=== PATIENT | male | born 1960 | race Caucasian/White ===

== ENCOUNTER → 2017-10-29 10:21 | Outpatient (CLI) | payer OTHER, SELFPAY ==
--- NOTE | 2017-10-29 10:24 | STE_ITS ---
Reason For Study: SOB Stress Results Protocol: Db Protocol Maximum Predicted HR: 166 bpm Target HR: 141 bpm% Max imum Predicted HR: 91 % DurationHeart Rate Stage (mm:ss) (bpm) BP BASELINE 85 122/78 STAGE 1 3:00 11 4 152/88 STAGE 2 3:00 12 6 178/86 STAGE 3 3:00 13 7 188/88 STAGE 4 1:00 15 1 / RECOVERY 108 142/8 0 Stress Duration: 10:00 mm:ss Maximum Stress HR: 151 bpm Baseline Echocardiogram Findings The estimated ejection fraction is 65 %. Stress Echo Wall motion Data Resting WMIntermediate WMStress WM Resting Wall Motion Wall Motion Stress No regional wall motion No regional wall motion abnormalities noted. abnormalities noted. EKG Data Normal intervals are noted. The patient exercised according to the regular Db protocol for a total duration of 10:00. The maximum heart rate attained was 150 beats per minute. This was 90% of maximum predicted heart rate. The patient exercised into stage 4 of the Db protocol. During stress, there were no ST or T wave changes noted to suggest ischemia. Interpretation Summary The study was technically difficult. Contrast injection was performed. The estimated ejection fraction is 65 %. Normal adequate dobutamine treadmill echocardiogram. Negative for ischemia by EKG and echocardiographic anterior. No anginal symptoms noted. No arrhythmias noted. Appropriate blood pressure response to exercise. Average exercise capacity for age. Test terminated due to the attainment of target heart rate. Final LVEF is 75%. Decreased sensitivity due to poor echo windows requiring Definity agent. Patient tolerated procedure well. Ordering Physician: Harpreet Lee Referring Physician: Harpreet Lee Performed By: Katlyn Waterman, RDCS, RVT
== END ==
PROVIDERS: Family Provider Family Medicine; PCP Family Medicine; Visit Provider Family Medicine
DX: R06.02 Shortness of breath (principal)
CPT/HCPCS: 93017; 93350; Q9957; A4216; C8928

== ENCOUNTER → 2017-11-14 08:31 | Outpatient (CLI) | payer OTHER, SELFPAY ==
--- NOTE | 2017-11-14 08:37 | CT_ITS ---
STUDY: CT ABDOMEN AND PELVIS WITHOUT CONTRAST REASON FOR EXAM: Male, 56 years old. Flank pain. Patient has had previous lithotripsy. The RADIATION DOSAGE (If Supplied By Facility): CTDIvol = ( 16.8 ) mGy, DLP = ( 873.22 ) mGycm TECHNIQUE: Transaxial images were obtained from the dome of the diaphragm to the symphysis pubis without oral contrast, and without intravenous contrast. Sagittal and coronal images were reconstructed. Individualized dose optimization techniques were used for this CT. COMPARISON: CT of the abdomen and pelvis dated April 20, 2016. FINDINGS: The visualized lung bases are unremarkable. The visualized portions of the heart are within normal limits. Normal liver. The gallbladder is very distended measuring approximately 14 cm in greatest dimension. There appear to be multiple calcified gallstones in the gallbladder neck. There are multiple benign calcified granulomata of the spleen. Normal pancreas. Normal bilateral adrenal glands. Normal right kidney. There are multiple left-sided renal cysts, similar to previous CTA. The largest cyst measures approximately 6.3 cm in greatest dimension. This is attenuation of approximately 0 Hounsfield units suggesting a simple cyst. There is a small nonobstructing calculus in the right renal collecting system measuring about 3 mm. There is a nonobstructing calculus in the left renal collecting system measuring about 3 mm. Normal visualized stomach. There is no evidence for dilated bowel, ascites or pneumoperitoneum. The small bowel has a grossly normal appearance. Stool is visible throughout the colon with scattered diverticula. The appendix is visualized and appears normal. There is variant anatomy in the region of the celiac axis and superior mesenteric artery. Normal inferior vena cava. Normal retroperitoneum. Normal urinary bladder. Normal visualized prostate gland. There is a small umbilical hernia containing fat. There are degenerative changes of both hips. There are subarticular erosions within the acetabulum and right femoral head. CT/Abdomen/Pelvis without Cont IMPRESSION: 1. Very distended gallbladder suggesting possible gallbladder hydrops. 2. Cholelithiasis. 3. Multiple left-sided renal cysts. 4. Bilateral nonobstructing renal calculi. Electronically Signed: Amrita Fletcher MD at 9:12 EDT , Service support ,
== END ==
PROVIDERS: Family Provider Family Medicine; PCP Family Medicine; Visit Provider Family Medicine
DX: R10.32 Left lower quadrant pain (principal)
CPT/HCPCS: 74176

== ENCOUNTER 2017-11-20 12:07 | Day surgery (SDC) | payer OTHER, SELFPAY ==
[2017-11-20] VITALS (8 sets, daily range): BP systolic 114–136; BP diastolic 73–91; PULSE 67–80; RESP 15–20; TEMP 36.1–36.8; O2SAT 91–98; BMI 33.2
--- NOTE | 2017-11-20 12:18 | EKG12_ITS ---
Test Reason : PRE-OP Blood Pressure : / mmHG Vent. Rate : 082 BPM Atrial Rate : 082 BPM P-R Int : 140 ms QRS Dur : 080 ms QT Int : 380 ms P-R-T Axes : 036 026 047 degrees QTc Int : 443 ms Normal sinus rhythm Normal ECG When compared with ECG of 16-APR-2014 05:39, No significant change was found Confirmed by MG CHANDLER, ANGELIQUE ([id number]), editor dictionary RUTH SALAS ([id number]) on 11/26/2017 9:43:46 AM Referred By: Jamie Simon Confirmed By:ANGELIQUE HOLLIDAY MD
[2017-11-20 12:37] LABS: Hematocrit 42.9 % (40-54); Hemoglobin 14.8 g/dl (13.0-16.5); Mean Corp Hgb Conc 34.5 g/gl (32-36); Mean Corpuscular Hgb 30.3 pg (27.0-32.0); Mean Corpuscular Volume 87.9 fL (80-94); Mean Platelet Vol. 10.7 fl (6.2-12.0); Platelet Count 186 K/mm3 (150-450); RBC Distribution Width CV 12.3 % (11.6-14.6); RBC Distribution Width SD 39.4 fl (35.1-43.9); Red Blood Count 4.88 M/mm3 (4.6-6.2); Scan Indicated on CBC? Y/N NO; White Blood Count 6.8 K/mm3 (4.4-11.0)
[2017-11-20 12:48] LABS: Anion Gap 7 (5-15); BUN 25 mg/dL (7-18); BUN/Creat Ratio 20.5 RATIO (10-20); Calcium,Total 8.9 mg/dL (8.5-10.1); Chloride 109 mmol/L (98-107); Creatinine, Serum 1.22 mg/dL (0.70-1.30); EST Glomerular Filtration Rate 66 mL/min (>60); Est Glom Filt Rate - Afr Amer 79 mL/min (>60); Estimated Creatinine Clearance 66.97 ml/min; Glucose 87 mg/dL (74-106); Sodium Level 141 mmol/L (136-145)
--- NOTE | 2017-11-20 14:00 | GALL_PTH ---
PATIENT: GENET COSTA [place] [facility] [id number] AGE/SX: 56/M ROOM: RE11/20/[address]: Dr. Jamie Simon MD : 1960 BED: DIS: 11/20/2017 SPEC #: [id number] RECD: 11/21/17 09:11 STATUS: SWETHA YVONNE #: [id number] AMY: 11/20/17 14:[address]: Jamie Simon DEPT: SURGICAL PATHOLOGY RECD BY: Ricky Guillermo ENTERED: 11/21/17 09:11 SP TYPE: SALAZAR SMALLWOOD DR: Dr. Harpreet Lee MD Tissues: Gallbladder, NOS Procedures: Surgery Specimen Level III HEADER OPERATION: Laparoscopic cholecystectomy PRE-OP DIAGNOSIS: Cholelithiasis TISSUE SUBMITTED: Gallbladder and contents MICROSCOPIC DIAGNOSIS Gallbladder and contents: Chronic cholecystitis and cholelithiasis. See comment. A small benign pericystic lymph node with reactive changes. SJ:lexii 11/22/17 COMMENT The epithelium is completely denuded. Gallbladder wall shows extensive fibrosis. MICROSCOPIC DESCRIPTION Slides are reviewed. GROSS DESCRIPTION Received is one container labeled with the patient's name and designated gallbladder. The specimen consists of a gallbladder measuring 10.5 x 5 x 2.5 cm. The external surface is smooth and glistening. Focally, it is granular, hemorrhagic and contains cautery artifact. The lumen of the gallbladder contains an ovoid yellow decker calculus measuring 3.5 cm in greatest dimension. The mucosa is bile-stained and without any mass lesions. The gallbladder wall averages 0.1 cm in thickness and is free of mass lesions. Hl7 Developer sections of the gallbladder and the cystic duct are submitted in one cassette. / AM:lexii 11/21/17 TC:5 CPT: 11145
--- NOTE | 2017-11-20 15:26 | RAD_ITS ---
CLINICAL HISTORY: Male, 56 years old. Gallstone. PROCEDURE: CHOLANGIOGRAM - intraoperative FLUOROSCOPY TIME (if supplied): (0:44) minutes/seconds TECHNIQUE: Single intraoperative view. FINDINGS: There is surgical instrumentation. Contrast is seen within the cystic duct. Contrast in nondilated intra and extra hepatic bile bile ducts. Contrast enters into the duodenum. RAD/Cholangiogram/ O R,Initial IMPRESSION: Intraoperative fluoroscopy. Electronically Signed: Edmundo Infante MD at 20:48 EDT , Service support ,
[2017-11-20] MEDS: Bupiv/Epi 0.5% Mpf 30 ML Vial (16:16)
--- NOTE | 2017-11-20 16:21 | PCM.DC.GB ---
Discharge Diet: Light diet - advance as tolerated Discharge Activity: Return to Normal Activity, May Not Drive - for 2-3 days or while taking narcotic pain medicataions., - - Do not drive, work heavy equipment or sign legal documents for 24 hours. May shower in (days): 1 - with the bandage in place. Lifting Restrictions: 20 lbs for 2 weeks Additional Activity Instructions:: Pain medication may cause nausea. You should typically eat light foods as you take your pain medications. Pain medication may also cause constipation. If this is a problem for you, please discuss with your doctor. Call your doctor if your incision/area has: Continuous Slow Oozing, Sudden Increased Bleeding, Increased Pain/ Swelling, Increased Redness, Foul Smelling Discharge, Fever of 101 or Higher Call your doctor if you observe: Fever of 101 or Higher Suture Line Care: Avoid Pulling/Pushing, Avoid Pinching/Bending Additional Dressing/Incision Instructions:: Leave operative bandaids on for 2 days. When you remove dressing, leave Steri-Strips on until your follow-up appointment, or until the Steri-Strips fall off on their own. Allergies/Adverse Reactions: Allergies azithromycin [From Zithromax Z-Jerzy] Adverse Reaction (Verified 11/19/17 14:27) d/t hx of a-fib Medications to take at Discharge Aspirin [Aspirin, Baby] 81 mg PO DAILY@0800 05/09/16 Esomeprazole Magnesium [Nexium 24Hr] 20 mg PO DAILY 05/09/16 Sildenafil Citrate [Viagra] 1 tab PO PRN PRN 05/09/16 lisinopril 10 mg tablet 10 mg PO QDAY 11/18/17 Diclofenac Sodium 75 mg PO DAILY 11/20/17 Oxycodone HCl/Acetaminophen [Percocet 5/325] 1 - 2 tablet PO Q4H PRN PRN 7 Days #30 tablet 11/20/17 The following prescriptions were given: Oxycodone HCl/Acetaminophen [Percocet 5/325] 1 - 2 tablet PO Q4H PRN PRN 7 Days #30 tablet PRN Reason: Pain Primary Care Physician: Harpreet Lee MD [Primary Care Provider] - Please Follow Up With: Jamie Simon MD When: call tomorrow to make 2 week appt [phone]
--- NOTE | 2017-11-20 16:28 | OP.PCM_ITS ---
Problem List (1) Cholelithiases Status: Acute Qualifiers: Cholelithiasis location: gallbladder Cholecystitis presence: without cholecystitis Biliary obstruction: without biliary obstruction Qualified Code(s): K80.20 - Calculus of gallbladder without cholecystitis without obstruction Report of Operation Date of Procedure: 11/20/17 Pre-Operative Diagnosis: Cholelithiasis and biliary colic Post-Operative Diagnosis: Same Surgery/Procedure Performed:: Laparoscopic cholecystectomy with cholangiogram Specimen's removed: Gallbladder and contents Description of Procedure: After obtaining informed consent patient was brought back to the operating room. General anesthesia was induced. The abdomen was prepped and draped in usual sterile fashion. A small midline incision was made superior to the umbilicus and deepened to the level of fascia. The fascia was elevated and incised. Next the peritoneum was elevated and incised in the same fashion. Finger sweep was performed and the Beckwith trocar was placed into the abdomen. The balloon was inflated. The abdomen was inflated to 15 mmHg. Next a camera was introduced into the abdomen and the abdomen was inspected. Next under direct visualization three 5-mm ports were placed one subxiphoid and 2 subcostal. The gallbladder was aspirated. The patient did have hydrops of the gallbladder. Next the gallbladder was elevated and retracted toward the right shoulder. The peritoneum was stripped from the gallbladder. The infundibulum was located and retracted laterally. Next the triangle of Calot was dissected and the cystic duct and cystic artery were identified. Cholangiograms were performed. The Riojas catheter was used to clamp across the infundibulum and the needle was inserted into the gallbladder. Under fluoroscopy contrast was instilled into the gallbladder and the common duct, cystic duct as well as proximal hepatic ducts were identified. There was good filling of the duodenum. There were no filling defects noted in the common bile duct. The clamp was removed as well as the needle and the infundibulum was grasped once more. Three hemolock clips were placed across the cystic duct. The cystic duct was then divided leaving 2 clips on the stump. The cystic artery was clipped and divided in the same fashion. The hook cautery was then used to take the gallbladder off of the gallbladder bed. Hemostasis was obtained. Gallbladder fossa was irrigated and no active bleeding or bile leakage was noted. Next the camera switched to a 5 mm camera and introduced in the subxiphoid port. An Endopouch bag was placed through the umbilical port and the gallbladder was placed into it. The gallbladder was then removed through the umbilical incision. The camera was then reinserted through the umbilical port. The gallbladder fossa was inspected once more and noted to be hemostatic with no leaking bile. The abdomen was suctioned dry the 5 mm ports were removed under direct visualization. The umbilical port was then removed and the air was removed from the abdomen. Next using an 0 Vicryl suture the umbilical fascia was closed in a [id number] fashion. The umbilical port site was irrigated local anesthetic was administered to all the incisions. All the incisions were closed subcuticular 4-0 Monocryl sutures followed by Steri- Strips and dressings. The patient was awoken and taken to PACU in stable condition. - Admit VTE Documentation VTE Mechan Device Prophylaxis: SCD's
[2017-11-20] MEDS: oxyCODONE 5 MG Tablet PO (18:17)
== END 2017-11-20 19:30 | disposition home or self-care (01) ==
LOC: SDC 12:07 → AC 12:09
PROVIDERS: Anesthesiology; Family Provider Family Medicine; PCP Family Medicine; Visit Provider Surgery
PROC: (CPT 47610; principal; 2017-11-20 13:40)
DX: K80.10 Calculus of gallbladder with chronic cholecystitis without obstruction (principal); K82.1 Hydrops of gallbladder; I48.91 Unspecified atrial fibrillation; I10 Essential (primary) hypertension; K21.9 Gastro-esophageal reflux disease without esophagitis; G47.30 Sleep apnea, unspecified; N28.1 Cyst of kidney, acquired; Z87.442 Personal history of urinary calculi; Z87.891 Personal history of nicotine dependence; Z79.82 Long term (current) use of aspirin; Z79.899 Other long term (current) drug therapy
CPT/HCPCS: 47563; 74300; 76000; 80048; 85027; 88304; 93005; J7120; J2405

== ENCOUNTER → 2018-03-10 09:06 | Outpatient (CLI) | payer OTHER, SELFPAY | PROVIDERS: Family Provider Family Medicine; PCP Family Medicine; Visit Provider Physician Assistant Medical | DX: I48.91 Unspecified atrial fibrillation (principal) | CPT/HCPCS: 93225; 93226 ==

== ENCOUNTER → 2018-05-31 14:53 | Outpatient (CLI) | payer OTHER, SELFPAY | PROVIDERS: Family Provider Family Medicine; PCP Family Medicine; Visit Provider Physician Assistant Medical | DX: J02.9 Acute pharyngitis, unspecified (principal) | CPT/HCPCS: 87081 ==

== ENCOUNTER → 2018-05-31 14:55 | Outpatient (CLI) | payer OTHER, SELFPAY | PROVIDERS: Family Provider Family Medicine; PCP Family Medicine; Referring Provider Physician Assistant Medical; Visit Provider Physician Assistant Medical | DX: J02.9 Acute pharyngitis, unspecified (principal) ==

== ENCOUNTER → 2018-07-23 11:55 | Outpatient (CLI) | payer OTHER, SELFPAY ==
[2018-07-17 11:35] VITALS: BMI 33.2
--- NOTE | 2018-07-23 11:58 | RAD_ITS ---
STUDY: X-RAY CHEST REASON FOR EXAM: Male, 57 years old. Preop for heart catheter TECHNIQUE: PA and lateral views of the chest. COMPARISON: 08/15/2017 FINDINGS: The lungs are clear and expanded. There is no demonstrated pleural abnormality. Normal size heart. Normal mediastinum and rubia. Normal visualized pulmonary arteries. Normal visualized aortic arch and descending thoracic aorta. Normal visualized thoracic spine. Normal visualized ribs, clavicles, and shoulders. There is no demonstrated abnormality of the visualized soft tissue structures of the upper abdomen. RAD/Chest PA and Lateral IMPRESSION: Normal x-ray examination of the chest. Electronically Signed: Jose Antonio MD at 15:23 EST , Service support ,
== END ==
PROVIDERS: Family Provider Family Medicine; PCP Family Medicine; Referring Provider Internal Medicine Cardiovascular Disease; Visit Provider Internal Medicine Cardiovascular Disease
DX: R07.9 Chest pain, unspecified (principal)
CPT/HCPCS: 71046

== ENCOUNTER 2018-07-28 09:00 | Day surgery (SDC) | payer OTHER, SELFPAY ==
[2018-07-17 11:35] VITALS: BMI 33.2
[2018-07-23 16:48] LABS: Absolute Lymphocyte Count 1.52 X10^3/ul (0.83-4.51); Absolute Neutrophil Count 4.9 X10^3/uL (2.0-7.7); Basophil# 0.06 X10^3/uL; Basophil% 0.8 % (0-1); Eosinophil# 0.25 X10^3/uL; Eosinophils% 3.4 % (0-5); Hematocrit 40.1 % (40-54); Hemoglobin 13.5 g/dl (13.0-16.5); Lymphocyte # 1.52 X10^3/ul (4.0); Lymphocyte % 20.6 % (19-41); Mean Corp Hgb Conc 33.7 g/gl (32-36); Mean Corpuscular Hgb 29.9 pg (27.0-32.0); Mean Corpuscular Volume 88.9 fL (80-94); Mean Platelet Vol. 11.2 fl (6.2-12.0); Monocyte# 0.66 X10^3/uL; Monocyte% 8.9 % (0-10); Neutrophil # 4.88 X10^3/uL (2.7-7.7); Neutrophil % 66.2 % (47-70); Platelet Count 196 K/mm3 (150-450); RBC Distribution Width CV 12.3 % (11.6-14.6); RBC Distribution Width SD 39.2 fl (35.1-43.9); Red Blood Count 4.51 M/mm3 (4.6-6.2); White Blood Count 7.4 K/mm3 (4.4-11.0)
[2018-07-23 17:00] LABS: POSITIVE COUNT NO; POSITIVE DIFFERENTIAL NO; POSITIVE MORPHOLOGY NO
[2018-07-23 17:16] LABS: Anion Gap 7 (5-15); BUN 17 mg/dL (7-18); BUN/Creat Ratio 15.9 RATIO (10-20); Calcium,Total 8.5 mg/dL (8.5-10.1); Chloride 110 mmol/L (98-107); Creatinine, Serum 1.07 mg/dL (0.70-1.30); EST Glomerular Filtration Rate 76 mL/min (>60); Est Glom Filt Rate - Afr Amer 92 mL/min (>60); Glucose 99 mg/dL (74-106); Sodium Level 143 mmol/L (136-145)
[2018-07-25 08:36] VITALS: BMI 33.2
--- NOTE | 2018-07-28 10:59 | CL.D_ITS ---
Patient Name: GENET COSTA Study Date: 07/28/2018 Performing: Ricki Smith MD Ht: 68.89 inches 175 cm : 1960 Wt: 224.87 lbs 102 kg Age: 57 Gender: male BSA: 2.17 PROCEDURE(S) PERFORMED GB02-WXS/COR/LV CLINICAL PROFILE AND INDICATIONS Indications: Cardiac Arrythmia Heart Failure: None Stress/Imaging Stress/Image Study Performed: No CAD Presentations: No Sxs, no angina. CONCLUSIONS Normal coronary arteries Normal LV size, wall motion,and systolic function RECOMMENDATIONS Medical therapy DESCRIPTION OF PROCEDURE The patient arrived to the procedure lab. The risks and benefits of the procedure as well as a full d escription of our services here and current unavailability of surgical backup were fully explained to the patient and/or their significant other prior to the catheterization. The Timeout was completed, verifying the correct patient and procedure. The patient's procedural site was prepped and draped in the usual fashion. Local anesthetic was given subcutaneously to right radial region with Lidocaine 2% . Using a modified Seldinger technique, Left Coronary Artery selective angiography was performed in multiple views using a 5 Fr. 4.0 [place] catheter. Right Coronary Artery selective angiography was the n performed in multiple views using a 5 Fr. 4.0 [place] catheter. Left Ventriculography was performed i n DE LEON projection using a 5 Fr. Pigtail catheter. LV to AO pullback pressures were then recorded.The a rterial sheath was pulled and a TR Band was applied for hemostasis CORONARY ANGIOGRAPHY DOMINANCE: Right Dominant LEFT HEART ASSESSMENT Left Ventricular Ejection Fraction: by LV Gram 60 % Normal LV wall motion Normal Left Ventricular systolic function LEFT MAIN: Angiographically normal LEFT ANTERIOR DECENDING ARTERY: Angiographically normal CIRCUMFLEX ARTERY: Angiographically normal RIGHT CORONARY ARTERY: Angiographically normal COMPLICATIONS PROCEDURE MEDICATIONS Fentanyl 50 mcg IV Versed 1 mg IV Oxygen: 2 L/min via nasal cannula Heparin diluted in 23cc Heparinized saline. Patient given 10cc IA of this solution. 07/28/2018 10:43 :44 Verapamil 2.5mg, Ntg 100mcgs, 2000 units of Heparin diluted in 23cc Heparinized saline. Patient give n 10cc IA of this solution. 07/28/2018 10:43:44 SUMMARY OF HEMODYNAMIC DATA Time AIR REST ECG 09:27:41 AO 97/71 (86) SA 10:45:39 LV 105/1, 6 10:51:32 LV 109/2, 7 10:51:39 LV 0/6, 0 10:52:43 LV 110/2, 9 10:52:49 LVp 102/0, 7 10:52:53 AOp 98/63 (81) 10:52:58 Signed By Ricki Smith MD On 07/28/2018 10:59:02 AM Ricki Smith MD
== END 2018-07-28 13:35 | disposition home or self-care (01) ==
PROVIDERS: Family Provider Family Medicine; PCP Family Medicine; Referring Provider Internal Medicine Cardiovascular Disease; Visit Provider Internal Medicine Cardiovascular Disease
DX: R07.89 Other chest pain (principal); I48.91 Unspecified atrial fibrillation; I10 Essential (primary) hypertension; K21.9 Gastro-esophageal reflux disease without esophagitis; G47.30 Sleep apnea, unspecified; Z87.442 Personal history of urinary calculi; Z90.49 Acquired absence of other specified parts of digestive tract; Z79.82 Long term (current) use of aspirin; Z79.899 Other long term (current) drug therapy; Z87.891 Personal history of nicotine dependence
CPT/HCPCS: 36415; 80048; 85025; 93458; 99152; 99153; J7040; Q9967; C1769; C1894

== ENCOUNTER → 2019-03-05 | Outpatient (CLI) | payer OTHER, SELFPAY ==
[2019-02-26 13:27] VITALS: BMI 33.2
--- NOTE | 2019-03-05 14:39 | CT_ITS ---
STUDY: CT ABDOMEN AND PELVIS WITHOUT CONTRAST REASON FOR EXAM: Male, 58 years old. Abdomen pain RADIATION DOSAGE (If Supplied By Facility): CTDIvol = ( 13.74 ) mGy, DLP = ( 708.25 ) mGycm TECHNIQUE: Transaxial images were obtained from the dome of the diaphragm to the symphysis pubis without oral contrast, and without intravenous contrast. Sagittal and coronal images were reconstructed. Individualized dose optimization techniques were used for this CT. COMPARISON: None. FINDINGS: The visualized lung bases are unremarkable. The visualized portions of the heart are within normal limits. Normal liver. There are surgical clips in the gallbladder fossa consistent with a prior cholecystectomy. Normal spleen. Normal pancreas. Normal bilateral adrenal glands. Multiple bilateral kidney stones are noted the largest measures 3 mm. There is no hydronephrosis. There are 2 cysts in the left kidney measuring respectively 7 and 4.6 cm. Normal visualized stomach. Normal small intestine. There are multiple colonic diverticula consistent with diverticulosis. The appendix is visualized and appears normal. Normal abdominal aorta. Normal inferior vena cava. Normal retroperitoneum. Normal urinary bladder. Normal abdominal wall. Normal osseous structures. CT/Abdomen/Pelvis without Cont IMPRESSION: Multiple bilateral kidney stones are noted the largest measures 3 mm. There is no hydronephrosis. Electronically Signed: Tang Pinedo, at 7:31 EDT Tel , Service support ,
== END | disposition home or self-care (01) ==
LOC: CT 14:38
PROVIDERS: Family Provider Family Medicine; PCP Family Medicine; Referring Provider Surgery; Visit Provider Surgery
DX: R10.9 Unspecified abdominal pain (principal)
CPT/HCPCS: 74176

== ENCOUNTER → 2019-06-22 14:33 | Outpatient (CLI) | payer OTHER, SELFPAY ==
[2019-04-07 09:23] VITALS: BMI 31.9
--- NOTE | 2019-06-22 14:34 | CT_ITS ---
STUDY: CTA CHEST REASON FOR EXAM: Male, 58 years old. Shortness of breath and chest pain following a long drive. RADIATION DOSAGE (If Supplied By Facility): CTDIvol = ( 18.53 ) mGy, DLP = ( 696.00 ) mGycm TECHNIQUE: The examination was performed with the intravenous administration of IV 100ML ISOVUE 370 100. Post-processing of the angiographic images was performed, with multiplanar reformation and 3D reconstruction. Individualized dose optimization techniques were used for this CT. COMPARISON: None. FINDINGS: Normal enhancement of the main pulmonary artery and right and left pulmonary arteries. Normal enhancement of the bilateral peripheral pulmonary arteries. There is no demonstrated pulmonary embolism. Normal thoracic aorta and visualized great vessels. There is no demonstrated aortic dissection. Normal heart and pericardium. Normal mediastinum. There are calcified right hilar lymph nodes. Normal visualized trachea and bronchi. The lungs are well expanded. Normal pulmonary parenchyma. Normal pleura. Normal chest wall structures. There are mild degenerative changes of thoracic spine. Stable 2 dominant cysts in the left kidney. Stable nonobstructive right intrarenal calculus. Small hiatal hernia. CT/CTA Chest W/WO Contrast IMPRESSION: No evidence of pulmonary embolism. Electronically Signed: Felipe Patel, at 15:35 EST , Service support ,
== END ==
PROVIDERS: Family Provider Family Medicine; PCP Family Medicine; Referring Provider Internal Medicine Cardiovascular Disease; Visit Provider Internal Medicine Cardiovascular Disease
DX: R06.02 Shortness of breath (principal); R07.9 Chest pain, unspecified
CPT/HCPCS: 71275; Q9967

== ENCOUNTER → 2019-09-14 15:45 | Outpatient (CLI) | payer OTHER, SELFPAY ==
[2019-04-07 09:23] VITALS: BMI 31.9
--- NOTE | 2019-09-14 15:50 | RAD_ITS ---
STUDY: X-RAY CHEST REASON FOR EXAM: Male, 58 years old. COUGH x4 WEEKS, CHEST DISCOMFORT, DYSPNEA TECHNIQUE: PA and lateral views of the chest. COMPARISON: 07/23/2018. FINDINGS: The lungs are clear and expanded. There is no demonstrated pleural abnormality. Normal size heart. Normal mediastinum and rubia. Normal visualized pulmonary arteries. Normal visualized aortic arch and descending thoracic aorta. There are diffuse degenerative changes of the visualized thoracic spine. There is degenerative osteoarthritis of the bilateral shoulders. There is no demonstrated abnormality of the visualized soft tissue structures of the upper abdomen. RAD/Chest PA and Lateral IMPRESSION: Normal x-ray examination of the chest for age. Electronically Signed: Laurie Matthews MD at 4:21 EST , Service support ,
[2019-09-14 17:38] LABS: Absolute Lymphocyte Count 1.64 X10^3/uL (0.83-4.51); Absolute Neutrophil Count 6.6 X10^3/uL (2.0-7.7); Eosinophil# 0.27 X10^3/uL; Eosinophils% 2.8 % (0-5); Hematocrit 45.6 % (40-54); Hemoglobin 15.2 g/dL (13.0-16.5); Lymphocyte # 1.64 X10^3/ul (4.0); Lymphocyte % 17.2 % (19-41); Mean Corp Hgb Conc 33.3 g/dL (32-36); Mean Corpuscular Hgb 30.1 pg (27.0-32.0); Mean Corpuscular Volume 90.3 fL (80-94); Mean Platelet Vol. 10.9 fl (6.2-12.0); Monocyte# 0.85 X10^3/uL; Monocyte% 8.9 % (0-10); NRBC Flagged by Analyzer 0 % (0-5); Neutrophil # 6.64 X10^3/uL (2.7-7.7); Neutrophil % 69.7 % (47-70); Platelet Count 222 K/mm3 (150-450); RBC Distribution Width SD 39.6 fl (35.1-43.9); Red Blood Count 5.05 M/mm3 (4.6-6.2); White Blood Count 9.5 K/mm3 (4.4-11.0)
[2019-09-14 17:46] LABS: Anion Gap 3 (5-15); BUN 19 mg/dL (7-18); BUN/Creat Ratio 15.8 RATIO (10-20); Calcium,Total 8.9 mg/dL (8.5-10.1); Chloride 111 mmol/L (98-107); EST Glomerular Filtration Rate 66 mL/min (>60); Est Glom Filt Rate - Afr Amer 80 mL/min (>60); Glucose 92 mg/dL (74-106); Potassium 3.9 mmol/L (3.5-5.1); Sodium Level 142 mmol/L (136-145)
== END ==
PROVIDERS: PCP Family Medicine; Referring Provider Family Medicine; Visit Provider Family Medicine
DX: R07.89 Other chest pain (principal)
CPT/HCPCS: 36415; 71046; 80048; 85025

== ENCOUNTER → 2019-10-16 14:40 | Outpatient (CLI) | payer OTHER, SELFPAY ==
[2019-04-07 09:23] VITALS: BMI 31.9
--- NOTE | 2019-10-16 14:46 | RAD_ITS ---
STUDY: X-RAY CHEST REASON FOR EXAM: Male, 58 years old. pneumonia TECHNIQUE: PA and lateral views of the chest. COMPARISON: 09/14/2019. FINDINGS: The lungs are clear and expanded. There is no demonstrated pleural abnormality. Normal size heart. Normal mediastinum and rubia. Normal visualized pulmonary arteries. Normal visualized aortic arch and descending thoracic aorta. Normal visualized thoracic spine. Normal visualized ribs, clavicles, and shoulders. There is no demonstrated abnormality of the visualized soft tissue structures of the upper abdomen. RAD/Chest PA and Lateral IMPRESSION: Normal x-ray examination of the chest. Electronically Signed: Laurie Matthews MD at 1:12 EST , Service support ,
== END ==
PROVIDERS: PCP Family Medicine; Referring Provider Registered Nurse; Visit Provider Registered Nurse
DX: J18.9 Pneumonia, unspecified organism (principal)
CPT/HCPCS: 71046

== ENCOUNTER → 2020-03-14 07:04 | Outpatient (CLI) | payer OTHER, SELFPAY ==
[2019-04-07 09:23] VITALS: BMI 31.9
[2020-03-14 10:06] LABS: Anion Gap 6 (5-15); BUN 26 mg/dL (7-18); BUN/Creat Ratio 22.6 RATIO (10-20); Calcium,Total 8.7 mg/dL (8.5-10.1); Chloride 105 mmol/L (98-107); Cholesterol 221 mg/dL (200); Creatinine, Serum 1.15 mg/dL (0.70-1.30); EST Glomerular Filtration Rate 70 mL/min (>60); Est Glom Filt Rate - Afr Amer 84 mL/min (>60); Glucose 83 mg/dL (74-106); High Density Lipoprotein 42 mg/dL; PSA,Total - Annual Screen 0.42 ng/mL (0.00-4.00); Potassium 3.7 mmol/L (3.5-5.1); Sodium Level 139 mmol/L (136-145); Triglycerides 100 mg/dL; Very Low Density Lipoprotein 20 mg/dL (5-40)
[2020-03-14 10:15] LABS: Vitamin D,25 Hydroxy 32.1 ng/mL
== END ==
PROVIDERS: PCP Family Medicine; Referring Provider Family Medicine; Visit Provider Family Medicine
DX: Z00.00 Encounter for general adult medical examination without abnormal findings (principal)
CPT/HCPCS: 36415; 80048; 80061; 82306; 84153; G0103

== ENCOUNTER 2020-03-22 01:44 | Emergency (ER) | payer OTHER, SELFPAY ==
[2019-04-07 09:23] VITALS: BMI 31.9
[2020-03-22 01:45] VITALS: BP 146/97; PULSE 80; RESP 18; TEMP 36.4; O2SAT 98; BMI 32.5
--- NOTE | 2020-03-22 01:50 | ED.VIS.GEN ---
History of Present Illness Chief Complaint: Flank Pain Informant: Patient Narrative: 59-year-old male presenting with right flank pain. He states that it is in the lower right flank and radiates around to the groin. He states he has a history of kidney stones and this feels similar. He states he tried taking a muscle relaxer at 8:00 but that did not help. At 9 PM he took an Ambien and he still could not sleep. Dates that he has not been vomiting this time but he has severe pain. No jazmín hematuria is noted. Fever or chills. Past Medical History - Allergies and Home Meds Allergies/Adverse Reactions: Allergies azithromycin [From Zithromax Z-Jerzy] Adverse Reaction (Verified 03/22/20 01:50) d/t hx of a-fib Primary Care Physician: Harpreet Lee MD [Primary Care Provider] - Prior records reviewed: Yes Surgical History: - - ablation Lives: With Family Smoking Status: Former smoker Review of Systems General: Denies: Chills, Fever Eyes: Denies: Visual changes - bilaterally, Diplopia ENT: Denies: Rhinorrhea, Sore throat Cardiovascular: Denies: Chest pain, Palpitations Respiratory: Denies: Dyspnea, Cough, Dyspnea on exertion Gastrointestinal: Reports: Abdominal pain - Flank pain and right lower abdominal pain. Denies: Nausea, Vomiting Musculoskeletal: Reports: Back pain - Right flank pain. Denies: Myalgias, Arthralgias Skin: Denies: Rash Neurological: Denies: Headache Physical Exam Vital Signs/Narrative: Vital Signs Temp Pulse Resp BP Pulse Ox 03/22/20 01:45 97.6 F L 80 18 146/97 H 98 Inital Vital Signs reviewed: Yes General: Well nourished, No Acute Distress Head: Normocephalic Eyes: Perrl ENT: Moist mucous membranes Cardiovascular: Regular rate, Regular rhythm Respiratory: No distress Abdomen: Soft, Nondistended, - - Right-sided abdominal pain Back: CVA tenderness - Right Extremities: Negative for: Nontender Skin: Normal color Neurological: Alert, Oriented x3 Psychological: Normal affect Diagnostic/Tx/Re-eval Clinical Impression(s) from Imaging Studies Abdomen/Pelvis CT 03/22/20 01:51 IMPRESSION: 1. 3 mm proximal to mid right ureteral calculus resulting in mild proximal right-sided hydroureter nephrosis. 2. Additional nonobstructing right renal calculi measuring up to 4 mm. 3. Simple appearing left renal cysts. 4. Mild sigmoid colonic diverticulosis with no evidence of acute diverticulitis. 5. Small fat-containing umbilical hernia without bowel involvement. Electronically Signed: Ricky Ferrari MD at 2:50 EDT Tel , Service support , Laboratory Data 03/22/20 03/22/20 03/22/20 01:50 01:50 03:00 WBC 6.9 RBC 4.57 L Hgb 13.7 Hct 40.9 MCV 89.5 MCH 30.0 MCHC 33.5 RDW Std Deviation 39.7 RDW Coeff of Gene 12.1 Plt Count 187 MPV 11.0 Immature Gran % (Auto) 0.300 Neut % (Auto) 65.5 Lymph % (Auto) 21.0 [place] % (Auto) 8.1 Eos % (Auto) 3.8 Baso % (Auto) 1.3 H Absolute Neuts (auto) 4.5 Absolute Lymphs (auto) 1.45 Nucleated RBC % 0 Sodium 143 Potassium 3.8 Chloride 112 H Carbon Dioxide 25.0 Anion Gap 6 BUN 20 H Creatinine 1.40 H Estim Creat Clear Calc 56.32 Est GFR (MDRD) Af Amer 67 Est GFR (MDRD) Non-Af 56 L BUN/Creatinine Ratio 14.3 Glucose 118 H Calcium 8.6 Urine Color Yellow Urine Clarity Clear Urine pH 6.0 Ur Specific [place] 1.020 Urine Protein Negative Urine Glucose (UA) Normal Urine Ketones Negative Urine Occult Blood 250 H Urine Nitrite Negative Urine Bilirubin Negative Urine Urobilinogen Normal Ur Leukocyte Esterase Negative - Medical Decision Making Patient presents with flank pain consistent with previous kidney stones. He does have CVA tenderness on the right as well as a benign abdomen. Urinalysis shows blood without infection. CBC is unremarkable. BMP shows that the patient is slightly dehydrated. He was given a liter of IV fluids. He is given morphine and Toradol for pain. States he has a history of passing stones spontaneously as well as needing procedures so I did obtain a CT abdomen pelvis without contrast. This shows a 3 mm right ureteral stone. I believe this is likely going to pass given its size. Patient will be given Percocet and Zofran for home. He is counseled if he has worsening symptoms or intractable pain he should return to the ED for repeat evaluation. Patient amenable to discharge plan. He was given follow-up with urology. Impression: #1 Right ureteral stone 3 mm #2 Right flank pain #3 Hematuria ED Disposition - Plan for ED Patient: Disposition: Home or Assisted Living Instructions: ED Renal Stone w Colic Prescriptions: Ondansetron [Ondansetron Odt] 4 mg PO Q8H PRN PRN #14 tab.rapdis PRN Reason: Nausea/Vomiting Prescription Printed Oxycodone HCl/Acetaminophen [Percocet 5/325] 1 tab PO Q6H PRN PRN 3 Days #12 tab PRN Reason: Pain Prescription Printed Referrals: Harpreet Lee MD [Primary Care Provider] - Solitario Solano MD [STAFF PHYSICIAN] - As soon as possible
--- NOTE | 2020-03-22 01:51 | CT_ITS ---
STUDY: CT ABDOMEN AND PELVIS WITHOUT CONTRAST REASON FOR EXAM: Male, 59 years old. Bilateral flank pain RADIATION DOSAGE (If Supplied By Facility): CTDIvol = ( 14.33 ) mGy, DLP = ( 834.20 ) mGycm TECHNIQUE: Transaxial images were obtained from the dome of the diaphragm to the symphysis pubis without oral contrast, and without intravenous contrast. Sagittal and coronal images were reconstructed. Individualized dose optimization techniques were used for this CT. COMPARISON: None. FINDINGS: The visualized lung bases are unremarkable. The visualized portions of the heart are within normal limits. Normal liver. Gallbladder is surgically absent. No biliary duct dilatation. Normal spleen. Normal pancreas. Normal bilateral adrenal glands. Hypoattenuated lesions within the left kidney measuring near water density. Calcifications within the right renal pelvis measuring up to 4 mm. Mild right-sided hydronephrosis and proximal hydroureter 3 mm calculus within the proximal to mid right ureter. Normal left ureter. Normal visualized stomach. Normal small intestine. Mild diverticular disease of the sigmoid colon without localized inflammation. The appendix is visualized and appears normal. Normal abdominal aorta. Normal inferior vena cava. Normal retroperitoneum. Normal urinary bladder. Small fat-containing umbilical hernia with no bowel involvement. Mild multilevel degenerative change of the spine. CT/Abdomen/Pelvis without Cont IMPRESSION: 1. 3 mm proximal to mid right ureteral calculus resulting in mild proximal right-sided hydroureter nephrosis. 2. Additional nonobstructing right renal calculi measuring up to 4 mm. 3. Simple appearing left renal cysts. 4. Mild sigmoid colonic diverticulosis with no evidence of acute diverticulitis. 5. Small fat-containing umbilical hernia without bowel involvement. Electronically Signed: Ricky Ferrari MD at 2:50 EDT Tel , Service support ,
[2020-03-22] MEDS: Ondansetron 4 MG/2 ML Vial IV (01:55)
[2020-03-22] MEDS: Morphine 4 MG/ML Syringe IV ×2 (01:56→03:20)
[2020-03-22 01:58] LABS: Absolute Lymphocyte Count 1.45 X10^3/uL (0.83-4.51); Absolute Neutrophil Count 4.5 X10^3/uL (2.0-7.7); Basophil# 0.09 X10^3/uL; Basophil% 1.3 % (0-1); Eosinophil# 0.26 X10^3/uL; Eosinophils% 3.8 % (0-5); Hematocrit 40.9 % (40-54); Hemoglobin 13.7 g/dL (13.0-16.5); Lymphocyte # 1.45 X10^3/ul (4.0); Mean Corp Hgb Conc 33.5 g/dL (32-36); Mean Corpuscular Volume 89.5 fL (80-94); Monocyte# 0.56 X10^3/uL; Monocyte% 8.1 % (0-10); NRBC Flagged by Analyzer 0 % (0-5); Neutrophil # 4.53 X10^3/uL (2.7-7.7); Neutrophil % 65.5 % (47-70); Platelet Count 187 K/mm3 (150-450); RBC Distribution Width CV 12.1 % (11.6-14.6); RBC Distribution Width SD 39.7 fl (35.1-43.9); Red Blood Count 4.57 M/mm3 (4.6-6.2); White Blood Count 6.9 K/mm3 (4.4-11.0)
[2020-03-22] MEDS: Ketorolac 30 MG/ML Syringe IV (01:58)
[2020-03-22 02:10] LABS: Anion Gap 6 (5-15); BUN 20 mg/dL (7-18); BUN/Creat Ratio 14.3 RATIO (10-20); Calcium,Total 8.6 mg/dL (8.5-10.1); Chloride 112 mmol/L (98-107); EST Glomerular Filtration Rate 56 mL/min (>60); Est Glom Filt Rate - Afr Amer 67 mL/min (>60); Estimated Creatinine Clearance 56.32 ml/min; Glucose 118 mg/dL (74-106); Potassium 3.8 mmol/L (3.5-5.1); Sodium Level 143 mmol/L (136-145)
[2020-03-22] MEDS: 0.9% Normal Saline 1,000 ML 999 ML IV (02:27)
[2020-03-22 03:08] LABS: Bacteria 0 SEEN /hpf (None Seen); Mucous, Urine 0 SEEN /hpf (<or=2+); Squamous Epithelial Cells - UA 0 SEEN /hpf (0-5); White Blood Cells 0 SEEN /hpf (0-5)
[2020-03-22 03:16] LABS: Color, Urine Yellow (Yellow); Glucose, Dipstick Normal (Normal); Ketone-Dipstick Negative (Negative); Leukocyte Esterase-Dipstick Negative /ul (Negative); Nitrite-Dipstick Negative (Negative); Occult Blood-Urine 250 /ul (Negative); Protein-Dipstick Negative (Negative); Urine Bilirubin Dipstick Negative (Negative); Urine Clarity Clear (Clear); Urine Urobilinogen Normal (Normal)
[2020-03-22 03:37] LABS: Red Blood Cells-Urine 10-25 SEEN /hpf (0-5)
[2020-03-22] MEDS: oxyCODONE 5 MG Tablet PO (03:46)
[2020-03-22 03:50] VITALS: PULSE 82; RESP 16; O2SAT 98
== END 2020-03-22 03:51 | disposition home or self-care (01) ==
PROVIDERS: Emergency Provider Student in an Organized Health Care Education/Training Program; PCP Family Medicine
DX: N20.2 Calculus of kidney with calculus of ureter (principal); Z87.442 Personal history of urinary calculi; Z87.891 Personal history of nicotine dependence
CPT/HCPCS: 74176; 80048; 81001; 85025; 96361; 96374; 96375; 96376; 99283; J7030; A4216; J2405

== ENCOUNTER → 2020-04-08 09:23 | Outpatient (CLI) | payer OTHER, SELFPAY ==
[2020-04-07 08:51] VITALS: BMI 32.1
--- NOTE | 2020-04-08 09:25 | RAD_ITS ---
STUDY: X-RAY CHEST REASON FOR EXAM: Male, 59 years old. SOB, DIFFICULTY BREATHING TECHNIQUE: Frontal and lateral views COMPARISON: 10/16/2019 FINDINGS: The lungs are expanded. Stable right upper lobe granuloma. Normal size heart. Normal mediastinum. Right hilar calcifications.. Normal visualized pulmonary arteries. Normal visualized aortic arch and descending thoracic aorta. Mild degenerative changes of the thoracic spine. Normal visualized ribs, clavicles, and shoulders. There is no demonstrated abnormality of the visualized soft tissue structures of the upper abdomen. RAD/Chest PA and Lateral IMPRESSION: No acute pulmonary pathology of the chest. Electronically Signed: Jeison Platt DO at 18:05 EDT Tel [phone], Service support ,
== END ==
PROVIDERS: Visit Provider Internal Medicine Pulmonary Disease
DX: R05 Cough (principal)
CPT/HCPCS: 71046

== ENCOUNTER 2020-10-24 16:12 | Emergency (ER) | payer OTHER, SELFPAY ==
[2020-04-16 13:18] VITALS: BMI 32.1
[2020-10-24 16:14] VITALS: BP 142/103; PULSE 89; RESP 17; TEMP 36.3; O2SAT 96; BMI 33.5
--- NOTE | 2020-10-24 16:37 | ED.VIS.GEN ---
History of Present Illness Chief Complaint: Abd Pain Narrative: 59-year-old male presenting with left upper abdominal pain. He states it started a couple of days ago and has been intermittent. Patient describes it as sharp. Today he was having associated nausea with it. He is currently pain-free and nausea free. Patient has history of kidney stones however he states that usually has pain in the back. He denies hematuria or dysuria. Patient denies constipation or diarrhea. - Past Medical History (1) Asthma Status: Chronic (2) Paroxysmal atrial fibrillation Status: Chronic Comment: RFA 2012 (3) Essential (primary) hypertension Status: Chronic Past Medical History - Allergies and Home Meds Allergies/Adverse Reactions: Allergies azithromycin [From Zithromax Z-Jerzy] Adverse Reaction (Verified 04/16/20 13:12) d/t hx of a-fib Primary Care Physician: Harpreet Lee MD [Primary Care Provider] - Prior records reviewed: Yes Past Medical History: - - Reviewed in problem list Surgical History: - - ablation, cholecystectomy Lives: Spouse/ Significant Other Smoking Status: Former smoker Alcohol: Occasional Drugs: None Review of Systems General: Denies: Chills, Fever, Sweats Eyes: Denies: Visual changes - bilaterally, Diplopia ENT: Denies: Rhinorrhea, Sore throat Cardiovascular: Denies: Chest pain, Palpitations Respiratory: Denies: Dyspnea, Cough, Dyspnea on exertion Gastrointestinal: Reports: Abdominal pain, Nausea. Denies: Diarrhea, Constipation Genitourinary: Denies: Dysuria, Hematuria Musculoskeletal: Denies: Myalgias, Arthralgias Skin: Denies: Rash, Abscess Neurological: Denies: Headache, Weakness, Parasthesia Psych: Denies: Depression, Anxiety Physical Exam Vital Signs/Narrative: Vital Signs Temp Pulse Resp BP Pulse Ox 10/24/20 16:14 97.4 F L 89 17 142/103 H 96 Inital Vital Signs reviewed: Yes General: Obese, No Acute Distress Head: Normocephalic, Atraumatic Eyes: Perrl, EOMI ENT: Moist mucous membranes, Sinus tenderness Cardiovascular: Regular rate, Regular rhythm Respiratory: No distress, CTA bilaterally Abdomen: Soft, Nondistended, Tender - To palpation left upper quadrant., Hypoactive bowel sounds Back: Nontender. Negative for: CVA tenderness Extremities: Nontender, No edema Skin: Normal color, No rash. Negative for: Cyanosis, Diaphoresis, Jaundice Neurological: Alert, Oriented x3, Cranial nerves II-XII grossly intact Psychological: Normal affect Diagnostic/Tx/Re-eval Clinical Impression(s) from Imaging Studies Abdomen/Pelvis CT 10/24/20 18:01 IMPRESSION: No suspicious solid organ abnormality, stable simple left renal cysts, and nonobstructing right nephrolithiasis. No specific follow-up needed No CT evidence of an acute inflammatory process, normal appendix visualized No free intraperitoneal fluid, air, or suspicious adenopathy Electronically Signed: Jose Antonio MD at 18:39 EST , Service support , Laboratory Data 10/24/20 10/24/20 10/24/20 16:45 16:45 16:56 WBC 6.4 RBC 4.45 L Hgb 13.6 Hct 40.4 MCV 90.8 MCH 30.6 MCHC 33.7 RDW Std Deviation 40.3 RDW Coeff of Gene 12.1 Plt Count 175 MPV 10.7 Immature Gran % (Auto) 0.300 Neut % (Auto) 72.4 H Lymph % (Auto) 17.2 L [place] % (Auto) 7.2 Eos % (Auto) 2.0 Baso % (Auto) 0.9 Absolute Neuts (auto) 4.6 Absolute Lymphs (auto) 1.10 Nucleated RBC % 0 Sodium 140 Potassium 3.7 Chloride 107 Carbon Dioxide 27.0 Anion Gap 6 BUN 25 H Creatinine 1.23 Estim Creat Clear Calc 64.11 Est GFR (MDRD) Af Amer 78 Est GFR (MDRD) Non-Af 64 BUN/Creatinine Ratio 20.3 H Glucose 103 Calcium 8.9 Total Bilirubin 0.30 AST 29 ALT 74 H Alkaline Phosphatase 84 Total Protein 6.7 Albumin 3.8 Globulin 2.9 Albumin/Globulin Ratio 1.3 Lipase 152 Urine Color Yellow Urine Clarity Clear Urine pH 6.0 Ur Specific [place] 1.015 Urine Protein Negative Urine Glucose (UA) Normal Urine Ketones Negative Urine Occult Blood Negative Urine Nitrite Negative Urine Bilirubin Negative Urine Urobilinogen Normal Ur Leukocyte Esterase Negative Urine RBC 0 SEEN Urine WBC 0 SEEN Ur Squamous Epith Cells 0 SEEN Urine Bacteria 0 SEEN Urine Mucus 0 SEEN - Medical Decision Making 59-year-old male presenting with left upper quadrant pain. States he had some mild nausea earlier but that is gone now. He is now pain-free. He denies constipation or diarrhea. Lab work was unremarkable. Urinalysis was negative. Patient had CT of the abdomen pelvis with IV contrast which identified no acute intra-abdominal pathology. Patient counseled on findings. He is given return precautions. Stable for discharge home at this time. Impression: 1. Abdominal pain ED Disposition - Plan for ED Patient: Disposition: Home or Assisted Living Instructions: ED Unknown Causes of Abdominal ... Referrals: Harpreet Lee MD [Primary Care Provider] -
[2020-10-24 17:01] LABS: Bacteria 0 SEEN /hpf (None Seen); Mucous, Urine 0 SEEN /hpf (<or=2+); Red Blood Cells-Urine 0 SEEN /hpf (0-5); Squamous Epithelial Cells - UA 0 SEEN /hpf (0-5); White Blood Cells 0 SEEN /hpf (0-5)
[2020-10-24 17:02] LABS: Absolute Neutrophil Count 4.6 X10^3/uL (2.0-7.7); Basophil# 0.06 X10^3/uL; Basophil% 0.9 % (0-1); Eosinophil# 0.13 X10^3/uL; Hematocrit 40.4 % (40-54); Hemoglobin 13.6 g/dL (13.0-16.5); Lymphocyte % 17.2 % (19-41); Mean Corp Hgb Conc 33.7 g/dL (32-36); Mean Corpuscular Hgb 30.6 pg (27.0-32.0); Mean Corpuscular Volume 90.8 fL (80-94); Mean Platelet Vol. 10.7 fl (6.2-12.0); Monocyte# 0.46 X10^3/uL; Monocyte% 7.2 % (0-10); NRBC Flagged by Analyzer 0 % (0-5); Neutrophil # 4.63 X10^3/uL (2.7-7.7); Neutrophil % 72.4 % (47-70); Platelet Count 175 K/mm3 (150-450); RBC Distribution Width CV 12.1 % (11.6-14.6); RBC Distribution Width SD 40.3 fl (35.1-43.9); Red Blood Count 4.45 M/mm3 (4.6-6.2); White Blood Count 6.4 K/mm3 (4.4-11.0)
[2020-10-24 17:06] LABS: Color, Urine Yellow (Yellow); Glucose, Dipstick Normal (Normal); Ketone-Dipstick Negative (Negative); Leukocyte Esterase-Dipstick Negative /ul (Negative); Nitrite-Dipstick Negative (Negative); Occult Blood-Urine Negative /ul (Negative); Protein-Dipstick Negative (Negative); Specific Gravity, Urine 1.015 (1.002-1.030); Urine Bilirubin Dipstick Negative (Negative); Urine Clarity Clear (Clear); Urine Urobilinogen Normal (Normal)
[2020-10-24 17:25] LABS: ALB/GLOB Ratio 1.3 RATIO (0.9-2.4); AST(SGOT) 29 U/L (15-37); Alanine Aminotransfer ALT/SGPT 74 U/L (16-61); Albumin, Serum 3.8 g/dL (3.2-5.0); Alkaline Phosphatase 84 U/L (45-117); Anion Gap 6 (5-15); BUN 25 mg/dL (7-18); BUN/Creat Ratio 20.3 RATIO (10-20); Calcium,Total 8.9 mg/dL (8.5-10.1); Chloride 107 mmol/L (98-107); Creatinine, Serum 1.23 mg/dL (0.70-1.30); EST Glomerular Filtration Rate 64 mL/min (>60); Est Glom Filt Rate - Afr Amer 78 mL/min (>60); Estimated Creatinine Clearance 64.11 ml/min; Globulin 2.9 g/dL (2.2-4.2); Glucose 103 mg/dL (74-106); Lipase 152 U/L (73-393); Potassium 3.7 mmol/L (3.5-5.1); Protein, Total 6.7 g/dL (6.4-8.2); Sodium Level 140 mmol/L (136-145)
--- NOTE | 2020-10-24 18:01 | CT_ITS ---
STUDY: CT ABDOMEN AND PELVIS WITH CONTRAST REASON FOR EXAM: Male, 59 years old. LUQ pain RADIATION DOSAGE (If Supplied By Facility): CTDIvol = ( 15.70 ) mGy, DLP = ( 1150.53 ) mGycm TECHNIQUE: Transaxial images were obtained from the dome of the diaphragm to the symphysis pubis without oral contrast. IV 100mL Isovue-370 was administered. Sagittal and coronal images were reconstructed. Individualized dose optimization techniques were used for this CT. COMPARISON: 03/22/2020 FINDINGS: The visualized lung bases are unremarkable. The visualized portions of the heart are within normal limits. Normal liver. There is non-visualization of the gallbladder, which may be secondary to either contraction or a prior cholecystectomy. Normal spleen. Normal pancreas. Normal bilateral adrenal glands. No obstructive uropathy, stable left renal cysts. Stable nonobstructing right nephrolithiasis Normal visualized stomach. Normal small intestine. There are multiple colonic diverticula consistent with diverticulosis. The appendix is visualized and appears normal. Appendix best seen on coronal recon image 73 Normal abdominal aorta. Normal inferior vena cava. Normal retroperitoneum. Normal urinary bladder. Normal abdominal wall. Normal osseous structures. CT/Abdomen/Pelvis W IV Cont ONLY IMPRESSION: No suspicious solid organ abnormality, stable simple left renal cysts, and nonobstructing right nephrolithiasis. No specific follow-up needed No CT evidence of an acute inflammatory process, normal appendix visualized No free intraperitoneal fluid, air, or suspicious adenopathy Electronically Signed: Jose Antonio MD at 18:39 EST , Service support ,
[2020-10-24 19:15] VITALS: BP 142/96; PULSE 83; RESP 16; O2SAT 97
== END 2020-10-24 19:16 | disposition home or self-care (01) ==
PROVIDERS: Emergency Provider Student in an Organized Health Care Education/Training Program; PCP Family Medicine
DX: R10.12 Left upper quadrant pain (principal); R11.0 Nausea; I10 Essential (primary) hypertension; I48.0 Paroxysmal atrial fibrillation; J45.909 Unspecified asthma, uncomplicated; Z87.442 Personal history of urinary calculi; Z90.49 Acquired absence of other specified parts of digestive tract; Z79.82 Long term (current) use of aspirin; Z87.891 Personal history of nicotine dependence
CPT/HCPCS: 74177; 80053; 81001; 83690; 85025; 99283; Q9967; A4216

== ENCOUNTER → 2021-02-24 10:32 | Outpatient (CLI) | payer OTHER, SELFPAY ==
--- NOTE | 2021-02-24 10:41 | EKG12_ITS ---
Test Reason : PREOP Blood Pressure : / mmHG Vent. Rate : 087 BPM Atrial Rate : 087 BPM P-R Int : 148 ms QRS Dur : 082 ms QT Int : 360 ms P-R-T Axes : 075 043 055 degrees QTc Int : 433 ms Poor data quality, interpretation may be adversely affected Normal sinus rhythm Normal ECG Confirmed by MG CHANDLER, ANGELIQUE ([id number]), acquisition editor ABIGAIL COULTER ([id number]) on 02/27/2021 12:44:53 PM Referred By: Ru Andres Confirmed By:ANGELIQUE HOLLIDAY MD
--- NOTE | 2021-02-24 10:47 | RAD_ITS ---
STUDY: X-RAY CHEST REASON FOR EXAM: Male, 60 years old. PRE OP TECHNIQUE: PA and lateral views of the chest. COMPARISON: Comparison is made with prior examination dated 04/08/2020. FINDINGS: The lungs are clear and expanded. Scattered calcified granulomas. There is no demonstrated pleural abnormality. Normal size heart. Calcified right hilar lymph nodes. Normal visualized pulmonary arteries. Normal visualized aortic arch and descending thoracic aorta. There are diffuse degenerative changes of the visualized thoracic spine. Normal visualized ribs, clavicles, and shoulders. There is no demonstrated abnormality of the visualized soft tissue structures of the upper abdomen. RAD/Chest PA and Lateral IMPRESSION: Scattered calcified granulomas. No acute abnormality is seen. Electronically Signed: Felipe Patel MD at 14:58 EDT , Service support ,
[2021-02-24 11:27] LABS: Hematocrit 44.1 % (40-54); Hemoglobin 14.9 g/dL (13.0-16.5); Mean Corp Hgb Conc 33.8 g/dL (32-36); Mean Corpuscular Volume 88.7 fL (80-94); Mean Platelet Vol. 10.8 fl (6.2-12.0); Platelet Count 196 K/mm3 (150-450); RBC Distribution Width CV 12.2 % (11.6-14.6); RBC Distribution Width SD 39.8 fl (35.1-43.9); Red Blood Count 4.97 M/mm3 (4.6-6.2); White Blood Count 6.5 K/mm3 (4.4-11.0)
[2021-02-24 11:33] LABS: Partial Thromboplast Time 30.1 Seconds (24.1-36.2); Prothrombin Time (Protime)PT. 12.8 SECONDS (11.7-14.9)
[2021-02-24 11:45] LABS: Hemoglobin A1c 5.5 % (3.8-5.6)
[2021-02-24 12:07] LABS: Anion Gap 6 (5-15); BUN 19 mg/dL (7-18); Chloride 109 mmol/L (98-107); Creatinine, Serum 1.19 mg/dL (0.70-1.30); EST Glomerular Filtration Rate 67 mL/min (>60); Est Glom Filt Rate - Afr Amer 81 mL/min (>60); Glucose 97 mg/dL (74-106); Sodium Level 139 mmol/L (136-145)
== END ==
PROVIDERS: PCP Family Medicine; Referring Provider Orthopaedic Surgery; Visit Provider Orthopaedic Surgery
DX: Z01.810 Encounter for preprocedural cardiovascular examination (principal); Z01.818 Encounter for other preprocedural examination; Z01.811 Encounter for preprocedural respiratory examination
CPT/HCPCS: 36415; 71046; 80048; 83036; 85027; 85610; 85730; 93005

== ENCOUNTER → 2021-05-29 | Outpatient (CLI) | payer OTHER, SELFPAY | END | disposition home or self-care (01) | PROVIDERS: PCP Family Medicine; Visit Provider Physician Assistant | DX: Z11.52 Encounter for screening for COVID-19 (principal) | CPT/HCPCS: 87635; U0005; U0003 ==

== ENCOUNTER → 2021-05-31 | Outpatient (CLI) | payer OTHER, SELFPAY | END | disposition home or self-care (01) | LOC: LABSPEC 13:09 | PROVIDERS: PCP Family Medicine; Referring Provider Physician Assistant; Visit Provider Physician Assistant | DX: U07.1 COVID-19 (principal); R05.9 Cough, unspecified; R68.83 Chills (without fever) | CPT/HCPCS: 87635; U0005; U0003 ==

== ENCOUNTER 2021-06-09 11:23 | Emergency (ER) | payer OTHER, SELFPAY ==
[2021-06-09 11:24] VITALS: BP 143/91; PULSE 106; RESP 24; TEMP 36.3; O2SAT 94; BMI 33.1
--- NOTE | 2021-06-09 11:35 | CT_ITS ---
STUDY: CTA CHEST REASON FOR EXAM: Male, 60 years old. Sob RADIATION DOSAGE (If Supplied By Facility): CTDIvol = ( 13.77 ) mGy, DLP = ( 562.46 ) mGycm TECHNIQUE: The examination was performed with the intravenous administration of IV 100mL Isovue-370. Post-processing of the angiographic images was performed, with multiplanar reformation and 3D reconstruction. Individualized dose optimization techniques were used for this CT. COMPARISON: Comparison is made with prior study dated 06/22/2019. FINDINGS: Small benign-appearing bilateral axillary lymph nodes. Nonocclusive intraluminal filling defects are seen in branches of the upper lobe pulmonary arteries. Nonocclusive intraluminal filling defects are also seen in branches of the lower pulmonary arteries. Normal thoracic aorta and visualized great vessels. There is no demonstrated aortic dissection. Normal heart and pericardium. There are visualized mediastinal lymph nodes, which are within normal size limits, and with normal morphology. Normal hilar regions. Normal visualized trachea and bronchi. The lungs are well expanded. There is evidence of bilateral pulmonary infiltrates in the preferential peripheral distribution involving both lungs worse in the right hemithorax. This is suggestive of a pneumonitis associated with Covi Normal pleura. Normal chest wall structures. There are degenerative changes of thoracic spine. There is a 4.5 cm x 3.6 m cyst in the upper pole of the left kidney. The patient is status post cholecystectomy. CT/CTA Chest W/WO Contrast IMPRESSION: Nonocclusive pulmonary arterial defects with pulmonary emboli. Bilateral pulmonary infiltrates in the preferential peripheral distribution suggestive of Covid pneumonitis. Electronically Signed: Felpie Patel MD at 13:10 EDT , Service support ,
--- NOTE | 2021-06-09 11:35 | EKG12_ITS ---
Test Reason : SOB Blood Pressure : / mmHG Vent. Rate : 104 BPM Atrial Rate : 104 BPM P-R Int : 156 ms QRS Dur : 086 ms QT Int : 348 ms P-R-T Axes : 047 018 066 degrees QTc Int : 457 ms Sinus tachycardia Otherwise normal ECG Confirmed by MG CHANDLER, ANGELIQUE ([id number]), magazine editor ABIGAIL COULTER ([id number]) on 06/13/2021 10:36:35 AM Referred By: BECKA Confirmed By:ANGELIQUE HOLLIDAY MD
[2021-06-09 11:37] VITALS: O2SAT 95
--- NOTE | 2021-06-09 11:40 | EX.ED.DYSGE1 ---
HPI History of Present Illness Chief Complaint: Shortness of Breath Informant: patient Onset/Context/Timing Onset: Days Context: Gradual Onset Current Severity: Moderate Maximum Severity: Severe Narrative Narrative: Patient presents secondary to increased shortness of breath. Patient had a positive Covid test on May 31. He had some mild sinus congestion and had a known exposure to Covid at that time. A day or 2 later he started developing significant symptoms including cough and shortness of breath. He describes a burning sensation across his chest. He has had chills. Patient states the last 2 nights he had difficulty sleeping secondary to increased shortness of breath. [facility] Medical History (Updated 06/09/21 @ 15:[address] Nidia Smith MD) Asthma Essential (primary) hypertension Fatigue GERD (gastroesophageal reflux disease) Obesity (BMI 30.0-34.9) Obstructive sleep apnea Paroxysmal atrial fibrillation Renal calculi SOB (shortness of breath) Home Medications aspirin 81 mg PO DAILY@0800 05/09/16 [History Last Taken 07/28/18] flecainide 100 mg tablet 100 mg PO Q12H #60 tab 08/17/20 [Rx Last Taken Unknown] albuterol sulfate 90 mcg/actuation aerosol inhaler 2 puff INHALATION Q6H PRN #8.5 g 05/31/21 [Rx Last Taken Unknown] amoxicillin-pot clavulanate 1 tab PO BID 06/09/21 [History Last Taken Unknown] apixaban [Eliquis] 5 mg PO BID #74 tab 06/09/21 [Rx Last Taken Unknown] cyclobenzaprine 10 mg PO PRN PRN 06/09/21 [History Last Taken Unknown] esomeprazole magnesium [Nexium] 40 mg PO DAILY 06/09/21 [History Last Taken Unknown] gabapentin 100 mg PO TID 06/09/21 [History Last Taken Unknown] hydrocodone-homatropine [Hycodan] 5 ml PO Q6H PRN 5 Days #100 ml 06/09/21 [Rx Last Taken Unknown] lisinopril 10 mg PO DAILY 06/09/21 [History Last Taken Unknown] Allergy/AdvReac Type Severity Reaction Status Date / Time azithromycin AdvReac d/t hx of Verified 06/09/21 11:26 [From Zithromax Z-Jerzy] a-fib Family History Mother Diabetes Hypertension High cholesterol Father Hypertension Other Heart disease Surgical History History of cholecystectomy History of colonoscopy History of esophagogastroduodenoscopy (EGD) History of left heart catheterization (07/28/18) History of radiofrequency ablation procedure for cardiac arrhythmia (12/29/12) Social History Smoking Status: Former smoker alcohol intake: current alcohol intake frequency: a few times a week Alcohol type: hard liquor substance use type: does not use caffeine: Yes (very little) what type of physical activity do you participate in: weight training frequency: 3-4 times per week ROS ROS ED Constitutional Constitutional ED: Reports chills; Denies fever(s) Eyes Eyes: Denies change in vision ENT ENT ED: Reports other Details: Sinus pressure ; Denies sore throat Cardiovascular Cardiovascular: Reports chest pain Respiratory/Chest Respiratory/Chest: Reports cough, dyspnea and other Details: Cough initially productive of brown sputum, now nonproductive. Gastrointestinal Gastrointestinal: Denies abdominal pain, diarrhea, nausea or vomiting Genitourinary Genitourinary ED: Denies dysuria Musculoskeletal Musculoskeletal: Reports myalgias; Denies back pain Integumentary Denies rash Neurologic Neurologic: Reports headache(s); Denies weakness Allergic/Immunologic Allergic/Immunologic ED: Denies urticaria EXAM Physical Exam Const Vital Signs: 06/09/21 11:24 06/09/21 11:37 06/09/21 12:00 Temperature 97.4 F L Temperature Source Temporal Pulse Rate 106 H 107 H Respiratory Rate 24 H 26 H Respiratory Effort Short of Breath Short of Breath Respiratory Depth Normal Respiratory Pattern Tachypnea Blood Pressure 143/91 H Blood Pressure Mean 108 Pulse Ox 94 92 Oxygen Delivery Method Room Air Room Air Room Air 06/09/21 13:30 Temperature Temperature Source Pulse Rate 105 H Respiratory Rate 20 H Respiratory Effort Respiratory Depth Respiratory Pattern Blood Pressure 141/87 H Blood Pressure Mean 105 Pulse Ox 94 Oxygen Delivery Method Room Air Positive well nourished and well developed General Appearance ED: well developed HEENT Reports normocephalic and head/scalp atraumatic Eyes PERRL and EOMs intact bilaterally Neck supple Chest Wall inspection of chest normal and palpation of chest normal Resp Auscultation: diminished lung sounds Cardio regular rate and regular rhythm GI normal to inspection, nondistended, normoactive bowel sounds and non-tender Palpation: soft Extremity normal to inspection Neuro oriented x3 and no sensory deficits noted Sensorium / Orientation: alert Motor Exam: strength 5/5 throughout Psych mental status grossly normal Skin no rashes or lesions noted MDM MDM MDM Narrative Medical decision making narrative: 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 Ambulatory pulse ox in walking to the room remained at 93%. Patient was given DuoNeb treatment. Lab work, EKG, CTA chest obtained. Lab Data Attestation: I reviewed the patient's lab results. Labs: Laboratory Results - last 24 hr 06/09/21 06/09/21 06/09/21 11:55 11:55 11:55 WBC 7.4 RBC 4.73 Hgb 14.0 Hct 41.3 MCV 87.3 MCH 29.6 MCHC 33.9 RDW Std Deviation 38.0 RDW Coeff of Gene 11.8 Plt Count 185 MPV 10.1 Immature Gran % (Auto) 0.700 Neut % (Auto) 86.2 H Lymph % (Auto) 8.5 L [place] % (Auto) 4.1 Eos % (Auto) 0.1 Baso % (Auto) 0.4 Absolute Neuts (auto) 6.4 Absolute Lymphs (auto) 0.63 L Nucleated RBC % 0 Sodium 138 Potassium 3.2 L Chloride 106 Carbon Dioxide 25.0 Anion Gap 7 BUN 17 Creatinine 1.04 Estim Creat Clear Calc 74.90 Est GFR (MDRD) Af Amer 94 Est GFR (MDRD) Non-Af 78 BUN/Creatinine Ratio 16.3 Glucose 119 H Lactic Acid 1.3 Calcium 8.6 Total Bilirubin 0.60 AST 37 ALT 57 Alkaline Phosphatase 78 Troponin I High Sens Total Protein 6.9 Albumin 3.0 L Globulin 3.9 Albumin/Globulin Ratio 0.8 L 06/09/21 14:30 WBC RBC Hgb Hct MCV MCH MCHC RDW Std Deviation RDW Coeff of Gene Plt Count MPV Immature Gran % (Auto) Neut % (Auto) Lymph % (Auto) [place] % (Auto) Eos % (Auto) Baso % (Auto) Absolute Neuts (auto) Absolute Lymphs (auto) Nucleated RBC % Sodium Potassium Chloride Carbon Dioxide Anion Gap BUN Creatinine Estim Creat Clear Calc Est GFR (MDRD) Af Amer Est GFR (MDRD) Non-Af BUN/Creatinine Ratio Glucose Lactic Acid Calcium Total Bilirubin AST ALT Alkaline Phosphatase Troponin I High Sens 6 Total Protein Albumin Globulin Albumin/Globulin Ratio Radiography Diagnostic Testing: Clinical Impression(s) from Imaging Studies Chest CTA 06/09/21 11:35 IMPRESSION: Nonocclusive pulmonary arterial defects with pulmonary emboli. Bilateral pulmonary infiltrates in the preferential peripheral distribution suggestive of Covid pneumonitis. Electronically Signed: Felipe Patel MD at 13:10 EDT , Service support , EKG Initial EKG: Attestation: I personally reviewed and interpreted this EKG as follows: Interpretation: Sinus Tachycardia (Sinus tach at 104. No acute ST change.) Treatment and Re-Evaluation Comments:: On repeat evaluation patient resting comfortably. O2 sats remained greater than 90%. Test results discussed with him including EKG that is unremarkable. Blood work is normal and CTA reveals nonocclusive pulmonary emboli. Patient is given a dose of Eliquis. Troponin is added to ensure no sign of cardiac strain. This is normal. Patient will be discharged with prescription for Eliquis. We will give him a pulse ox meter to monitor his oxygen levels at home. I will speak with PCP to ensure close follow-up. Discharge Plan Triage Chief Complaint: Shortness of Breath ED Provider: Nidia Smith Dx/Rx/DC Orders Clinical Impression: COVID-19, Pulmonary emboli Instructions: Pulmonary Embolism, Coronavirus Disease 2019 (COVID-19): Overview, Coronavirus Disease 2019 (COVID-19): Caring for Yourself or Others Prescriptions: New hydrocodone-homatropine [Hycodan] 5-1.5 mg/5 mL (5 mL) syrup 5 ml PO Q6H PRN (Reason: cough) 5 Days Qty: 100 RF: 0 Eliquis 5 mg tablet 5 mg PO BID Qty: 74 RF: 0 No Action albuterol sulfate 90 mcg/actuation HFA aerosol inhaler 2 puff inhalation Q6H PRN (Reason: shortness of breath or wheezing) Qty: 8.5 RF: 0 aspirin 81 MG tablet,chewable 81 mg PO DAILY@0800 RF: 0 cyclobenzaprine 10 mg tablet 10 mg PO PRN PRN (Reason: Back Pain) RF: 0 esomeprazole magnesium [Nexium] 40 mg Capsule,Delayed Release(Dr/Ec) 40 mg PO DAILY RF: 0 lisinopril 10 mg tablet 10 mg PO DAILY RF: 0 gabapentin 100 mg capsule 100 mg PO TID RF: 0 amoxicillin-pot clavulanate 875-125 mg tablet 1 tab PO BID RF: 0 flecainide 100 mg tablet 100 mg PO Q12H Qty: 60 RF: 11 Primary Care Provider: Harpreet Lee Referrals: Harpreet Lee MD [Primary Care Provider] - 1-2 Weeks Disposition Disposition: Home, Self Care
[2021-06-09 12:00] VITALS: PULSE 107; RESP 26; O2SAT 92; O2SAT 95
[2021-06-09] MEDS: Ipratropium/Albuterol Sulfate 3 ML AMPUL.NEB INHALATION (12:00)
[2021-06-09 12:17] LABS: Absolute Lymphocyte Count 0.63 X10^3/uL (0.83-4.51); Absolute Neutrophil Count 6.4 X10^3/uL (2.0-7.7); Basophil# 0.03 X10^3/uL; Basophil% 0.4 % (0-1); Eosinophil# 0.01 X10^3/uL; Eosinophils% 0.1 % (0-5); Hematocrit 41.3 % (40-54); Lymphocyte # 0.63 X10^3/ul (0.83-4.51); Lymphocyte % 8.5 % (19-41); Mean Corp Hgb Conc 33.9 g/dL (32-36); Mean Corpuscular Hgb 29.6 pg (27.0-32.0); Mean Corpuscular Volume 87.3 fL (80-94); Mean Platelet Vol. 10.1 fl (6.2-12.0); Monocyte% 4.1 % (0-10); NRBC Flagged by Analyzer 0 % (0-5); Neutrophil # 6.36 X10^3/uL (2.7-7.7); Neutrophil % 86.2 % (47-70); Platelet Count 185 K/mm3 (150-450); RBC Distribution Width CV 11.8 % (11.6-14.6); Red Blood Count 4.73 M/mm3 (4.6-6.2); White Blood Count 7.4 K/mm3 (4.4-11.0)
[2021-06-09 12:29] LABS: ALB/GLOB Ratio 0.8 RATIO (0.9-2.4); AST(SGOT) 37 U/L (15-37); Alanine Aminotransfer ALT/SGPT 57 U/L (16-61); Alkaline Phosphatase 78 U/L (45-117); Anion Gap 7 (5-15); BUN 17 mg/dL (7-18); BUN/Creat Ratio 16.3 RATIO (10-20); Calcium,Total 8.6 mg/dL (8.5-10.1); Chloride 106 mmol/L (98-107); Creatinine, Serum 1.04 mg/dL (0.70-1.30); EST Glomerular Filtration Rate 78 mL/min (>60); Est Glom Filt Rate - Afr Amer 94 mL/min (>60); Globulin 3.9 g/dL (2.2-4.2); Glucose 119 mg/dL (74-106); Potassium 3.2 mmol/L (3.5-5.1); Protein, Total 6.9 g/dL (6.4-8.2); Sodium Level 138 mmol/L (136-145)
[2021-06-09 12:41] LABS: Lactic Acid 1.3 mmol/L (0.4-1.9)
--- NOTE | 2021-06-09 13:09 | ED.RN ---
pt reports feels like his lungs are more opened up after breathing tx
[2021-06-09 13:30] VITALS: BP 141/87; PULSE 105; RESP 20; O2SAT 94
[2021-06-09] MEDS: APIXABAN 5 MG TABLET 10 MG PO (14:27)
[2021-06-09] MEDS: Acetaminophen 500 MG Tablet 1000 MG PO (14:47)
[2021-06-09 14:52] LABS: Troponin-I HS 6 pg/mL (3.0-78.0)
[2021-06-09 15:23] VITALS: BP 130/78; PULSE 94; RESP 16; O2SAT 95
== END 2021-06-09 15:45 | disposition home or self-care (01) ==
PROVIDERS: Emergency Provider Emergency Medicine; PCP Family Medicine
DX: U07.1 COVID-19 (principal); I26.99 Other pulmonary embolism without acute cor pulmonale; E66.9 Obesity, unspecified; Z68.30 Body mass index [BMI] 30.0-30.9, adult; I10 Essential (primary) hypertension; I48.0 Paroxysmal atrial fibrillation; K21.9 Gastro-esophageal reflux disease without esophagitis; G47.33 Obstructive sleep apnea (adult) (pediatric); J45.909 Unspecified asthma, uncomplicated; Z87.442 Personal history of urinary calculi; Z79.01 Long term (current) use of anticoagulants; Z79.82 Long term (current) use of aspirin; Z79.899 Other long term (current) drug therapy; Z87.891 Personal history of nicotine dependence
CPT/HCPCS: 71275; 80053; 83605; 84484; 85025; 87040; 93005; 94640; 99251; 99284; Q9967; A4216; G0463

== ENCOUNTER 2021-06-10 07:33 | Emergency (ER) | payer OTHER, SELFPAY ==
[2021-06-10] VITALS (7 sets, daily range): BP systolic 116–131; BP diastolic 82–93; PULSE 85–93; RESP 18–24; TEMP 36.6–36.8; O2SAT 87–98; BMI 33.7
--- NOTE | 2021-06-10 07:53 | EDS_ITS ---
HPI History of Present Illness Chief Complaint: Shortness of Breath Informant: patient Associated Symptoms cough Chest Pain: Positive for None Narrative Narrative: Patient on approximately day #12 of Covid, was having some chest pain and increased dyspnea was seen here yesterday, CT angiography showed nonocclusive pulmonary emboli, he was borderline hypoxic but during his ED stay remained above 90% and was doing well off of oxygen so was discharged on Eliquis. He has been watching his pulse oximetry at home, and has been feeling a little more short of breath, the chest tightness is persistent, and he was at 83% this morning. He watched it and remained around that level for around 45 minutes to 1 hour, so presents back to the emergency department because of this. Otherwise he basically feels the same. His main symptom is fatigue. [facility] Medical History Asthma Essential (primary) hypertension Fatigue GERD (gastroesophageal reflux disease) Obesity (BMI 30.0-34.9) Obstructive sleep apnea Paroxysmal atrial fibrillation Renal calculi SOB (shortness of breath) Home Medications aspirin 81 mg PO DAILY@0800 05/09/16 [History Last Taken 07/28/18] flecainide 100 mg tablet 100 mg PO Q12H #60 tab 08/17/20 [Rx Last Taken Unknown] albuterol sulfate 90 mcg/actuation aerosol inhaler 2 puff INHALATION Q6H PRN #8.5 g 05/31/21 [Rx Last Taken Unknown] amoxicillin-pot clavulanate 1 tab PO BID 06/09/21 [History Last Taken Unknown] apixaban [Eliquis] 5 mg PO BID #74 tab 06/09/21 [Rx Last Taken Unknown] cyclobenzaprine 10 mg PO PRN PRN 06/09/21 [History Last Taken Unknown] esomeprazole magnesium [Nexium] 40 mg PO DAILY 06/09/21 [History Last Taken Unknown] gabapentin 100 mg PO TID 06/09/21 [History Last Taken Unknown] hydrocodone-homatropine [Hycodan] 5 ml PO Q6H PRN 5 Days #100 ml 06/09/21 [Rx Last Taken Unknown] lisinopril 10 mg PO DAILY 06/09/21 [History Last Taken Unknown] dexamethasone 6 mg PO DAILY #6 tab 06/10/21 [Rx Last Taken Unknown] oxygen #1 ea 06/10/21 [Rx Last Taken Unknown] Allergy/AdvReac Type Severity Reaction Status Date / Time azithromycin AdvReac d/t hx of Verified 06/10/21 07:34 [From Zithromax Z-Jerzy] a-fib Family History Mother Diabetes Hypertension High cholesterol Father Hypertension Other Heart disease Surgical History History of cholecystectomy History of colonoscopy History of esophagogastroduodenoscopy (EGD) History of left heart catheterization (07/28/18) History of radiofrequency ablation procedure for cardiac arrhythmia (12/29/12) Social History Smoking Status: Former smoker alcohol intake: current alcohol intake frequency: a few times a week Alcohol type: hard liquor substance use type: does not use caffeine: Yes (very little) what type of physical activity do you participate in: weight training frequency: 3-4 times per week ROS ROS ED Constitutional Constitutional ED: Reports body ache(s), chills, fatigue, fever(s), headache(s) and malaise Eyes Eyes: Denies change in vision or diplopia ENT ENT ED: Denies rhinorrhea or sore throat Cardiovascular Cardiovascular: Reports as per HPI and chest pain; Denies palpitations Respiratory/Chest Respiratory/Chest: Reports cough, dyspnea and dyspnea on exertion Gastrointestinal Gastrointestinal: Denies abdominal pain, diarrhea, nausea or vomiting Genitourinary Genitourinary ED: Denies dysuria or hematuria Musculoskeletal Musculoskeletal: Denies back pain or neck pain Integumentary Denies abscess or rash Neurologic Neurologic: Reports headache(s); Denies paresthesias or weakness Psychiatric Psychiatric: Denies anxiety or suicidal thoughts EXAM Physical Exam Const Vital Signs: 06/10/21 07:35 06/10/21 07:38 06/10/21 08:09 Temperature 98.3 F 97.9 F Temperature Source Oral Temporal Pulse Rate 93 90 Respiratory Rate 24 H 22 H Respiratory Effort Normal Respiratory Depth Normal Respiratory Pattern Normal Blood Pressure 129/91 H 130/88 H Blood Pressure Mean 103 102 Pulse Ox 87 93 94 Oxygen Delivery Method Room Air Nasal Cannula Room Air Oxygen Flow Rate (L/min) 2 06/10/21 09:51 Temperature Temperature Source Pulse Rate 90 Respiratory Rate 19 H Respiratory Effort Respiratory Depth Respiratory Pattern Blood Pressure 129/93 H Blood Pressure Mean 105 Pulse Ox 96 Oxygen Delivery Method Nasal Cannula Oxygen Flow Rate (L/min) 2 Positive well nourished and well developed Constitutional Narrative: Malaised-appearing, no distress General Appearance ED: well developed and NAD HEENT Reports moist mucous membranes normocephalic and atraumatic Eyes PERRL and EOMs intact bilaterally Neck full ROM and supple Resp normal respiratory effort and clear to auscultation bilaterally Cardio regular rate, regular rhythm and no murmurs Rate: Negative for tachycardic GI non-tender and non-distended Auscultation: normoactive bowel sounds Palpation: soft Back/Spine no CVA tenderness General Back: other FROM Extremity normal to inspection and no calf tenderness General Extremety ED: Negative for edema, pulses abnormal or tenderness General Extremity: Negative for edema or pulses abnormal Neuro oriented x3, CN's II-XII intact bilaterally and no sensory deficits noted Sensorium / Orientation: awake and alert Motor Exam: strength 5/5 throughout Skin no rashes or lesions noted and no wounds MDM MDM MDM Narrative Medical decision making narrative: Patient is satting well into the 90s on 2 L. We will start this patient on Decadron. My suspicion is that his hypoxemia is due to his Covid pneumonitis worsening rather than his pulmonary emboli which are mostly nonocclusive. His labs look okay except for his potassium which is a little low, I gave him a dose. He is breathing well and not tachypneic or in respiratory distress, talking on his cell phone with family. I discussed with h ospitalist, they state given that he is 12 days out he does not meet criteria for any other of the current Covid pharmacologic treatments, and he does not need advanced levels of breathing support or oxygen, so he would be a good candidate for getting home oxygen which we are able to get him here. I can send him home on Decadron. I discussed all this with the patient he is amenable to that plan, we discussed reasons to return. Lab Data Attestation: I reviewed the patient's lab results. Labs: Laboratory Results - last 24 hr 06/10/21 06/10/21 07:55 07:55 WBC 6.0 RBC 4.60 Hgb 13.6 Hct 40.3 MCV 87.6 MCH 29.6 MCHC 33.7 RDW Std Deviation 37.9 RDW Coeff of Gene 11.8 Plt Count 193 MPV 9.9 Immature Gran % (Auto) 1.000 H Neut % (Auto) 69.7 Lymph % (Auto) 17.7 L [place] % (Auto) 10.3 H Eos % (Auto) 0.8 Baso % (Auto) 0.5 Absolute Neuts (auto) 4.2 Absolute Lymphs (auto) 1.06 Nucleated RBC % 0 Sodium 139 Potassium 3.2 L Chloride 105 Carbon Dioxide 27.0 Anion Gap 7 BUN 18 Creatinine 1.08 Estim Creat Clear Calc 72.13 Est GFR (MDRD) Af Amer 90 Est GFR (MDRD) Non-Af 75 BUN/Creatinine Ratio 16.7 Glucose 105 Calcium 8.4 L Troponin I High Sens 7 Discharge Plan Triage Chief Complaint: Shortness of Breath ED Provider: Edmundo Carlson Dx/Rx/DC Orders Clinical Impression: Pneumonia due to COVID-19 virus, Pulmonary emboli, Hypoxemia Instructions: Coronavirus Disease 2019 (COVID-19): Caring for Yourself or Others Prescriptions: New (DME) oxygen See Rx Instructions .ROUTE .MEDSUPPLY Qty: 1 RF: 0 dexamethasone 6 mg tablet 6 mg PO DAILY Qty: 6 RF: 0 No Action albuterol sulfate 90 mcg/actuation HFA aerosol inhaler 2 puff inhalation Q6H PRN (Reason: shortness of breath or wheezing) Qty: 8.5 RF: 0 aspirin 81 MG tablet,chewable 81 mg PO DAILY@0800 RF: 0 cyclobenzaprine 10 mg tablet 10 mg PO PRN PRN (Reason: Back Pain) RF: 0 esomeprazole magnesium [Nexium] 40 mg Capsule,Delayed Release(Dr/Ec) 40 mg PO DAILY RF: 0 lisinopril 10 mg tablet 10 mg PO DAILY RF: 0 gabapentin 100 mg capsule 100 mg PO TID RF: 0 amoxicillin-pot clavulanate 875-125 mg tablet 1 tab PO BID RF: 0 hydrocodone-homatropine [Hycodan] 5-1.5 mg/5 mL (5 mL) syrup 5 ml PO Q6H PRN (Reason: cough) 5 Days Qty: 100 RF: 0 Eliquis 5 mg tablet 5 mg PO BID Qty: 74 RF: 0 flecainide 100 mg tablet 100 mg PO Q12H Qty: 60 RF: 11 Primary Care Provider: Harpreet Lee Referrals: Harpreet Lee MD [Primary Care Provider] - 1 Week Disposition Disposition: Home, Self Care
[2021-06-10 08:14] LABS: Absolute Lymphocyte Count 1.06 X10^3/uL (0.83-4.51); Absolute Neutrophil Count 4.2 X10^3/uL (2.0-7.7); Basophil# 0.03 X10^3/uL; Basophil% 0.5 % (0-1); Eosinophil# 0.05 X10^3/uL; Eosinophils% 0.8 % (0-5); Hematocrit 40.3 % (40-54); Hemoglobin 13.6 g/dL (13.0-16.5); Lymphocyte # 1.06 X10^3/ul (0.83-4.51); Lymphocyte % 17.7 % (19-41); Mean Corp Hgb Conc 33.7 g/dL (32-36); Mean Corpuscular Hgb 29.6 pg (27.0-32.0); Mean Corpuscular Volume 87.6 fL (80-94); Mean Platelet Vol. 9.9 fl (6.2-12.0); Monocyte# 0.62 X10^3/uL; Monocyte% 10.3 % (0-10); NRBC Flagged by Analyzer 0 % (0-5); Neutrophil # 4.18 X10^3/uL (2.7-7.7); Neutrophil % 69.7 % (47-70); Platelet Count 193 K/mm3 (150-450); RBC Distribution Width CV 11.8 % (11.6-14.6); RBC Distribution Width SD 37.9 fl (35.1-43.9)
[2021-06-10 08:33] LABS: Anion Gap 7 (5-15); BUN 18 mg/dL (7-18); BUN/Creat Ratio 16.7 RATIO (10-20); Calcium,Total 8.4 mg/dL (8.5-10.1); Chloride 105 mmol/L (98-107); Creatinine, Serum 1.08 mg/dL (0.70-1.30); EST Glomerular Filtration Rate 75 mL/min (>60); Est Glom Filt Rate - Afr Amer 90 mL/min (>60); Estimated Creatinine Clearance 72.13 ml/min; Glucose 105 mg/dL (74-106); Potassium 3.2 mmol/L (3.5-5.1); Sodium Level 139 mmol/L (136-145); Troponin-I HS 7 pg/mL (3.0-78.0)
[2021-06-10] MEDS: Potassium Chloride Oral Tablet 20 MEQ 40 MEQ PO (08:56)
[2021-06-10] MEDS: dexAMETHasone 10 MG/ML Vial 6 MG IV (08:57)
--- NOTE | 2021-06-10 11:20 | CM.ED ---
Addendum entered by Genoveva Rivera 06/10/21 19:48: GILBERTO received confirmation that fax went through [facility] Addendum entered by Genoveva Rivera 06/10/21 19:46: GILBERTO faxed referral to [employer]. GILBERTO sent email to [email or web address] list at [facility] advising of home oxygen from ED. Original prescription given to [place] to be added to chart. [facility] Original Note: GILBERTO Note GILBERTO called medical numerical control operator for [employer] and made a referral for home oxygen. Plan: Home with Home oxygen [facility]
--- NOTE | 2021-06-12 15:19 | CASEMGMT ---
Addendum entered by Jojo South 06/13/21 15:10: BETHANY QUEVEDO called patient again today and states he is doing well with his oxygen levels 92% with oxygen on. Patient states he is tired. Patient has appt with PCP on Saturday. Patient states that he is doing well and preferred not to be called again. BETAHNY QUEVEDO advised patient that should he have concerns or questions to call PCP. Patient voiced understanding. Original Note: ED follow-up phone call: Patient states he is doing well. Wearing oxygen and SPO2@ 90-91%. Patient states he was able to fill prescriptions with out any issues. Patient has follow-up appt with PCP on Saturday. Patient had no further questions or concerns at this time.
== END 2021-06-10 13:15 | disposition home or self-care (01) ==
PROVIDERS: Emergency Provider Emergency Medicine; PCP Family Medicine
DX: U07.1 COVID-19 (principal); J12.82 Pneumonia due to coronavirus disease 2019; R09.02 Hypoxemia; I26.99 Other pulmonary embolism without acute cor pulmonale; E66.9 Obesity, unspecified; Z68.33 Body mass index [BMI] 33.0-33.9, adult; I10 Essential (primary) hypertension; I48.0 Paroxysmal atrial fibrillation; K21.9 Gastro-esophageal reflux disease without esophagitis; G47.33 Obstructive sleep apnea (adult) (pediatric); J45.909 Unspecified asthma, uncomplicated; Z87.442 Personal history of urinary calculi; Z79.82 Long term (current) use of aspirin; Z79.01 Long term (current) use of anticoagulants; Z79.899 Other long term (current) drug therapy; Z87.891 Personal history of nicotine dependence
CPT/HCPCS: 80048; 84484; 85025; 96374; 99285; A4216

== ENCOUNTER 2021-07-11 17:16 | Emergency (ER) | payer OTHER, SELFPAY ==
[2021-07-11 17:17] VITALS: BP 143/102; PULSE 78; RESP 18; TEMP 36.5; O2SAT 96; BMI 33.4
--- NOTE | 2021-07-11 17:59 | CT_ITS ---
STUDY: CTA CHEST REASON FOR EXAM: Male, 60 years old. Chest pain shortness of breath and recent PE RADIATION DOSAGE (If Supplied By Facility): CTDIvol = ( 10.60 ) mGy, DLP = ( 1072.01 ) mGycm TECHNIQUE: The examination was performed with the intravenous administration of IV 100mL Isovue-370. Post-processing of the angiographic images was performed, with multiplanar reformation and 3D reconstruction. Individualized dose optimization techniques were used for this CT. COMPARISON: 09 June 2021 FINDINGS: There is no acute or chronic pulmonary embolism. Aorta is of normal caliber. Infectious opacities documented on prior CT upper progressing to early fibrotic stage. There is no pneumothorax, pulmonary edema or pleural effusions. Mediastinal contents are normal. Coronary arteries are at least mildly diseased. Osseous structures are intact. There are incompletely evaluated left renal lesions, refer to abdominal CT report. CT/CTA Chest W/WO Contrast IMPRESSION: 1. No pulmonary embolism 2. Evolving Covid related lung disease, subacute stage, early fibrosis. Pulmonary referral advised. 3. Early coronary artery disease. Electronically Signed: Isha Rodriguez MD at 19:51 EST Tel , Service support ,
--- NOTE | 2021-07-11 18:00 | EKG12_ITS ---
Test Reason : CP Blood Pressure : / mmHG Vent. Rate : 101 BPM Atrial Rate : 101 BPM P-R Int : 144 ms QRS Dur : 080 ms QT Int : 348 ms P-R-T Axes : 054 023 046 degrees QTc Int : 451 ms Sinus tachycardia with Premature atrial complexes Otherwise normal ECG Confirmed by MG CHANDLER, ANGELIQUE ([id number]), advertising editor ABIGAIL COULTER ([id number]) on 07/14/2021 7:03:51 AM Referred By: ALEJANDRA Confirmed By:ANGELIQUE HOLLIDAY MD
--- NOTE | 2021-07-11 18:01 | ED.VIS.CHEST ---
HPI History of Present Illness Chief Complaint: Chest Pain Informant: patient Onset/Context/Timing Onset: Today Activity at onset: gradual Quality: Positive for Pressure and Tightness Location: Left Parasternal Current Severity: Gone Maximum Severity: Moderate Narrative Narrative: Patient presents with a 25-minute episode of chest pressure. He states it was a squeezing pressure of the left side of his chest. He did not feel short of breath. After he got in the car to come to the hospital symptoms seem to rick. Patient did have Covid pneumonia 1 month ago with bilateral PEs. He is still on Eliquis at this time. [facility] Medical History Asthma Essential (primary) hypertension Fatigue GERD (gastroesophageal reflux disease) Obesity (BMI 30.0-34.9) Obstructive sleep apnea Paroxysmal atrial fibrillation Renal calculi SOB (shortness of breath) Home Medications aspirin 81 mg PO DAILY@0800 05/09/16 [History Last Taken 07/28/18] flecainide 100 mg tablet 100 mg PO Q12H #60 tab 08/17/20 [Rx Last Taken Unknown] albuterol sulfate 90 mcg/actuation aerosol inhaler 2 puff INHALATION Q6H PRN #8.5 g 05/31/21 [Rx Last Taken Unknown] apixaban [Eliquis] 5 mg PO BID #74 tab 06/09/21 [Rx Last Taken Unknown] esomeprazole magnesium [Nexium] 40 mg PO DAILY 06/09/21 [History Last Taken Unknown] gabapentin 100 mg PO TID 06/09/21 [History Last Taken Unknown] lisinopril 10 mg PO DAILY 06/09/21 [History Last Taken Unknown] oxygen #1 ea 06/10/21 [Rx Last Taken Unknown] prednisone See Taper PO DAILY #63 tab 07/11/21 [Rx Last Taken Unknown] Allergy/AdvReac Type Severity Reaction Status Date / Time azithromycin AdvReac d/t hx of Verified 07/11/21 17:19 [From Zithromax Z-Jerzy] a-fib Family History Mother Diabetes Hypertension High cholesterol Father Hypertension Other Heart disease Surgical History History of cholecystectomy History of colonoscopy History of esophagogastroduodenoscopy (EGD) History of left heart catheterization (07/28/18) History of radiofrequency ablation procedure for cardiac arrhythmia (12/29/12) Social History Smoking Status: Former smoker alcohol intake: current alcohol intake frequency: a few times a week Alcohol type: hard liquor substance use type: does not use caffeine: Yes (very little) what type of physical activity do you participate in: weight training frequency: 3-4 times per week ROS ROS ED Constitutional Constitutional ED: Denies chills or fever(s) Eyes Eyes: Denies change in vision ENT ENT ED: Denies sore throat Cardiovascular Cardiovascular: Reports chest pain Respiratory/Chest Respiratory/Chest: Denies cough or dyspnea Gastrointestinal Gastrointestinal: Denies abdominal pain, diarrhea, nausea or vomiting Genitourinary Genitourinary ED: Denies dysuria Musculoskeletal Musculoskeletal: Denies back pain Integumentary Denies rash Neurologic Neurologic: Denies headache(s) or weakness Allergic/Immunologic Allergic/Immunologic ED: Denies urticaria EXAM Physical Exam Const Vital Signs: 07/11/21 17:17 07/11/21 17:59 07/11/21 18:29 Temperature 97.7 F L Temperature Source Temporal Pulse Rate 78 92 Respiratory Rate 18 14 Respiratory Effort Normal Non-Labored Respiratory Pattern Normal Blood Pressure 143/102 H 140/90 H Blood Pressure Mean 115 106 Pulse Ox 96 98 Oxygen Delivery Method Room Air Room Air 07/11/21 19:27 07/11/21 20:00 07/11/21 21:09 Temperature Temperature Source Pulse Rate 92 86 82 Respiratory Rate 16 16 16 Respiratory Effort Respiratory Pattern Blood Pressure 116/92 H 125/83 H Blood Pressure Mean 100 Pulse Ox 97 96 99 Oxygen Delivery Method Room Air Room Air Positive well nourished and well developed General Appearance ED: well developed HEENT Reports normocephalic and head/scalp atraumatic Eyes PERRL and EOMs intact bilaterally Neck supple Chest Wall inspection of chest normal and palpation of chest normal Resp normal respiratory effort and clear to auscultation bilaterally Cardio regular rate and regular rhythm GI normal to inspection, nondistended, normoactive bowel sounds Palpation: soft Back/Spine no CVA tenderness Extremity normal to inspection Neuro oriented x3 and no sensory deficits noted Sensorium / Orientation: alert Motor Exam: strength 5/5 throughout Psych mental status grossly normal Skin no rashes or lesions noted MDM MDM MDM Narrative Medical decision making narrative: EKG, lab work, CTA chest obtained. Patient was given aspirin on arrival. Lab Data Attestation: I reviewed the patient's lab results. Labs: Laboratory Results - last 24 hr 07/11/21 07/11/21 07/11/21 17:55 17:55 17:55 WBC 8.3 RBC 4.69 Hgb 14.0 Hct 41.1 MCV 87.6 MCH 29.9 MCHC 34.1 RDW Std Deviation 40.2 RDW Coeff of Gene 12.6 Plt Count 236 MPV 10.0 Immature Gran % (Auto) 0.400 Neut % (Auto) 70.1 H Lymph % (Auto) 16.1 L [place] % (Auto) 9.0 Eos % (Auto) 2.9 Baso % (Auto) 1.5 H Absolute Neuts (auto) 5.8 Absolute Lymphs (auto) 1.33 Nucleated RBC % 0 PT 13.7 INR 1.1 APTT 33.5 Sodium 138 Potassium 3.8 Chloride 107 Carbon Dioxide 25.0 Anion Gap 6 BUN 19 H Creatinine 1.14 Estim Creat Clear Calc 68.33 Est GFR (MDRD) Af Amer 85 Est GFR (MDRD) Non-Af 70 BUN/Creatinine Ratio 16.7 Glucose 112 H Calcium 8.9 Troponin I High Sens 4 07/11/21 19:55 WBC RBC Hgb Hct MCV MCH MCHC RDW Std Deviation RDW Coeff of Gene Plt Count MPV Immature Gran % (Auto) Neut % (Auto) Lymph % (Auto) [place] % (Auto) Eos % (Auto) Baso % (Auto) Absolute Neuts (auto) Absolute Lymphs (auto) Nucleated RBC % PT INR APTT Sodium Potassium Chloride Carbon Dioxide Anion Gap BUN Creatinine Estim Creat Clear Calc Est GFR (MDRD) Af Amer Est GFR (MDRD) Non-Af BUN/Creatinine Ratio Glucose Calcium Troponin I High Sens 5 Radiography Diagnostic Testing: Clinical Impression(s) from Imaging Studies Chest CTA 07/11/21 17:59 IMPRESSION: 1. No pulmonary embolism 2. Evolving Covid related lung disease, subacute stage, early fibrosis. Pulmonary referral advised. 3. Early coronary artery disease. Electronically Signed: Isha Rodriguez MD at 19:51 EST Tel , Service support , EKG Initial EKG: Attestation: I personally reviewed and interpreted this EKG as follows: Interpretation: Sinus Tachycardia (Sinus tach at 101 with PACs. No acute ischemia.) Treatment and Re-Evaluation Comments:: Patient's initial blood work unremarkable with normal troponin. CT reveals no evidence of PE at this time. 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 Repeat 2-hour troponin is obtained and remains normal. Test results discussed with the patient. We will treat him with a prednisone taper for chest wall pain. He is on Nexium and will be sure to continue this while on steroids. Patient has been seen by Dr. Porter in the past and I did recommend follow-up with him given his chronic lung changes after Covid. Discharge Plan Triage Chief Complaint: Chest Pain ED Provider: Nidia Smith Dx/Rx/DC Orders Clinical Impression: Chest pain Instructions: ED Chest Pain, Uncertain Cause Prescriptions: New prednisone 10 mg tablet See Taper mg PO DAILY Qty: 63 RF: 0 No Action albuterol sulfate 90 mcg/actuation HFA aerosol inhaler 2 puff inhalation Q6H PRN (Reason: shortness of breath or wheezing) Qty: 8.5 RF: 0 aspirin 81 MG tablet,chewable 81 mg PO DAILY@0800 RF: 0 esomeprazole magnesium [Nexium] 40 mg Capsule,Delayed Release(Dr/Ec) 40 mg PO DAILY RF: 0 lisinopril 10 mg tablet 10 mg PO DAILY RF: 0 gabapentin 100 mg capsule 100 mg PO TID RF: 0 Eliquis 5 mg tablet 5 mg PO BID Qty: 74 RF: 0 (DME) oxygen See Rx Instructions .ROUTE .MEDSUPPLY Qty: 1 RF: 0 flecainide 100 mg tablet 100 mg PO Q12H Qty: 60 RF: 11 Primary Care Provider: Harpreet Lee Referrals: Harpreet Lee MD [Primary Care Provider] - 1-2 Weeks Robbi Porter MD [STAFF PHYSICIAN] - 1-2 Weeks Disposition Disposition: Home, Self Care Discharge Date/Time: 07/11/21 21:10
[2021-07-11 18:09] LABS: Absolute Lymphocyte Count 1.33 X10^3/uL (0.83-4.51); Absolute Neutrophil Count 5.8 X10^3/uL (2.0-7.7); Basophil# 0.12 X10^3/uL; Basophil% 1.5 % (0-1); Eosinophil# 0.24 X10^3/uL; Eosinophils% 2.9 % (0-5); Hematocrit 41.1 % (40-54); Lymphocyte # 1.33 X10^3/ul (0.83-4.51); Lymphocyte % 16.1 % (19-41); Mean Corp Hgb Conc 34.1 g/dL (32-36); Mean Corpuscular Hgb 29.9 pg (27.0-32.0); Mean Corpuscular Volume 87.6 fL (80-94); Monocyte# 0.74 X10^3/uL; NRBC Flagged by Analyzer 0 % (0-5); Neutrophil % 70.1 % (47-70); Platelet Count 236 K/mm3 (150-450); RBC Distribution Width CV 12.6 % (11.6-14.6); RBC Distribution Width SD 40.2 fl (35.1-43.9); Red Blood Count 4.69 M/mm3 (4.6-6.2); White Blood Count 8.3 K/mm3 (4.4-11.0)
[2021-07-11 18:17] LABS: International Normalized Ratio 1.1; Prothrombin Time (Protime)PT. 13.7 SECONDS (11.7-14.9)
[2021-07-11 18:18] LABS: Partial Thromboplast Time 33.5 Seconds (24.1-36.2)
[2021-07-11] MEDS: Aspirin 81 MG TAB.CHEW 324 MG PO (18:27)
[2021-07-11 18:29] VITALS: BP 140/90; PULSE 92; RESP 14; O2SAT 98
[2021-07-11 18:34] LABS: Anion Gap 6 (5-15); BUN 19 mg/dL (7-18); BUN/Creat Ratio 16.7 RATIO (10-20); Calcium,Total 8.9 mg/dL (8.5-10.1); Chloride 107 mmol/L (98-107); Creatinine, Serum 1.14 mg/dL (0.70-1.30); EST Glomerular Filtration Rate 70 mL/min (>60); Est Glom Filt Rate - Afr Amer 85 mL/min (>60); Estimated Creatinine Clearance 68.33 ml/min; Glucose 112 mg/dL (74-106); Potassium 3.8 mmol/L (3.5-5.1); Sodium Level 138 mmol/L (136-145); Troponin-I HS 4 pg/mL (3.0-78.0)
[2021-07-11 19:27] VITALS: PULSE 92; RESP 16; O2SAT 97
[2021-07-11 20:00] VITALS: BP 116/92; PULSE 86; RESP 16; O2SAT 96
[2021-07-11 20:27] LABS: Troponin-I HS 5 pg/mL (3.0-78.0)
[2021-07-11 21:09] VITALS: BP 125/83; PULSE 82; RESP 16; O2SAT 99
== END 2021-07-11 21:10 | disposition home or self-care (01) ==
PROVIDERS: Emergency Provider Emergency Medicine; PCP Family Medicine
DX: R07.89 Other chest pain (principal); I49.1 Atrial premature depolarization; E66.9 Obesity, unspecified; Z68.33 Body mass index [BMI] 33.0-33.9, adult; I10 Essential (primary) hypertension; I25.10 Atherosclerotic heart disease of native coronary artery without angina pectoris; I48.0 Paroxysmal atrial fibrillation; G47.33 Obstructive sleep apnea (adult) (pediatric); K21.9 Gastro-esophageal reflux disease without esophagitis; J45.909 Unspecified asthma, uncomplicated; Z87.01 Personal history of pneumonia (recurrent); Z86.16 Personal history of COVID-19; Z86.711 Personal history of pulmonary embolism; Z87.442 Personal history of urinary calculi; Z79.01 Long term (current) use of anticoagulants; Z79.82 Long term (current) use of aspirin; Z79.899 Other long term (current) drug therapy; Z87.891 Personal history of nicotine dependence
CPT/HCPCS: 71275; 80048; 84484; 85025; 85610; 85730; 93005; 99284; Q9967; A4216

== ENCOUNTER 2021-07-13 18:01 | Emergency (ER) | payer OTHER, SELFPAY ==
[2021-07-13 18:01] VITALS: BP 142/82; PULSE 121; RESP 18; TEMP 36.6; O2SAT 96; BMI 33.4
--- NOTE | 2021-07-13 18:50 | EX.ED.UPPERE ---
HPI History of Present Illness Chief Complaint: Upper Extremity Injury Narrative Narrative: Patient states a few hours prior to arrival he was out in his garage when a can fell and he went to try and grab it quickly. He states when he did this he felt a pop in his right shoulder/arm region and has had severe pain since that time. He states he is injured his bicep tendon on the left in the past and this feels similar nature and with this concern presents for evaluation [facility] Medical History Asthma Essential (primary) hypertension Fatigue GERD (gastroesophageal reflux disease) Obesity (BMI 30.0-34.9) Obstructive sleep apnea Paroxysmal atrial fibrillation Renal calculi SOB (shortness of breath) Home Medications aspirin 81 mg PO DAILY@0800 05/09/16 [History Last Taken 07/28/18] flecainide 100 mg tablet 100 mg PO Q12H #60 tab 08/17/20 [Rx Last Taken Unknown] albuterol sulfate 90 mcg/actuation aerosol inhaler 2 puff INHALATION Q6H PRN #8.5 g 05/31/21 [Rx Last Taken Unknown] apixaban [Eliquis] 5 mg PO BID #74 tab 06/09/21 [Rx Last Taken Unknown] esomeprazole magnesium [Nexium] 40 mg PO DAILY 06/09/21 [History Last Taken Unknown] gabapentin 100 mg PO TID 06/09/21 [History Last Taken Unknown] lisinopril 10 mg PO DAILY 06/09/21 [History Last Taken Unknown] oxygen #1 ea 06/10/21 [Rx Last Taken Unknown] prednisone See Taper PO DAILY #63 tab 07/11/21 [Rx Last Taken Unknown] oxycodone-acetaminophen [Percocet] 1 tab PO Q6H PRN 3 Days #12 tab 07/13/21 [Rx Last Taken Unknown] oxycodone-acetaminophen [Percocet] 1 tab PO Q6H PRN 3 Days #12 tab 07/13/21 [Rx Last Taken Unknown] Allergy/AdvReac Type Severity Reaction Status Date / Time azithromycin AdvReac d/t hx of Verified 07/13/21 18:02 [From Zithromax Z-Jerzy] a-fib Family History Mother Diabetes Hypertension High cholesterol Father Hypertension Other Heart disease Surgical History History of cholecystectomy History of colonoscopy History of esophagogastroduodenoscopy (EGD) History of left heart catheterization (07/28/18) History of radiofrequency ablation procedure for cardiac arrhythmia (12/29/12) Social History Smoking Status: Former smoker alcohol intake: current alcohol intake frequency: a few times a week Alcohol type: hard liquor substance use type: does not use caffeine: Yes (very little) what type of physical activity do you participate in: weight training frequency: 3-4 times per week ROS ROS ED Constitutional Constitutional ED: Denies chills or fever(s) ENT ENT ED: Denies sore throat Cardiovascular Cardiovascular: Denies chest pain Respiratory/Chest Respiratory/Chest: Denies cough or dyspnea Gastrointestinal Gastrointestinal: Denies abdominal pain, diarrhea, nausea or vomiting Genitourinary Genitourinary ED: Denies dysuria Musculoskeletal Musculoskeletal: Reports other Details: Past right shoulder/arm pain ; Denies myalgias Integumentary Denies Abrasions or rash Neurologic Neurologic: Denies headache(s) or paresthesias EXAM Physical Exam Const Vital Signs: 07/13/21 18:01 Temperature 98 F Temperature Source Temporal Pulse Rate 121 H Respiratory Rate 18 Blood Pressure 142/82 H Blood Pressure Mean 102 Pulse Ox 96 Oxygen Delivery Method Room Air Positive well nourished and well developed General Appearance ED: well developed Eyes PERRL and EOMs intact bilaterally Neck full ROM and supple Resp normal respiratory effort and clear to auscultation bilaterally Cardio regular rate and regular rhythm Extremity Extremity Narrative: Right upper extremity is neurovascularly intact; AIN/PIN are intact and normal. Patient has a mild defect along the proximal third of the right humerus consistent with a partial biceps tendon tear. There is pain with palpation at the site. There is no obvious bony deformity or joint effusion. Active range of motion is decreased secondary to pain. Remainder of the exam is normal Neuro oriented x3 and CN's II-XII intact bilaterally Sensorium / Orientation: alert Psych mental status grossly normal Skin no rashes or lesions noted Lesions: no lesions Rashes: no rashes MDM MDM MDM Narrative Medical decision making narrative: Patient presented to the ER with nontraumatic pain to his right proximal arm. Therefore I felt there is no need for an x-ray. His exam shows a mild defect to the proximal third of the right bicep consistent with a partial biceps tendon tear which also fits the pop that the patient felt. At this time he does not need emergent orthopedic consultation as he is neurovascularly intact. He will be placed in a sling for comfort and given pain medication and can follow-up with orthopedics on an outpatient basis. Discharge Plan Triage Chief Complaint: Upper Extremity Injury ED Provider: Akhil Winchester Dx/Rx/DC Orders Clinical Impression: Traumatic partial tear of right biceps tendon Instructions: Biceps Tendonitis Proximal Prescriptions: New oxycodone-acetaminophen [Percocet] 5-325 mg tablet 1 tab PO Q6H PRN (Reason: pain) 3 Days Qty: 12 RF: 0 oxycodone-acetaminophen [Percocet] 5-325 mg tablet 1 tab PO Q6H PRN (Reason: pain) 3 Days Qty: 12 RF: 0 No Action albuterol sulfate 90 mcg/actuation HFA aerosol inhaler 2 puff inhalation Q6H PRN (Reason: shortness of breath or wheezing) Qty: 8.5 RF: 0 aspirin 81 MG tablet,chewable 81 mg PO DAILY@0800 RF: 0 esomeprazole magnesium [Nexium] 40 mg Capsule,Delayed Release(Dr/Ec) 40 mg PO DAILY RF: 0 lisinopril 10 mg tablet 10 mg PO DAILY RF: 0 gabapentin 100 mg capsule 100 mg PO TID RF: 0 Eliquis 5 mg tablet 5 mg PO BID Qty: 74 RF: 0 (DME) oxygen See Rx Instructions .ROUTE .MEDSUPPLY Qty: 1 RF: 0 prednisone 10 mg tablet See Taper mg PO DAILY Qty: 63 RF: 0 flecainide 100 mg tablet 100 mg PO Q12H Qty: 60 RF: 11 Primary Care Provider: Harpreet Lee Referrals: Zain Callejas DO [STAFF PHYSICIAN] - 3-5 Days (Partial biceps tendon tear) Harpreet Lee MD [Primary Care Provider] - Disposition Disposition: Home, Self Care
[2021-07-13] MEDS: morphine 10 MG/ML Syringe 8 MG IM (18:52)
[2021-07-13] MEDS: Ondansetron ODT 4 MG Tablet PO (18:52)
== END 2021-07-13 20:05 | disposition home or self-care (01) ==
PROVIDERS: Emergency Provider Emergency Medicine; PCP Family Medicine
DX: S46.211A Strain of muscle, fascia and tendon of other parts of biceps, right arm, initial encounter (principal); X50.9XXA Other and unspecified overexertion or strenuous movements or postures, initial encounter; Y93.9 Activity, unspecified; Y92.015 Private garage of single-family (private) house as the place of occurrence of the external cause; E66.9 Obesity, unspecified; Z68.33 Body mass index [BMI] 33.0-33.9, adult; I10 Essential (primary) hypertension; I48.0 Paroxysmal atrial fibrillation; K21.9 Gastro-esophageal reflux disease without esophagitis; J45.909 Unspecified asthma, uncomplicated; G47.33 Obstructive sleep apnea (adult) (pediatric); Z87.442 Personal history of urinary calculi; Z79.01 Long term (current) use of anticoagulants; Z79.82 Long term (current) use of aspirin; Z79.899 Other long term (current) drug therapy; Z87.891 Personal history of nicotine dependence
CPT/HCPCS: 96372; 99284

== ENCOUNTER → 2021-08-14 16:59 | Outpatient (CLI) | payer OTHER, SELFPAY ==
[2021-08-14 18:00] LABS: Hematocrit 43.8 % (40-54); Hemoglobin 14.8 g/dL (13.0-16.5); Mean Corp Hgb Conc 33.8 g/dL (32-36); Mean Corpuscular Hgb 29.8 pg (27.0-32.0); Mean Corpuscular Volume 88.3 fL (80-94); Mean Platelet Vol. 10.4 fl (6.2-12.0); Platelet Count 220 K/mm3 (150-450); RBC Distribution Width CV 12.4 % (11.6-14.6); Red Blood Count 4.96 M/mm3 (4.6-6.2); White Blood Count 7.5 K/mm3 (4.4-11.0)
[2021-08-14 18:33] LABS: Anion Gap 5 (5-15); BUN 22 mg/dL (7-18); BUN/Creat Ratio 19.3 RATIO (10-20); Calcium,Total 9.3 mg/dL (8.5-10.1); Chloride 108 mmol/L (98-107); Creatinine, Serum 1.14 mg/dL (0.70-1.30); EST Glomerular Filtration Rate 70 mL/min (>60); Est Glom Filt Rate - Afr Amer 85 mL/min (>60); Glucose 89 mg/dL (74-106); Potassium 3.8 mmol/L (3.5-5.1); Sodium Level 140 mmol/L (136-145); Thyroid Stim Hormone (TSH) 1.86 uIU/mL (0.358-3.74)
== END ==
PROVIDERS: PCP Family Medicine; Referring Provider Family Medicine; Visit Provider Family Medicine
DX: R55 Syncope and collapse (principal)
CPT/HCPCS: 36415; 80048; 84443; 85027

== ENCOUNTER 2021-09-05 13:32 | Outpatient (CLI) | payer OTHER, SELFPAY ==
[2021-09-05 13:30] VITALS: PULSE 103; PULSE 106; PULSE 109; PULSE 114; PULSE 116; PULSE 117; O2SAT 96; O2SAT 97; O2SAT 98
--- NOTE | 2021-09-05 15:14 | PCM.PSN.6M ---
PSN 6 Minute Walk Test 6 Minute Walk Test 6 Minute Walk Test: 6 Minute Walk Test PSN:6-Minute Walk Test Start: 09/05/21 14:39 Freq: Status: Active Protocol: [id number].6MINW Document 09/05/21 13:30 JLA (Rec: 09/05/21 14:44 JLA [id number]) 6 Minute Walk Test Date Performed 09/05/21 Time Performed 13:30 Height 5 ft 8 in Weight: 101.605 kg Weight in Pounds 224.[address]: Db Kaur Assistive device used: None Pre-test Oxygen Delivery Method Room Air Pulse Ox (%) 98 Pulse Rate (60-100 beats/min) 109 H Dyspnea Bhavana Scale (0-10) 2 Exertion Bhavana Scale (6-20) 6 1st minute Oxygen Delivery Method Room Air Pulse Ox (%) 96 Pulse Rate (60-100 beats/min) 114 H 2nd minute Oxygen Delivery Method Room Air Pulse Ox (%) 96 Pulse Rate (60-100 beats/min) 117 H 3rd minute Oxygen Delivery Method Room Air Pulse Ox (%) 96 Pulse Rate (60-100 beats/min) 117 H 4th minute Oxygen Delivery Method Room Air Pulse Ox (%) 97 Pulse Rate (60-100 beats/min) 103 H 5th minute Oxygen Delivery Method Room Air Pulse Ox (%) 96 Pulse Rate (60-100 beats/min) 116 H 6th minute Oxygen Delivery Method Room Air Pulse Ox (%) 96 Pulse Rate (60-100 beats/min) 106 H Dyspnea Bhavana Scale (0-10) 3 Exertion Bhavana Scale (6-20) 11 Post-test Oxygen Delivery Method Room Air Pulse Ox (%) 98 Pulse Rate (60-100 beats/min) 114 H Full Laps Walked 23 Partial Lap, Number of Tiles Walked 0 Total Distance Walked (ft) 1357 Interpretation Interpretation: Patient was able to ambulate 1357 feet over the course of 6 minutes on room air with no assist devices or breaks. The patient experienced no significant desaturation, but did have persistent tachycardia throughout testing with a peak heart rate of 117 bpm. These findings are consistent with a cardiovascular limitation exercise tolerance. Recommendations Recommendations: No supplemental oxygen is indicated at this time.
== END 2021-09-05 23:59 | disposition short-term general hospital (02) ==
PROVIDERS: PCP Family Medicine; Referring Provider Internal Medicine Critical Care Medicine; Visit Provider Internal Medicine Critical Care Medicine
DX: U07.1 COVID-19 (principal)
CPT/HCPCS: 94618

== ENCOUNTER 2021-09-08 07:59 | Outpatient (CLI) | payer OTHER, SELFPAY ==
--- NOTE | 2021-09-08 13:51 | PFTCOMP ---
COMPLETE PULMONARY FUNCTION TEST INTERPRETATION Brief HPI: Patient is a 60 year old male, currently under the care of myself, who presents to [facility] for complete pulmonary function tests secondary to diagnosis of dyspnea. Respiratory therapist reports good effort and reproducible results. Interpretation: Forced expiration spirometry shows no large airways obstructive ventilatory defect with an FEV1 of 104% predicted. There is no significant bronchodilator response by strict ATS criteria. Spirograms are of good quality and plateau normally. The respiratory flow volume loop shows a normal pattern. Lung volumes by body plethysmography show a normal total lung capacity at 6.28 L, 101% predicted. All other lung volumes are within normal limits. Diffusion capacity by carbon monoxide is normal at 95% predicted. The airway resistance is normal. No previous pulmonary function tests were available for review. Impression: These pulmonary function tests are within normal limits.
== END 2021-09-08 23:59 | disposition short-term general hospital (02) ==
LOC: PSN 08:00
PROVIDERS: PCP Family Medicine; Referring Provider Internal Medicine Critical Care Medicine; Visit Provider Internal Medicine Critical Care Medicine
DX: U07.1 COVID-19 (principal)
CPT/HCPCS: 94060; 94726; 94729

== ENCOUNTER 2021-09-11 14:29 | Outpatient (CLI) | payer OTHER, SELFPAY ==
--- NOTE | 2021-09-11 14:30 | CT_ITS ---
STUDY: CT Chest W/O Contrast Injection 09/11/2021 3:22 PM REASON FOR EXAM: Male, 60 years old. 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 TECHNIQUE: Transaxial imaging was performed withoutIV contrast material. COMPARISON: 07/11/2021 FINDINGS: There are degenerative changes of the shoulders. There is no pneumothorax. There is no demonstrated pleural abnormality. Minimal peripheral groundglass infiltrates in the right lower lobe right middle lobe and the upper lobes. There are calcifications of the coronary arteries. Calcified lymph nodes of the right hilum and mediastinum. Normal pulmonary arteries. There is atherosclerotic calcification of the aortic arch with tortuosity and elongation of the aortic arch and descending thoracic aorta. There are multi-level degenerative changes of the thoracic spine. Splenic granulomas. CT/Chest without Contrast IMPRESSION: There is overall improvement in the previous pneumonia. However, there is a persistent very mild residual pneumonia. Electronically Signed: Kemar Saab MD at 19:54 EST , Service support ,
== END 2021-09-11 23:59 | disposition short-term general hospital (02) ==
LOC: CT 14:29
PROVIDERS: PCP Family Medicine; Referring Provider Internal Medicine Critical Care Medicine; Visit Provider Internal Medicine Critical Care Medicine
DX: U07.1 COVID-19 (principal)
CPT/HCPCS: 71250

== ENCOUNTER 2021-11-22 12:15 | Outpatient (CLI) | payer OTHER, SELFPAY ==
[2021-11-22 15:53] LABS: PSA,Total - Annual Screen 0.38 ng/mL (0.00-4.00)
== END 2021-11-22 23:59 | disposition home or self-care (01) ==
LOC: MFPLAB 12:18
PROVIDERS: PCP Family Medicine; Referring Provider Family Medicine; Visit Provider Family Medicine
DX: Z12.5 Encounter for screening for malignant neoplasm of prostate (principal)
CPT/HCPCS: 36415; 84153; G0103

== ENCOUNTER → 2022-01-09 | Outpatient (CLI) | payer OTHER, SELFPAY ==
[2022-01-09 10:50] LABS: Anion Gap 9 (5-15); BUN 22 mg/dL (7-18); BUN/Creat Ratio 19.8 RATIO (10-20); Calcium,Total 8.6 mg/dL (8.5-10.1); Chloride 106 mmol/L (98-107); Cholesterol 204 mg/dL (200); Creatinine, Serum 1.11 mg/dL (0.70-1.30); EST Glomerular Filtration Rate 72 mL/min (>60); Est Glom Filt Rate - Afr Amer 87 mL/min (>60); Glucose 103 mg/dL (74-106); High Density Lipoprotein 41 mg/dL; Potassium 3.8 mmol/L (3.5-5.1); Sodium Level 138 mmol/L (136-145); Triglycerides 144 mg/dL; Very Low Density Lipoprotein 29 mg/dL (5-40)
== END | disposition home or self-care (01) ==
LOC: MTLAB 08:02
PROVIDERS: PCP Family Medicine; Referring Provider Family Medicine; Visit Provider Family Medicine
DX: Z00.00 Encounter for general adult medical examination without abnormal findings (principal)
CPT/HCPCS: 36415; 80048; 80061

== ENCOUNTER → 2022-08-29 | Outpatient (CLI) | payer BC, SELFPAY ==
[2022-08-29 12:24] LABS: Absolute Lymphocyte Count 1.21 X10^3/uL (0.83-4.51); Absolute Neutrophil Count 5.3 X10^3/uL (2.0-7.7); Basophil# 0.07 X10^3/uL; Basophil% 0.9 % (0-1); Eosinophil# 0.16 X10^3/uL; Eosinophils% 2.1 % (0-5); Hematocrit 43.9 % (40-54); Hemoglobin 14.4 g/dL (13.0-16.5); Lymphocyte # 1.21 X10^3/ul (0.83-4.51); Lymphocyte % 16.2 % (19-41); Mean Corp Hgb Conc 32.8 g/dL (32-36); Mean Corpuscular Hgb 30.3 pg (27.0-32.0); Mean Corpuscular Volume 92.4 fL (80-94); Mean Platelet Vol. 10.6 fl (6.2-12.0); Monocyte# 0.67 X10^3/uL; NRBC Flagged by Analyzer 0 % (0-5); Neutrophil # 5.33 X10^3/uL (2.7-7.7); Neutrophil % 71.4 % (47-70); Platelet Count 197 K/mm3 (150-450); RBC Distribution Width CV 12.4 % (11.6-14.6); RBC Distribution Width SD 42.6 fl (35.1-43.9); Red Blood Count 4.75 M/mm3 (4.6-6.2); White Blood Count 7.5 K/mm3 (4.4-11.0)
[2022-08-29 13:20] LABS: Anion Gap 8 (5-15); BUN 28 mg/dL (7-18); BUN/Creat Ratio 24.3 RATIO (10-20); Calcium,Total 8.7 mg/dL (8.5-10.1); Chloride 106 mmol/L (98-107); Creatinine, Serum 1.15 mg/dL (0.70-1.30); EST Glomerular Filtration Rate 69 mL/min (>60); Est Glom Filt Rate - Afr Amer 84 mL/min (>60); Glucose 95 mg/dL (74-106); Potassium 4.2 mmol/L (3.5-5.1); Sodium Level 142 mmol/L (136-145)
== END | disposition home or self-care (01) ==
LOC: MFPLAB 11:21
PROVIDERS: PCP Family Medicine; Visit Provider Family Medicine
DX: Z01.818 Encounter for other preprocedural examination (principal)
CPT/HCPCS: 36415; 80048; 85025

== ENCOUNTER 2022-11-29 07:17 | Observation (INO) | payer BC, SELFPAY ==
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
--- NOTE | 2022-10-15 12:05 | RAD_ITS ---
INDICATION: PRE-OP EXAMINATION/TECHNIQUE: X-RAY - XR Chest 2 Views COMPARISON: None. FINDINGS: LINES/DEVICES: None. LUNGS: No consolidation, edema or effusion. No pneumothorax. MEDIASTINUM AND CARDIOVASCULAR STRUCTURES: Cardiac silhouette not enlarged. Central airways and mediastinal contour are unremarkable. RAD/Chest PA and Lateral IMPRESSION: No radiographic evidence of acute cardiopulmonary disease. Electronically Signed: Harpreet Read MD at 21:37 EST ,
[2022-10-15 12:33] LABS: Partial Thromboplast Time 27.2 Seconds (24.1-36.2); Prothrombin Time (Protime)PT. 13.3 SECONDS (11.7-14.9)
[2022-10-15 12:49] LABS: Magnesium 2.1 mg/dL (1.6-2.6)
[2022-11-21 11:32] LABS: International Normalized Ratio 1.1; Prothrombin Time (Protime)PT. 13.5 SECONDS (11.7-14.9)
[2022-11-21 11:33] LABS: Partial Thromboplast Time 27.4 Seconds (24.1-36.2)
[2022-11-29] VITALS (16 sets, daily range): BP systolic 90–126; BP diastolic 54–82; PULSE 77–94; RESP 14–16; TEMP 36.1–37.6; O2SAT 94–100; BMI 30.9
[2022-11-29] MEDS: Lactated Ringers 1,000 ML 15 ML IV (06:41)
--- NOTE | 2022-11-29 07:14 | PN.ORTHO_ITS ---
Subjective Subjective The patient was seen and examined postoperatively in the PACU. He is resting comfortably. His pain is controlled. He denies any complaints including numbness tingling or weakness Objective Data Objective Data Vital Signs: Vital Signs Temp Pulse Resp BP Pulse Ox O2 Del Method 99.6 F H 84 16 126/82 H 96 Room Air 11/29/22 06:34 11/29/22 06:34 11/29/22 06:34 11/29/22 06:34 11/29/22 06:34 11/29/22 06:34 Oxygen Delivery Method Room Air Weight: 203 lb 7.787 oz Body Mass Index (BMI) 30.9 Physical Exam Const alert, oriented x3 and no apparent distress General Appearance: cooperative, comfortable and well kempt HEENT normocephalic and head/scalp atraumatic Head and Scalp: normal to inspection Eyes EOMs intact bilaterally and conjunctivae normal Neck full ROM General: normal visual inspection Chest inspection of chest normal and palpation of chest normal Resp normal respiratory effort and normal air movement Cardio regular rate, regular rhythm and peripheral pulses 2+ throughout GI soft to palpation, non-tender and non-distended Back/Spine Back/Spine Narrative: Dressing clean dry and intact. Drain in place and functioning Cervical Spine: cervical ROM normal Thoracic Spine / Upper Back: normal to inspection Lumbar Spine / Lower Back: normal to inspection Extremity normal to inspection, full ROM, normal capillary refill, no clubbing, cyanosis or edema and no calf tenderness Skin no rashes or lesions noted General Skin Exam: no breakdown Neuro oriented x3, CN's II-XII intact bilaterally, moves all extremities, no focal motor deficits, no sensory deficits noted and deep tendon reflexes 2+ bilaterall y Motor Exam: muscle tone normal throughout Assessment & Plan Assessment/Plan (1) Lumbar stenosis: PLAN: Okay to admit to floor See orders Discharge planning, likely home tomorrow
--- NOTE | 2022-11-29 07:14 | DS.PCM_ITS ---
Providers Date of Admission: 11/29/22 Primary Care Physician: Dr. Harpreet Lee MD Reason For Visit: LUMBAR 5 SACRAL 1 POSTERIOR LUMBER INTERBODY.... Diagnosis Discharge Diagnosis (1) Lumbar stenosis: Status: Acute Code(s): M48.061 - Spinal stenosis, lumbar region without neurogenic claudication Medications at Discharge Home Medications albuterol sulfate 90 mcg/actuation aerosol inhaler 2 puff inhalation Q6H PRN shortness of breath or wheezing #8.5 grams 05/31/21 esomeprazole magnesium 40 mg capsule,delayed release (Nexium) 40 mg PO DAILY GERD 06/09/21 gabapentin 100 mg capsule 100 mg PO TID PAIN 06/09/21 lisinopril 10 mg tablet 10 mg PO DAILY SUPPLEMENT 06/09/21 zolpidem 10 mg tablet 10 mg PO QHS PRN Sleep 09/01/21 cyanocobalamin (vitamin B-12) 1,000 mcg tablet,extended release (Vitamin B-12 ER) 1,000 mcg PO DAILY SUPPLEMENT 10/15/22 flecainide 100 mg tablet 100 mg PO Q12H HEART 10/15/22 magnesium 200 mg tablet 400 mg PO DAILY SUPPLEMENT 10/15/22 omega-3 fatty acids 1,000 mg PO DAILY SUPPLEMENT 10/15/22 sildenafil 100 mg tablet 100 mg PO PRN PRN Erectile Dysfunction 10/15/22 hydrocodone-acetaminophen 5-325mg 5mg-325mg 1 tab PO Q6H 7 days #28 tabs 11/29/22 Hospital Course Operations - (L5-S1 posterior lumbar interbody fusion, decompression, posterior spinal fusion with instrumentation, use of allograft) Summary of Care Provided Minutes Spent on Discharge: 15 Hospital Course: The patient is a 61-year-old male who underwent L5-S1 fusion on 11/29/2022. He was subsequently admitted. The hospitalist was consulted for medical management. He progressed well. His pain was controlled and he was mobilizing well. His drain was pulled on postoperative day 1. No significant medical issues were reported. He was subsequently discharged home on 12/02/22 to follow- up with Dr. Andres in 3 weeks Physical Exam Const alert, oriented x3 and no apparent distress General Appearance: cooperative, comfortable and well kempt HEENT normocephalic and head/scalp atraumatic Head and Scalp: normal to inspection Eyes EOMs intact bilaterally and conjunctivae normal Neck full ROM General: normal visual inspection Chest inspection of chest normal and palpation of chest normal Resp normal respiratory effort and normal air movement Effort and Inspection: able to speak in complete sentences Cardio regular rate and peripheral pulses 2+ throughout GI soft to palpation, non-tender and non-distended Back/Spine Back/Spine Narrative: Dressing clean dry and intact. Incision well approximated with interrupted sutures in place. No tenderness erythema drainage or fluctuance Cervical Spine: cervical ROM normal Thoracic Spine / Upper Back: normal to inspection Lumbar Spine / Lower Back: normal to inspection Extremity normal to inspection, full ROM, normal capillary refill, no clubbing, cyanosis or edema and no calf tenderness Skin no rashes or lesions noted General Skin Exam: no breakdown Neuro oriented x3, CN's II-XII intact bilaterally, moves all extremities, no focal motor deficits, no sensory deficits noted and deep tendon reflexes 2+ bilaterally Motor Exam: strength 5/5 throughout and muscle tone normal throughout Weight / BMI Weight Weight: 203 lb 7.787 oz Body Mass Index (BMI) 30.9 D/C Instructions Discharge Diet: No restrictions Lifting Restrictions: No repetitive bending twisting or lifting greater than 5 pounds Additional Activity Instructions: Wear back brace at all times. Okay to remove brace to sleep Call your doctor if your incision/area has: Continuous Slow Oozing, Sudden Increased Bleeding, Increased Pain/ Swelling, Increased Redness, Foul Smelling Discharge and Swelling at the incision site Call your doctor if you observe: Fever of 101 or Higher, Coldness, Increased Pain, Numbness or Tingling, Change in Color, Inability to urinate, Inability to have a bowel movement, Using more than 1 pad per hour, Shortness of breath, Dizziness, Fainting spells, Swelling in the ankles, Chest pain, Prolonged hiccupping, Increased palpitations (irregular heartbeat), Calf discomfort and Uncontrolled pain Cleanse incision/area with: Do not get Incision Wet and Keep Dressing Clean & Dry Additional Dressing/Incision Instructions: Change dressing daily with iodine gauze and tape. Use waterproof dressing to shower Please Follow Up With: Ru Andres DO When: 3 weeks Meaningful Use Info Meaningful Use Diagnoses (Choose all that apply): None applicable Discharge Plan Admission Admit Date/Time: 11/29/22 07:17 Attending Provider: Ru Andres Primary Care Provider: Harpreet Lee Consulting Providers: Laura Mast ; Laura Silva ; Geraldine Pak ; Lesley Paris ; Priyank Knowles ; Chris Bridges ; Boni Mccain ; Magdalena Garcia ; Ab Arrington ; Juan Pablo Romeo ; Maxi Jonas ; Griselda Jack ; Endy Barton ; Margarita Celis ; Zain Calderon ; Helio Peters ; Harpreet Lee ; Whitley Washington ; Malcolm Burkett ; Kellie Garcia NP ; Barry Troncoso Instructions Additional Instructions / Restrictions: 1. During your procedure, you received sedation through your IV. Please follow these instructions for the next 24 hours: Do not drive a motor vehicle, do not drink any alcoholic beverages, and do not sign any legal documents or make personal or business decisions. A responsible adult should stay with you at least 6 hours after the procedure. 2. Keep your surgical site/incision clean and the dressing dry and intact. Use waterproof dressing to shower. You may use an ice pack at the surgical site to reduce any swelling or discomfort. 3. Monitor the incision site for any signs or symptoms of infection. Watch for redness, excessive swelling or drainage, or continued pain at the incision site after 3 days. Contact your physician immediately for a fever, chills or a temperature of 101.5? F or greater. 4. Take your medication exactly as prescribed by your physician. Do not attempt to wean yourself off any of your medications even though your pain is improving. This process needs to be carefully monitored by your doctor. Take any antibiotics prescribed exactly as directed and until they are gone. 5. Avoid stretching, bending, pulling, twisting or any sudden movements. Do not bend or twist at the waist. Wear back brace at all times. Okay to remove brace to sleep 6. No lifting greater than 5 pounds. 7. Do not operate a motor vehicle, equipment or a power tool while taking pain medication 8. Do not have any manipulation done by a chiropractor or any other physician without first consulting with the surgeon 9. Please contact our office if you are even scheduled for a CT scan or an MRI. 10. Please call us if you have any questions, problems or concerns. Discharge Orders/Prescriptions Prescriptions: New hydrocodone-acetaminophen 5-325 mg tablet 1 tab PO Q6H 7 Days Qty: 28 0RF Continued albuterol sulfate 90 mcg/actuation HFA aerosol inhaler 2 puff inhalation Q6H PRN (Reason: shortness of breath or wheezing) Qty: 8.5 0RF zolpidem 10 mg tablet 10 mg PO QHS PRN (Reason: Sleep) Label Comments: TAKE 1 TABLET BY MOUTH AT BEDTIME FOR 30 DAYS esomeprazole magnesium [Nexium] 40 mg Capsule,Delayed Release(Dr/Ec) 40 mg PO DAILY lisinopril 10 mg tablet 10 mg PO DAILY Label Comments: TAKE 1 TABLET BY MOUTH DAILY gabapentin 100 mg capsule 100 mg PO TID cyanocobalamin (vitamin B-12) [Vitamin B-12] 1,000 mcg Tablet Extended Release 1,000 mcg PO DAILY sildenafil 100 mg tablet 100 mg PO PRN PRN (Reason: Erectile Dysfunction) Label Comments: TAKE 1 TABLET BY MOUTH ONCE DAILY NEEDED magnesium 200 mg Tablet 400 mg PO DAILY omega-3 fatty acids Capsule 1,000 mg PO DAILY flecainide 100 mg tablet 100 mg PO Q12H Discontinued diclofenac sodium 75 mg tablet,delayed release (DR/EC) 75 mg PO BID Label Comments: TAKE 1 TABLET BY MOUTH TWICE DAILY, LAST DOSE 7 DAYS PRIOR TO OR aspirin 81 MG tablet,chewable 81 mg PO DAILY@0800 Label Comments: STOP 5 DAYS PRIOR clonazepam 0.5 mg tablet 0.5 mg PO BID Referrals / Follow Up: Ru Andres DO [Med Staff - Active Staff] - Harpreet Lee MD [Primary Care Provider] - Disposition Disposition (needs filled in before D/C Order can be placed): Home, Self Care
--- NOTE | 2022-11-29 07:14 | PCM.OPRPT ---
Problems Associated Problem List Diagnoses (1) Lumbar stenosis: Report of Operation Date of Procedure: 11/29/22 Pre-Operative Diagnosis: 1. Lumbar stenosis L5-S1 with spondylosis 2. Lumbar degenerative disc disease L5-S1 Post-Operative Diagnosis: 1. Lumbar stenosis L5-S1 with spondylosis 2. Lumbar degenerative disc disease L5-S1 Surgery/Procedure Performed:: 1. L5-S1 posterior lumbar interbody fusion 2. Insertion of intervertebral biomechanical device 3. Structural allograft for spinal fusion 4. L5 bilateral laminectomies, foraminotomies, facetectomies, decompression of nerve roots 5. S1 bilateral laminectomies, foraminotomies, facetectomies, decompression of bilateral nerve roots 6. L5-S1 posterolateral fusion 7. Pedicle screw fixation 8. Local autograft for spinal fusion 9. Neuro monitoring bilateral upper and bilateral lower extremities Description of Surgical Findings:: The patient is a 61-year-old male with intractable back and leg pain. Image studies confirm the above diagnosis. The patient is opted for operative intervention understanding the risks to include but not limited to infection, bleeding, damage to nerves arteries and veins, possibility of spinal fluid leak, nonunion, hardware failure, continued pain, need for further surgery, deep vein thrombosis, pulmonary embolism, heart attack, risk of stroke or The patient was identified in the preoperative holding area. There he received preoperative IV antibiotics Ancef and was then transferred to the operative suite. Once in the operative suite after general endotracheal anesthesia was established the patient was transferred prone to the [place] operating table. All bony prominences were padded. The lumbar spine was prepped and draped in a standard surgical fashion. Bear hugger's were not turned on until the drapes were placed and sealed with Ioban. A midline incision was made and taken down to the lumbodorsal fascia. The fascia was divided and subperiosteal dissection was taken down to the level of the transverse processes and sacral ala of L5 and S1 bilaterally. A bone scalpel was used to make cuts in the lamina of L5 and then a series of rongeurs and Kerrisons was used removing the spinous process and lamina at L5. Then facetectomies of greater than 50% were performed as well as foraminotomies decompressing the bilateral nerve roots. Given the severity of the stenosis I needed to perform wide bilateral laminectomies and near complete facetectomies in order to decompress the neural elements thus creating instability and necessitating the fusion. The nerve roots and dura were identified and retracted medially. A knife was utilized to perform an annulotomy at the L5-S1 level. Endplate elevators, curettes and pituitaries were used to remove disc material. The endplates were prepared with a rasp. An appropriate sized intervertebral Peek cage device measuring 11 mm was packed with morselized cancellous allograft and impacted into position completing the posterior lumbar interbody fusion at the L5-S1 level. I then proceeded with pedicle screw fixation. Starting points were found at the junction of the superior articular process and transverse process and sacral ala. A power bur was used for the starting points. Pedicle probes were placed bilaterally and then 6.5 x 55 mm screws were placed bilaterally at L5 and 6.5 x 45 mm screws were placed bilaterally at S1. Screws were tested with intraoperative neurophysiologic monitoring and tested within normal limits. Connecting rods were then applied and secured with set screws. I then proceeded with the posterior lateral fusion. This was accomplished by decorticating the transverse processes and sacral ala bilaterally at L5 and S1. This decorticated bone was then bridged with local autograft from the decompression as well as morselized cancellous allograft thus completing the posterolateral fusion at L5-S1. The incision was thoroughly irrigated. Tisseel was placed over the dura as a hemostatic agent. A deep drain was placed. The fascia was closed with #1 Vicryl, subcutaneous with 2-0 Vicryl and skin with 2-0 nylon. A sterile dressing was applied with 4 x 4's ABD and tape. Sponge instrument and needle counts were correct at the end of the case. Neurophysiologic monitoring was maintained at baseline throughout the duration of the case. The patient was extubated and taken to the PACU without incident Yenifer Lucas PA-C was present during the entire duration of the case and necessary for critical parts of the case including retraction and closure Surgeon: Ru Andres dye colorist dyer: Yenifer Lucas Type of Anesthesia: General Drains: Hemovac Estimated Blood Loss (mL): 400 cc Fluids Replaced: 1500 cc Grafts/Implants Used: Unified spine, [place] Complications None Admit VTE Documentation VTE Present on Admission: No
[2022-11-29] MEDS: Cefazolin 2 GM in 0.9% Normal Saline 100 ML IV (07:37)
--- NOTE | 2022-11-29 08:06 | RAD_ITS ---
EXAM: Intraoperative views of lumbar spine HISTORY: L5-S1 POSTERIOR FUSION COMPARISON: None TECHNIQUE: 4 limited intraoperative C-arm films of the lumbar spine performed during surgery. 105.95 consult fluoroscopy, radiation dose of 38.9 mGy FINDINGS: 4 limited intraoperative views of the lumbar spine were performed during pedicle screw fusion surgery at L5/S1. No intraoperative complications RAD/Spine 1 View Any Level IMPRESSION: No intraoperative convocations noted during L5/S1 pedicle screw fusion surgery Electronically Signed: Jose Antonio MD at 8:26 EDT ,
[2022-11-29] MEDS: Bupivacaine 0.25% 30 ML Vial (08:30)
[2022-11-29] MEDS: THROMBIN (RECOMBINANT) 20,000 UNIT VIAL 20000 UNIT TOPICAL (09:29)
[2022-11-29] MEDS: Lactated Ringers 1,000 ML 100 ML IV (12:51)
[2022-11-29] MEDS: Gabapentin 100 MG Capsule PO ×2 (16:48→21:22)
[2022-11-29] MEDS: Acetaminophen 500 MG Tablet 1000 MG PO ×2 (16:48→21:22)
[2022-11-29] MEDS: Cefazolin 1 GM/50 ML BAG IV ×2 (16:48→23:06)
[2022-11-29] MEDS: Ensure Surgery 237 ML LIQUID PO (16:59)
--- NOTE | 2022-11-29 20:35 | PCM.PN.HOSP ---
Reason for Visit Reason for Visit: Postoperative medical management Subjective Subjective 89-year-old male he underwent L5/S1 fusion for lumbar stenosis. Hospital medicine consulted for postoperative medical management. Patient seen and examined. Pain is fairly well controlled. Denies any chest pain or shortness of breath. Objective Data Objective Data Vital Signs: Vital Signs Temp Pulse Resp BP Pulse Ox O2 Del Method O2 Flow Rate 37.3 C 94 16 117/73 98 Room Air 2 11/29/22 17:51 11/29/22 17:51 11/29/22 17:51 11/29/22 17:51 11/29/22 17:51 11/29/22 17:51 11/29/22 16:30 Oxygen Flow Rate (L/min) 2 Oxygen Delivery Method Room Air Weight: 92.3 kg Body Mass Index (BMI) 30.9 Intake & Output: Intake and Output for Last 24 Hours 11/27/22 11/28/22 11/29/22 23:59 23:59 23:59 Intake Total 2160 / 2160 Output Total 1400 / 1400 Balance 760 / 760 Lab / Micro Data Attestation: I reviewed the patient's lab results. ABG Data Attestation: I personally reviewed and interpreted this ABG as follows: Physical Exam Narrative General exam. Middle-aged man, obese, not in any overt distress appears quite comfortable HEENT. Oral mucosa moist no pallor jaundice Neck. Neck is supple Heart. First second heart sounds heard no murmurs Lungs. Clear to auscultation Abdomen. Obese. Moves with respiration Back. Drain noted. Still bloody. 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 Conscious alert oriented x3. Assessment & Plan Assessment/Plan (1) Paroxysmal atrial fibrillation: (2) Essential (primary) hypertension: PLAN: Plan Assessment and plan 1. Paroxysmal atrial fibrillation. On antiarrhythmic therapy with flecainide and in sinus rhythm. Not on anticoagulation at this time. 2. Hypertension. Well-controlled. Continue current antihypertensives. 3. Obesity. Lifestyle modifications as able. Charges/Coding Visit Charges Inpatient E&M: 27332 Subs Hosp L2
[2022-11-29] MEDS: Flecainide 100 MG Tablet PO (21:22)
--- NOTE | 2022-11-29 21:45 | NURSING ---
this nurse and FINE WIRE DRAWER attempted to get patient out of bed with no success. Pt was a heavy 2 assist to turn in bed and sit on side of bed. Pt stated his right leg felt kind of numb and like it was burning so he didnt feel as if he could stand up.
[2022-11-29] MEDS: oxyCODONE 5 MG Tablet PO (23:06)
[2022-11-29] MEDS: Lactated Ringers 1,000 ML 150 ML IV (23:09)
[2022-11-30 00:21] VITALS: BP 120/70; PULSE 70; RESP 16; TEMP 36.6; O2SAT 98
[2022-11-30 04:36] VITALS: BP 102/68; PULSE 77; RESP 16; TEMP 25; O2SAT 100
[2022-11-30] MEDS: oxyCODONE 5 MG Tablet PO ×3 (04:38→19:53)
[2022-11-30] MEDS: Gabapentin 100 MG Capsule PO ×3 (05:01→22:46)
[2022-11-30] MEDS: Acetaminophen 500 MG Tablet 1000 MG PO ×3 (05:01→22:46)
--- NOTE | 2022-11-30 07:24 | PCM.PN.ORT ---
Subjective Subjective The patient was seen and examined postoperative day 1. He is lying in bed resting comfortably. His pain is controlled. He still complains of some soreness in the lower back at the surgery site as well as some burning in the right lower extremity distal to the knee. He denies any other acute numbness tingling weakness or changes in bowel or bladder function. He has been slow to mobilize secondary to pain and has not ambulated yet since surgery. His drain was pulled without complication this morning Objective Data Objective Data Vital Signs: Vital Signs Temp Pulse Resp BP Pulse Ox O2 Del Method O2 Flow Rate 77 F L 77 16 102/68 100 Nasal Cannula 2 11/30/22 04:36 11/30/22 04:36 11/30/22 04:36 11/30/22 04:36 11/30/22 04:36 11/30/22 04:36 11/30/22 04:36 Oxygen Flow Rate (L/min) 2 Oxygen Delivery Method Nasal Cannula Weight: 203 lb 7.787 oz Body Mass Index (BMI) 30.9 Intake & Output: Intake and Output for Last 24 Hours 11/28/22 11/29/22 11/30/22 23:59 23:59 23:59 Intake Total 3210 / 3210 410 / 410 Output Total 1550 / 3100 2250 / 2250 Balance 1660 / 110 -1840 / -1840 Physical Exam Const alert, oriented x3 and no apparent distress General Appearance: cooperative, comfortable and well kempt HEENT normocephalic and head/scalp atraumatic Head and Scalp: normal to inspection Eyes EOMs intact bilaterally and conjunctivae normal Neck full ROM General: normal visual inspection Chest inspection of chest normal and palpation of chest normal Resp normal respiratory effort and normal air movement Effort and Inspection: able to speak in complete sentences Cardio regular rate and peripheral pulses 2+ throughout GI soft to palpation, non-tender and non-distended Back/Spine Back/Spine Narrative: Dressing clean dry and intact. Drain in place and functioning with small amount of serosanguineous fluid present. Drain pulled this morning without complication Cervical Spine: cervical ROM normal Thoracic Spine / Upper Back: normal to inspection Lumbar Spine / Lower Back: normal to inspection Extremity normal to inspection, full ROM, normal capillary refill, no clubbing, cyanosis or edema and no calf tenderness Skin no rashes or lesions noted General Skin Exam: no breakdown Neuro oriented x3, CN's II-XII intact bilaterally, moves all extremities, no focal motor deficits, no sensory deficits noted and deep tendon reflexes 2+ bilaterally Motor Exam: strength 5/5 throughout and muscle tone normal throughout Assessment & Plan Assessment/Plan (1) Lumbar stenosis: PLAN: Continue pain control and activity as tolerated Up with physical therapy today. Back brace on at all times when out of bed We will call in a prescription for a walker to assist in ambulation Discharge planning. If the patient is mobilizing better today and wants to go home that is fine otherwise plan for discharge tomorrow
--- NOTE | 2022-11-30 07:25 | RAD_ITS ---
STUDY: X-RAY - LUMBAR SPINE REASON FOR EXAM: Male, 61 years old. Postop from back surgery TECHNIQUE: 2 view(s) of the lumbar spine were obtained. COMPARISON: None FINDINGS: Patient is status post pedicle screw fusion surgery at L5 and S1 to stabilize a bilateral pars defect. Synthetic disc has been placed at L5/S1. No hardware complications or failure noted. Normal lumbar lordosis. There is no substantial scoliosis. There is a normal alignment of the vertebrae. There is multilevel endplate spondylosis of the lumbar vertebrae. Normal disc space heights. There is no demonstrated fracture. The soft tissue structures are unremarkable. RAD/Lumbar Spine 2 or 3 Views IMPRESSION: Postsurgical changes at L5/S1, no hardware complication failure or acute abnormality noted Remainder of the lumbar spine is normal for age Electronically Signed: Jose Antonio MD at 8:07 EDT ,
[2022-11-30] MEDS: Ensure Surgery 237 ML LIQUID PO ×3 (07:32→17:40)
[2022-11-30 07:47] VITALS: O2SAT 95
[2022-11-30 08:10] VITALS: BP 115/65; PULSE 83; RESP 16; TEMP 36.6; O2SAT 95
--- NOTE | 2022-11-30 09:29 | PCM.PN.HOSP ---
Reason for Visit Reason for Visit: Diagnoses Essential (primary) hypertension (11/29/22) Paroxysmal atrial fibrillation (11/29/22) Spinal stenosis, lumbar region without neurogenic claudication (11/29/22) Encounter for preprocedural cardiovascular examination (11/29/22) Encounter for other preprocedural examination (11/29/22) Subjective Subjective Reports some difficulty with standing due to pain with some relief with pain medications. Fairly comfortable while just laying in bed Objective Data Objective Data Vital Signs: Vital Signs Temp Pulse Resp BP Pulse Ox O2 Del Method O2 Flow Rate 97.8 F 83 16 115/65 95 Room Air 2 11/30/22 08:10 11/30/22 08:10 11/30/22 08:10 11/30/22 08:10 11/30/22 08:10 11/30/22 08:10 11/30/22 04:36 Oxygen Flow Rate (L/min) 2 Oxygen Delivery Method Room Air Weight: 92.3 kg Body Mass Index (BMI) 30.9 Intake & Output: Intake and Output for Last 24 Hours 11/28/22 11/29/22 11/30/22 23:59 23:59 23:59 Intake Total 3210 / 3210 410 / 410 Output Total 1550 / 3100 2250 / 2250 Balance 1660 / 110 -1840 / -1840 Radiography Diagnostic Testing: Radiology Impression Spine X-Ray 11/29/22 08:06 IMPRESSION: No intraoperative convocations noted during L5/S1 pedicle screw fusion surgery Electronically Signed: Jose Antonio MD at 8:26 EDT , Lumbar Spine X-Ray 11/30/22 07:25 IMPRESSION: Postsurgical changes at L5/S1, no hardware complication failure or acute abnormality noted Remainder of the lumbar spine is normal for age Electronically Signed: Jose Antonio MD at 8:07 EDT , Physical Exam Narrative General: Alert, oriented, no apparent distress HEENT: Atraumatic, normocephalic Eyes: Anicteric, normal conjunctiva, extraocular movements grossly intact Neck: Supple Respiratory: Clear to auscultation bilaterally, normal respiratory effort Cardiovascular: Regular rate and rhythm GI: Soft, nontender, nondistended Extremities: No edema Musculoskeletal: Resting comfortably in bed Neuro: No overt focal neurological deficits Skin: No rashes appreciated Psych: Cooperative Assessment & Plan Assessment/Plan (1) Paroxysmal atrial fibrillation: (2) Essential (primary) hypertension: PLAN: Plan Assessment and plan # Paroxysmal atrial fibrillation -On antiarrhythmic therapy with flecainide and in sinus rhythm. Not on anticoagulation at this time. #[id number]-[id number]. Continue current antihypertensives. #Lumbar stenosis status post L5-S1 posterior lumbar interbody fusion -Management per Ortho #Obesity. Lifestyle modifications as able. Charges/Coding Visit Charges Inpatient E&M: 20696 Subs Hosp L1
--- NOTE | 2022-11-30 10:03 | CASEMGMT ---
SW spoke with patient regarding advance directives. Pt decided to complete Advance Directives in [place] since he is moving there as soon as he is recovered. Jodi Hunter [employer], NAT INSTRUCTOR
[2022-11-30] MEDS: Pantoprazole Sodium 40 MG Tablet PO (10:13)
[2022-11-30] MEDS: Lisinopril 10 MG Tablet PO (10:13)
[2022-11-30] MEDS: Flecainide 100 MG Tablet PO ×2 (10:13→22:46)
--- NOTE | 2022-11-30 10:50 | CASEMGMT ---
Addendum entered by Jocelyn Padilla 11/30/22 14:10: Provided pt with FWW and consignment form completed. Addendum entered by Jocelyn Padilla 11/30/22 11:16: Referral sent to [employer] for FWW via careport at this time. Original Note: BETHANY QUEVEDO Assessment: Face to Face with pt for initial transition planning/care coordination assessment. BETHANY QUEVEDO introduced self and role at [facility], pt voices understanding and consents to assessment. Pt is A/O x4 and answers all questions appropriately at this time. Pt sitting up in chair in no distress. Care providers, pharmacy, and demographics verified/updated. Admitting Dx: lumbar 5 sacral 1 posterior lumbar interbody fusion PCP:Rosa Specialists:katie Andres; Luis cardio Preferred Pharmacy: [facility] Retail Insurance: [place] Prescription Benefit: yes LNOK: Joi Mercado, Living Arrangements: Pt recently moved from his home. He plans to stay at the [facility] for one day post dc and then go to his father's home in [place] until he eventually moves to [place]. Pt will be with his father and sister in the home and his dtr will be staying there with him to assist as well. Pt reports prior to OR he was I in ADL's. Pt denies concerns in the home. Transportation: Pt drives self and denies concerns with transportation. Pt dtr will transport him post surgery until he can drive again. DME/HHC/SNF: Pt father recently had hip surgery, he has access to a cane, shower chair, high rise toilet and sock aid. Pt does not have a FWW. Provided pt with a local verbal in network list of DME companies for walker, pt chose [employer]. Pt denies hx of HHC or SNF stays. Pt states no concerns with going home at time of dc. Pt states no further concerns/needs. CM to follow. Advised pt to ask CM if any further question/concerns/needs arise, voices understanding. Pt Goal: Father's home Plan: Father's home
[2022-11-30] MEDS: Bisacodyl 5 MG Tablet PO ×2 (12:55→22:46)
[2022-11-30 13:52] VITALS: BP 120/67; PULSE 84; RESP 16; TEMP 36.7; O2SAT 95
[2022-11-30] MEDS: Psyllium 1 PACKET PO (17:51)
[2022-11-30 20:35] VITALS: BP 122/71; PULSE 83; RESP 18; TEMP 37.1; O2SAT 97
[2022-12-01] MEDS: oxyCODONE 5 MG Tablet PO ×3 (02:43→21:32)
[2022-12-01 03:05] VITALS: BP 116/75; PULSE 83; RESP 16; TEMP 36.8; O2SAT 97
[2022-12-01] MEDS: Gabapentin 100 MG Capsule PO ×3 (05:28→21:30)
[2022-12-01] MEDS: Acetaminophen 500 MG Tablet 1000 MG PO ×3 (05:28→21:32)
[2022-12-01 09:03] VITALS: BP 115/74; PULSE 76; RESP 19; TEMP 36.9; O2SAT 96
[2022-12-01] MEDS: Lisinopril 10 MG Tablet PO (09:08)
[2022-12-01] MEDS: Pantoprazole Sodium 40 MG Tablet PO (09:08)
[2022-12-01] MEDS: Bisacodyl 5 MG Tablet PO (09:08)
[2022-12-01] MEDS: Flecainide 100 MG Tablet PO ×2 (09:09→21:32)
[2022-12-01] MEDS: Lactulose 20 GM/30 ML UDC PO (13:19)
[2022-12-01 13:25] VITALS: O2SAT 96
[2022-12-01] MEDS: Psyllium 1 PACKET PO ×2 (13:26→21:30)
[2022-12-01 15:00] VITALS: BP 105/69; PULSE 75; RESP 19; TEMP 36.8; O2SAT 95
--- NOTE | 2022-12-01 16:18 | PCM.PN.HOSP ---
Reason for Visit Reason for Visit: Diagnoses Essential (primary) hypertension (11/29/22) Paroxysmal atrial fibrillation (11/29/22) Spinal stenosis, lumbar region without neurogenic claudication (11/29/22) Encounter for preprocedural cardiovascular examination (11/29/22) Encounter for other preprocedural examination (11/29/22) Subjective Subjective Has some abdominal fullness, fixated on having a bowel movement Objective Data Objective Data Vital Signs: Vital Signs Temp Pulse Resp BP Pulse Ox O2 Del Method O2 Flow Rate 98.2 F 75 19 H 105/69 95 Room Air 2 12/01/22 15:00 12/01/22 15:00 12/01/22 15:00 12/01/22 15:00 12/01/22 15:00 12/01/22 15:00 11/30/22 04:36 Oxygen Flow Rate (L/min) 2 Oxygen Delivery Method Room Air Weight: 92.3 kg Body Mass Index (BMI) 30.9 Intake & Output: Intake and Output for Last 24 Hours 11/29/22 11/30/22 12/01/22 23:59 23:59 23:59 Intake Total 3210 / 3210 410 / 410 835 / 835 Output Total 1550 / 3100 2250 / 2250 Balance 1660 / 110 -1840 / -1840 835 / 835 Physical Exam Narrative General: Alert, oriented, no apparent distress HEENT: Atraumatic, normocephalic Eyes: extraocular movements grossly intact Neck: Supple Respiratory: normal respiratory effort Cardiovascular: no edema appreciated GI: Slightly firm, no significant tenderness, no rebound, no guarding, no rigidity Extremities: Moving all extremities Neuro: No overt focal neurological deficits Psych: Cooperative Assessment & Plan Assessment/Plan (1) Paroxysmal atrial fibrillation: (2) Essential (primary) hypertension: PLAN: Plan Assessment and plan #Constipation -Suspect postop and opioid mediated -Scheduled Metamucil, senna docusate -Given lactulose without significant improvement -Enema added # Paroxysmal atrial fibrillation -On antiarrhythmic therapy with flecainide and in sinus rhythm. Not on anticoagulation at this time. #Brktcoaegatx-[id number]. Continue current antihypertensives. #Lumbar stenosis status post L5-S1 posterior lumbar interbody fusion -Management per Ortho #Obesity. Lifestyle modifications as able. Charges/Coding Visit Charges Inpatient E&M: 47597 Subs Hosp L2
[2022-12-01 20:59] VITALS: BP 120/73; PULSE 81; RESP 15; TEMP 37.2; O2SAT 98
[2022-12-01] MEDS: Senna/Docusate Sodium 1 Tablet 2 TABLET PO (21:30)
[2022-12-01] MEDS: Zolpidem Tartrate 5 MG Tablet PO (23:06)
[2022-12-02 04:00] VITALS: BP 120/78; PULSE 75; RESP 16; TEMP 37.2; O2SAT 97
[2022-12-02] MEDS: Acetaminophen 500 MG Tablet 1000 MG PO (04:12)
[2022-12-02] MEDS: oxyCODONE 5 MG Tablet PO ×2 (04:12→10:08)
[2022-12-02] MEDS: Gabapentin 100 MG Capsule PO (06:02)
[2022-12-02] MEDS: Psyllium 1 PACKET PO (06:02)
--- NOTE | 2022-12-02 07:46 | PCM.PN.HOSP ---
Reason for Visit Reason for Visit: Diagnoses Essential (primary) hypertension (11/29/22) Paroxysmal atrial fibrillation (11/29/22) Spinal stenosis, lumbar region without neurogenic claudication (11/29/22) Encounter for preprocedural cardiovascular examination (11/29/22) Encounter for other preprocedural examination (11/29/22) Subjective Subjective Feeling better today, had bowel movement, slept well last night Objective Data Objective Data Vital Signs: Vital Signs Temp Pulse Resp BP Pulse Ox O2 Del Method O2 Flow Rate 98.9 F 75 16 120/78 97 Room Air 2 12/02/22 04:00 12/02/22 04:00 12/02/22 04:00 12/02/22 04:00 12/02/22 04:00 12/02/22 04:00 11/30/22 04:36 Oxygen Flow Rate (L/min) 2 Oxygen Delivery Method Room Air Weight: 92.3 kg Body Mass Index (BMI) 30.9 Intake & Output: Intake and Output for Last 24 Hours 11/30/22 12/01/22 12/02/22 23:59 23:59 23:59 Intake Total 410 / 410 1075 / 1325 450 / 450 Output Total 2250 / 2250 Balance -1840 / -1840 1075 / 1325 450 / 450 Physical Exam Narrative General: Alert, oriented, no apparent distress HEENT: Atraumatic, normocephalic Eyes: extraocular movements grossly intact Neck: Supple Respiratory: normal respiratory effort Cardiovascular: no edema appreciated GI: Soft, nontender, nondistended, no rebound, guarding, rigidity Extremities: Moving all extremities Neuro: No overt focal neurological deficits Psych: Cooperative Assessment & Plan Assessment/Plan (1) Paroxysmal atrial fibrillation: (2) Essential (primary) hypertension: PLAN: Plan Assessment and plan #Constipation -Suspect postop and opioid mediated -Scheduled Metamucil, senna docusate -Given lactulose without significant improvement -Enema added -12/01: Resolved, patient reports he already has bowel regimen for home. Okay to DC from medicine perspective # Paroxysmal atrial fibrillation -On antiarrhythmic therapy with flecainide and in sinus rhythm. Not on anticoagulation at this time. #Mzreshqqhwzf-Evop-glivprrnnu. Continue current antihypertensives. #Lumbar stenosis status post L5-S1 posterior lumbar interbody fusion -Management per Ortho #Obesity. Lifestyle modifications as able. Charges/Coding Visit Charges Inpatient E&M: 45019 Subs Hosp L1
[2022-12-02 08:31] VITALS: BP 122/82; PULSE 72; RESP 18; TEMP 37.1; O2SAT 98
[2022-12-02] MEDS: Pantoprazole Sodium 40 MG Tablet PO (08:35)
[2022-12-02] MEDS: Flecainide 100 MG Tablet PO (08:35)
[2022-12-02] MEDS: Senna/Docusate Sodium 1 Tablet 2 TABLET PO (08:35)
[2022-12-02] MEDS: Lisinopril 10 MG Tablet PO (08:36)
== END 2022-12-02 11:40 | disposition home or self-care (01) ==
LOC: MS3 14:51
PROVIDERS: Anesthesiology; Admitting Provider Orthopaedic Surgery; PCP Family Medicine; Referring Provider Orthopaedic Surgery; Visit Provider Orthopaedic Surgery
PROC: 0SG00AJ Fusion of Lumbar Vertebral Joint with Interbody Fusion Device, Posterior Approach, Anterior Column, Open Approach (ICD-10-PCS; CPT 22630; principal; 2022-11-29 07:00)
DX: M48.061 Spinal stenosis, lumbar region without neurogenic claudication (principal); I48.0 Paroxysmal atrial fibrillation; E66.9 Obesity, unspecified; Z87.891 Personal history of nicotine dependence; M48.07 Spinal stenosis, lumbosacral region; G47.33 Obstructive sleep apnea (adult) (pediatric); Z68.31 Body mass index [BMI] 31.0-31.9, adult; M54.16 Radiculopathy, lumbar region; M51.27 Other intervertebral disc displacement, lumbosacral region; M51.37 Other intervertebral disc degeneration, lumbosacral region; K59.00 Constipation, unspecified; M47.27 Other spondylosis with radiculopathy, lumbosacral region; K21.9 Gastro-esophageal reflux disease without esophagitis; I10 Essential (primary) hypertension; Z79.899 Other long term (current) drug therapy
CPT/HCPCS: 22633; 20930; 22853; 00630; 22842; 20936; 36415; 71046; 72020; 72100; 76000; 83735; 85610; 85730; 94668; 96361; 96365; 96366; 97116; 97162; 97530; 99221; C1713; J7120; G0378; J2405; J3475

== ENCOUNTER → 2023-07-25 | Outpatient (CLI) | payer BC, SELFPAY ==
--- NOTE | 2023-07-25 09:54 | CDU_ITS ---
Reason For Study: Recent TIA Rt. Velocities/BP Lt. Velocities/BP Prox CCA 113.3/39.7 cm/sec. Prox CCA 127.1/41.3 cm/sec. Mid CCA 83.9/24.9 cm/sec. Mid CCA 107.0/43.1 cm/sec. Dist CCA 81.4/29.8 cm/sec. Dist CCA 66.7/26.1 cm/sec. Prox ICA 63.9/23.2 cm/sec. Prox ICA 77.6/27.0 cm/sec. Mid ICA 65.6/31.0 cm/sec. Mid ICA 101.8/43.5 cm/sec. Dist ICA 73.3/28.9 cm/sec. Dist ICA 73.2/33.1 cm/sec. Rt. ICA/CCA = 0.9. Lt. ICA/CCA = 1.0. Prox ECA 109.7/27.4 cm/sec. Prox ECA 101.6/28.5 cm/sec. Rt. Vert. 42.1/14.7 cm/sec. Lt. Vert. 41.7/11.8 cm/sec. Right Extracranial There is intimal thickening but no significant atherosclerotic plaque noted in the right common carotid artery. There is intimal thickening but no significant atherosclerotic plaque noted in the right internal carotid artery. There is intimal thickening but no significant atherosclerotic plaque noted in the right external carotid artery. Antegrade flow is noted in the right vertebral artery. Left Extracranial There is intimal thickening but no significant atherosclerotic plaque noted in the left common carotid artery. There is homogeneous, smooth atherosclerotic plaque noted in the left internal carotid artery. There is intimal thickening but no significant atherosclerotic plaque noted in the left external carotid artery. Antegrade flow is noted in the left vertebral artery. Procedure Carotid Duplex 49324. This is a Carotid Duplex examination using B-mode, color flow and specral Doppler. The exam was diagnostic. Exam performed in department. VL/Carotid Duplex Ultrasound Interpretation Summary Normal right extracranial internal carotid. Mild (<50%) stenosis left extracranial internal carotid. Patent and antegrade vertebrals bilaterally. Ordering Physician: Barry Flannery Referring Physician: Harpreet Lee Performed By: Bradford Gibbons RVT
== END | disposition home or self-care (01) ==
PROVIDERS: PCP Family Medicine; Referring Provider Nurse Practitioner Family; Visit Provider Nurse Practitioner Family
DX: I65.22 Occlusion and stenosis of left carotid artery (principal); I48.0 Paroxysmal atrial fibrillation; I10 Essential (primary) hypertension
CPT/HCPCS: 93880

== ENCOUNTER → 2023-08-08 | Outpatient (CLI) | payer BC, SELFPAY ==
--- NOTE | 2023-08-08 09:30 | RAD_ITS ---
STUDY: X-RAY - PELVIS REASON FOR EXAM: Male, 62 years old. Pain. TECHNIQUE: One view of the pelvis was obtained. COMPARISON: None. FINDINGS: There is a non-specific bowel gas pattern. Normal visualized soft tissue structures. Normal bilateral iliac wings, sacroiliac joints and visualized sacrum. Normal visualized bilateral superior and inferior pubic rami. Normal pubic symphysis. Normal ischial tuberosities. Posterior fusion at L5-S1. Mild arthrosis of both hips. RAD/Pelvis 1 or 2 Views IMPRESSION: Mild arthrosis of both hips. No other abnormality. Electronically Signed: Adarsh Nugent MD at 9:37 EST ,
[2023-08-08 10:37] LABS: Erythrocyte Sedimentation Rate 8 mm/hr (0-20)
[2023-08-08 10:44] LABS: Absolute Lymphocyte Count 1.16 X10^3/uL (0.83-4.51); Basophil% 1.4 % (0-1); Eosinophil# 0.33 X10^3/uL; Eosinophils% 4.5 % (0-5); Hematocrit 44.8 % (40-54); Hemoglobin 14.9 g/dL (13.0-16.5); Lymphocyte # 1.16 X10^3/ul (0.83-4.51); Mean Corp Hgb Conc 33.3 g/dL (32-36); Mean Corpuscular Hgb 30.5 pg (27.0-32.0); Mean Corpuscular Volume 91.6 fL (80-94); Mean Platelet Vol. 11.8 fl (6.2-12.0); Monocyte# 0.62 X10^3/uL; Monocyte% 8.5 % (0-10); NRBC Flagged by Analyzer 0 % (0-5); Neutrophil # 5.04 X10^3/uL (2.7-7.7); Neutrophil % 69.3 % (47-70); Platelet Count 179 K/mm3 (150-450); RBC Distribution Width SD 40.3 fl (35.1-43.9); Red Blood Count 4.89 M/mm3 (4.6-6.2); White Blood Count 7.3 K/mm3 (4.4-11.0)
[2023-08-08 11:11] LABS: ALB/GLOB Ratio 1.1 RATIO (0.9-2.4); AST(SGOT) 23 U/L (15-37); Alanine Aminotransfer ALT/SGPT 50 U/L (16-61); Albumin, Serum 3.6 g/dL (3.2-5.0); Alkaline Phosphatase 102 U/L (45-117); Anion Gap 6 (5-15); BUN 29 mg/dL (7-18); BUN/Creat Ratio 25.9 RATIO (10-20); CRP < 2.90 mg/L (0.0-3.0); Calcium,Total 8.3 mg/dL (8.5-10.1); Chloride 109 mmol/L (98-107); Creatinine, Serum 1.12 mg/dL (0.70-1.30); EST Glomerular Filtration Rate 71 mL/min (>60); Est Glom Filt Rate - Afr Amer 86 mL/min (>60); Globulin 3.4 g/dL (2.2-4.2); Glucose 109 mg/dL (74-106); Rheumatoid Factor < 10.0 IU/mL (<15); Sodium Level 139 mmol/L (136-145)
[2023-08-08 11:15] LABS: Hepatitis B Surface Antibody Non-Reactive; Hepatitis B Surface Antigen Non-Reactive (Nonreactive); Hepatitis C Antibody Non-Reactive (Nonreactive)
[2023-08-09 14:09] LABS: CCP IgG Antibodies 1 units (0-19)
== END | disposition home or self-care (01) ==
LOC: MTLAB 08:18
PROVIDERS: PCP Family Medicine; Referring Provider Internal Medicine Rheumatology; Visit Provider Internal Medicine Rheumatology
DX: M06.4 Inflammatory polyarthropathy (principal); I48.91 Unspecified atrial fibrillation; M19.041 Primary osteoarthritis, right hand; M19.042 Primary osteoarthritis, left hand; M47.897 Other spondylosis, lumbosacral region; M51.37 Other intervertebral disc degeneration, lumbosacral region; M75.111 Incomplete rotator cuff tear or rupture of right shoulder, not specified as traumatic; M75.112 Incomplete rotator cuff tear or rupture of left shoulder, not specified as traumatic; S46.211A Strain of muscle, fascia and tendon of other parts of biceps, right arm, initial encounter; S46.212A Strain of muscle, fascia and tendon of other parts of biceps, left arm, initial encounter; X58.XXXA Exposure to other specified factors, initial encounter; K58.9 Irritable bowel syndrome, unspecified; I10 Essential (primary) hypertension; F41.9 Anxiety disorder, unspecified; K21.9 Gastro-esophageal reflux disease without esophagitis; J45.909 Unspecified asthma, uncomplicated; G47.33 Obstructive sleep apnea (adult) (pediatric); Z86.73 Personal history of transient ischemic attack (TIA), and cerebral infarction without residual deficits
CPT/HCPCS: 36415; 72170; 80053; 85025; 85652; 86140; 86200; 86431; 86706; 86803; 87340

== ENCOUNTER → 2023-08-09 | Outpatient (CLI) | payer BC, SELFPAY ==
[2023-08-09 10:32] LABS: PSA,Total - Annual Screen 0.54 ng/mL (0.00-4.00)
== END | disposition home or self-care (01) ==
LOC: MFPLAB 08:32
PROVIDERS: PCP Family Medicine; Visit Provider Family Medicine
DX: Z12.5 Encounter for screening for malignant neoplasm of prostate (principal)
CPT/HCPCS: 36415; 84153; G0103

== ENCOUNTER → 2023-08-13 | Outpatient (CLI) | payer BC, SELFPAY ==
--- NOTE | 2023-08-13 15:05 | CT_ITS ---
INDICATION: Flank pain right EXAMINATION: CT ABDOMEN WITHOUT CONTRAST - CT Abdomen W/O Contrast Injection TECHNIQUE: Multiple axial images were obtained of the abdomen without oral or IV contrast. A radiation dose optimization technique was used for this scan. IV Contrast dosage and agent: None. Oral contrast: None. RADIATION DOSAGE (If Supplied By Facility): CTDIvol = ( 14.50 ) mGy, DLP = ( 514.35 ) mGycm COMPARISON: Prior study dated: 10/24/2020. FINDINGS: LOWER CHEST: Stable 5 mm left lower lobe nodule for which no further follow-up exam is needed. Normal heart size. LIVER: Homogeneous. No focal mass is seen without contrast. GALLBLADDER AND BILIARY TREE: The gallbladder is not visualized and likely surgically removed. No intra- or extrahepatic biliary ductal dilation. PANCREAS: No focal cystic or solid mass. SPLEEN: Calcified granulomata in the spleen. ADRENAL GLANDS: No nodules. KIDNEYS AND URETERS: [No cysts, the largest measures about 8 cm appears to be simple and no further follow-up exam is needed unchanged prior exam. 8 mm nonobstructing stone in the lower pole of the right kidney. Additional punctate nonobstructing stone. Moderate right hydronephrosis due to 3 mm stone in the proximal right ureter. The distal right ureter and the lower pelvic region are not included on this examination. PERITONEUM: No ascites or free air. No other fluid collection. BOWEL: No stomach or bowel distension. No focal inflammatory change. LYMPH NODES: No enlarged mesenteric or retroperitoneal lymph nodes. VESSELS: Aorta is non-dilated. ABDOMINAL WALL: Very small umbilical hernia containing fat. BONES: Fusion of L5 and S1 with bilateral pedicle screws. CT/Abdomen without IV Contrast IMPRESSION: 1. Mild to moderate right hydronephrosis due to 3 mm stone in the proximal right ureter. 2. Stable simple cysts in the left kidney for which no further follow-up exam is recommended. 3. Nonobstructing stones in the right kidney. Electronically Signed: Devon Lucero MD at 16:01 EST ,
== END | disposition home or self-care (01) ==
LOC: CT 15:02
PROVIDERS: PCP Family Medicine; Referring Provider Family Medicine; Visit Provider Family Medicine
DX: R10.9 Unspecified abdominal pain (principal)
CPT/HCPCS: 74150

== ENCOUNTER → 2023-08-13 | Outpatient (CLI) | payer BC, SELFPAY ==
--- NOTE | 2023-08-13 11:55 | RAD_ITS ---
STUDY: X-RAY - ABDOMEN/PELVIS REASON FOR EXAM: Male, 62 years old. Right flank pain. TECHNIQUE: Single AP view of the abdomen / pelvis on 2 images. COMPARISON: None. FINDINGS: Normal visualized lung bases. Normal bowel gas pattern. Moderate amount of feces in the colon. 8 mm in diameter calcification projected over the lower pole of the right kidney. 2 small calcifications projected over the region of the midpole of the left kidney measuring 1 mm in diameter. Phleboliths. Fusion at L5-S1 with no complicating features noted. RAD/Abdomen Single View IMPRESSION: Bilateral nephrocalcinosis. No acute abnormality. Electronically Signed: Adarsh Nugent MD at 14:32 EST ,
== END | disposition home or self-care (01) ==
LOC: MTRAD 11:54
PROVIDERS: PCP Family Medicine; Referring Provider Family Medicine; Visit Provider Family Medicine
DX: R10.9 Unspecified abdominal pain (principal)
CPT/HCPCS: 74018

== ENCOUNTER 2023-08-14 17:50 | Emergency (ER) | payer BC, SELFPAY ==
[2023-08-14 17:51] VITALS: BP 200/125; PULSE 72; RESP 14; TEMP 36.8; O2SAT 97; BMI 31.3
--- NOTE | 2023-08-14 18:40 | EDS_ITS ---
HPI <YOUNG Mora - Last Filed: 08/14/23 20:32> History of Present Illness Chief Complaint: Flank Pain Narrative Narrative: 62-year-old male presents with right flank pain from a kidney stone. He started having right flank pain about 2 weeks ago with gross hematuria. He saw his primary care who prescribed Flomax and an antibiotic for a presumed kidney stone. He saw Dr. Solano this week and had an outpatient CT scan yesterday which showed a 3 mm right proximal ureteral stone with hydronephrosis. He states the pain is coming in waves today and seems worse. His hematuria has significantly improved and is now only pink-tinged and mostly clear. He is on Eliquis for history of A-fib. He has not taken any pain relievers. He denies fever, chills, nausea or vomiting. PFSH <YOUNG Mora - Last Filed: 08/14/23 20:32> [facility], [facility] Medical History (Updated 08/14/23 @ 20:00 by YOUNG Mora) Alcohol use Anxiety Arthritis Asthma Cardiology follow-up encounter Contact with and (suspected) exposure to other viral communicable diseases Essential (primary) hypertension Fatigue Gastric reflux History of atrial fibrillation History of echocardiogram History of IBS History of stress test Hypertension Injury of head and neck Kidney stones Normal stress echocardiogram Obesity (BMI 30.0-34.9) Obstructive sleep apnea On home oxygen therapy Paroxysmal atrial fibrillation Pulmonary embolism Renal calculi Sleep apnea SOB (shortness of breath) Wears glasses Home Medications albuterol sulfate 90 mcg/actuation aerosol inhaler 2 puff inhalation Q6H PRN shortness of breath or wheezing #8.5 grams 05/31/21 [Rx Last Taken Unknown] esomeprazole magnesium 40 mg capsule,delayed release (Nexium) 40 mg PO DAILY GERD 06/09/21 [History Last Taken 11/29/22] lisinopril 10 mg tablet 10 mg PO DAILY SUPPLEMENT 06/09/21 [History Last Taken 11/29/22] zolpidem 10 mg tablet 10 mg PO QHS PRN Sleep 09/01/21 [History Last Taken Unknown] cyanocobalamin (vitamin B-12) 1,000 mcg tablet,extended release (Vitamin B-12 ER) 1,000 mcg PO DAILY SUPPLEMENT 10/15/22 [History Last Taken Unknown] magnesium 200 mg tablet 400 mg PO DAILY SUPPLEMENT 10/15/22 [History Last Taken Unknown] omega-3 fatty acids 1,000 mg PO DAILY SUPPLEMENT 10/15/22 [History Last Taken Unknown] sildenafil 100 mg tablet 100 mg PO PRN PRN Erectile Dysfunction 10/15/22 [History Last Taken Unknown] flecainide 100 mg tablet 100 mg PO Q12H HEART #180 tabs 05/31/23 [Rx Last Taken Unknown] clonazepam 0.5 mg tablet 0.5 mg PO BID 07/17/23 [History Last Taken Unknown] apixaban 5 mg tablet (Eliquis) 5 mg PO BID #180 tabs 07/29/23 [Rx Last Taken Unknown] baclofen 10 mg tablet 10 mg PO DAILY 08/14/23 [History Last Taken Unknown] ondansetron 4 mg disintegrating tablet 4 mg PO Q6H PRN nausea and vomiting 3 days #12 tabs 08/14/23 [Rx Last Taken Unknown] oxycodone-acetaminophen 5 mg-325 mg tablet (Percocet) 1 tab PO Q6H PRN pain 3 days #12 tabs 08/14/23 [Rx Last Taken Unknown] tamsulosin 0.4 mg capsule 0.4 mg PO Q24H 08/14/23 [History Last Taken Unknown] Allergy/AdvReac Type Severity Reaction Status Date / Time azithromycin AdvReac d/t hx of Verified 08/14/23 17:50 [From Zithromax Z-Jrezy] a-fib Family History Mother Diabetes Hypertension High cholesterol Father Hypertension Other Heart disease Surgical History History of bilateral cataract extraction History of cardiac catheterization History of cholecystectomy History of colonoscopy History of esophagogastroduodenoscopy (EGD) History of laminectomy (~03/2021) History of left heart catheterization (07/28/18) History of radiofrequency ablation procedure for cardiac arrhythmia (12/29/12) Hx of repair of left rotator cuff Hx of surgical procedure Social History Smoking Status: Former smoker pack-years: 10 Tobacco: How many years used: 10 Electronic Cigarette Use: not used second hand exposure: No alcohol intake: current alcohol intake frequency: a few times a week Alcohol type: hard liquor substance use type: does not use caffeine: Yes (very little) what type of physical activity do you participate in: weight training frequency: 3-4 times per week ROS <YOUNG Mora - Last Filed: 08/14/23 20:32> ROS ED ROS Narrative Constitutional: Negative for fever, chills, malaise. CVS: Negative for chest pain Respiratory: Negative for shortness of breath. GI: Negative for abdominal pain, nausea, vomiting. : Positive for hematuria. EXAM <YOUNG Mora - Last Filed: 08/14/23 20:32> Physical Exam Narrative Exam Narrative: CONST: Patient sitting in no acute distress. EYES: Normal inspection. NECK: Normal inspection. RESP: No respiratory distress, CTAB. CVS: Regular rate and rhythm, no murmur, no gallop. ABD: Soft and nontender, no guarding or rebound, nondistended. Back: Normal inspection, no CVA tenderness. SKIN: Color normal, no rash, warm, dry, intact. EXTREMITIES: Normal appearance, no pedal edema. NEURO: Oriented x4. PSYCH: Normal affect. Const Vital Signs: 08/14/23 17:51 08/14/23 18:50 08/14/23 20:00 Temperature 98.3 F Temperature Source Temporal Pulse Rate 72 64 82 Respiratory Rate 14 14 12 Blood Pressure 200/125 H 145/88 H 156/90 H Blood Pressure Mean 150 107 112 Pulse Ox 97 99 99 Oxygen Delivery Method Room Air Room Air Room Air <Dr. Wei Rm MD - Last Filed: 08/14/23 22:19> Physical Exam Const Vital Signs: 08/14/23 17:51 08/14/23 18:50 08/14/23 20:00 Temperature 98.3 F Temperature Source Temporal Pulse Rate 72 64 82 Respiratory Rate 14 14 12 Blood Pressure 200/125 H 145/88 H 156/90 H Blood Pressure Mean 150 107 112 Pulse Ox 97 99 99 Oxygen Delivery Method Room Air Room Air Room Air MDM <YOUNG Mora - Last Filed: 08/14/23 20:32> MDM MDM Narrative Medical decision making narrative: Patient has recent right flank pain and hematuria and had an outpatient CT scan on 08/13 showing a 3 mm right proximal ureteral stone with hydronephrosis. He presents due to pain. He has not taken any pain relievers. He appears uncomfortable but nontoxic. He was hypertensive with otherwise normal vital signs. He has no abdominal or flank tenderness on exam. CBC is within normal limits. BMP shows slight elevation of his creatinine to 1.44 (previous 1.12). UA has 10-25 RBCs but no infection. Patient's pain is well-controlled after morphine and Zofran and blood pressure improved. I spoke with Dr. Solano who is comfortable with the plan to prescribe Percocet and Zofran and the patient following up in the urology office tomorrow. He was discharged in stable condition. Lab Data Attestation: I reviewed the patient's lab results. Labs: Laboratory Results - last 24 hr 08/14/23 08/14/23 18:50 19:09 WBC 6.8 RBC 4.36 L Hgb 13.5 Hct 40.2 MCV 92.2 MCH 31.0 MCHC 33.6 RDW Std Deviation 40.5 RDW Coeff of Gene 11.9 Plt Count 156 MPV 10.7 Immature Gran % (Auto) 0.300 Neut % (Auto) 69.2 Lymph % (Auto) 16.1 L Garrett % (Auto) 9.5 Eos % (Auto) 3.7 Baso % (Auto) 1.2 H Absolute Neuts (auto) 4.7 Absolute Lymphs (auto) 1.10 Nucleated RBC % 0 Sodium 140 Potassium 3.9 Chloride 110 H Carbon Dioxide 27.0 Anion Gap 3 L BUN 25 H Creatinine 1.44 H Estim Creat Clear Calc 52.78 Est GFR (MDRD) Af Amer 64 Est GFR (MDRD) Non-Af 53 L BUN/Creatinine Ratio 17.4 Glucose 99 Calcium 9.0 Urine Color Yellow Urine Clarity Sl. Cloudy Urine pH 7.0 Ur Specific [place] 1.010 Urine Protein Negative Urine Glucose (UA) Normal Urine Ketones Negative Urine Occult Blood 250 H Urine Nitrite Negative Urine Bilirubin Negative Urine Urobilinogen Normal Ur Leukocyte Esterase Negative Urine RBC 10-25 SEEN Urine WBC 0 SEEN Ur Squamous Epith Cells 0 SEEN Urine Bacteria 0 SEEN Urine Mucus 0 SEEN <Dr. Wei Rm MD - Last Filed: 08/14/23 22:19> MDM MDM Narrative Medical decision making narrative: Patient has recent right flank pain and hematuria and had an outpatient CT scan on 08/13 showing a 3 mm right proximal ureteral stone with hydronephrosis. He presents due to pain. He has not taken any pain relievers. He appears uncomfortable but nontoxic. He was hypertensive with otherwise normal vital signs. He has no abdominal or flank tenderness on exam. CBC is within normal limits. BMP shows slight elevation of his creatinine to 1.44 (previous 1.12). UA has 10-25 RBCs but no infection. Patient's pain is well-controlled after morphine and Zofran and blood pressure improved. I spoke with Dr. Solano who is comfortable with the plan to prescribe Percocet and Zofran and the patient following up in the urology office tomorrow. He was discharged in stable condition. I have personally performed a face to face assessment of the patient and have reviewed the GAYE Note. I performed a substantive portion of the visit including all aspects of the following. My arceo findings include: History is this remarkable for right proximal ureteral stone. Patient is established with Dr. Solano. He presents because of pain. He also had nausea and vomiting. He denies fever, chills night sweats. Exam is when I saw patient he was medicated and appears in minimal discomfort. HEENT exam is unremarkable. Vital signs are unremarkable. Heart lung exam is normal. Abdomen soft nontender. There is no CVA tenderness noted. Medical Decision Making UA was obtained to assess for infection. BMP to assess for renal function. CBC to assess white count and differential CT was not repeated. Other additions or changes: Patient had marked improvement of his blood pressure and pain after he was medicated. He was discharged to home. Dr. Solano was paged in light of the elevated creatinine. He has an appointment to see Dr. Solano tomorrow. Lab Data Labs: Laboratory Results - last 24 hr 08/14/23 08/14/23 18:50 19:09 WBC 6.8 RBC 4.36 L Hgb 13.5 Hct 40.2 MCV 92.2 MCH 31.0 MCHC 33.6 RDW Std Deviation 40.5 RDW Coeff of Gene 11.9 Plt Count 156 MPV 10.7 Immature Gran % (Auto) 0.300 Neut % (Auto) 69.2 Lymph % (Auto) 16.1 L Garrett % (Auto) 9.5 Eos % (Auto) 3.7 Baso % (Auto) 1.2 H Absolute Neuts (auto) 4.7 Absolute Lymphs (auto) 1.10 Nucleated RBC % 0 Sodium 140 Potassium 3.9 Chloride 110 H Carbon Dioxide 27.0 Anion Gap 3 L BUN 25 H Creatinine 1.44 H Estim Creat Clear Calc 52.78 Est GFR (MDRD) Af Amer 64 Est GFR (MDRD) Non-Af 53 L BUN/Creatinine Ratio 17.4 Glucose 99 Calcium 9.0 Urine Color Yellow Urine Clarity Sl. Cloudy Urine pH 7.0 Ur Specific [place] 1.010 Urine Protein Negative Urine Glucose (UA) Normal Urine Ketones Negative Urine Occult Blood 250 H Urine Nitrite Negative Urine Bilirubin Negative Urine Urobilinogen Normal Ur Leukocyte Esterase Negative Urine RBC 10-25 SEEN Urine WBC 0 SEEN Ur Squamous Epith Cells 0 SEEN Urine Bacteria 0 SEEN Urine Mucus 0 SEEN Discharge Plan Triage Chief Complaint: Flank Pain ED Midlevel Provider: Luba Campbell ED Provider: Wei Rm Dx/Rx/DC Orders Clinical Impression: Acute kidney injury, Calculus of right kidney Instructions: ED Kidney Stone with Pain Prescriptions: New oxycodone-acetaminophen [Percocet] 5-325 mg tablet 1 tab PO Q6H PRN (Reason: pain) 3 Days Qty: 12 0RF ondansetron 4 mg tablet,disintegrating 4 mg PO Q6H PRN (Reason: nausea and vomiting) 3 Days Qty: 12 0RF No Action albuterol sulfate 90 mcg/actuation HFA aerosol inhaler 2 puff inhalation Q6H PRN (Reason: shortness of breath or wheezing) Qty: 8.5 0RF zolpidem 10 mg tablet 10 mg PO QHS PRN (Reason: Sleep) Patient Comments: TAKE 1 TABLET BY MOUTH AT BEDTIME FOR 30 DAYS clonazepam 0.5 mg tablet 0.5 mg PO BID esomeprazole magnesium [Nexium] 40 mg Capsule,Delayed Release(Dr/Ec) 40 mg PO DAILY lisinopril 10 mg tablet 10 mg PO DAILY Patient Comments: TAKE 1 TABLET BY MOUTH DAILY cyanocobalamin (vitamin B-12) [Vitamin B-12] 1,000 mcg Tablet Extended Release 1,000 mcg PO DAILY sildenafil 100 mg tablet 100 mg PO PRN PRN (Reason: Erectile Dysfunction) Patient Comments: TAKE 1 TABLET BY MOUTH ONCE DAILY NEEDED magnesium 200 mg Tablet 400 mg PO DAILY omega-3 fatty acids Capsule 1,000 mg PO DAILY baclofen 10 mg tablet 10 mg PO DAILY tamsulosin 0.4 mg capsule 0.4 mg PO Q24H flecainide 100 mg tablet 100 mg PO Q12H Qty: 180 3RF Eliquis 5 mg tablet 5 mg PO BID Qty: 180 3RF Primary Care Provider: Harpreet Lee Referrals: Solitario Solano MD [Med Staff - Active Staff] - Harpreet Lee MD [Primary Care Provider] - Activity Restrictions/Additional Instructions: Follow-up with urology tomorrow as scheduled Disposition Disposition: Home, Self Care Discharge Date/Time: 08/14/23 20:19
[2023-08-14] MEDS: 0.9% Normal Saline (1000mL) 1,000 ML 999 ML IV (18:48)
[2023-08-14] MEDS: Ondansetron 4 MG/2 ML Vial IV (18:48)
[2023-08-14] MEDS: Morphine 4 MG/ML Syringe IV (18:48)
[2023-08-14 18:50] VITALS: BP 145/88; PULSE 64; RESP 14; O2SAT 99
[2023-08-14 18:55] LABS: Absolute Neutrophil Count 4.7 X10^3/uL (2.0-7.7); Basophil# 0.08 X10^3/uL; Basophil% 1.2 % (0-1); Eosinophil# 0.25 X10^3/uL; Eosinophils% 3.7 % (0-5); Hematocrit 40.2 % (40-54); Hemoglobin 13.5 g/dL (13.0-16.5); Lymphocyte % 16.1 % (19-41); Mean Corp Hgb Conc 33.6 g/dL (32-36); Mean Corpuscular Volume 92.2 fL (80-94); Mean Platelet Vol. 10.7 fl (6.2-12.0); Monocyte# 0.65 X10^3/uL; Monocyte% 9.5 % (0-10); NRBC Flagged by Analyzer 0 % (0-5); Neutrophil # 4.72 X10^3/uL (2.7-7.7); Neutrophil % 69.2 % (47-70); Platelet Count 156 K/mm3 (150-450); RBC Distribution Width CV 11.9 % (11.6-14.6); RBC Distribution Width SD 40.5 fl (35.1-43.9); Red Blood Count 4.36 M/mm3 (4.6-6.2); White Blood Count 6.8 K/mm3 (4.4-11.0)
[2023-08-14 19:08] LABS: Anion Gap 3 (5-15); BUN 25 mg/dL (7-18); BUN/Creat Ratio 17.4 RATIO (10-20); Chloride 110 mmol/L (98-107); Creatinine, Serum 1.44 mg/dL (0.70-1.30); EST Glomerular Filtration Rate 53 mL/min (>60); Est Glom Filt Rate - Afr Amer 64 mL/min (>60); Estimated Creatinine Clearance 52.78 ml/min; Glucose 99 mg/dL (74-106); Potassium 3.9 mmol/L (3.5-5.1); Sodium Level 140 mmol/L (136-145)
[2023-08-14 19:18] LABS: Bacteria 0 SEEN /hpf (None Seen); Mucous, Urine 0 SEEN /hpf (<or=2+); Squamous Epithelial Cells - UA 0 SEEN /hpf (0-5)
[2023-08-14 19:19] LABS: Color, Urine Yellow (Yellow); Glucose, Dipstick Normal (Normal); Ketone-Dipstick Negative (Negative); Leukocyte Esterase-Dipstick Negative /ul (Negative); Nitrite-Dipstick Negative (Negative); Occult Blood-Urine 250 /ul (Negative); Protein-Dipstick Negative (Negative); Urine Bilirubin Dipstick Negative (Negative); Urine Clarity Sl. Cloudy (Clear); Urine Urobilinogen Normal (Normal)
[2023-08-14 19:46] LABS: Red Blood Cells-Urine 10-25 SEEN /hpf (0-5); White Blood Cells 0 SEEN /hpf (0-5)
[2023-08-14 20:00] VITALS: BP 156/90; PULSE 82; RESP 12; O2SAT 99
== END 2023-08-14 20:19 | disposition home or self-care (01) ==
LOC: ED 20:03
PROVIDERS: Physician Assistant; Emergency Provider Emergency Medicine; PCP Family Medicine; Visit Provider Emergency Medicine
DX: N17.9 Acute kidney failure, unspecified (principal); I48.0 Paroxysmal atrial fibrillation; N13.2 Hydronephrosis with renal and ureteral calculous obstruction; Z87.891 Personal history of nicotine dependence; I10 Essential (primary) hypertension; Z79.01 Long term (current) use of anticoagulants; K21.9 Gastro-esophageal reflux disease without esophagitis; Z79.899 Other long term (current) drug therapy; F41.9 Anxiety disorder, unspecified; Z98.41 Cataract extraction status, right eye; Z98.42 Cataract extraction status, left eye; Z90.49 Acquired absence of other specified parts of digestive tract
CPT/HCPCS: 80048; 81001; 85025; 96361; 96374; 96375; 99283; J7030; A4216; J2405

== ENCOUNTER → 2023-10-28 | Outpatient (CLI) | payer BC, OTHER, SELFPAY ==
[2023-10-28 11:58] LABS: Bacteria 0 SEEN /hpf (None Seen); Mucous, Urine 0 SEEN /hpf (<or=2+); Red Blood Cells-Urine 0 SEEN /hpf (0-5); Squamous Epithelial Cells - UA 0 SEEN /hpf (0-5); White Blood Cells 0 SEEN /hpf (0-5)
--- OUTSIDE RECORDS SUMMARY | 2023-10-28 13:49 | XMS RPT_ITS | CCD ---
Author Name Unknown Address [address] [place] [address] Organization [facility] Care Team Providers Care Balance Bridge Inspector Name Role Phone PROVIDER, NOT IN SYSTEM Primary Care Unavaila ADDISON Roca Attending Unavailab ROSALIA Espinal Referring Unavailable PROVIDER, NOT IN SYSTEM Primary Care Unavaila ble Problems Problem Classification Problem Date Documented Da te Episodic/Chronic Other connective tissue disease (1 source) Pain in right leg; Translations: [Pain in right leg] Onset: 12-20-2022 Episodic Other connective tissue disease (1 source) Pain in lower limb Onset: 12-20-2022 Episodic Unclassified (1 source) rihght leg pain Onset: 12-20-2022 Results Test Name Value Interpretation Reference Range Facil ity Encounters Encounter Date Encounter Type Care Provider Facility Start: 12-20-2022 End: 12-20-2022 Emergency department patient visit NOT IN SYSTEM PROVIDER [facility] Payers Date Payer Category Payer Unknown [id number] [id number] 1960 Unknown [id number] [facility] [id number] Summary Purpose Family History No Family History Records Found Advance Directives No Advanced Directives Records Found Additional Source Comments (unrecognized sect ion and content) No Status Records Found INFORMATION SOURCE (unrecogn ized section and content) FOR RECORDS PERTAINING TO PATIENTS WHO ARE OR HAVE BEEN ENROLLED IN A CHEMICAL DEPENDENCY/SUBSTANCEABUSE PROGRAM, SOME INFORMATION MAY BE OMITTED. This clinical summary was aggregated from multiple sources. Caution should be exercised in using it in the provision of clinical care. This summary normalizes information from multiple sources, and as a consequence, information in this document may materially change the coding, format and clinical context of patient data. In addition, data may be omitted in some cases. CLINICAL DECISIONS SHOULD BE BASED ON THE PRIMARY CLINICAL RECORDS. [facility]. provides no warranty or guarantee of the accuracy or completeness of information in this document.
[2023-10-28 15:44] LABS: Color, Urine Yellow (Yellow); Glucose, Dipstick Normal (Normal); Ketone-Dipstick Negative (Negative); Leukocyte Esterase-Dipstick Negative /ul (Negative); Nitrite-Dipstick Negative (Negative); Occult Blood-Urine 10 /ul (Negative); Protein-Dipstick Negative (Negative); Specific Gravity, Urine 1.015 (1.002-1.030); Urine Bilirubin Dipstick Negative (Negative); Urine Clarity Clear (Clear); Urine Urobilinogen Normal (Normal)
[2023-10-28 16:17] LABS: Syphilis Antibodies Non-reactive
[2023-10-30 08:10] LABS: HSV 2 IgG < 0.91 index (0.00-0.90)
[2023-10-31 06:09] LABS: HIV-1 RNA by PCR, Quant. < 20 copies/mL (.)
== END | disposition home or self-care (01) ==
LOC: MFPLAB 11:56
PROVIDERS: PCP Family Medicine; Visit Provider Family Medicine
DX: R30.0 Dysuria (principal); Z20.2 Contact with and (suspected) exposure to infections with a predominantly sexual mode of transmission
CPT/HCPCS: 36415; 81001; 86695; 86696; 86780; 87491; 87536; 87591

== ENCOUNTER → 2023-11-08 | Outpatient (CLI) | payer OTHER, SELFPAY ==
[2023-11-08 11:59] LABS: Anion Gap 7 (5-15); BUN 23 mg/dL (7-18); BUN/Creat Ratio 19.2 RATIO (10-20); Calcium,Total 9.2 mg/dL (8.5-10.1); Chloride 107 mmol/L (98-107); Cholesterol 172 mg/dL (200); EST Glomerular Filtration Rate 65 mL/min (>60); Est Glom Filt Rate - Afr Amer 79 mL/min (>60); Glucose 104 mg/dL (74-106); High Density Lipoprotein 51 mg/dL; Potassium 4.3 mmol/L (3.5-5.1); Sodium Level 138 mmol/L (136-145); Triglycerides 65 mg/dL; Very Low Density Lipoprotein 13 mg/dL (5-40)
== END | disposition home or self-care (01) ==
LOC: MTLAB 07:59
PROVIDERS: PCP Family Medicine; Referring Provider Family Medicine; Visit Provider Family Medicine
DX: Z00.00 Encounter for general adult medical examination without abnormal findings (principal)
CPT/HCPCS: 36415; 80048; 80061

== ENCOUNTER → 2023-11-19 | Outpatient (CLI) | payer OTHER, SELFPAY ==
[2023-11-19 10:03] LABS: Absolute Neutrophil Count 5.6 X10^3/uL (2.0-7.7); Basophil# 0.07 X10^3/uL; Eosinophil# 0.19 X10^3/uL; Eosinophils% 2.6 % (0-5); Hematocrit 43.1 % (40-54); Hemoglobin 14.4 g/dL (13.0-16.5); Lymphocyte % 12.4 % (19-41); Mean Corp Hgb Conc 33.4 g/dL (32-36); Mean Corpuscular Hgb 29.8 pg (27.0-32.0); Mean Corpuscular Volume 89.2 fL (80-94); Monocyte% 6.9 % (0-10); NRBC Flagged by Analyzer 0 % (0-5); Neutrophil # 5.58 X10^3/uL (2.7-7.7); Neutrophil % 76.7 % (47-70); Platelet Count 207 K/mm3 (150-450); RBC Distribution Width CV 12.1 % (11.6-14.6); RBC Distribution Width SD 39.4 fl (35.1-43.9); Red Blood Count 4.83 M/mm3 (4.6-6.2); White Blood Count 7.3 K/mm3 (4.4-11.0)
[2023-11-19 10:33] LABS: ALB/GLOB Ratio 1.1 RATIO (0.9-2.4); AST(SGOT) 23 U/L (15-37); Alanine Aminotransfer ALT/SGPT 38 U/L (16-61); Albumin, Serum 3.6 g/dL (3.2-5.0); Alkaline Phosphatase 89 U/L (45-117); Anion Gap 5 (5-15); BUN 27 mg/dL (7-18); BUN/Creat Ratio 21.4 RATIO (10-20); Calcium,Total 9.4 mg/dL (8.5-10.1); Chloride 107 mmol/L (98-107); Creatinine, Serum 1.26 mg/dL (0.70-1.30); EST Glomerular Filtration Rate 62 mL/min (>60); Est Glom Filt Rate - Afr Amer 75 mL/min (>60); Globulin 3.3 g/dL (2.2-4.2); Glucose 99 mg/dL (74-106); Potassium 4.5 mmol/L (3.5-5.1); Protein, Total 6.9 g/dL (6.4-8.2); Sodium Level 138 mmol/L (136-145)
== END | disposition home or self-care (01) ==
PROVIDERS: PCP Family Medicine; Referring Provider Internal Medicine Rheumatology; Visit Provider Internal Medicine Rheumatology
DX: M06.4 Inflammatory polyarthropathy (principal); Z79.899 Other long term (current) drug therapy
CPT/HCPCS: 36415; 80053; 85025

== ENCOUNTER → 2024-02-12 | Outpatient (CLI) | payer OTHER, SELFPAY ==
[2024-02-12 15:17] LABS: Absolute Lymphocyte Count 0.93 X10^3/uL (0.83-4.51); Absolute Neutrophil Count 5.5 X10^3/uL (2.0-7.7); Basophil# 0.07 X10^3/uL; Eosinophil# 0.14 X10^3/uL; Hematocrit 41.1 % (40-54); Hemoglobin 13.4 g/dL (13.0-16.5); Lymphocyte # 0.93 X10^3/ul (0.83-4.51); Mean Corp Hgb Conc 32.6 g/dL (32-36); Mean Corpuscular Hgb 29.9 pg (27.0-32.0); Mean Corpuscular Volume 91.7 fL (80-94); Mean Platelet Vol. 11.4 fl (6.2-12.0); NRBC Flagged by Analyzer 0 % (0-5); Neutrophil % 76.9 % (47-70); Platelet Count 177 K/mm3 (150-450); RBC Distribution Width CV 12.1 % (11.6-14.6); RBC Distribution Width SD 40.8 fl (35.1-43.9); Red Blood Count 4.48 M/mm3 (4.6-6.2); White Blood Count 7.2 K/mm3 (4.4-11.0)
[2024-02-12 15:54] LABS: ALB/GLOB Ratio 1.2 RATIO (0.9-2.4); AST(SGOT) 24 U/L (15-37); Alanine Aminotransfer ALT/SGPT 33 U/L (16-61); Albumin, Serum 3.7 g/dL (3.2-5.0); Alkaline Phosphatase 74 U/L (45-117); Anion Gap 4 (5-15); BUN 23 mg/dL (7-18); Calcium,Total 9.3 mg/dL (8.5-10.1); Chloride 107 mmol/L (98-107); Creatinine, Serum 1.15 mg/dL (0.70-1.30); EST Glomerular Filtration Rate 69 mL/min (>60); Est Glom Filt Rate - Afr Amer 83 mL/min (>60); Glucose 97 mg/dL (74-106); Potassium 4.1 mmol/L (3.5-5.1); Protein, Total 6.7 g/dL (6.4-8.2); Sodium Level 138 mmol/L (136-145)
== END | disposition home or self-care (01) ==
PROVIDERS: PCP Family Medicine; Referring Provider Internal Medicine Rheumatology; Visit Provider Internal Medicine Rheumatology
DX: M06.4 Inflammatory polyarthropathy (principal); Z79.899 Other long term (current) drug therapy
CPT/HCPCS: 36415; 80053; 85025

== ENCOUNTER → 2024-05-01 | Outpatient (CLI) | payer OTHER, SELFPAY ==
[2024-05-01 12:38] LABS: Absolute Lymphocyte Count 0.93 X10^3/uL (0.83-4.51); Absolute Neutrophil Count 5.5 X10^3/uL (2.0-7.7); Basophil# 0.11 X10^3/uL; Basophil% 1.5 % (0-1); Eosinophil# 0.28 X10^3/uL; Eosinophils% 3.8 % (0-5); Hematocrit 42.4 % (40-54); Hemoglobin 14.1 g/dL (13.0-16.5); Lymphocyte # 0.93 X10^3/ul (0.83-4.51); Lymphocyte % 12.5 % (19-41); Mean Corp Hgb Conc 33.3 g/dL (32-36); Mean Corpuscular Hgb 29.8 pg (27.0-32.0); Mean Corpuscular Volume 89.6 fL (80-94); Mean Platelet Vol. 11.5 fl (6.2-12.0); Monocyte# 0.57 X10^3/uL; Monocyte% 7.7 % (0-10); NRBC Flagged by Analyzer 0 % (0-5); Neutrophil # 5.53 X10^3/uL (2.7-7.7); Neutrophil % 74.2 % (47-70); Platelet Count 194 K/mm3 (150-450); RBC Distribution Width SD 39.4 fl (35.1-43.9); Red Blood Count 4.73 M/mm3 (4.6-6.2); White Blood Count 7.4 K/mm3 (4.4-11.0)
[2024-05-01 13:24] LABS: ALB/GLOB Ratio 1.1 RATIO (0.9-2.4); AST(SGOT) 22 U/L (15-37); Alanine Aminotransfer ALT/SGPT 36 U/L (16-61); Albumin, Serum 3.4 g/dL (3.2-5.0); Alkaline Phosphatase 87 U/L (45-117); Anion Gap 8 (5-15); BUN 21 mg/dL (7-18); BUN/Creat Ratio 18.1 RATIO (10-20); Calcium,Total 9.3 mg/dL (8.5-10.1); Chloride 107 mmol/L (98-107); Creatinine, Serum 1.16 mg/dL (0.70-1.30); EST Glomerular Filtration Rate 68 mL/min (>60); Est Glom Filt Rate - Afr Amer 82 mL/min (>60); Globulin 3.2 g/dL (2.2-4.2); Glucose 105 mg/dL (74-106); Potassium 4.1 mmol/L (3.5-5.1); Protein, Total 6.6 g/dL (6.4-8.2); Sodium Level 138 mmol/L (136-145)
== END | disposition home or self-care (01) ==
LOC: MTLAB 09:09
PROVIDERS: PCP Family Medicine; Referring Provider Internal Medicine Rheumatology; Visit Provider Internal Medicine Rheumatology
DX: M06.4 Inflammatory polyarthropathy (principal); Z79.899 Other long term (current) drug therapy
CPT/HCPCS: 36415; 80053; 85025

== ENCOUNTER → 2024-05-13 | Outpatient (CLI) | payer OTHER, SELFPAY ==
--- NOTE | 2024-05-13 16:28 | RAD_ITS ---
EXAM: XR CHEST, 2 VIEWS CLINICAL INDICATION: PNEUMONIA TECHNIQUE: Frontal and lateral views of the chest. COMPARISON: 10/15/2022. FINDINGS: LUNGS AND PLEURAL SPACES: No significant abnormality. No consolidation or edema. No pneumothorax. No effusion. HEART: No significant abnormality. Cardiac silhouette not enlarged. MEDIASTINUM: Central airways and mediastinal contour are unremarkable. BONES/JOINTS: Degenerative changes in the spine. No acute fracture. SOFT TISSUES: No significant abnormality. RAD/Chest PA and Lateral IMPRESSION: No acute findings in the chest. Electronically Signed: Virgilio Ochoa DO at 21:18 EDT ,
[2024-05-13 17:30] LABS: Absolute Lymphocyte Count 0.86 X10^3/uL (0.83-4.51); Absolute Neutrophil Count 6.5 X10^3/uL (2.0-7.7); Basophil# 0.09 X10^3/uL; Basophil% 1.1 % (0-1); Eosinophil# 0.14 X10^3/uL; Eosinophils% 1.7 % (0-5); Hematocrit 41.6 % (40-54); Hemoglobin 13.8 g/dL (13.0-16.5); Lymphocyte # 0.86 X10^3/ul (0.83-4.51); Lymphocyte % 10.5 % (19-41); Mean Corp Hgb Conc 33.2 g/dL (32-36); Mean Corpuscular Hgb 29.9 pg (27.0-32.0); Mean Platelet Vol. 11.2 fl (6.2-12.0); Monocyte% 7.3 % (0-10); NRBC Flagged by Analyzer 0 % (0-5); Neutrophil # 6.49 X10^3/uL (2.7-7.7); Neutrophil % 78.9 % (47-70); Platelet Count 190 K/mm3 (150-450); RBC Distribution Width CV 12.4 % (11.6-14.6); RBC Distribution Width SD 41.1 fl (35.1-43.9); Red Blood Count 4.62 M/mm3 (4.6-6.2); White Blood Count 8.2 K/mm3 (4.4-11.0)
== END | disposition home or self-care (01) ==
PROVIDERS: PCP Family Medicine; Referring Provider Family Medicine; Visit Provider Family Medicine
DX: J18.9 Pneumonia, unspecified organism (principal)
CPT/HCPCS: 36415; 71046; 85025

== ENCOUNTER → 2024-05-19 | Outpatient (CLI) | payer OTHER, SELFPAY ==
[2024-05-19 10:30] LABS: AST(SGOT) 21 U/L (15-37); Alanine Aminotransfer ALT/SGPT 39 U/L (16-61); Albumin, Serum 3.6 g/dL (3.2-5.0); Alkaline Phosphatase 86 U/L (45-117); Bilirubin, Direct 0.09 mg/dL (0.00-0.30); Cholesterol 114 mg/dL (200); High Density Lipoprotein 50 mg/dL; Protein, Total 6.6 g/dL (6.4-8.2); Triglycerides 70 mg/dL; Very Low Density Lipoprotein 14 mg/dL (5-40)
== END | disposition home or self-care (01) ==
LOC: MTLAB 07:05
PROVIDERS: PCP Family Medicine; Referring Provider Psychiatry & Neurology Neurology; Visit Provider Psychiatry & Neurology Neurology
DX: G45.9 Transient cerebral ischemic attack, unspecified (principal)
CPT/HCPCS: 36415; 80061; 80076

== ENCOUNTER 2024-07-02 11:25 | Day surgery (SDC) | payer OTHER, SELFPAY ==
--- NOTE | 2024-06-30 08:29 | EKG12_ITS ---
Test Reason : /REOP Blood Pressure : */* mmHG Vent. Rate : 71 BPM Atrial Rate : 71 BPM P-R Int : 182 ms QRS Dur : 92 ms QT Int : 402 ms P-R-T Axes : 78 72 66 degrees QTcB Int : 436 ms Normal sinus rhythm Normal ECG Confirmed by MG CHANDLER, ANGELIQUE ([id number]), industrial editor CLARITA FRANCO ([id number]) on 07/01/2024 8:47:11 AM Referred By: Jamie Simon Confirmed By: ANGELIQUE HOLLIDAY MD
[2024-07-02] VITALS (9 sets, daily range): BP systolic 121–136; BP diastolic 75–96; PULSE 63–72; RESP 16–18; TEMP 36.3–36.8; O2SAT 97–100; BMI 28.5
[2024-07-02] MEDS: Lactated Ringers 1,000 ML 15 ML IV (12:00)
--- NOTE | 2024-07-02 12:36 | PCM.HP.BLA ---
History and Physical Date of Admission: 07/02/24 Intake Vital Signs 05/18/2409:53 06/19/2412:52 Height 5 ft 8 in 5 ft 8 in Weight: 191 lb 192 lb 8 oz BMI 29.0 29.2 BP 98/64 124/83 H Blood Pressure Location Lt brachial Rt brachial Position Sitting Sitting Respiration 15 18 Pulse 74 78 Pulse Source Monitor Monitor Temp 98.4 F 97.3 F L Temp Source Temporal Temporal Pulse Oximetry (%) 99 97 Oxygen Delivery Method room air room air Intake Visit Reasons: INGUINAL HERNIA Chief Complaint: right inguinal hernia Is patient in pain?: Yes Allergies azithromycin (From [employer] Z-Jerzy) Adverse Reaction (Unknown, Verified 06/19/24 12:53) d/t hx of a-fib Medications ?Medication ?Instructions ?Recorded ?Confirmed ?Type albuterol sulfate 90 mcg/actuation 2 puff inhalation Q6H PRN 05/31/21 06/19/24 Rx aerosol inhaler shortness of breath or wheezing #8.5 grams esomeprazole magnesium 40 mg 40 mg PO DAILY GERD 06/09/21 06/19/24 History capsule,delayed release (Nexium) lisinopril 10 mg tablet 10 mg PO DAILY SUPPLEMENT 06/09/21 06/19/24 History zolpidem 10 mg tablet 10 mg PO QHS PRN Sleep 09/01/21 06/19/24 History cyanocobalamin (vitamin B-12) 1,000 mcg PO DAILY SUPPLEMENT 10/15/22 06/19/24 History 1,000 mcg tablet,extended release (Vitamin B-12 ER) magnesium 200 mg tablet 400 mg PO DAILY SUPPLEMENT 10/15/22 06/19/24 History omega-3 fatty acids 1,000 mg PO DAILY SUPPLEMENT 10/15/22 06/19/24 History sildenafil 100 mg tablet 100 mg PO PRN PRN Erectile 10/15/22 06/19/24 History Dysfunction clonazepam 0.5 mg tablet 0.5 mg PO BID 07/17/23 06/19/24 History apixaban 5 mg tablet (Eliquis) 5 mg PO BID #180 tabs 07/29/23 06/19/24 Rx baclofen 10 mg tablet 10 mg PO DAILY 08/14/23 06/19/24 History ondansetron 4 mg disintegrating 4 mg PO Q6H PRN nausea and 08/14/23 06/19/24 Rx tablet vomiting 3 days #12 tabs oxycodone-acetaminophen 5 mg-325 1 tab PO Q6H PRN pain 3 days #12 08/14/23 06/19/24 Rx mg tablet (Percocet) tabs tamsulosin 0.4 mg capsule 0.4 mg PO Q24H 08/14/23 06/19/24 History atorvastatin 20 mg tablet 20 mg PO DAILY #30 tabs 05/18/24 06/19/24 Rx flecainide 100 mg tablet 100 mg PO Q12H HEART #180 tabs 06/11/24 06/19/24 Rx PFSH Medical History (Updated 06/19/24 @ 12:52 by Joi Rivera LPN) Right inguinal hernia Hypertension Wears glasses Anxiety Alcohol use Arthritis Kidney stones Pulmonary embolism Injury of head and neck History of IBS Gastric reflux Sleep apnea On home oxygen therapy History of echocardiogram History of stress test Normal stress echocardiogram Cardiology follow-up encounter History of atrial fibrillation Contact with and (suspected) exposure to other viral communicable diseases Fatigue SOB (shortness of breath) Asthma Obesity (BMI 30.0-34.9) Obstructive sleep apnea Essential (primary) hypertension Paroxysmal atrial fibrillation Renal calculi Surgical History History of cardiac catheterization Hx of repair of left rotator cuff Hx of surgical procedure History of laminectomy (~03/2021) History of bilateral cataract extraction History of colonoscopy History of radiofrequency ablation procedure for cardiac arrhythmia (12/29/12) History of left heart catheterization (07/28/18) History of cholecystectomy History of esophagogastroduodenoscopy (EGD) Family History Mother Diabetes Hypertension High cholesterolFather HypertensionOther Heart disease Social History Smoking Status: Former smoker pack-years: 10 Tobacco: How many years used: 10 Electronic Cigarette Use: not used second hand exposure: No alcohol intake: current alcohol intake frequency: a few times a week Alcohol type: hard liquor substance use type: does not use caffeine: Yes (very little) what type of physical activity do you participate in: weight training frequency: 3-4 times per week HPI HPI HPI: Patient is a 63-year-old male who comes in with right inguinal pain after pickleball game. He says this has been going on for 3 weeks. He has had a left inguinal hernia repaired in the past. He says the pain is on the right side and it is incredibly uncomfortable to sneeze or cough. He says it has been getting worse. He did try ibuprofen. ROS General General: Yes weight change (42lb intentional weight loss), appetite, fatigue, colon cancer, breast cancer and weakness HEENT HEENT: No difficulty swallowing, eye injury, eye surgery, swollen glands or hoarseness Endo Endocrine: No thyroid disease, diabetes mellitus, thyroid cancer, Hair loss, heat intolerance or cold intolerance Skin Skin: No rash or changing moles Musc Musculoskeletal: Yes back problems, arthritis and rheumatoid arthritis; No gout or joint pain Cardio Cardiovascular: Yes atrial fibrillation and high blood pressure; No murmur, pacemaker, heart disease, heart attack, heart stent, palpitations, shortness of breat with exertion or chest pain Psych Psychiatric: Yes anxiety; No depression or hearing voices Resp Respiratory: No shortness of breath, Yes sleep apnea, No cough, No COPD, No asthma, No emphysema and No wheezing Gastro Gastrointestinal: Yes abdominal pain, Yes nausea or vomiting, No diarrhea, No constipation, No blood in stool, Yes acid reflux, No hemorrhoids, No ulcers, No gallbladder problem and No black,tarry stools [place] Hematologic: Yes blood thinners, No blood disorders, No bleeding, No anemia and No blood clots Additional Details: eliquis Neuro Neurologic: No numbness, No tingling and Yes weakness Exam Const General: cooperative Orientation: alert and oriented x3 HENMT Head: normal to inspection Neck Neck: normal visual inspection and full ROM Chest Chest palpation & inspection: normal inspection of the chest Resp Effort & Inspection: normal respiratory effort Auscultation: clear to auscultation bilaterally Cardio Rate: regular rate Rhythm: regular rhythm GI Inspection: non-distended Palpation: soft and nontender Skin General: no rashes or lesions noted Neuro General: patient alert and patient oriented x3 Extrem General: full ROM Psych Appearance: grossly normal Mental Status: mental status grossly normal Assessment and Plan Assessment and Plan (1) Right inguinal hernia: Status: Acute Plan: The patient has right groin pain. There was small amount of bulging in the direct space. The patient has had a left inguinal hernia repair in the past. He would like me to check for recurrence. I discussed performing exploratory laparoscopy with right inguinal hernia repair if it is present. I discussed the surgery in detail as well as the risks including but not limited to bleeding, infection, injury other underlying organs, injury to testicle or blood supply to the testicle or bowel or bladder. Patient understands the risks and is willing to proceed. Jamie Simon MD Pager: [facility] [address] [place] [address] [address] [place] [address] Office: I have examined the patient and the H&P has been reviewed. There are no clinical changes since date of exam.
--- NOTE | 2024-07-02 12:41 | PCM.PRE.AN2 ---
ASA Classification* ASA Classification ASA Classification: 3 Assessment & Plan Anesthesia* Anesthesia Assessment Anesthesia Assessment: Discussed sedation and/or anesthesia options, risks, benefits, and alternatives with patient/parents/legal guardian/POA. Questions invited. The patient/parents/legal guardian/POA seems to understand and agrees to proceed with anesthesia plan. Reviewed the physical assessment, medical history, allergy history and patient home medications list prior to surgery/procedure/anesthetic and documented any changes. Performed airway and anesthesia risk assessments. Anesthesia Type Anesthesia Type: General History Source History Obtained from:: Patient and Chart Anesthesia Focused Assessment* Temperature: 98.1 F Pulse Rate: 70 Blood Pressure: 123/89 Respiratory Rate: 18 Pulse Ox: 98 Oxygen Delivery Method: Room Air Airway Assessment Mouth opens: >3 cm Mallampati Score: IV Teeth Condition: Caps/Crowns (Patient has a couple crowns. They are tight.) Neck Range of motion (ROM): Limited ROM (Slight decrease in extension) Focused Labs Anesthesia Preop lab: CBC WBC 8.2 K/mm3 (4.4-11.0) 05/13/24 16:25 RBC 4.62 M/mm3 (4.6-6.2) 05/13/24 16:25 Hgb 13.8 g/dL (13.0-16.5) 05/13/24 16:25 Hct 41.6 % (40-54) 05/13/24 16:25 Plt Count 190 K/mm3 (150-450) 05/13/24 16:25 CHEMISTRY Potassium 4.1 mmol/L (3.5-5.1) 05/01/24 09:28 Sodium 138 mmol/L (136-145) 05/01/24 09:28 Magnesium 2.1 mg/dL (1.6-2.6) 10/15/22 12:14 BUN 21 mg/dL (7-18) H 05/01/24 09:28 Creatinine 1.16 mg/dL (0.70-1.30) 05/01/24 09:28 Glucose 105 mg/dL (74-106) 05/01/24 09:28 TSH 1.86 uIU/mL (0.358-3.74) 08/14/21 17:02 COAG PT 13.5 SECONDS (11.7-14.9) 04/05/23 11:03 Pre-Assessment Diagnosis/Proposed Procedure Planned Operative Procedure(s): (R) Lap Robotic Inguinal Hernia w/mesh Anesthesia History 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 When Was Last Pacemaker Check QUESTION #4 FULL TEXT: You/Your Family Experience fever (hyperthermia) with Anesthesia Last Oral Intake Last Oral intake: Last Oral Intake NPO since 07:30 07/02/24 12:01 Meds taken in AM with sips of water? Meds patient instructed to CLONAZEPAM, FELCANIDE 07/02/24 12:01 take am of surgery Any additional information?: Yes NPO since: 07:30 (Patient took meds with sip of water this morning) Meds taken in AM with sips of water?: Yes PONV PONV - screen printing loader unloader: PONV - screen printing loader unloader Female No 06/25/24 14:05 HX of Motion Sickness Yes 06/25/24 14:05 HX of N/V After Surgery No 06/25/24 14:05 Non-Smoker Yes 06/25/24 14:05 Duration of Surgery greater Yes 06/25/24 14:05 than 60 minutes Number of Risk Factors 3 06/25/24 14:05 PONV Score Moderate Risk 06/25/24 14:05 Height & Weight Height & Weight: Anesthesia: Height & Weight Height 5 ft 8 in 07/02/24 12:01 Weight: 85 kg 07/02/24 12:01 Body Mass Index (BMI) 28.5 07/02/24 12:01 Respiratory Assessment Respiratory Assessment - screen printing loader unloader: Respiratory Tract Infection Hx - screen printing loader unloader Hx Respiratory Tract Infection No 06/25/24 14:05 STOP Sleep Apnea STOP Sleep Apnea - screen printing loader unloader: STOP Sleep Apnea - screen printing loader unloader Hx Hypertension Yes: CONTROLLED WITH MED 06/25/24 14:05 Hx Sleep Apnea Yes: PT STATES NEVER USES 06/25/24 14:05 CPAP CPAP Yes 06/25/24 14:05 BIPAP No 06/25/24 14:05 Do you snore loudly (louder than talking or can be heard Do you often feel tired/ fatigued/ sleepy during daytime? Has anyone observed you stop breathing during sleep? STOP Results Positive 06/25/24 14:05 QUESTION #5 FULL TEXT : Do you snore loudly (louder than talking or can be heard through closed doors)? 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 Specify any problems Hx of Preganancy in last 3 N/A 06/25/24 14:05 Months Nurse Filling Out Transfusion NBUCHER 06/25/24 14:05 & Questions: Date: 06/25/24 06/25/24 14:05 Time: 14:09 06/25/24 14:05 Patient unable to answer at this time (ie. confused, unrespo /Reproduction History /Reproductive History - screen printing loader unloader: /Reproductive Hx- screen printing loader unloader Hx Now No 06/25/24 14:05 Gestational Age (in weeks): EDC: Hx Hx Para Hx Section SAB No 06/25/24 14:05 Active Medications Active Medications: Current Medications Generic Name Dose Route Start Last Admin Trade Name Freq PRN Reason Stop Dose Admin Cefazolin Sodium 2 gm/ N/A 20 mls @ 400 mls/hr 07/02/24 13:15 IV 07/02/24 13:17 PREOP ONE Lactated Ringer's 1,000 mls @ 15 mls/hr 07/02/24 11:45 07/02/24 12:00 IV 07/08/24 01:04 15 mls/hr .Q48H VITALY Administration Protocol [facility] Medical History Rheumatoid arthritis Easy bruising History of hiatal hernia History of diverticulitis Heartburn CPAP (continuous positive airway pressure) dependence Former smoker Cardiology follow-up encounter Right inguinal hernia Hypertension Wears glasses Anxiety Alcohol use Arthritis Kidney stones Pulmonary embolism Injury of head and neck History of IBS Gastric reflux Sleep apnea On home oxygen therapy History of echocardiogram History of stress test Normal stress echocardiogram Cardiology follow-up encounter History of atrial fibrillation Contact with and (suspected) exposure to other viral communicable diseases Fatigue SOB (shortness of breath) Asthma Obesity (BMI 30.0-34.9) Obstructive sleep apnea Essential (primary) hypertension Paroxysmal atrial fibrillation Renal calculi Home Medications ?Medication ?Instructions ?Recorded ?Last Taken ?Type albuterol sulfate 90 mcg/actuation 2 puff inhalation Q6H PRN 05/31/21 Unknown Rx aerosol inhaler shortness of breath or wheezing #8.5 grams esomeprazole magnesium 40 mg 40 mg PO DAILY GERD 06/09/21 11/29/22 History capsule,delayed release (Nexium) lisinopril 10 mg tablet 10 mg PO DAILY SUPPLEMENT 06/09/21 11/29/22 History zolpidem 10 mg tablet 10 mg PO QHS PRN Sleep 09/01/21 Unknown History sildenafil 100 mg tablet 100 mg PO PRN PRN Erectile 10/15/22 Unknown History Dysfunction clonazepam 0.5 mg tablet 0.5 mg PO DAILY 07/17/23 07/02/24 History atorvastatin 20 mg tablet 20 mg PO DAILY #30 tabs 05/18/24 Unknown Rx flecainide 100 mg tablet 100 mg PO Q12H HEART #180 tabs 06/11/24 07/02/24 Rx hydroxychloroquine 200 mg tablet 200 mg PO BID 06/25/24 Unknown History phenazopyridine 100 mg tablet 100 mg PO TID 06/25/24 Unknown History apixaban 5 mg tablet (Eliquis) 5 mg PO BID #180 tabs 06/29/24 06/29/24 Rx Allergy/AdvReac Type Severity Reaction Status Date / Time azithromycin (From Zithromax AdvReac Unknown d/t hx of Verified 06/25/24 14:00 Z-Jerzy) a-fib Family History Mother Diabetes Hypertension High cholesterol Father Hypertension Other Heart disease Surgical History History of cardiac catheterization Hx of repair of left rotator cuff Hx of surgical procedure History of laminectomy (~03/2021) History of bilateral cataract extraction History of colonoscopy History of radiofrequency ablation procedure for cardiac arrhythmia (12/29/12) History of left heart catheterization (07/28/18) History of cholecystectomy History of esophagogastroduodenoscopy (EGD) Social History Smoking Status: Former smoker pack-years: 10 Tobacco: How many years used: 10 Electronic Cigarette Use: not used second hand exposure: No alcohol intake: current alcohol intake frequency: a few times a week Alcohol type: hard liquor substance use type: does not use caffeine: Yes (very little) what type of physical activity do you participate in: weight training frequency: 3-4 times per week Review of Systems (Anesthesia) ROS Narrative System reviewed and no additional complaints, except as documented.
[2024-07-02] MEDS: Cefazolin 2 GM in Syringe IV (13:09)
[2024-07-02] MEDS: Bupivacaine Mpf 0.5% 30 ML VIAL (13:27)
--- NOTE | 2024-07-02 14:15 | DCINST_ITS ---
Discharge Instructions Diet Discharge Diet: Light diet - advance as tolerated Activity Discharge Activity: May Not Drive (for 2-3 days or while taking narcotic pain meds.) and May Shower (with the bandage in place 1-2 days after surgery.) Lifting Restrictions: 20 pounds for 4 weeks Additional Activity Instructions:: Climbing stairs is fine, walking is encouraged. Sitting in bed may be uncomfortable. Sitting up using your lateral muscles (sitting up sideways) is usually more comfortable. Do not drive, work heavy equipment or sign legal documents for 24 hours. If your hernia repair was an inguinal repair, you may have scrotal swelling, an ice pack and/or athletic support can provide more comfort. Pain medications may cause nausea, you should typically eat light foods as you take your pain medications. Pain medications may also cause constipation. If you have difficulty with this, discuss with your doctor. Alternate ibuprofen and Tylenol for pain control, oxycodone for breakthrough pain Resume Eliquis Saturday Dressing / Incision Call your doctor if your incision/area has: Continuous Slow Oozing, Sudden Increased Bleeding, Increased Pain/ Swelling, Increased Redness and Foul Smelling Discharge Call your doctor if you observe: Fever of 101 or Higher Suture Line Care: Avoid Pulling/Pushing and Avoid Pinching/Bending Remove Dressing in: 2 days (Remove clear bandages in 2 days, remove Steri-Strips in 7 to 10 days.) Cleanse incision/area with: Soap & Water Follow Up Care Please Follow Up With: Jamie Simon MD When: Please call to schedule 2 week follow up appointment. [phone] Test Results: Test results from this visit will be discussed in further detail at your follow- up appointment, if applicable. Discharge Plan Admission Attending Provider: Jamie Simon Primary Care Provider: Harpreet Lee Instructions Print Language: Czech Discharge Orders/Prescriptions Prescriptions: New oxycodone 5 mg Tablet 5 - 10 mg PO Q4H PRN PRN (Reason: Pain Score 4-10) 5 Days Qty: 10 0RF No Action albuterol sulfate 90 mcg/actuation HFA aerosol inhaler 2 puff inhalation Q6H PRN (Reason: shortness of breath or wheezing) Qty: 8.5 0RF zolpidem 10 mg tablet 10 mg PO QHS PRN (Reason: Sleep) Patient Comments: TAKE 1 TABLET BY MOUTH AT BEDTIME FOR 30 DAYS clonazepam 0.5 mg tablet 0.5 mg PO DAILY atorvastatin 20 mg tablet 20 mg PO DAILY Qty: 30 9RF esomeprazole magnesium [Nexium] 40 mg Capsule,Delayed Release(Dr/Ec) 40 mg PO DAILY lisinopril 10 mg tablet 10 mg PO DAILY Patient Comments: TAKE 1 TABLET BY MOUTH DAILY sildenafil 100 mg tablet 100 mg PO PRN PRN (Reason: Erectile Dysfunction) Patient Comments: TAKE 1 TABLET BY MOUTH ONCE DAILY NEEDED phenazopyridine 100 mg tablet 100 mg PO TID hydroxychloroquine 200 mg tablet 200 mg PO BID flecainide 100 mg tablet 100 mg PO Q12H Qty: 180 3RF Eliquis 5 mg tablet 5 mg PO BID Qty: 180 0RF Other Ambulatory Orders: 12 Lead EKG (Routine) Timeframe: [id number] Location: None Selected Ordered By: Dr. Fortunato Epperson Referrals / Follow Up: Harpreet Lee MD [Primary Care Provider] - Disposition Disposition (needs filled in before D/C Order can be placed): Home, Self Care
--- NOTE | 2024-07-02 14:17 | PCM.OPRPT ---
Operative Report (Standard) Operative Information Surgery/Procedure Performed: Robotic assisted laparoscopic bilateral inguinal hernia repair with mesh Surgeon: Jamie Simon Date of Procedure: 07/02/24 Procedure Start Time: 13:27 Procedure Stop Time: 14:25 Pre-Operative Diagnosis: Right inguinal hernia Post-Operative Diagnosis: Bilateral inguinal hernias with recurrence on the left Select all DRAINS/GRAFTS/IMPLANTS that apply: Implanted device Implanted device details: ProGrip mesh bilaterally Type of Anesthesia: General/Regional Estimated Blood Loss: 5 Specimen collected: No Description of surgery: Patient was brought back to the operating room and general anesthesia was induced. Straight catheterization was performed as the patient did not go to the bathroom before surgery. Next the abdomen was prepped and draped in usual sterile fashion. A midline incision was made superior to his old incision and the fascia was grasped and elevated and a Veress needle was placed into the abdomen and a drop test was performed. The abdomen was next insufflated to 15 mmHg. The Veress needle was removed and a port was placed into the abdomen. It was inspected and there were no injuries from entry. The pelvis was inspected after the patient was placed in steep Trendelenburg position. The patient had a large indirect right inguinal hernia and he also had a small indirect recurrence of the left side. Next under direct visualization an 8 mm port was placed laterally on the left and right side and then the robot was docked. Using electrocautery scissors the right inguinal region was dissected down to the hernia sac and the hernia sac was reduced. Once the hernia sac was reduced a ProGrip mesh was placed over the hernia defect and unfolded. It covered both hernia spaces with good overlap. Next the peritoneum was reapproximated using a running 3 OV lock suture completely covering the mesh. Next attention was paid to the left side. In the same fashion an incision was made in the peritoneum and then dissection was carried inferiorly until the hernia sac was reduced. After the hernia sac was reduced a ProGrip mesh was placed over the left groin and unfolded. Next the peritoneum was reapproximated using a running 3 OV lock suture completely covering the mesh with peritoneum. Both sides were completely covered with peritoneum at the end of the case. The robot was undocked and the ports were removed and the abdomen was allowed to desufflate. The incisions were injected with local anesthetic and closed with interrupted 4-0 Monocryl sutures. Steri-Strips and bandages were applied. The scrotum was checked at the end of the case and contained both testicles. Patient was awoken and taken to PACU in stable condition and tolerated the procedure well. Surgical Findings: Recurrent left inguinal hernia, indirect right inguinal hernia Offset Plate Preparation Supervisor corrosion control specialist: Yes Burial Vault Setter: Timur Looney Tasks completed by certified first assistant: Opening and Closing Complications Complications: No Admit VTE Documentation VTE Mechan Device Prophylaxis: SCD's
--- NOTE | 2024-07-02 14:36 | PCM.POST.ANE ---
Anesthesia: Postop Eval I Current Vital Signs Temperature: 97.4 F Pulse Rate: 64 Blood Pressure: 131/96 Respiratory Rate: 18 Pulse Ox: 100 Assessment Airway patent: Yes Spontaneous unlabored respirations: Yes nausea: No Vomiting: No Anesthesia Complication: No Fluid Hydration Crystalloid volume administer (ml): 1,000 Total IV fluid infused: 1,000 Progress Note Anesthesia document: Postop Eval 1 completed: Yes
[2024-07-02] MEDS: oxyCODONE 5 MG Tablet PO (15:56)
--- NOTE | 2024-07-02 16:52 | POSTOPAN2_ITS ---
Anesthesia Postop Eval I Sum Postop Eval Completion status Anesthesia document: Postop Eval 1 completed: Yes Anesthesia Postop Eval I Summary Anesthesia Postop Eval I Summary: Anesthesia Postop Eval I: Assessment Summary Airway patent Yes 07/02/24 14:36 GROUNDWATER PROGRAMS DIRECTOR.CSIR Spontaneous unlabored Yes 07/02/24 14:36 GROUNDWATER PROGRAMS DIRECTOR.CSIR respirations Mental status nausea No 07/02/24 14:36 GROUNDWATER PROGRAMS DIRECTOR.CSIR Vomiting No 07/02/24 14:36 GROUNDWATER PROGRAMS DIRECTOR.CSIR Anesthesia Postop Eval I: Fluid Summary Crystalloid volume administer 1,000 07/02/24 14:36 GROUNDWATER PROGRAMS DIRECTOR.CSIR (ml) Colloids volume administered ( ml) Blood Product volume administered (ml) Total IV fluid infused 1,000 07/02/24 14:36 GROUNDWATER PROGRAMS DIRECTOR.CSIR Anesthesia Postop Eval I: Summary Notes Anesthesia Complication No 07/02/24 14:36 GROUNDWATER PROGRAMS DIRECTOR.CSIR Anesthesia Complication Comment: Post-operative progress note Anesthesia: Postop Eval II Evaluation Mental status: Awake Pain Level: 0 nausea: No Vomiting: No
--- NOTE | 2024-07-02 16:52 | PCM.POSTANE2 ---
Anesthesia Postop Eval I Sum Postop Eval Completion status Anesthesia document: Postop Eval 1 completed: Yes Anesthesia Postop Eval I Summary Anesthesia Postop Eval I Summary: Anesthesia Postop Eval I: Assessment Summary Airway patent Yes 07/02/24 14:36 LEADED GLASS INSTALLER.CSIR Spontaneous unlabored Yes 07/02/24 14:36 LEADED GLASS INSTALLER.CSIR respirations Mental status nausea No 07/02/24 14:36 LEADED GLASS INSTALLER.CSIR Vomiting No 07/02/24 14:36 LEADED GLASS INSTALLER.CSIR Anesthesia Postop Eval I: Fluid Summary Crystalloid volume administer 1,000 07/02/24 14:36 LEADED GLASS INSTALLER.CSIR (ml) Colloids volume administered ( ml) Blood Product volume administered (ml) Total IV fluid infused 1,000 07/02/24 14:36 LEADED GLASS INSTALLER.CSIR Anesthesia Postop Eval I: Summary Notes Anesthesia Complication No 07/02/24 14:36 LEADED GLASS INSTALLER.CSIR Anesthesia Complication Comment: Post-operative progress note Anesthesia: Postop Eval II Evaluation Mental status: Awake Pain Level: 0 nausea: No Vomiting: No
== END 2024-07-02 16:40 | disposition home or self-care (01) ==
LOC: SDC 11:29 → AC 11:30
PROVIDERS: PCP Family Medicine; Referring Provider Surgery; Visit Provider Surgery
PROC: (CPT 49651; principal; 2024-07-02 12:55)
DX: K40.21 Bilateral inguinal hernia, without obstruction or gangrene, recurrent (principal); I48.0 Paroxysmal atrial fibrillation; I10 Essential (primary) hypertension; G47.33 Obstructive sleep apnea (adult) (pediatric); F41.9 Anxiety disorder, unspecified; K21.9 Gastro-esophageal reflux disease without esophagitis; Z79.51 Long term (current) use of inhaled steroids; Z79.01 Long term (current) use of anticoagulants; Z79.899 Other long term (current) drug therapy; Z86.711 Personal history of pulmonary embolism; Z87.891 Personal history of nicotine dependence
CPT/HCPCS: 49651; S2900; 00840; 93005; J7120; J2405

== ENCOUNTER → 2024-07-21 | Outpatient (CLI) | payer OTHER, SELFPAY | END | disposition home or self-care (01) | LOC: SL 10:15 | PROVIDERS: PCP Family Medicine; Referring Provider Psychiatry & Neurology Neurology; Visit Provider Psychiatry & Neurology Neurology | DX: G47.33 Obstructive sleep apnea (adult) (pediatric) (principal); G47.10 Hypersomnia, unspecified | CPT/HCPCS: 95806 ==

== ENCOUNTER → 2024-08-24 | Outpatient (CLI) | payer OTHER, SELFPAY ==
[2024-08-24] MEDS: Zolpidem Tartrate 5 MG Tablet PO (21:00)
== END | disposition home or self-care (01) ==
LOC: SL 19:31
PROVIDERS: PCP Family Medicine; Referring Provider Nurse Practitioner Family; Visit Provider Nurse Practitioner Family
DX: G47.10 Hypersomnia, unspecified (principal)
CPT/HCPCS: 95810

== ENCOUNTER → 2024-10-01 | Outpatient (CLI) | payer OTHER, SELFPAY ==
[2024-10-01 10:48] LABS: Absolute Lymphocyte Count 0.92 X10^3/uL (0.83-4.51); Absolute Neutrophil Count 6.5 X10^3/uL (2.0-7.7); Basophil% 1.2 % (0-1); Eosinophil# 0.18 X10^3/uL; Eosinophils% 2.1 % (0-5); Hematocrit 45.5 % (40-54); Hemoglobin 14.9 g/dL (13.0-16.5); Lymphocyte # 0.92 X10^3/ul (0.83-4.51); Lymphocyte % 10.9 % (19-41); Mean Corp Hgb Conc 32.7 g/dL (32-36); Mean Corpuscular Hgb 29.3 pg (27.0-32.0); Mean Corpuscular Volume 89.4 fL (80-94); Monocyte# 0.74 X10^3/uL; Monocyte% 8.8 % (0-10); NRBC Flagged by Analyzer 0 % (0-5); Neutrophil # 6.45 X10^3/uL (2.7-7.7); Neutrophil % 76.6 % (47-70); Platelet Count 191 K/mm3 (150-450); RBC Distribution Width CV 12.4 % (11.6-14.6); Red Blood Count 5.09 M/mm3 (4.6-6.2); White Blood Count 8.4 K/mm3 (4.4-11.0)
[2024-10-01 11:40] LABS: ALB/GLOB Ratio 1.2 RATIO (0.9-2.4); AST(SGOT) 26 U/L (15-37); Alanine Aminotransfer ALT/SGPT 44 U/L (16-61); Albumin, Serum 3.8 g/dL (3.2-5.0); Alkaline Phosphatase 78 U/L (45-117); Anion Gap 7 (5-15); BUN 22 mg/dL (7-18); BUN/Creat Ratio 18.5 RATIO (10-20); Calcium,Total 9.8 mg/dL (8.5-10.1); Chloride 108 mmol/L (98-107); Creatinine, Serum 1.19 mg/dL (0.70-1.30); EST Glomerular Filtration Rate 66 mL/min (>60); Est Glom Filt Rate - Afr Amer 80 mL/min (>60); Globulin 3.3 g/dL (2.2-4.2); Glucose 98 mg/dL (74-106); Potassium 3.9 mmol/L (3.5-5.1); Protein, Total 7.1 g/dL (6.4-8.2); Sodium Level 139 mmol/L (136-145)
== END | disposition home or self-care (01) ==
PROVIDERS: PCP Family Medicine; Referring Provider Internal Medicine Rheumatology; Visit Provider Internal Medicine Rheumatology
DX: M06.4 Inflammatory polyarthropathy (principal); Z79.899 Other long term (current) drug therapy; M19.041 Primary osteoarthritis, right hand
CPT/HCPCS: 36415; 80053; 85025

== ENCOUNTER → 2024-10-15 | Outpatient (CLI) | payer OTHER, SELFPAY ==
[2024-10-15 19:35] LABS: PSA,Total - Annual Screen 0.64 ng/mL (0.02-4.00)
== END | disposition home or self-care (01) ==
LOC: MFPLAB 14:32
PROVIDERS: PCP Family Medicine; Referring Provider Family Medicine; Visit Provider Family Medicine
DX: Z12.5 Encounter for screening for malignant neoplasm of prostate (principal)
CPT/HCPCS: 36415; 84153; G0103

== ENCOUNTER 2024-11-06 08:24 | Day surgery (SDC) | payer OTHER, SELFPAY ==
--- NOTE | 2024-11-04 14:41 | PAT.ANE_ITS ---
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 When Was Last Pacemaker Check QUESTION #4 FULL TEXT: You/Your Family Experience fever (hyperthermia) with Anesthesia Last Oral Intake Last Oral intake: Last Oral Intake NPO since Meds taken in AM with sips of water? Meds patient instructed to take am of surgery PONV PONV - wind project manager: PONV - wind project manager Female No 11/04/24 10:37 HX of Motion Sickness Yes 11/04/24 10:37 HX of N/V After Surgery No 11/04/24 10:37 Non-Smoker Yes 11/04/24 10:37 Duration of Surgery greater No 11/04/24 10:37 than 60 minutes Number of Risk Factors 2 11/04/24 10:37 PONV Score Moderate Risk 11/04/24 10:37 Height & Weight Height & Weight: Anesthesia: Height & Weight Height 5 ft 8 in 10/22/24 13:50 Respiratory Assessment Respiratory Assessment - wind project manager: Respiratory Tract Infection Hx - wind project manager Hx Respiratory Tract Infection No 11/04/24 10:37 STOP Sleep Apnea STOP Sleep Apnea - wind project manager: STOP Sleep Apnea - wind project manager Hx Hypertension Yes: CONTROLLED WITH MED 11/04/24 10:37 Hx Sleep Apnea Yes 11/04/24 10:37 CPAP No 11/04/24 10:37 BIPAP Yes: NOT COMPLIANT 11/04/24 10:37 Do you snore loudly (louder than talking or can be heard Do you often feel tired/ fatigued/ sleepy during daytime? Has anyone observed you stop breathing during sleep? STOP Results Positive 11/04/24 10:37 QUESTION #5 FULL TEXT : Do you snore loudly (louder than talking or can be heard through closed doors)? 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 Specify any problems Hx of Preganancy in last 3 N/A 11/04/24 10:37 Months Nurse Filling Out Transfusion DSCHRIBER 11/04/24 10:37 & Questions: Date: 11/04/24 11/04/24 10:37 Time: 10:39 11/04/24 10:37 Patient unable to answer at this time (ie. confused, unrespo /Reproduction History /Reproductive History - wind project manager: /Reproductive Hx- wind project manager Hx Now Gestational Age (in weeks): EDC: Hx Hx Para Hx Section SAB No 11/04/24 10:37 PFSH Medical History (Updated 11/04/24 @ 10:49 by Gabby Stiles) BiPAP (biphasic positive airway pressure) dependence ADD (attention deficit disorder) Shortness of breath on exertion Constipation Rheumatoid arthritis History of hiatal hernia History of diverticulitis Former smoker Cardiology follow-up encounter Right inguinal hernia Hypertension Wears glasses Anxiety Alcohol use Arthritis Pulmonary embolism Injury of head and neck History of IBS Gastric reflux History of echocardiogram History of stress test Normal stress echocardiogram History of atrial fibrillation Contact with and (suspected) exposure to other viral communicable diseases Asthma Obesity (BMI 30.0-34.9) Paroxysmal atrial fibrillation Home Medications ?Medication ?Instructions ?Recorded ?Last Taken ?Type albuterol sulfate 90 mcg/actuation 2 puff inhalation Q 6H PRN 05/31/21 Unknown Rx aerosol inhaler shortness of breath or wheez ing #8.5 grams esomeprazole magnesium 40 mg 40 mg PO DAILY GERD 06/0911/29/22 History capsule,delayed release (Nexium) zolpidem 10 mg tablet 10 mg PO QHS PRN Sleep 09/01 Unknown History sildenafil 100 mg tablet 100 mg PO PRN PRN Erectile 0 10/15/22 Unknown History Dysfunction hydroxychloroquine 200 mg tablet 200 mg PO BID 4 Unknown History apixaban 5 mg tablet (Eliquis) 5 mg PO BID #180 tabs 1 08/29/23 11/03/24 Rx fluticasone furoate 100 1 inh inhalation Q24H #30 ea 09/08/24 Unknown Rx mcg/actuation blister powder for inhalation (Arnuity Ellipta) oral device #1 ea 09/08/24 Unknown Rx turmeric root extract 500 mg 500 mg PO QDAY 10/22/24 0 10/28/24 History capsule atomoxetine 40 mg capsule 40 mg PO DAILY 11/04/24 Unkn own History atorvastatin 20 mg tablet 20 mg PO QHS 11/04/24 Unknow n History flecainide 100 mg tablet 100 mg PO BID 11/04/24 Unkno wn History lisinopril 10 mg tablet 10 mg PO DAILY 11/04/24 Unkn own History potassium citrate 10 mEq (1,080 10 meq PO BID 11/04/24 Unknown History mg) tablet,extended release triamcinolone acetonide 0.1 % 1 applic topical BID PRN DERMITIS 11/04/24 Unknown History topical cream Allergy/AdvReac Type Severity Reaction Status Date / Time azithromycin (From Zithromax AdvReac Unknown d/t hx of Verified 11/04/24 10:32 Z-Jerzy) a-fib Family History Mother Diabetes Hypertension High cholesterol Father Hypertension Prostate cancer Sister Throat cancer Other Heart disease Surgical History (Updated 11/04/24 @ 10:47 by Gabby Stiles) History of lumbar fusion S/P inguinal hernia repair History of cardiac catheterization Hx of repair of left rotator cuff Hx of surgical procedure History of laminectomy (~03/2021) History of bilateral cataract extraction History of colonoscopy History of radiofrequency ablation procedure for cardiac arrhythmia (12/29/12) History of left heart catheterization (07/28/18) History of cholecystectomy History of esophagogastroduodenoscopy (EGD) Social History Smoking Status: Former smoker pack-years: 10 Tobacco: How many years used: 10 Electronic Cigarette Use: not used how long ago did patient quit smoking: stopped at age 25. second hand exposure: No alcohol intake: current alcohol intake frequency: a few times a week Alcohol type: hard liquor substance use type: does not use caffeine: Yes (very little) what type of physical activity do you participate in: weight training frequency: 3-4 times per week Audit: Pertinent Findings Pertinent Findings EKG Perinent findings: 06/30/2024. Normal sinus rhythm. Echo (EF%) pertinent findings: July 09, 2023. Ejection fraction 60%. Bubble study was negative for [id number] shunt. Consult pertinent findings: September 10, 2024. Dr. Smith. 1. Paroxysmal atrial fibrillation-chronic. Status post RFA 2012. Only occasional paroxysmal atrial fibrillation at this point. Patient's remain on all medications except for flecainide which will be DC'd. Continue Eliquis. 2. Essential [id number]. Discontinue lisinopril. Continue to monitor. 3. TIA?resolved. Latest carotid ultrasound showed no significant abnormalities. Recommendation Anesthesia Recommendation Anesthesia recommendation: OPTIMIZED for anesthesia
[2024-11-06] VITALS (8 sets, daily range): BP systolic 98–124; BP diastolic 65–85; PULSE 68–76; RESP 16–17; TEMP 36.3–37; O2SAT 94–98; BMI 27.8
--- NOTE | 2024-11-06 09:34 | PCM.HP.BLA ---
History and Physical Date of Admission: 11/06/24 Intake Vital Signs 09/10/2508:14 10/22/2512:50 Height 5 ft 8 in 5 ft 8 in Weight: 191 lb 189 lb 9 oz BMI 29.0 28.8 BP 120/79 132/72 H Blood Pressure Location Lt brachial Rt brachial Position Sitting Sitting Respiration 16 18 Pulse 69 64 Pulse Source Monitor Monitor Temp 97.3 F L Temp Source Temporal Pulse Oximetry (%) 99 Oxygen Delivery Method room air Intake Visit Reasons: COLONOSCOPY Chief Complaint: colonoscopy Is patient in pain?: No Allergies azithromycin (From [employer] Z-Jerzy) Adverse Reaction (Unknown, Verified 10/22/24 13:51) d/t hx of a-fib Medications ?Medication ?Instructions ?Recorded ?Confirmed ?Type albuterol sulfate 90 mcg/actuation 2 puff inhalation Q6H PRN 05/31/21 10/22/24 Rx aerosol inhaler shortness of breath or wheezing #8.5 grams esomeprazole magnesium 40 mg 40 mg PO DAILY GERD 06/09/21 10/22/24 History capsule,delayed release (Nexium) zolpidem 10 mg tablet 10 mg PO QHS PRN Sleep 09/01/21 10/22/24 History sildenafil 100 mg tablet 100 mg PO PRN PRN Erectile 10/15/22 10/22/24 History Dysfunction clonazepam 0.5 mg tablet 0.5 mg PO DAILY 07/17/23 10/22/24 History atorvastatin 20 mg tablet 20 mg PO DAILY #30 tabs 05/18/24 10/22/24 Rx hydroxychloroquine 200 mg tablet 200 mg PO BID 06/25/24 10/22/24 History apixaban 5 mg tablet (Eliquis) 5 mg PO BID #180 tabs 06/29/24 10/22/24 Rx fluticasone furoate 100 1 inh inhalation Q24H #30 ea 09/08/24 10/22/24 Rx mcg/actuation blister powder for inhalation (Arnuity Ellipta) oral device #1 ea 09/08/24 10/22/24 Rx turmeric root extract 500 mg 500 mg PO QDAY 10/22/24 10/22/24 History capsule PFSH Medical History (Updated 10/22/24 @ 13:50 by Joi Rivera LPN) Constipation Hx of renal calculi Rheumatoid arthritis Easy bruising History of hiatal hernia History of diverticulitis Heartburn CPAP (continuous positive airway pressure) dependence Former smoker Cardiology follow-up encounter Right inguinal hernia Hypertension Wears glasses Anxiety Alcohol use Arthritis Kidney stones Pulmonary embolism Injury of head and neck History of IBS Gastric reflux Sleep apnea On home oxygen therapy History of echocardiogram History of stress test Normal stress echocardiogram Cardiology follow-up encounter History of atrial fibrillation Contact with and (suspected) exposure to other viral communicable diseases Fatigue SOB (shortness of breath) Asthma Obesity (BMI 30.0-34.9) Obstructive sleep apnea Essential (primary) hypertension Paroxysmal atrial fibrillation Renal calculi Surgical History S/P inguinal hernia repair History of cardiac catheterization Hx of repair of left rotator cuff Hx of surgical procedure History of laminectomy (~03/2021) History of bilateral cataract extraction History of colonoscopy History of radiofrequency ablation procedure for cardiac arrhythmia (12/29/12) History of left heart catheterization (07/28/18) History of cholecystectomy History of esophagogastroduodenoscopy (EGD) Family History Mother Diabetes Hypertension High cholesterolFather Hypertension Prostate cancerSister Throat cancerOther Heart disease Social History Smoking Status: Former smoker pack-years: 10 Tobacco: How many years used: 10 Electronic Cigarette Use: not used how long ago did patient quit smoking: stopped at age 25. second hand exposure: No alcohol intake: current alcohol intake frequency: a few times a week Alcohol type: hard liquor substance use type: does not use caffeine: Yes (very little) what type of physical activity do you participate in: weight training frequency: 3-4 times per week HPI HPI HPI: Patient is a 63-year-old male here for colonoscopy. His last colonoscopy was over 10 years ago. He denies abdominal pain or blood in the stool. ROS General General: Yes weight change and fatigue; No appetite, colon cancer, breast cancer or weakness HEENT HEENT: Yes eye injury and eye surgery; No difficulty swallowing, swollen glands or hoarseness Endo Endocrine: No thyroid disease, diabetes mellitus, thyroid cancer, Hair loss, heat intolerance or cold intolerance Skin Skin: Yes rash; No changing moles Musc Musculoskeletal: Yes back problems and rheumatoid arthritis; No arthritis, gout or joint pain Cardio Cardiovascular: Yes atrial fibrillation and high blood pressure; No murmur, pacemaker, heart disease, heart attack, heart stent, palpitations, shortness of breat with exertion or chest pain Psych Psychiatric: Yes anxiety; No depression or hearing voices Resp Respiratory: Yes shortness of breath, Yes sleep apnea, No cough, No COPD, No asthma, No emphysema and No wheezing Gastro Gastrointestinal: Yes abdominal pain, Yes nausea or vomiting, No diarrhea, Yes constipation, No blood in stool, Yes acid reflux, No hemorrhoids, No ulcers, No gallbladder problem and No black,tarry stools [place] Hematologic: Yes blood thinners, No blood disorders, No bleeding, No anemia and Yes blood clots Neuro Neurologic: No numbness, No tingling and No weakness Exam Const General: cooperative Orientation: alert and oriented x3 HENMT Head: normal to inspection Neck Neck: normal visual inspection and full ROM Chest Chest palpation & inspection: normal inspection of the chest Resp Effort & Inspection: normal respiratory effort Auscultation: clear to auscultation bilaterally Cardio Rate: regular rate Rhythm: regular rhythm GI Inspection: non-distended Palpation: soft and nontender Skin General: no rashes or lesions noted Neuro General: patient alert and patient oriented x3 Extrem General: full ROM Psych Appearance: grossly normal Mental Status: mental status grossly normal Assessment and Plan Assessment and Plan (1) Constipation: Status: Acute Plan: Patient has constipation and IBS. He requires for screening colonoscopy. His last colonoscopy was over 10 years ago I explained endoscopy in detail to the patient. I explained the risks including but not limited to stroke or heart attack with anesthesia, perforation of the GI tract, bleeding, infection. I explained that any of these could necessitate further emergency surgery. The patient understands and all questions were answered sufficiently. The patient wishes to proceed with procedure. Jamie Simon MD Pager: [facility] [address] [place] [address], [address] [place] [address] Office: I have examined the patient and the H&P has been reviewed. There are no clinical changes since date of exam.
--- NOTE | 2024-11-06 10:03 | OP.CCLET_ITS ---
11/06/2024 Harpreet Lee MD [address] [id number] Re : Colonoscopy procedure for Robbi Mercado Dear Dr. Lee This procedure was performed on Wednesday, November 06, 2024. My impressions and recommendations are as follows: Impressions : - The entire examined colon is normal on direct and retroflexion views. - No specimens collected. Recommendations : - Discharge patient to home. - Resume previous diet. - Continue present medications. - Repeat colonoscopy in 10 years for screening purposes. My findings are described in the full procedure note, which is enclosed. If I can be of further assistance, please feel free to contact me at Doctor phone number(s): , Work: . Sincerely, Jamie Simon MD 11/06/2024 10:03:18 AM This report has been signed electronically.
--- NOTE | 2024-11-06 10:03 | OP.COLON_ITS ---
Patient Name: Robbi Mercado Procedure Date: 11/06/2024 9:40 AM Date of : 1960 Age: 63 Procedure: Colonoscopy Indications: Screening for colorectal malignant neoplasm Providers: Jamie Simon MD Medicines: Propofol per Anesthesia Patient Profile: This is a 63 year old male. Refer to note in patient chart for documentation of history and physical. Last Colonoscopy: 10 years ago. Complications: No immediate complications. Procedure: Pre-Anesthesia Assessment: - Prior to the procedure, a History and Physical was performed, and patient medications and allergies were reviewed. The patient's tolerance of previous anesthesia was also reviewed. The risks and benefits of the procedure and the sedation options and risks were discussed with the patient. All questions were answered, and informed consent was obtained. Prior Anticoagulants: The patient has taken no anticoagulant or antiplatelet agents. After reviewing the risks and benefits, the patient was deemed in satisfactory condition to undergo the procedure. After I obtained informed consent, the scope was passed under direct vision. Throughout the procedure, the patient's blood pressure, pulse, and oxygen saturations were monitored continuously. The Colonoscope was introduced through the anus and advanced to the cecum, identified by appendiceal orifice and ileocecal valve. The colonoscopy was performed without difficulty. The patient tolerated the procedure well. The quality of the bowel preparation was good. The ileocecal valve, appendiceal orifice, and rectum were photographed. Scope In: 9:50:52 AM Scope Withdrawal Time 0 hours 5 minutes 2 seconds Scope Out: 10:01:09 AM Total Procedure Duration Time 0 hours 10 minutes 17 seconds Findings: The entire examined colon appeared normal on direct and retroflexion views. Impression: - The entire examined colon is normal on direct and retroflexion views. - No specimens collected. Recommendation: - Discharge patient to home. - Resume previous diet. - Continue present medications. - Repeat colonoscopy in 10 years for screening purposes. Procedure Code(s): --- Professional --- 47497, Colonoscopy, flexible; diagnostic, including collection of specimen(s) by brushing or washing, when performed (separate procedure) Diagnosis Code(s): --- Professional --- Z12.11, Encounter for screening for malignant neoplasm of colon CPT copyright 2021 [employer]. All rights reserved. The codes documented in this report are preliminary and upon tare worker review may be revised to meet current compliance requirements. Jamie Simon MD 11/06/2024 10:03:18 AM This report has been signed electronically. Number of Addenda: 0 Note Initiated On: 11/06/2024 9:40 AM
--- NOTE | 2024-11-06 10:03 | PRE.ANES_ITS ---
ASA Classification* ASA Classification ASA Classification: 2 Assessment & Plan Anesthesia* Anesthesia Assessment Anesthesia Assessment: Discussed sedation and/or anesthesia options, risks, benefits, and alternatives with patient/parents/legal guardian/POA. Questions invited. The patient/parents/legal guardian/POA seems to understand and agrees to proceed with anesthesia plan. Reviewed the physical assessment, medical history, allergy history and patient home medications list prior to surgery/procedure/anesthetic and documented any changes. Performed airway and anesthesia risk assessments. Anesthesia Type Anesthesia Type: MAC History Source History Obtained from:: Patient and Chart Anesthesia Focused Assessment* Temperature: 98.6 F Pulse Rate: 76 Blood Pressure: 124/85 Respiratory Rate: 17 Pulse Ox: 98 Oxygen Delivery Method: Room Air Airway Assessment Mouth opens: >3 cm Mallampati Score: II Teeth Condition: Intact Neck Range of motion (ROM): Full ROM Focused Labs Anesthesia Preop lab: CBC WBC 8.4 K/mm3 (4.4-11.0) 10/01/24 07:10/01/24 RBC 5.09 M/mm3 (4.6-6.2) 10/01/24 07:10/01/24 Hgb 14.9 g/dL (13.0-16.5) 10/01/24 07:10/01/24 Hct 45.5 % (40-54) 10/01/24 07:31 10/01/24 Plt Count 191 K/mm3 (150-450) 10/01/24 07:31 10/01/24 CHEMISTRY Potassium 3.9 mmol/L (3.5-5.1) 10/01/24 07:10/01/24 Sodium 139 mmol/L (136-145) 10/01/24 07:31 10/01/24 Magnesium 2.1 mg/dL (1.6-2.6) 10/15/22 12:14 10/15/22 BUN 22 mg/dL (7-18) H 10/01/24 07:31 10/01/24 Creatinine 1.19 mg/dL (0.70-1.30) 10/01/24 07:10/01/24 Glucose 98 mg/dL (74-106) 10/01/24 07:10/01/24 TSH 1.86 uIU/mL (0.358-3.74) 08/14/21 17:02 COAG PT 13.5 SECONDS (11.7-14.9) 11/21/22 11:03 Pre-Assessment Diagnosis/Proposed Procedure Planned Operative Procedure(s): CSCOPE Anesthesia History 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 When Was Last Pacemaker Check QUESTION #4 FULL TEXT: You/Your Family Experience fever (hyperthermia) with Anesthesia Any additional information?: No Last Oral Intake Last Oral intake: Last Oral Intake NPO since 07:05 11/06/24 08:47 Meds taken in AM with sips of Yes 11/06/24 08:47 water? Meds patient instructed to take am of surgery Any additional information?: No PONV PONV - ammunition assembly i laborer: PONV - ammunition assembly i laborer Female No 11/04/24 10:37 HX of Motion Sickness Yes 11/04/24 10:37 HX of N/V After Surgery No 11/04/24 10:37 Non-Smoker Yes 11/04/24 10:37 Duration of Surgery greater No 11/04/24 10:37 than 60 minutes Number of Risk Factors 2 11/04/24 10:37 PONV Score Moderate Risk 11/04/24 10:37 Any additional information?: No Height & Weight Height & Weight: Anesthesia: Height & Weight Height 5 ft 8 in 11/06/24 08:47 Weight: 83 kg 11/06/24 08:47 Body Mass Index (BMI) 27.8 11/06/24 08:47 Respiratory Assessment Respiratory Assessment - ammunition assembly i laborer: Respiratory Tract Infection Hx - ammunition assembly i laborer Hx Respiratory Tract Infection No 11/04/24 10:37 Any additional information?: No STOP Sleep Apnea STOP Sleep Apnea - ammunition assembly i laborer: STOP Sleep Apnea - ammunition assembly i laborer Hx Hypertension Yes: CONTROLLED WITH MED 11/04/24 10:37 Hx Sleep Apnea Yes 11/04/24 10:37 CPAP No 11/04/24 10:37 BIPAP Yes: NOT COMPLIANT 11/04/24 10:37 Do you snore loudly (louder than talking or can be heard Do you often feel tired/ fatigued/ sleepy during daytime? Has anyone observed you stop breathing during sleep? STOP Results Positive 11/04/24 10:37 QUESTION #5 FULL TEXT : Do you snore loudly (louder than talking or can be heard through closed doors)? 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 Specify any problems Hx of Preganancy in last 3 N/A 11/04/24 10:37 Months Nurse Filling Out Transfusion DSCHRIBER 11/04/24 10:37 & Questions: Date: 11/04/24 11/04/24 10:37 Time: 10:39 11/04/24 10:37 Patient unable to answer at this time (ie. 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 assembly i laborer: /Reproductive Hx- ammunition assembly i laborer Hx Now Gestational Age (in weeks): EDC: Hx Hx Para Hx Section SAB No 11/04/24 10:37 Any additional information?: No PFSH Medical History BiPAP (biphasic positive airway pressure) dependence ADD (attention deficit disorder) Shortness of breath on exertion Constipation Rheumatoid arthritis History of hiatal hernia History of diverticulitis Former smoker Cardiology follow-up encounter Right inguinal hernia Hypertension Wears glasses Anxiety Alcohol use Arthritis Pulmonary embolism Injury of head and neck History of IBS Gastric reflux History of echocardiogram History of stress test Normal stress echocardiogram History of atrial fibrillation Contact with and (suspected) exposure to other viral communicable diseases Asthma Obesity (BMI 30.0-34.9) Paroxysmal atrial fibrillation Home Medications ?Medication ?Instructions ?Recorded ?Last Taken ?Type albuterol sulfate 90 mcg/actuation 2 puff inhalation Q 6H PRN 05/31/21 Unknown Rx aerosol inhaler shortness of breath or wheez ing #8.5 grams esomeprazole magnesium 40 mg 40 mg PO DAILY GERD 06/0911/06/24 History capsule,delayed release (Nexium) zolpidem 10 mg tablet 10 mg PO QHS PRN Sleep 09/0111/05/24 History sildenafil 100 mg tablet 100 mg PO PRN PRN Erectile 0 10/15/22 Unknown History Dysfunction hydroxychloroquine 200 mg tablet 200 mg PO BID 4 11/06/24 History apixaban 5 mg tablet (Eliquis) 5 mg PO BID #180 tabs 1 08/29/23 11/03/24 Rx fluticasone furoate 100 1 inh inhalation Q24H #30 ea 09/08/24 11/06/24 Rx mcg/actuation blister powder for inhalation (Arnuity Ellipta) oral device #1 ea 09/08/24 Unknown Rx turmeric root extract 500 mg 500 mg PO QDAY 10/22/24 0 10/28/24 History capsule atomoxetine 40 mg capsule 40 mg PO DAILY 11/04/2410/18 History atorvastatin 20 mg tablet 20 mg PO QHS 11/04/24 History flecainide 100 mg tablet 100 mg PO BID 11/04/2411/06 History lisinopril 10 mg tablet 10 mg PO DAILY 11/04/2410/18 History potassium citrate 10 mEq (1,080 10 meq PO BID 11/04/24 11/05/24 History mg) tablet,extended release triamcinolone acetonide 0.1 % 1 applic topical BID PRN DERMITIS 11/04/24 11/05/24 History topical cream Allergy/AdvReac Type Severity Reaction Status Date / Time azithromycin (From Zithromax AdvReac Unknown d/t hx of Verified 11/06/24 08:46 Z-Jerzy) a-fib Family History Mother Diabetes Hypertension High cholesterol Father Hypertension Prostate cancer Sister Throat cancer Other Heart disease Surgical History History of lumbar fusion S/P inguinal hernia repair History of cardiac catheterization Hx of repair of left rotator cuff Hx of surgical procedure History of laminectomy (~03/2021) History of bilateral cataract extraction History of colonoscopy History of radiofrequency ablation procedure for cardiac arrhythmia (12/29/12) History of left heart catheterization (07/28/18) History of cholecystectomy History of esophagogastroduodenoscopy (EGD) Social History Smoking Status: Former smoker pack-years: 10 Tobacco: How many years used: 10 Electronic Cigarette Use: not used how long ago did patient quit smoking: stopped at age 25. second hand exposure: No alcohol intake: current alcohol intake frequency: a few times a week Alcohol type: hard liquor substance use type: does not use caffeine: Yes (very little) what type of physical activity do you participate in: weight training frequency: 3-4 times per week Review of Systems (Anesthesia) ROS Narrative System reviewed and no additional complaints, except as documented. Physical Exam Const alert and oriented x3 Orientation / Consciousness: awake HEENT dentition normal Cardio regular rate, regular rhythm, no murmurs and diaphoretic Back/Spine normal ROM and thoraco-lumbar ROM normal Extremity full ROM Neuro oriented x3 and moves all extremities
--- NOTE | 2024-11-06 10:06 | PCM.POST.ANE ---
Anesthesia: Postop Eval I Current Vital Signs Temperature: 97.4 F Pulse Rate: 68 Blood Pressure: 98/66 Respiratory Rate: 16 Pulse Ox: 94 Oxygen Delivery Method: Room Air Assessment Airway patent: Yes Spontaneous unlabored respirations: Yes Mental status: Awake and Calm nausea: No Vomiting: No Anesthesia Complication: No Fluid Hydration Crystalloid volume administer (ml): 20 Total IV fluid infused: 20 Progress Note Anesthesia document: Postop Eval 1 completed: Yes
--- NOTE | 2024-11-06 10:48 | PCM.PRE.AN2 ---
ASA Classification* ASA Classification ASA Classification: 2 Assessment & Plan Anesthesia* Anesthesia Assessment Anesthesia Assessment: Discussed sedation and/or anesthesia options, risks, benefits, and alternatives with patient/parents/legal guardian/POA. Questions invited. The patient/parents/legal guardian/POA seems to understand and agrees to proceed with anesthesia plan. Reviewed the physical assessment, medical history, allergy history and patient home medications list prior to surgery/procedure/anesthetic and documented any changes. Performed airway and anesthesia risk assessments. Anesthesia Type Anesthesia Type: MAC History Source History Obtained from:: Patient and Chart Anesthesia Focused Assessment* Temperature: 97.5 F Pulse Rate: 71 Blood Pressure: 120/82 Respiratory Rate: 16 Pulse Ox: 97 Oxygen Delivery Method: Room Air Airway Assessment Mouth opens: >3 cm Mallampati Score: II Teeth Condition: Intact Neck Range of motion (ROM): Full ROM Focused Labs Anesthesia Preop lab: CBC WBC 8.4 K/mm3 (4.4-11.0) 10/01/24 07:10/01/24 RBC 5.09 M/mm3 (4.6-6.2) 10/01/24 07:10/01/24 Hgb 14.9 g/dL (13.0-16.5) 10/01/24 07:10/01/24 Hct 45.5 % (40-54) 10/01/24 07:31 10/01/24 Plt Count 191 K/mm3 (150-450) 10/01/24 07:31 10/01/24 CHEMISTRY Potassium 3.9 mmol/L (3.5-5.1) 10/01/24 07:10/01/24 Sodium 139 mmol/L (136-145) 10/01/24 07:31 10/01/24 Magnesium 2.1 mg/dL (1.6-2.6) 10/15/22 12:14 10/15/22 BUN 22 mg/dL (7-18) H 10/01/24 07:31 10/01/24 Creatinine 1.19 mg/dL (0.70-1.30) 10/01/24 07:10/01/24 Glucose 98 mg/dL (74-106) 10/01/24 07:10/01/24 TSH 1.86 uIU/mL (0.358-3.74) 08/14/21 17:02 08/14/21 COAG PT 13.5 SECONDS (11.7-14.9) 11/21/22 11:03 11/21/22 Pre-Assessment Diagnosis/Proposed Procedure Planned Operative Procedure(s): CSCOPE Anesthesia History 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 When Was Last Pacemaker Check QUESTION #4 FULL TEXT: You/Your Family Experience fever (hyperthermia) with Anesthesia Last Oral Intake Last Oral intake: Last Oral Intake NPO since 07:05 11/06/24 08:47 Meds taken in AM with sips of Yes 11/06/24 08:47 water? Meds patient instructed to take am of surgery PONV PONV - visual inspector: PONV - visual inspector Female No 11/04/24 10:37 HX of Motion Sickness Yes 11/04/24 10:37 HX of N/V After Surgery No 11/04/24 10:37 Non-Smoker Yes 11/04/24 10:37 Duration of Surgery greater No 11/04/24 10:37 than 60 minutes Number of Risk Factors 2 11/04/24 10:37 PONV Score Moderate Risk 11/04/24 10:37 Height & Weight Height & Weight: Anesthesia: Height & Weight Height 5 ft 8 in 11/06/24 08:47 Weight: 83 kg 11/06/24 08:47 Body Mass Index (BMI) 27.8 11/06/24 08:47 Respiratory Assessment Respiratory Assessment - visual inspector: Respiratory Tract Infection Hx - visual inspector Hx Respiratory Tract Infection No 11/04/24 10:37 STOP Sleep Apnea STOP Sleep Apnea - visual inspector: STOP Sleep Apnea - visual inspector Hx Hypertension Yes: CONTROLLED WITH MED 11/04/24 10:37 Hx Sleep Apnea Yes 11/04/24 10:37 CPAP No 11/06/24 10:05 BIPAP Yes: NOT COMPLIANT 11/04/24 10:37 Do you snore loudly (louder than talking or can be heard Do you often feel tired/ fatigued/ sleepy during daytime? Has anyone observed you stop breathing during sleep? STOP Results Positive 11/06/24 10:05 QUESTION #5 FULL TEXT : Do you snore loudly (louder than talking or can be heard through closed doors)? 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 Specify any problems Hx of Preganancy in last 3 N/A 11/04/24 10:37 Months Nurse Filling Out Transfusion DSCHRIBER 11/04/24 10:37 & Questions: Date: 11/04/24 11/04/24 10:37 Time: 10:39 11/04/24 10:37 Patient unable to answer at this time (ie. confused, unrespo /Reproduction History /Reproductive History - visual inspector: /Reproductive Hx- visual inspector Hx Now Gestational Age (in weeks): EDC: Hx Hx Para Hx Section SAB No 11/04/24 10:37 PFSH Medical History BiPAP (biphasic positive airway pressure) dependence ADD (attention deficit disorder) Shortness of breath on exertion Constipation Rheumatoid arthritis History of hiatal hernia History of diverticulitis Former smoker Cardiology follow-up encounter Right inguinal hernia Hypertension Wears glasses Anxiety Alcohol use Arthritis Pulmonary embolism Injury of head and neck History of IBS Gastric reflux History of echocardiogram History of stress test Normal stress echocardiogram History of atrial fibrillation Contact with and (suspected) exposure to other viral communicable diseases Asthma Obesity (BMI 30.0-34.9) Paroxysmal atrial fibrillation Home Medications ?Medication ?Instructions ?Recorded ?Last Taken ?Type albuterol sulfate 90 mcg/actuation 2 puff inhalation Q6H PRN 05/31/21 Unknown Rx aerosol inhaler shortness of breath or wheezing #8.5 grams esomeprazole magnesium 40 mg 40 mg PO DAILY GERD 06/09/21 11/06/24 History capsule,delayed release (Nexium) zolpidem 10 mg tablet 10 mg PO QHS PRN Sleep 09/01/21 11/05/24 History sildenafil 100 mg tablet 100 mg PO PRN PRN Erectile 10/15/22 Unknown History Dysfunction hydroxychloroquine 200 mg tablet 200 mg PO BID 06/25/24 11/06/24 History apixaban 5 mg tablet (Eliquis) 5 mg PO BID #180 tabs 06/29/24 11/03/24 Rx fluticasone furoate 100 1 inh inhalation Q24H #30 ea 09/08/24 11/06/24 Rx mcg/actuation blister powder for inhalation (Arnuity Ellipta) oral device #1 ea 09/08/24 Unknown Rx turmeric root extract 500 mg 500 mg PO QDAY 10/22/24 10/28/24 History capsule atomoxetine 40 mg capsule 40 mg PO DAILY 11/04/24 11/05/24 History atorvastatin 20 mg tablet 20 mg PO QHS 11/04/24 11/05/24 History flecainide 100 mg tablet 100 mg PO BID 11/04/24 11/06/24 History lisinopril 10 mg tablet 10 mg PO DAILY 11/04/24 11/05/24 History potassium citrate 10 mEq (1,080 10 meq PO BID 11/04/24 11/05/24 History mg) tablet,extended release triamcinolone acetonide 0.1 % 1 applic topical BID PRN DERMITIS 11/04/24 11/05/24 History topical cream Allergy/AdvReac Type Severity Reaction Status Date / Time azithromycin (From Zithromax AdvReac Unknown d/t hx of Verified 11/06/24 08:46 Z-Jerzy) a-fib Family History Mother Diabetes Hypertension High cholesterol Father Hypertension Prostate cancer Sister Throat cancer Other Heart disease Surgical History History of lumbar fusion S/P inguinal hernia repair History of cardiac catheterization Hx of repair of left rotator cuff Hx of surgical procedure History of laminectomy (~03/2021) History of bilateral cataract extraction History of colonoscopy History of radiofrequency ablation procedure for cardiac arrhythmia (12/29/12) History of left heart catheterization (07/28/18) History of cholecystectomy History of esophagogastroduodenoscopy (EGD) Social History Smoking Status: Former smoker pack-years: 10 Tobacco: How many years used: 10 Electronic Cigarette Use: not used how long ago did patient quit smoking: stopped at age 25. second hand exposure: No alcohol intake: current alcohol intake frequency: a few times a week Alcohol type: hard liquor substance use type: does not use caffeine: Yes (very little) what type of physical activity do you participate in: weight training frequency: 3-4 times per week Review of Systems (Anesthesia) ROS Narrative System reviewed and no additional complaints, except as documented.
--- NOTE | 2024-11-06 11:39 | POSTOPAN2_ITS ---
Anesthesia Postop Eval I Sum Postop Eval Completion status Anesthesia document: Postop Eval 1 completed: Yes Anesthesia Postop Eval I Summary Anesthesia Postop Eval I Summary: Anesthesia Postop Eval I: Assessment Summary Airway patent Yes 11/06/24 10:07 BURR MACHINE OPERATOR.[email or web address] Spontaneous unlabored Yes 11/06/24 10:07 BURR MACHINE OPERATORALAN respirations Mental status Awake,Calm 11/06/24 10:07 BURR MACHINE OPERATOR.MARGARETH nausea No 11/06/24 10:07 BURR MACHINE OPERATOR.MARGARETH Vomiting No 11/06/24 10:07 BURR MACHINE OPERATORALAN Anesthesia Postop Eval I: Fluid Summary Crystalloid volume administer 20 11/06/24 10:07 GARETH.MARGARETH (ml) Colloids volume administered ( ml) Blood Product volume administered (ml) Total IV fluid infused 20 11/06/24 10:07 YOANA Anesthesia Postop Eval I: Summary Notes Anesthesia Complication No 11/06/24 10:07 YOANA Anesthesia Complication Comment: Post-operative progress note Anesthesia: Postop Eval II Evaluation Mental status: Awake Pain Level: 0 nausea: No Vomiting: No Complications Anesthesia Complication: No
== END 2024-11-06 10:52 | disposition home or self-care (01) ==
LOC: EN 08:24 → AC 08:25
PROVIDERS: PCP Family Medicine; Referring Provider Family Medicine; Visit Provider Surgery
PROC: 0DJD8ZZ Inspection of Lower Intestinal Tract, Via Natural or Artificial Opening Endoscopic (ICD-10-PCS; CPT 45378; principal; 2024-11-06 09:25)
DX: Z12.11 Encounter for screening for malignant neoplasm of colon (principal); I48.0 Paroxysmal atrial fibrillation; K59.00 Constipation, unspecified; K21.9 Gastro-esophageal reflux disease without esophagitis; Z87.891 Personal history of nicotine dependence; I10 Essential (primary) hypertension; G47.33 Obstructive sleep apnea (adult) (pediatric); Z99.89 Dependence on other enabling machines and devices; Z79.899 Other long term (current) drug therapy; F41.9 Anxiety disorder, unspecified; Z79.01 Long term (current) use of anticoagulants; J45.909 Unspecified asthma, uncomplicated; Z79.51 Long term (current) use of inhaled steroids; Z98.41 Cataract extraction status, right eye; Z98.42 Cataract extraction status, left eye; Z90.49 Acquired absence of other specified parts of digestive tract
CPT/HCPCS: 45378; A4216

== ENCOUNTER → 2024-12-22 | Outpatient (CLI) | payer OTHER, SELFPAY ==
--- NOTE | 2024-12-22 14:14 | RAD_ITS ---
PROCEDURE: SHOULDER MIN 2 VIEWS 12/22/2024 REASON FOR EXAM: R SHOELIDALER. ? SUPRASPINATUS TEAR. TECHNIQUE: Three views of the right shoulder COMPARISON: None FINDINGS: No acute fracture or dislocation. Joint spaces are maintained. Sclerotic lesion humeral head, compatible with an enchondroma. Acromioclavicular joint is within normal limits. Imaged lung field is clear.. RAD/Shoulder min 2 Views IMPRESSION: No acute findings. Reading Location: [facility]
== END | disposition home or self-care (01) ==
LOC: MTRAD 14:14
PROVIDERS: PCP Family Medicine; Referring Provider Family Medicine; Visit Provider Family Medicine
DX: M25.519 Pain in unspecified shoulder (principal)
CPT/HCPCS: 73030

== ENCOUNTER → 2025-01-14 | Outpatient (CLI) | payer OTHER, SELFPAY ==
[2025-01-14 13:36] LABS: ALB/GLOB Ratio 1.8 RATIO (0.9-2.4); AST(SGOT) 28 U/L (<=37); Alanine Aminotransfer ALT/SGPT 40 U/L (<=46); Albumin, Serum 4.2 g/dL (3.4-4.8); Alkaline Phosphatase 75 U/L (40-129); Anion Gap 10 (5-15); BUN 19 mg/dL (4-19); BUN/Creat Ratio 17.5 RATIO (10-20); Bilirubin, Direct 0.26 mg/dL (0.00-0.30); Calcium,Total 9.2 mg/dL (7.6-11.0); Carbon Dioxide 21.8 mmol/L (21.0-32.0); Chloride 105 mmol/L (98-108); Cholesterol 132 mg/dL (<=200); EST Glomerular Filtration Rate 76 (>60); Globulin 2.3 g/dL (2.2-4.2); Glucose 111 mg/dL (70-99); High Density Lipoprotein 48 mg/dL; Low Density Lipoprotein Calc. 72 mg/dL; Protein, Total 6.5 g/dL (5.9-8.4); Sodium Level 137 mmol/L (133-145); Total Bilirubin 0.53 mg/dL (0.00-1.30); Triglycerides 61 mg/dL; Very Low Density Lipoprotein 12 mg/dL (5-40); cholesterol:hdl ratio screen 2.74
== END | disposition home or self-care (01) ==
LOC: MTLAB 09:42
PROVIDERS: Psychiatry & Neurology Neurology; PCP Family Medicine; Referring Provider Family Medicine; Visit Provider Family Medicine
DX: I10 Essential (primary) hypertension (principal)
CPT/HCPCS: 36415; 80053; 80061; 82248

== ENCOUNTER 2025-02-16 07:12 | Emergency (ER) | payer OTHER, SELFPAY ==
[2025-02-16 07:17] VITALS: BP 139/80; PULSE 76; RESP 20; TEMP 37.1; O2SAT 100; BMI 29.9
--- NOTE | 2025-02-16 07:28 | ED.RN ---
pt with hx tias and also reports some numbness to lt arm and face this am but that it may be a panic attack from going to court with exwife?
--- NOTE | 2025-02-16 07:30 | EKG12_ITS ---
Test Reason : CHEST PAIN Blood Pressure : */* mmHG Vent. Rate : 84 BPM Atrial Rate : 84 BPM P-R Int : 170 ms QRS Dur : 96 ms QT Int : 390 ms P-R-T Axes : 57 55 55 degrees QTcB Int : 460 ms Normal sinus rhythm Normal ECG Confirmed by MG CHANDLER, ANGELIQUE ([id number]), writer editor ABIGAIL COULTER ([id number]) on 02/17/2025 1:39:17 PM Referred By: Confirmed By: ANGELIQUE HOLLIDAY MD
--- NOTE | 2025-02-16 07:45 | ED.VIS.CHEST ---
HPI History of Present Illness Chief Complaint: Chest Pain Informant: patient Onset/Context/Timing Onset: Today and Yesterday Activity at onset: gradual Timing: Continuous Quality: Positive for Aching Location: Substernal Current Severity: Mild Maximum Severity: Mild Worsened By: Nothing Relieved By: Nothing Associated Symptoms: Negative for Nausea, Vomiting, Diaphoresis, Dyspnea, Cough, Fever, Lightheadedness, Acid Reflux or Palpitations Narrative Narrative: 64-year-old male history of prior TIA stroke prior A-fib with cardiac ablation, ADD and currently on Eliquis. States yesterday today has had some mild chest pressure with tingling in his left arm. States this may be anxiety because he is just going through a nasty divorce which has been over the last year and a half. Prior Similar Symptoms: Yes Recent Illness/Hospitalization: No CVD Risk Factors: Negative for Hypertension or Diabetes PE Risk Factors: Negative for Recent Immobilization, Prior DVT or PE, Cancer or OCP + Smoking + >/=35 TAD Risk Factors: Negative for Marfan's Syndrome PFSH PFSH Medical History BiPAP (biphasic positive airway pressure) dependence ADD (attention deficit disorder) Shortness of breath on exertion Constipation Rheumatoid arthritis History of hiatal hernia History of diverticulitis Former smoker Cardiology follow-up encounter Right inguinal hernia Hypertension Wears glasses Anxiety Alcohol use Arthritis Pulmonary embolism Injury of head and neck History of IBS Gastric reflux History of echocardiogram History of stress test Normal stress echocardiogram History of atrial fibrillation Contact with and (suspected) exposure to other viral communicable diseases Asthma Obesity (BMI 30.0-34.9) Paroxysmal atrial fibrillation Home Medications ?Medication ?Instructions ?Recorded ?Last Taken ?Type albuterol sulfate 90 mcg/actuation 2 puff inhalation Q6H PRN 05/31/21 Unknown Rx aerosol inhaler shortness of breath or wheezing #8.5 grams esomeprazole magnesium 40 mg 40 mg PO DAILY GERD 06/09/21 11/06/24 History capsule,delayed release (Nexium) zolpidem 10 mg tablet 10 mg PO QHS PRN Sleep 09/01/21 11/05/24 History sildenafil 100 mg tablet 100 mg PO PRN PRN Erectile 10/15/22 Unknown History Dysfunction hydroxychloroquine 200 mg tablet 200 mg PO BID 06/25/24 11/06/24 History fluticasone furoate 100 1 inh inhalation Q24H #30 ea 09/08/24 11/06/24 Rx mcg/actuation blister powder for inhalation (Arnuity Ellipta) oral device #1 ea 09/08/24 Unknown Rx turmeric root extract 500 mg 500 mg PO QDAY 10/22/24 10/28/24 History capsule atomoxetine 40 mg capsule 40 mg PO DAILY 11/04/24 11/05/24 History lisinopril 10 mg tablet 10 mg PO DAILY 11/04/24 11/05/24 History potassium citrate 10 mEq (1,080 10 meq PO BID 11/04/24 11/05/24 History mg) tablet,extended release triamcinolone acetonide 0.1 % 1 applic topical BID PRN DERMITIS 11/04/24 11/05/24 History topical cream apixaban 5 mg tablet (Eliquis) 5 mg PO BID #180 tabs 11/09/24 Unknown Rx atorvastatin 20 mg tablet 20 mg PO QDAY #30 tabs 01/04/25 Unknown Rx flecainide 100 mg tablet 100 mg PO BID #180 tabs 02/12/25 Unknown Rx Allergy/AdvReac Type Severity Reaction Status Date / Time azithromycin (From Zithromax AdvReac Unknown d/t hx of Verified 01/04/25 10:08 Z-Jerzy) a-fib Family History Mother Diabetes Hypertension High cholesterol Father Hypertension Prostate cancer Sister Throat cancer Other Heart disease Surgical History History of lumbar fusion S/P inguinal hernia repair History of cardiac catheterization Hx of repair of left rotator cuff Hx of surgical procedure History of laminectomy (~03/2021) History of bilateral cataract extraction History of colonoscopy History of radiofrequency ablation procedure for cardiac arrhythmia (12/29/12) History of left heart catheterization (07/28/18) History of cholecystectomy History of esophagogastroduodenoscopy (EGD) Social History Smoking Status: Former smoker pack-years: 10 Tobacco: How many years used: 10 Electronic Cigarette Use: not used how long ago did patient quit smoking: stopped at age 25. second hand exposure: No alcohol intake: current alcohol intake frequency: a few times a week Alcohol type: hard liquor substance use type: does not use caffeine: Yes (very little) what type of physical activity do you participate in: weight training frequency: 3-4 times per week ROS ROS ED ROS Narrative Atypical nonexertional chest pain. No shortness of breath. No diaphoresis. No nausea. Constitutional Constitutional ED: Denies chills or fever(s) Eyes Eyes: Reports none; Denies blurry vision, change in vision or diplopia ENT ENT ED: Denies ear pain Cardiovascular Cardiovascular: Reports as per HPI and chest pain; Denies palpitations or racing heartbeat Respiratory/Chest Respiratory/Chest: Denies cough, dyspnea or dyspnea on exertion Gastrointestinal Gastrointestinal: Denies abdominal pain Genitourinary Genitourinary ED: Denies dysuria or hematuria Musculoskeletal Musculoskeletal: Denies arthralgias or back pain Integumentary Denies abscess or Abrasions Neurologic Neurologic: Denies headache(s) Psychiatric Psychiatric: Reports anxiety Endocrine Endocrinology: Denies cold intolerance Hematologic/Lymphatic Hematologic/Lymphatic: Denies easy bleeding Allergic/Immunologic Allergic/Immunologic ED: Denies mouth swelling EXAM Physical Exam Narrative Exam Narrative: Well-appearing 64-year-old male sitting upright in bed. Vital signs stable afebrile. He does not look septic toxic no distress. Pulse ox 5% on room air no hypoxia. H EENT exam pupils round react to light. Mytrex members. No facial droop. Normal speech. No trauma. Neck nontender. No JVD. Lungs clear to auscultation bilaterally. Heart regular rhythm no murmur. Chest wall ribs nontender. Abdomen soft nontender. Moving all 4 extremities. Calves are nontender without edema or cords. 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 Dorsi plantarflexion intact. No drift. Equal symmetrical radial pulses. Back nontender. Neurologic exam is awake and alert. He is answering questions and following commands. His NIH score is 0. Const Vital Signs: 02/16/25 07:14 02/16/25 07:17 02/16/25 07:19 Temperature 98.7 F Temperature Source Oral Pulse Rate 76 Respiratory Rate 20 H Respiratory Effort Normal Non-Labored Blood Pressure 139/80 H Blood Pressure Mean 99 Pulse Ox 100 Oxygen Delivery Method Room Air Room Air 02/16/25 09:13 Temperature Temperature Source Pulse Rate 73 Respiratory Rate 16 Respiratory Effort Blood Pressure 118/76 Blood Pressure Mean 90 Pulse Ox 96 Oxygen Delivery Method Room Air Positive well nourished and well developed; Negative for obese, cachectic, contractures or unkempt General Appearance ED: well developed and NAD; Negative for unkempt, cachectic, contractures or pallor Nutritional Appearance: Negative for cachectic or obese HEENT Reports moist mucous membranes normocephalic and atraumatic Eyes PERRL and EOMs intact bilaterally Neck no lymphadenopathy, supple and no JVD Chest Wall inspection of chest normal and palpation of chest normal Resp normal respiratory effort and clear to auscultation bilaterally Cardio regular rate, regular rhythm, S1 normal heart sound, S2 normal heart sound and no murmurs GI normal to inspection, nondistended, normoactive bowel sounds, soft to palpation, non-tender and non-distended Back/Spine no CVA tenderness and no thoracic nor lumbar tenderness Extremity normal to inspection General Extremety ED: Negative for edema or pulses abnormal General Extremity: Negative for edema or pulses abnormal Neuro oriented x3, CN's II-XII intact bilaterally and no sensory deficits noted Sensorium / Orientation: awake, alert, oriented to person, oriented to place and oriented to time; Negative for confused or lethargic Motor Exam: strength 5/5 throughout Psych mental status grossly normal Appearance: Negative for unkempt Attitude: No agitated Mood & Affect: Negative for depressed or tearful Skin no rashes or lesions noted and no wounds General Skin Exam: Negative for jaundice or pallor Rashes: No rashes noted Trauma: Negative for abrasion MDM MDM MDM Narrative Medical decision making narrative: 64-year-old male with atypical nonexertional chest pain and left arm tingling. Benign normal exam. At this time may be related to anxiety he is currently going through a lengthy divorce. Rule out cardiac etiology. Currently there is no signs of TIA or stroke. I do not think he needs CT imaging. He will undergo a cardiac workup. Repeat exam at 11:09 AM patient doing well. Symptom-free. Resting comfortably on the bed. Repeat exam unchanged. We discussed his test results including the 2 troponins EKG and chest x-ray. He is comfortable being discharged home with outpatient follow-up. History & Record Review Discussion w/independent historian: Patient Additional record(s) reviewed:: Prior inpatient record, Prior outpatient record, Prior ED visit, Prior labs and No prior records Lab Data Attestation: I reviewed the patient's lab results. Lab results narrative: CBC normal. White count of 7. H&H 14 and 41. Platelets 188. Sodium 139. Gap 11. BUN and creatinine of 17 and 1. Glucose 108. Initial troponin 9. 2-hour troponin 9. Labs: Laboratory Results - last 24 hr 02/16/25 02/16/25 07:19 09:20 WBC 7.0 RBC 4.63 Hgb 14.0 Hct 41.2 MCV 89.0 MCH 30.2 MCHC 34.0 RDW Std Deviation 40.4 RDW Coeff of Gene 12.4 Plt Count 188 MPV 10.8 Immature Gran % (Auto) 0.400 Neut % (Auto) 72.9 H Lymph % (Auto) 12.6 L [place] % (Auto) 10.1 H Eos % (Auto) 3.0 Baso % (Auto) 1.0 Absolute Neuts (auto) 5.1 Absolute Lymphs (auto) 0.88 Nucleated RBC % 0 Sodium 139 Potassium 3.7 Chloride 105 Carbon Dioxide 22.9 Anion Gap 11 BUN 17 Creatinine 1.06 Estim Creat Clear Calc 78.53 Est GFR (MDRD) Non-Af 79 BUN/Creatinine Ratio 15.9 Glucose 108 H Calcium 8.9 Troponin T High Sens 9 Troponin T Hi Sens 2 Hr 9 Radiography Chest X-Ray - ED: Read by ED Physician, Read by Radiologist, Normal, Heart, Lungs, Mediastinum, Bony Structures, No Acute Disease and Chronic Changes Diagnostic Testing: Clinical Impression(s) from Imaging Studies Chest X-Ray 02/16/25 08:30 IMPRESSION: No acute process is identified in the chest. Reading Location: [facility] Chest x-ray, portable, single view, interpreted both by myself and radiologist shows no acute abnormality. Chronic changes. Rhythm Strip Rhythm Strip: Sinus Rhythm Rate: 84 Ectopy: None EKG Initial EKG: Attestation: I personally reviewed and interpreted this EKG as follows: Interpretation: Sinus Rhythm and No Acute Injury Pattern Comments: Normal sinus rhythm rate 84 no acute signs of CT or ischemia. Discharge Plan Triage Chief Complaint: Chest Pain ED Provider: Timur Cook Dx/Rx/DC Orders Clinical Impression: Chest pain, History of atrial fibrillation, Chronic anticoagulation, History of embolic stroke Instructions: ED Chest Pain, Uncertain Cause Prescriptions: No Action albuterol sulfate 90 mcg/actuation HFA aerosol inhaler 2 puff inhalation Q6H PRN (Reason: shortness of breath or wheezing) Qty: 8.5 0RF zolpidem 10 mg tablet 10 mg PO QHS PRN (Reason: Sleep) Patient Comments: TAKE 1 TABLET BY MOUTH AT BEDTIME FOR 30 DAYS atorvastatin 20 mg tablet 20 mg PO QDAY Qty: 30 9RF Arnuity Ellipta 100 mcg/actuation blister with device 1 inh inhalation Q24H Qty: 30 5RF (DME) oral device See Rx Instructions .Route .MEDSUPPLY Qty: 1 0RF Rx Instructions: As directed turmeric root extract 500 mg capsule 500 mg PO QDAY esomeprazole magnesium [Nexium] 40 mg Capsule,Delayed Release(Dr/Ec) 40 mg PO DAILY sildenafil 100 mg tablet 100 mg PO PRN PRN (Reason: Erectile Dysfunction) Patient Comments: TAKE 1 TABLET BY MOUTH ONCE DAILY NEEDED atomoxetine 40 mg capsule 40 mg PO DAILY potassium citrate 10 mEq (1,080 mg) tablet extended release 10 meq PO BID lisinopril 10 mg tablet 10 mg PO DAILY triamcinolone acetonide 0.1 % cream 1 applic topical BID PRN (Reason: DERMITIS) hydroxychloroquine 200 mg tablet 200 mg PO BID Eliquis 5 mg tablet 5 mg PO BID Qty: 180 3RF flecainide 100 mg tablet 100 mg PO BID Qty: 180 3RF Primary Care Provider: Harpreet Lee Referrals: Harpreet Lee MD [Primary Care Provider] - As Needed Activity Restrictions/Additional Instructions: Your exam and tests all look good. No signs of a heart attack. No signs of a stroke. Follow-up with your primary care physician as needed. Return if you are feeling worse. Print Language: Frisian Disposition Disposition: Home, Self Care
[2025-02-16 08:21] LABS: Hematocrit 41.2 % (40-54); Hemoglobin 14.0 g/dL (13.0-16.5); Immature Granulocytes Count 0.030 X10^3/uL (0.0-0.0); Mean Corp Hgb Conc 34.0 g/dL (32-36); Mean Corpuscular Volume 89.0 fL (80-94); Mean Platelet Vol. 10.8 fl (6.2-12.0); NRBC Flagged by Analyzer 0 % (0-5); Platelet Count 188 K/mm3 (150-450); RBC Distribution Width CV 12.4 % (11.6-14.6); RBC Distribution Width SD 40.4 fl (35.1-43.9); Red Blood Count 4.63 M/mm3 (4.6-6.2); White Blood Count 7.0 K/mm3 (4.4-11.0)
--- NOTE | 2025-02-16 08:30 | RAD_ITS ---
PROCEDURE: CHEST 1 VIEW (PORTABLE) N/A REASON FOR EXAM: CHEST PAIN TECHNIQUE: Frontal view of the chest. COMPARISON: May 13, 2024 FINDINGS: Heart size and mediastinal configuration are within normal limits. There is no focal infiltrate or consolidation. There is no pneumothorax or effusion. There is no acute bony abnormality. Aortic calcifications are visible. RAD/Chest 1 View (Portable) IMPRESSION: No acute process is identified in the chest. Reading Location: [facility]
[2025-02-16 09:06] LABS: Anion Gap 11 (5-15); BUN 17 mg/dL (4-19); BUN/Creat Ratio 15.9 RATIO (10-20); Calcium,Total 8.9 mg/dL (7.6-11.0); Carbon Dioxide 22.9 mmol/L (21.0-32.0); Chloride 105 mmol/L (98-108); Estimated Creatinine Clearance 78.53 ml/min (50-250); Glucose 108 mg/dL (70-99); Potassium 3.7 mmol/L (3.3-5.1); Troponin T High Sensitivity 9 ng/L (<=22)
[2025-02-16 09:13] VITALS: BP 118/76; PULSE 73; RESP 16; O2SAT 96
[2025-02-16 09:57] LABS: Troponin T High Sens 2 HR 9 ng/L (<=22)
[2025-02-16 11:00] VITALS: BP 122/87; PULSE 72; RESP 18; TEMP 36.6; O2SAT 97
== END 2025-02-16 11:21 | disposition home or self-care (01) ==
PROVIDERS: Emergency Provider Emergency Medicine; PCP Family Medicine; Visit Provider Emergency Medicine
DX: R07.9 Chest pain, unspecified (principal); I48.91 Unspecified atrial fibrillation; I10 Essential (primary) hypertension; Z87.891 Personal history of nicotine dependence; Z79.01 Long term (current) use of anticoagulants; Z86.73 Personal history of transient ischemic attack (TIA), and cerebral infarction without residual deficits; K21.9 Gastro-esophageal reflux disease without esophagitis; Z79.899 Other long term (current) drug therapy; J45.909 Unspecified asthma, uncomplicated; Z79.51 Long term (current) use of inhaled steroids; Z98.41 Cataract extraction status, right eye; Z98.42 Cataract extraction status, left eye; Z90.49 Acquired absence of other specified parts of digestive tract
CPT/HCPCS: 71045; 80048; 84484; 85025; 93005; 99284; A4216

== ENCOUNTER → 2025-04-01 | Outpatient (CLI) | payer OTHER, SELFPAY ==
--- OUTSIDE RECORDS SUMMARY | 2025-04-01 07:42 | XMS RPT_ITS | CCD ---
Author Organization [facility] Care Team Providers Care Chief Lock Operator Name Role Phone Dr. Harpreet Lee Primary Care Provider Dr. Harpreet Lee Referring Provider [phone] Db Kaur Attending Provider Dr. Db Kaur Referring Provider Dr. Db Kaur Other Provider Roof OBSERVER HELPER, OBSERVER HELPER-C Barry Thompson Attending Provider Dr. Harpreet Lee Primary Care Provider Dr. Harpreet Lee Referring Provider Roof OBSERVER HELPER, OBSERVER HELPER-Pantera Thompson Attending Provider YOUNG Crawford Attending Provider [phone] YOUNG Duran Attending Provider PROVIDER, NOT IN SYSTEM Primary Care UnavailADDISON Nieves Attending Unavailab ROSALIA Espinal Referring Unavailable PROVIDER, NOT IN SYSTEM Primary Care UnavailDr. Harpreet Cano Primary Care Provider Dr. Harpreet Lee Referring Provider Roof OBSERVER HELPER, OBSERVER HELPER-C Barry Thompson Attending Provider Dr. Boni Ontiveros Attending Provider Roof OBSERVER HELPER, OBSERVER HELPER-C Barry Thompson Referring Provider Dr. Harpreet Lee Primary Care Provider Dr. Harpreet Lee Referring Provider Roof OBSERVER HELPER, OBSERVER HELPER-C Barry Thompson Attending Provider Dr. Boni Ontiveros Attending Provider Roof OBSERVER HELPER, OBSERVER HELPER-C Barry Thompson Referring Provider Dr. Harpreet Lee Primary Care Provider Roof OBSERVER HELPER, OBSERVER HELPER-C Barry Thompson Attending Provider Rosa CHANDLER, Dr. Mullins Primary Care Provider Luis CHANDLER, Dr. Robison Attending Provider Alfred CHANDLER, Dr. Ayala Referring Provider Alfred CHANDLER, Dr. Ayala Attending Provider [phone] Alfred CHANDLER, Dr. Ayala Other Provider Rosa CHANDLER, Dr. Mullins Referring Provider Cheyenne CHANDLER, Dr. Trujillo Attending Provider Cheyenne CHANDLER, Dr. Trujillo Referring Provider Ruabelardoer OBSERVER HELPER-C, Tish Anderson Attending Provider Runeida OBSERVER HELPER-C, Tish Anderson Referring Provider Marlon CHANDLER, Dr. Morton Attending Provider Marlon CHANDLER, Dr. Morton Referring Provider Rosa CHANDLER, Dr. Mullins Attending Provider Rosa CHANDLER, Dr. Mullins Primary Care Provider Alfred CHANDLER, Dr. Ayala Attending Provider Luis CHANDLER, Dr. Robison Attending Provider Alfred CHANDLER, Dr. Ayala Other Provider Rosa CHANDLER, Dr. Mullins Primary Care Provider Rosa CHANDLER, Dr. Mullins Referring Provider Rufencande OBSERVER HELPER-C, Tish Anderson Attending Provider Alfred CHANDLER, Dr. Ayala Attending Provider Lavinia CHANDLER, Dr. Troy Attending Provider Lavinia CHANDLER, Dr. Troy Referring Provider Cheyenne CHANDLER, Dr. Trujillo Attending Provider Rosa CHANDLER, Dr. Mullins Primary Care Provider Rosa CHANDLER, Dr. Mullins Referring Provider [phone] Rosa CHANDLER, Dr. Mullins Primary Care Provider Rosa CHANDLER, Dr. Mullins Referring Provider [phone] Rosa CHANDLER, Dr. Mullins Attending Provider Joey CHANDLER, Dr. Ding Emergency Provider Rosa CHANDLER, Dr. Mullins Primary Care Provider Rosa CHANDLER, Dr. Mullins Referring Provider Joey CHANDLER, Dr. Ding Attending Provider Alma Delia OBSERVER HELPER-C, Barry Thompson Attending Provider Jamie Simon Consulting Unavailable Lee, Harpreet Primary Care Unavailable Lee, Harpreet Referring Unavailable Calabretta, Jamie Attending Unavailable Lee, Harpreet Primary Care Unavailable Lee, Harpreet Referring Unavailable Roof Barry STARKS Attending Unavailable Lee, Harpreet Primary Care Unavailable Lee, Harpreet Referring Unavailable Calabretta, Jamie Attending Unavailable Lee, Harpreet Referring Unavailable Lee, Harpreet Primary Care Unavailable Lee, Harpreet Attending Unavailable Lee, Harpreet Primary Care Unavailable Woodrow Kate Referring Unavailable Woodrow Kate Attending Unavailable Rosa, Harpreet Primary Care Unavailable Tish Newton Referring Unavailable Tish Newton Attending Unavailable Lee, Harpreet Primary Care Unavailable Calabretta, Jamie Referring Unavailable LuisRicki chamberlain Attending Unavailable Calabretta, Jamie Consulting Unavailable Lee, Harpreet Primary Care Unavailable Calabretta, Jamie Referring Unavailable Calabretta, Jamie Attending Unavailable Lee, Harpreet Primary Care Unavailable Lee, Harpreet Referring Unavailable Calabretta, Jamie Attending Unavailable Rosa, Harpreet Primary Care Unavailable Ronnie Quinn Referring Unavailable Ronnie Quinn Attending Unavailable Timur Cook Attending Unavailable Lee, Harpreet Primary Care Unavailable Lee, Harpreet Primary Care Unavailable Vellanki, Selene Referring Unavailable VellankiTimoteoma Attending Unavailable Lee, Harpreet Primary Care Unavailable Lee, Harpreet Referring Unavailable Lee, Harpreet Attending Unavailable Lee, Harpreet Primary Care Unavailable Lee, Harpreet Referring Unavailable Lee, Harpreet Attending Unavailable CalabrJamie julio Referring Unavailable Lee, Harpreet Primary Care Unavailable Jamie Simon Attending Unavailable Lee, Harpreet Referring Unavailable Lee, Harpreet Primary Care Unavailable Calabrsumanth, Jamie Attending Unavailable Lee, Harpreet Primary Care Unavailable Lee, Harpreet Referring Unavailable Tish Newton Attending Unavailable Lee, Harpreet Primary Care Unavailable Baddobryson, Ronnie Referring Unavailable Baddobryson, Ronnie Attending Unavailable Lee, Harpreet Primary Care Unavailable Vellanki, Selene Referring Unavailable Vellanki, Selene Attending Unavailable Lee, Harpreet Primary Care Unavailable Lee, Harpreet Referring Unavailable Calabrsumanth, Jamie Attending Unavailable Lee, Harpreet Primary Care Unavailable Lee, Harpreet Referring Unavailable Baddour, Ronnie Attending Unavailable Lee, Harpreet Primary Care Unavailable Lee, Harpreet Referring Unavailable Baddour, Ronnie Attending Unavailable Lee, Harpreet Primary Care Unavailable Lee, Harpreet Referring Unavailable Tish Newton Attending Unavailable Lee, Harpreet Primary Care Unavailable Lee, Harpreet Referring Unavailable Luis, [place] Attending Unavailable Allergies Allergy Classification Reported Allergen(s) Allergy Type Date of Onset Reaction(s) Facility (17 sources) [facility] All[facility] [address] [place] [address] Repository Medications Current Medications Medication Drug Class(es) Dates Sig (Normalized) Sig (Original) Albuterol Sulfate (20 sources) beta2-Adrenergic Agonist Start: 05-31-2021 take 1 puff(s) by inhalation every six hours Albuterol Sulfate Active 2 PUFF INHALATION EVERY 6 HOURS 8.May 31, 2021 12:29pm Start: 05-31-2021 Albuterol Sulf ate 90 mcg/actuation HFA aerosol inhaler Active 2 NMA INHALATION EVERY 6 HOURS as needed for shortness of breath or wheezing 8.5 May 31, 2021 12:00am Start: 05-31-2021 take 1 puff(s) by in halation every six hours Albuterol Sulfate Active 2 PUFF INHALATION EVERY 6 HOURS 8.May 31, 2021 12:00am Start: 04-07-2020 End: 04-16-2020 Albuterol Sulfate (Proair Hf a) 90 mcg/actuation HFA aerosol inhaler Discontinued 2 NMA INHALATION EVERY 6 HOURS as needed April 07, 2020 12:00am April 16, 2020 1:12pm Start: 04-07-2020 End: 04-16-2020 take 1 puff(s) by inhalation every six hours Albuterol Sulfate (Proair Hfa) 90 mcg/actuation HFA aerosol inhaler Discontinued 2 PUFF INHALATION EVERY 6 HOURS April 07, 2020 12:00am April 16, 2020 1:12pm amoxicillin 875 mg / clavulanate 125 mg oral tablet (18 sources) Penicillin-class Antibacterial Start: 03-24-2022 take 1 tablet by mouth every twelve hours Amoxicillin-Pot Clavulanate Active 1 TABLET PO Q12H March 23, 2022 11:00pm Start: 11-05-2020 End: 05-29-2021 Amoxicillin-Pot Clavulanate (Augmentin) 875-125 mg tablet Discontinued 1 {tbl} PO TWICE A DAY 20 November 05, 2020 12:00am May 29, 2021 3:20pm atomoxetine 40 mg oral capsule (6 sources) Norepinephrine Reuptake Inhibitor Start: 11-04-2024 take 1 capsule by mouth once daily Atomoxetine 40 mg capsule Active 40 mg PO DAILY November 04, 2024 12:00am benzonatate 200 mg oral capsule (1 source) Non-narcotic Antitussive Start: 08-23-2022 take 200 mg by mouth three times daily Benzonatate Active 200 MG PO THREE TIMES A DAY August 23, 2022 12:00am cyclobenzaprine hydrochloride 10 mg oral tablet (2 sources) Muscle Relaxant Start: 09-01-2021 take 10 mg by mouth once daily Cyclobenzaprine Active 10 MG PO DAILY September 01, 2021 12:10pm esomeprazole 40 mg delayed release oral capsule (20 sources) Proton Pump Inhibitor Start: 06-09-2021 take 1 capsule by mouth once daily Esomeprazole Magnesium (Nexium) 40 mg Capsule,Delayed Release(Dr/Ec) Active 40 mg PO DAILY June 09, 2021 12:00am GERD Start: 05-09-2016 End: 04-16-2020 take 1 tablet by mouth once daily Esomeprazole Magnesium 20 MG tablet,delayed release (DR/EC) Discontinued 20 mg PO DAILY May 09, 2016 12:00am April 16, 2020 1:13pm GERD flecainide acetate 100 mg oral tablet (20 sources) Antiarrhythmic Start: 11-04-2024 End: 02-12-2025 take 1 tablet by mouth twice daily Flecainide 100 mg tablet Active 100 mg PO TWICE A DAY 180 3 February 12, 2025 4:22pm Start: 07-28-2018 End: 09-10-2024 take 1 tablet by mouth every twelve hours Flecainide 100 mg tablet Discontinued 100 mg PO Q12H 180 3 June 11, 2024 8:50am September 10, 2024 10:55am HEART 30 actuat fluticasone furoate 0.1 mg/actuat dry powder inhaler (7 sources) Corticosteroid Start: 09-08-2024 take 100 ug by inhalation every twenty-four hours Fluticasone Furoate (Arnuity Ellipta) 100 mcg/actuation blister with device Active 1 NMA INHALATION Q24H 30 5 September 08, 2024 1:00am hydroxychloroquine sulfate 200 mg oral tablet (7 sources) Antimalarial, Antirheumatic Agent Start: 06-25-2024 take 1 tablet by mouth twice daily Hydroxychloroquine 200 mg tablet Active 200 mg PO TWICE A DAY June 25, 2024 1:00am lisinopril 10 mg oral tablet (20 sources) Angiotensin Converting Enzyme Inhibitor Start: 11-04-2024 take 1 tablet by mouth once daily Lisinopril 10 mg tablet Active 10 mg PO DAILY November 04, 2024 12:00am Start: 06-09-2021 End: 09-10-2024 take 1 tablet by mouth once daily Lisinopril 10 mg tablet Discontinued 10 mg PO DAILY June 09, 2021 12:00am September 10, 2024 10:55am SUPPLEMENT Start: 11-18-2017 End: 04-16-2020 take 1 tablet by mouth once daily Lisinopril 10 mg tablet Discontinued 10 mg PO daily November 18, 2017 12:00am April 16, 2020 1:13pm BP Benton-3 Fatty Acids (8 sources) Start: 10-15-2022 take 1000 mg by mout h once daily Benton-3 Fatty Acids Active 1000 MG PO DAILY October 15, 2022 1:00am Start: 10-15-2022 take 1000 mg by mouth once steffany ly Benton-3 Fatty Acids Active 1000 MG PO DAILY October 15, 2022 12:00am oral device (7 sources) Start: 09-08-2024 oral device Ac tive 0 .Route .MEDSUPPLY 1 0 September 08, 2024 1:00am Obstructive sleep apnea syndrome Obstructive sleep apnea (adult) (pediatric) As directed Start: 09-08-2024 oral device Ac tive 0 .Route .MEDSUPPLY 1 September 08, 2024 1:00am As directed potassium citrate 10 meq extended release oral tablet (6 sources) Start: 11-04-2024 take 1 tablet by mouth twice daily Potassium Citrate 10 mEq (1,080 mg) tablet extended release Active 10 meq PO TWICE A DAY November 04, 2024 12:00am sildenafil 100 mg oral tablet (20 sources) Phosphodiesterase 5 Inhibitor Start: 10-15-2022 Sildenafil 100 mg tablet Active 100 mg PO NEEDED as needed for Erectile Dysfunction October 15, 2022 1:00am Start: 05-09-2016 End: 04-16-2020 Sildenafil 100 MG tablet Dis continued 1 {tbl} PO NEEDED as needed for other May 09, 2016 12:00am April 16, 2020 1:13pm Start: 05-09-2016 End: 04-16-2020 Sildenafil Discontinued 1 TA BLET PO NEEDED May 09, 2016 12:00am April 16, 2020 1:13pm traZODone hydrochloride 50 mg oral tablet (1 source) Serotonin Reuptake Inhibitor Start: 03-15-2025 take 1 tablet by mouth at bedtime Trazodone 50 mg tablet Active 50 mg PO AT BEDTIME March 15, 2025 12:00am Turmeric Root Extract 500 mg capsule (7 sources) Start: 10-22-2024 take 1 capsule by mouth once daily Turmeric Root Extract 500 mg capsule Active 500 mg PO daily October 22, 2024 1:00am Completed/Discontinued Medications Medication Drug Class(es) Dates Sig (Normalized) Sig (Original) acetaminophen 325 mg / HYDROcodone bitartrate 5 mg oral tablet (20 sources) Opioid Agonist Start: 11-29-2022 End: 07-17-2023 Hydrocodone-Acetami nophen 5-325 mg tablet Discontinued 1 {tbl} PO EVERY 6 HOURS 28 7 0 November 29, 2022 July 17, 2023 2:34pm Spinal stenosis of lumbar region Spinal stenosis, lumbar region without neurogenic claudication Start: 11-29-2022 End: 07-17-2023 take 1 tablet by mouth every six hours Hydrocodone-Acetaminophen Discontinued 1 TABLET PO EVERY 6 HOURS 28 7 November 29, 2022 July 17, 2023 2:34pm Start: 05-09-2016 End: 11-18-2017 Hydrocodone-Acetaminophen 1 EACH tablet Discontinued 1 - 2 {tbl} PO EVERY 4 HOURS NEEDED as needed for Pain May 09, 2016 12:00am November 18, 2017 9:52am Start: 05-09-2016 End: 11-18-2017 take 1 tablet by mouth every four hours as needed Hydrocodone-Acetaminophen Discontinued 1 - 2 TABLET PO EVERY 4 HOURS NEEDED May 09, 2016 12:00am November 18, 2017 9:52am acetaminophen 325 mg / oxyCODONE hydrochloride 5 mg oral tablet (20 sources) Opioid Agonist Start: 08-14-2023 End: 06-25-2024 Oxycodone-Acetaminophen (Percocet) 5-325 mg tablet Discontinued 1 {tbl} PO EVERY 6 HOURS as needed for pain 12 3 0 August 14, 2023 June 25, 2024 3:03pm Calculus of right kidney Calculus of kidney Start: 07-13-2021 End: 09-01-2021 Oxycodone-Acetaminophen (Per cocet) 5-325 mg tablet Discontinued 1 {tbl} PO EVERY 6 HOURS as needed for pain 12 3 0 July 13, 2021 September 01, 2021 12:09pm Traumatic partial tear of right biceps tendon Start: 03-22-2020 End: 03-25-2020 Oxycodone-Acetaminophen 1 TA BLET tablet Discontinued 1 {tbl} PO EVERY 6 HOURS NEEDED as needed for Pain 12 3 0 March 22, 2020 March 24, 2020 12:00am March 25, 2020 12:02am Unspecified renal colic Start: 03-22-2020 End: 03-25-2020 take 1 tablet by mouth every six hours as needed Oxycodone-Acetaminophen Discontinued 1 TABLET PO EVERY 6 HOURS NEEDED 12 3 March 22, 2020 March 25, 2020 12:02am Start: 11-20-2017 End: 05-31-2018 Oxycodone-Acetaminophen 1 TA BLET tablet Discontinued 1 - 2 {tbl} PO EVERY 4 HOURS NEEDED as needed for Pain 30 7 November 20, 2018 12:00am May 31, 2018 9:59am Other cholelithiasis without obstruction Start: 11-20-2017 End: 05-31-2018 take 1 tablet by mouth every four hours as needed Oxycodone-Acetaminophen Discontinued 1 - 2 TABLET PO EVERY 4 HOURS NEEDED 30 November 20, 2017 12:00am May 31, 2018 9:59am amoxicillin 500 mg oral capsule (17 sources) Penicillin-class Antibacterial Start: 04-16-2020 End: 04-26-2020 take 2 capsules by mouth twice daily Amoxicillin 500 mg capsule Discontinued 1000 mg PO TWICE A DAY 40 10 April 16, 2020 12:00am April 25, 2020 12:00am April 26, 2020 12:02am Start: 04-16-2020 End: 04-26-2020 take 1000 mg by mouth twice daily Amoxicillin Discontinued 1000 MG PO TWICE A DAY 40 April 16, 2020 12:00am April 26, 2020 12:02am apixaban 5 mg oral tablet (20 sources) Factor Xa Inhibitor Start: 07-10-2023 End: 11-09-2024 take 1 tablet by mouth twice daily Apixaban (Eliquis) 5 mg tablet Discontinued 5 mg PO TWICE A DAY 180 0 June 29, 2024 9:59am November 09, 2024 2:21pm Start: 06-09-2021 End: 09-01-2021 take 2 tablets by mouth twice daily, then take 1 tablet by mouth twice daily Apixaban (Eliquis) 5 mg tablet Discontinued 5 mg PO TWICE A DAY 74 0 June 09, 2021 12:00am September 01, 2021 12:09pm 10 mg twice a day for the first week. Then 5 mg twice a day. aspirin 81 mg chewable tablet (17 sources) Platelet Aggregation Inhibitor, Nonsteroidal Anti-inflammatory Drug Start: 05-09-2016 End: 11-29-2022 take 1 tablet by mouth once daily Aspirin 81 MG tablet,chewable Discontinued 81 mg PO DAILY@0800 May 09, 2016 12:00am November 29, 2022 7:20am BLOOD THINNER atorvastatin 20 mg oral tablet (20 sources) HMG-CoA Reductase Inhibitor Start: 12-31-2023 End: 01-04-2025 take 1 tablet by mouth at bedtime Atorvastatin 20 mg tablet Discontinued 20 mg PO AT BEDTIME November 04, 2024 12:00am January 04, 2025 2:18pm baclofen 10 mg oral tablet (14 sources) gamma-Aminobutyric Acid-ergic Agonist Start: 08-14-2023 End: 06-25-2024 take 1 tablet by mouth once daily Baclofen 10 mg tablet Discontinued 10 mg PO DAILY August 14, 2023 1:00am June 25, 2024 3:01pm clonazePAM 0.5 mg oral tablet (20 sources) Benzodiazepine Start: 07-17-2023 End: 11-04-2024 take 1 tablet by mouth once daily Clonazepam 0.5 mg tablet Discontinued 0.5 mg PO DAILY July 17, 2023 1:00am November 04, 2024 10:33am Start: 07-17-2023 take 0.5 mg by mouth twice daily Clonazepam Active 0.5 MG PO TWICE A DAY July 17, 2023 1:00am Start: 10-15-2022 End: 11-29-2022 take 1 tablet by mouth twice daily Clonazepam 0.5 mg tablet Discontinued 0.5 mg PO TWICE A DAY October 15, 2022 1:00am November 29, 2022 7:20am ANXIETY clopidogrel 75 mg oral tablet (17 sources) [id number] Platelet Inhibitor Start: 07-17-2018 End: 02-26-2019 take 1 tablet by mouth once daily Clopidogrel 75 mg tablet Discontinued 75 mg PO DAILY 30 0 July 17, 2018 1:00am February 26, 2019 1:24pm diclofenac sodium 75 mg delayed release oral tablet (20 sources) Nonsteroidal Anti-inflammatory Drug Start: 09-01-2021 End: 11-29-2022 take 1 tablet by mouth twice daily Diclofenac Sodium 75 mg tablet,delayed release (DR/EC) Discontinued 75 mg PO TWICE A DAY September 01, 2021 1:00am November 29, 2022 7:20am PAIN Start: 11-20-2017 End: 04-16-2020 take 1 tablet by mouth once daily Diclofenac Sodium 75 MG tablet,delayed release (DR/EC) Discontinued 75 mg PO DAILY November 20, 2017 12:00am April 16, 2020 1:12pm 14 actuat fluticasone furoate 0.2 mg/actuat / vilanterol 0.025 mg/actuat dry powder inhaler (17 sources) Corticosteroid, beta2-Adrenergic Agonist Start: 04-07-2020 End: 04-16-2020 Fluticasone Furoate-Vilanterol 200-25 mcg/dose blister with device Discontinued INHALATION April 07, 2020 12:00am April 16, 2020 1:13pm Start: 04-07-2020 End: 04-16-2020 Fluticasone Furoate-Vilanter ol Discontinued INHALATION April 07, 2020 12:00am April 16, 2020 1:13pm gabapentin 100 mg oral capsule (17 sources) Anti-epileptic Agent Start: 06-09-2021 End: 07-17-2023 take 1 capsule by mouth three times daily Gabapentin 100 mg capsule Discontinued 100 mg PO THREE TIMES A DAY June 09, 2021 12:00am July 17, 2023 2:34pm PAIN HYDROmorphone hydrochloride 4 mg oral tablet (17 sources) Opioid Agonist Start: 04-20-2016 End: 11-18-2017 take 1 tablet by mouth every six hours as needed for pain Hydromorphone 4 MG tablet Discontinued 4 mg PO EVERY 6 HOURS as needed for Pain 16 0 April 20, 2016 2:29pm November 18, 2017 9:52am linaclotide 0.145 mg oral capsule (17 sources) Guanylate Cyclase-C Agonist Start: 05-09-2016 End: 11-18-2017 take 1 capsule by mouth once daily as needed Linaclotide 145 MCG capsule Discontinued 1 {tbl} PO DAILY as needed for ibs May 09, 2016 12:00am November 18, 2017 9:52am Magnesium (15 sources) Start: 10-15-2022 End: 06-25-2024 take 2 tablets by mouth once daily Magnesium 200 mg Tablet Discontinued 400 mg PO DAILY October 15, 2022 1:00am June 25, 2024 3:02pm SUPPLEMENT Start: 10-15-2022 End: 06-25-2024 take 2 tablets by mouth once daily Magnesium 200 mg Tablet Discontinued 400 mg PO DAILY October 15, 2022 1:00am June 25, 2024 3:02pm Start: 10-15-2022 take 400 mg by mouth once jessica y Magnesium Active 400 MG PO DAILY October 15, 2022 1:00am Start: 10-15-2022 take 400 mg by mouth once jessica y Magnesium Active 400 MG PO DAILY October 15, 2022 12:00am Benton-3 Fatty Acids Capsule (7 sources) Start: 10-15-2022 End: 06-25-2024 take 1 capsule by mouth once daily Benton-3 Fatty Acids Capsule Discontinued 1000 mg PO DAILY October 15, 2022 1:00am June 25, 2024 3:02pm SUPPLEMENT Start: 10-15-2022 End: 06-25-2024 take 1 capsule by mouth once daily Benton-3 Fatty Acids Capsule Discontinued 1000 mg PO DAILY October 15, 2022 1:00am June 25, 2024 3:02pm ondansetron 4 mg disintegrating oral tablet (20 sources) Serotonin-3 Receptor Antagonist Start: 08-14-2023 End: 06-25-2024 take 1 tablet by mouth every six hours as needed for nausea and vomiting Ondansetron 4 mg tablet,disintegrating Discontinued 4 mg PO EVERY 6 HOURS as needed for nausea and vomiting 12 3 0 August 14, 2023 1:00am June 25, 2024 3:02pm Start: 03-22-2020 End: 04-07-2020 take 1 tablet by mouth every eight hours as needed for nausea Ondansetron 4 MG tablet,disintegrating Discontinued 4 mg PO EVERY 8 HOURS NEEDED as needed for Nausea/Vomiting 14 0 March 22, 2020 3:27am April 07, 2020 9:07am Start: 04-20-2016 End: 11-18-2017 take 1 tablet by mouth every eight hours as needed for nausea Ondansetron 4 MG tablet Discontinued 4 m g PO EVERY 8 HOURS NEEDED as needed for Nausea 10 April 20, 2016 12:00am November 18, 2017 9:52am oseltamivir 75 mg oral capsule (16 sources) Neuraminidase Inhibitor Start: 07-27-2022 End: 08-03-2022 take 1 capsule by mouth once daily Oseltamivir (Tamiflu) 75 mg capsule Discontinued 75 mg PO DAILY 7 7 0 July 27, 2022 1:00am August 02, 2022 1:00am August 03, 2022 1:04am oxyCODONE hydrochloride 5 mg oral tablet (7 sources) Opioid Agonist Start: 07-02-2024 End: 07-14-2024 take 5-10 mg by mouth every four hours as needed for pain Oxycodone 5 mg Tablet Discontinued 5 - 10 mg PO EVERY 4 HOURS NEEDED as needed for Pain Score 4-10 10 5 0 July 02, 2024 July 14, 2024 2:58pm Right inguinal hernia Oxygen (17 sources) Start: 06-10-2021 End: 09-01-2021 oxygen Discontinued 0 .Route .MEDSUPPLY 1 June 10, 2021 10:38am September 01, 2021 12:10pm As directed Start: 06-10-2021 End: 09-01-2021 oxygen Discontinued 0 .Route .MEDSUPPLY 1 June 10, 2021 12:00am September 01, 2021 12:10pm As directed Start: 06-10-2021 End: 09-01-2021 oxygen Discontinued 0 .Route .MEDSUPPLY June 10, 2021 12:00am September 01, 2021 12:10pm As directed Start: 06-10-2021 End: 09-01-2021 oxygen Discontinued 0 .Route .MEDSUPPLY June 09, 2021 11:00pm September 01, 2021 11:10am As directed phenazopyridine hydrochloride 100 mg oral tablet (7 sources) Start: 06-25-2024 End: 09-10-2024 take 1 tablet by mouth three times daily Phenazopyridine 100 mg tablet Discontinued 100 mg PO THREE TIMES A DAY June 25, 2024 1:00am September 10, 2024 10:18am predniSONE 20 mg oral tablet (20 sources) Start: 08-04-2024 End: 09-08-2024 take 2 tablets by mouth once daily, then take 1 tablet by mouth once daily Prednisone 20 mg tablet Discontinued 20 mg PO daily August 04, 2024 1:00am September 08, 2024 10:10am Stage 3 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 Start: 08-23-2022 take 10 mg by mouth twice daily Prednisone Active 10 MG PO TWICE A DAY August 23, 2022 12:00am Start: 07-11-2021 End: 09-01-2021 Prednisone 10 mg tablet Disc ontinued 0 mg PO DAILY 63 July 11, 2021 1:00am September 01, 2021 12:09pm Please contact the information source for Taper Schedule details. sulfamethoxazole 800 mg / trimethoprim 160 mg oral tablet (17 sources) Dihydrofolate Reductase Inhibitor Antibacterial, Sulfonamide Antimicrobial Start: 05-09-2016 End: 11-18-2017 Sulfamethoxazole-Trimethopri m 1 TABLET tablet Discontinued 1 {tbl} PO TWICE A DAY May 09, 2016 12:00am November 18, 2017 9:52am Start: 05-09-2016 End: 11-18-2017 take 1 tablet by mouth twice daily Sulfamethoxazole-Trimethoprim Discontinu ed 1 TABLET PO TWICE A DAY May 09, 2016 12:00am November 18, 2017 9:52am tamsulosin hydrochloride 0.4 mg oral capsule (14 sources) alpha-Adrenergic Juan Francisco Start: 08-14-2023 End: 06-25-2024 take 1 capsule by mouth every twenty-four hours Tamsulosin 0.4 mg capsule Discontinued 0.4 mg PO Q24H August 14, 2023 1:00am June 25, 2024 3:03pm triamcinolone acetonide 1 mg/ml topical cream (6 sources) Corticosteroid Start: 11-04-2024 End: 03-15-2025 Triamcinolone Acetonide 0.1 % cream Discontinued 1 NMA TOPICAL TWICE A DAY as needed for DERMITIS November 04, 2024 12:00am March 15, 2025 10:32am vitamin b12 1 mg extended release oral tablet (15 sources) Vitamin B12 Start: 10-15-2022 End: 06-25-2024 take 1 tablet by mouth once daily Cyanocobalamin (Vitamin B-12) (Vitamin B-12) 1,000 mcg Tablet Extended Release Discontinued 1000 ug PO DAILY October 15, 2022 1:00am June 25, 2024 3:02pm SUPPLEMENT zolpidem tartrate 10 mg oral tablet (20 sources) gamma-Aminobutyric Acid-ergic Agonist Start: 09-01-2021 End: 03-15-2025 take 1 tablet by mouth at bedtime as needed for sleep Zolpidem 10 mg tablet Discontinued 10 mg PO AT BEDTIME as needed for Sleep September 01, 2021 1:00am March 15, 2025 10:33am Start: 05-31-2018 End: 04-16-2020 take 1 tablet by mouth at bedtime as needed for sleep Zolpidem 5 mg tablet Discontinued 5 mg PO AT BEDTIME as needed for sleep 30 30 0 February 26, 2019 1:24pm April 16, 2020 1:13pm Problems Active Problems Problem Classification Problem Date Documented Da te Episodic/Chronic Abdominal pain (17 sources) Lower abdominal pain; Translations: [Lower abdominal pain, unspecified] 06-09-2021 Episodic Acute and unspecified renal failure (14 sources) Acute renal failure syndrome; Translations: [Acute kidney failure, unspecified] 08-14-2023 Episodic Administrative/social admission (6 sources) General problem AND/OR complaint; Translations: [Persons encountering health services in other specified circumstances] 08-04-2024 Episodic Asthma (17 sources) Asthma; Translations: [Unspecified asthma, uncomplicated] 04-12-2021 Chronic Comment on above: INHALER USED W/ COVI D, PT REPORTS NEVER HAVING ASTHMA Calculus of urinary tract (14 sources) Kidney stone; Translations: [Calculus of kidney] 08-14-2023 Episodic Cardiac dysrhythmias (20 sources) Paroxysmal atrial fibrillation; Translations: [Paroxysmal atrial fibrillation] Onset: 03-15-2025 Chronic Comment on above: RFA 2012 E Codes: Natural/environment (16 sources) Tick bite; Translations: [Bitten or stung by nonvenomous insect and other nonvenomous arthropods, initial encounter] 12-31-2021 Episodic Essential hypertension (20 sources) Essential hypertension; Translations: [Essential (primary) hypertension] Onset: 01-19-2025 Chronic Immunizations and screening for infectious disease (20 sources) Patient encounter status; Translations: [Encounter for screening for COVID-19] 08-07-2021 Episodic Nonspecific chest pain (20 sources) Chest pain; Translations: [Chest pain, unspecified] Onset: 02-23-2025 03-22-2020 Episodic Occlusion or stenosis of precerebral arteries (9 sources) Left carotid artery stenosis; Translations: [Occlusion and stenosis of left carotid artery] Onset: 01-04-2025 01-04-2025 Chronic Other aftercare (2 sources) Long-term current use of anticoagulant; Translations: [buttermaker continuous churn (current) use of anticoagulants] 02-16-2025 Episodic Other circulatory disease (2 sources) History of embolic cerebrovascular accident; Translations: [Personal history of transient ischemic attack (TIA), and cerebral infarction without residual deficits] 02-16-2025 Episodic Other circulatory disease (2 sources) H/O: atrial fibrillation; Translations: [Personal history of other diseases of the circulatory system] 02-16-2025 Episodic Other connective tissue disease (1 source) Pain in right leg; Translations: [Pain in right leg] Onset: 12-20-2022 Episodic Other connective tissue disease (1 source) Pain in lower limb Onset: 12-20-2022 Episodic Other gastrointestinal disorders (13 sources) Constipation; Translations: [Constipation, unspecified] 10-22-2024 Episodic Other lower respiratory disease (17 sources) Dyspnea on exertion; Translations: [Dyspnea, unspecified] 01-11-2022 Episodic Other lower respiratory disease (17 sources) Hypoxemia; Translations: [Hypoxemia] 06-18-2021 Episodic Other lower respiratory disease (20 sources) Cough; Translations: [Cough] 08-07-2021 Episodic Other lower respiratory disease (1 source) Dyspnea, unspecified; Translations: [Other respiratory abnormalities] Episodic Other non-traumatic joint disorders (1 source) Pain in unspecified shoulder; Translations: [Pain in unspecified shoulder] Onset: 12-28-2024 Episodic Other upper respiratory infections (17 sources) Upper respiratory infection; Translations: [Acute upper respiratory infection, unspecified] 07-14-2022 Episodic Pulmonary heart disease (17 sources) Pulmonary embolism; Translations: [Other pulmonary embolism without acute cor pulmonale] 06-17-2021 Episodic Residual codes; unclassified (20 sources) Obstructive sleep apnea syndrome; Translations: [Obstructive sleep apnea (adult) (pediatric)] 09-01-2021 Chronic Residual codes; unclassified (2 sources) Obstructive sleep apnea (adult) (pediatric); Translations: [Obstructive sleep apnea (adult)(pediatric)] Onset: 08-20-2024 Chronic Residual codes; unclassified (9 sources) Hypersomnia; Translations: [Hypersomnia, unspecified] 08-05-2024 Chronic Residual codes; unclassified (1 source) Hypersomnia, unspecified; Translations: [Hypersomnia, unspecified] Onset: 09-17-2024 Chronic Residual codes; unclassified (17 sources) Chill; Translations: [Chills (without fever)] 08-07-2021 Episodic Rheumatoid arthritis and related disease (1 source) Inflammatory polyarthropathy; Translations: [Inflammatory polyarthropathy] Onset: 10-15-2024 Chronic Spondylosis; intervertebral disc disorders; other back problems (15 sources) Spinal stenosis of lumbar region; Translations: [Spinal stenosis, lumbar region without neurogenic claudication] 11-29-2022 Episodic Sprains and strains (20 sources) Rupture of tendon of biceps; Translations: [Strain of muscle, fascia and tendon of other parts of biceps, right arm, initial encounter] 07-21-2021 Episodic Transient cerebral ischemia (20 sources) Transient cerebral ischemia; Translations: [Transient cerebral ischemic attack, unspecified] Onset: 06-10-2024 07-17-2023 Chronic Unclassified (1 source) rihght leg pain Onset: 12-20-2022 Unclassified (1 source) Cough, unspecified; Translations: [Cough, unspecified] Onset: 08-04-2024 Viral infection (20 sources) COVID-19; Translations: [Pneumonia due to COVID-19 virus] Onset: 05-31-2021 Episodic Past or Other Problems Problem Classification Problem Date Documented Da te Episodic/Chronic Abdominal hernia (8 sources) Right inguinal hernia ; Translations: [Unilateral inguinal hernia, without obstruction or gangrene, not specified as recurrent] Onset: 07-28-2024 06-19-2024 Episodic Other gastrointestinal disorders (1 source) Constipation, unspecified; Translations: [Constipation, unspecified] Onset: 10-22-2024 Episodic Other screening for suspected conditions (not mental disorders or infectious disease) (2 sources) Encounter for screening for malignant neoplasm of colon; Translations: [Encounter for screening for malignant neoplasm of prostate] Onset: 10-27-2024 Episodic Pneumonia (except that caused by tuberculosis or sexually transmitted disease) (1 source) Pneumonia, unspecified organism; Translations: [Pneumonia, unspecified organism] Onset: 06-04-2024 Episodic Results Test Name Value Interpretation Reference Range Facility Cardiology Visit Reporton Cardiology Visit Report [facility]. [address] [place], [place] [address] OFFICE VISIT Date of Service: 03/15/25 MR#: [id number] Acct: [id number] Name: GENET COSTA Rep #: [id number] : 1960 Provider: BILL shin Age/Sex: 64/M Location[place] [facility] [place]: Signed HPI HPI History of Present Illness Details: GENET COSTA, is a 64 M who presents to the office today for a follow-up visit. He is a gentleman with a history of paroxysmal atrial fibrillation, who also underwent coronary artery evaluation in July 2018 with no obstructive coronary disease noted. He underwent radiofrequency ablation in December 2012. He was evaluated at OSH in [place], [place] for TIA. He underwent an echocardiogram that showed negative bubble study and started on Eliquis. He denies chest, arm, jaw, or neck discomfort. He denies palpitations. He denies bilateral lower extremity edema. He denies claudication. He denies shortness of breath with activity, shortness of breath at rest, orthopnea, or PND. He denies chronic cough. He denies significant, sudden weight gain. He denies lightheadedness, dizziness, near-syncope, or syncope. He denies blood in urine, blood in stool, or epistaxis. He denies fever with chills. He denies myalgia. He denies fatigue. His exercise level has remained stable. 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: No Accompanied by: Self Is patient in pain?: Yes (generalized joint) Pain scale (1-10): 2 Allergies azithromycin (From Frengo Z-Jerzy) Adverse Reaction (Unknown, Verified 03/15/25 10:31) d/t hx of a-fib Medications ???Medication ???Instructions ???Recorded ???Confirmed ???Type albuterol sulfate 90 mcg/actuation 2 puff inhalation Q6H PRN 03/15/25 Rx aerosol inhaler shortness of breath or wheezing #8.5 grams esomeprazole magnesium 40 mg 40 mg PO DAILY GERD 06/09/2103/15 History capsule,delayed release (Nexium) sildenafil 100 mg tablet 100 mg PO PRN PRN Erectile 3 03/15/25 History Dysfunction hydroxychloroquine 200 mg tablet 200 mg PO BID 06/25/24 03/15/25 Hi story fluticasone furoate 100 1 inh inhalation Q24H #30 ea 09/0803/15/25 Rx mcg/actuation blister powder for inhalation (Arnuity Ellipta) oral device #1 ea 09/08/24 11/04/24 Rx turmeric root extract 500 mg 500 mg PO QDAY 10/22/24 03/15/25 H istory capsule atomoxetine 40 mg capsule 40 mg PO DAILY 11/04/24 03/15/25 H istory lisinopril 10 mg tablet 10 mg PO DAILY 11/04/24 03/15/25 H istory potassium citrate 10 mEq (1,080 10 meq PO BID 11/04/24 03/15/25 Hi story mg) tablet,extended release apixaban 5 mg tablet (Eliquis) 5 mg PO BID #180 tabs 11/09/24 Rx atorvastatin 20 mg tablet 20 mg PO QDAY #30 tabs 01/04/25 Rx flecainide 100 mg tablet 100 mg PO BID #180 tabs 02/12/25 0 03/15/25 Rx trazodone 50 mg tablet 50 mg PO QHS 03/15/25 03/15/25 His tory Ejection fraction %: 60 PFSH Medical History BiPAP (biphasic positive airway pressure) dependence ADD (attention deficit disorder) Shortness of breath on exertion Constipation Rheumatoid arthritis History of hiatal hernia History of diverticulitis Former smoker Cardiology follow-up encounter Right inguinal hernia Hypertension Wears glasses Anxiety Alcohol use Arthritis Pulmonary embolism Injury of head and neck History of IBS Gastric reflux History of echocardiogram History of stress test Normal stress echocardiogram History of atrial fibrillation Contact with and (suspected) exposure to other viral communicable diseases Asthma Obesity (BMI 30.0-34.9) Paroxysmal atrial fibrillation Surgical History History of lumbar fusion S/P inguinal hernia repair History of cardiac catheterization Hx of repair of left rotator cuff Hx of surgical procedure History of laminectomy ( 03/2021) History of bilateral cataract extraction History of colonoscopy History of radiofrequency ablation procedure for cardiac arrhythmia (12/29/12) History of left heart catheterization (07/28/18) History of cholecystectomy History of esophagogastroduodenoscopy (EGD) Family History Mother Diabetes Hypertension High cholesterol Father Hypertension Prostate cancer Sister Throat cancer Other Heart disease (more content not included)... Normal [facility] 12 Lead EKGon 02-16-2025 12 Lead EKG [facility] [address] [place] [address] 12 Lead EKG 02/16/25 0715 MR#: [id number] Acct: [id number] Name: GENET COSTA Rep #: [id number] : 1960 64 From: Ricki Smith MD Attending Dr: Status: DEP ER Ordering Dr: Timur Cook MD Date: 02/16/25 Location: ED Sex: M C Admitted: Test Reason : CHEST PAIN Blood Pressure : */* mmHG Vent. Rate : 84 BPM Atrial Rate : 84 BPM P-R Int : 170 ms QRS Dur : 96 ms QT Int : 390 ms P-R-T Axes : 57 55 55 degrees QTcB Int : 460 ms Normal sinus rhythm Normal ECG Confirmed by LUIS CHANDLER, RICKI ([id number]), greeting card editor ABIGAIL COULTER ([id number]) on 02/17/2025 1:39:17 PM Referred By: Confirmed By: RICKI SMITH MD 02/17/25 1339 Date Ricki Smith MD CC: Dr. Timur Cook MD; Dr. Harpreet Lee MD Signed [facility] Absolute lymphocyte countOrd ered By: Timur Cook on 02-16-2025 Lymphocytes Auto (Unsp spec) [#/Vol] 0.88 10*3/uL 0.83-4.51 [facility] Absolute neutrophil countOrd ered By: Timur Cook on 02-16-2025 Neutrophils (Bld) [#/Vol] 5.1 10*3/uL 2.0-7.7 [facility] Anion gap in Serum or Plasma Ordered By: Timur Cook on 02-16-2025 Anion gap [Moles/Vol] 11 mmol/L 5-15 [facility] Automated lymphocyte count a s percentage of total leukocytesOrdered By: Timur Cook on 02-16-2025 Lymphocytes/100 WBC Auto (Unsp spec) 12.6 % Low 19-41 [facility] BUN/creatinine ratioOrdered By: Timur Cook on 02-16-2025 Urea nitrogen/Creatinine [Mass ratio] 15.9 mg/mg - [facility] Basic Metabolic Profile (BMP )on 02-16-2025 BUN/CRE 15.9 RATIO Normal - [facility] Comment on above: Performed By: #### L 500.2500, L100.0100, L501.4021 ####[facility] [address] [place], [address] Calcium [Mass/Vol] 8.9 mg/dL Normal 7.6-11.0 [facility] Comment on above: Performed By: #### L 500.2500, L100.0100, L501.4021 ####[facility] [address] [place], [address] Chloride [Moles/Vol] 105 mmol/L Normal 98-108 [facility] Comment on above: Performed By: #### L 500.2500, L100.0100, L501.4021 ####[facility] [address] [place], [address] CO2 [Moles/Vol] 22.9 mmol/L Normal 21.0-32.0 [facility] Comment on above: Performed By: #### L 500.2500, L100.0100, L501.4021 ####[facility] [address] [place], [address] Creatinine [Mass/Vol] 1.06 mg/dL Normal 0.70-1.20 [facility] Comment on above: Performed By: #### L 500.2500, L100.0100, L501.4021 ####[facility] [address] [place], [address] ECRCL 78.53 ml/min Normal 50-250 [facility] Comment on above: Performed By: #### L 500.2500, L100.0100, L501.4021 ####[facility] [address] [place], [address] GAP 11 Normal 5-15 [facility] Comment on above: Performed By: #### L 500.2500, L100.0100, L501.4021 ####[facility] [address] [place], [address] GFR/1.73 sq M.predicted among non-blacks MDRD (S/P/Bld) [Vol rate/Area] 79 mL/min/{1.73_m2} Normal >60 [facility] Comment on above: Result Comment: mL/m in/1.73m2 CKD-EPI Creatinine Equation (2020) Performed By: #### L 500.2500, L100.0100, L501.4021 ####[facility] [address] [place], [address] Glucose [Mass/Vol] 108 mg/dL High 70-99 [facility] Comment on above: Performed By: #### L 500.2500, L100.0100, L501.4021 ####[facility] [address] [place], [address] Potassium [Moles/Vol] 3.7 mmol/L Normal 3.3-5.1 [facility] Comment on above: Performed By: #### L 500.2500, L100.0100, L501.4021 ####[facility] [address] [place], [address] Sodium [Moles/Vol] 139 mmol/L Normal 133-145 [facility] Comment on above: Performed By: #### L 500.2500, L100.0100, L501.4021 ####[facility] [address] [place], [address] Urea nitrogen [Mass/Vol] 17 mg/dL Normal 4-19 [facility] Comment on above: Performed By: #### L 500.2500, L100.0100, L501.4021 ####[facility] [address] [place], [address] Basophil percentageOrdered B y: Timur Cook on 02-16-2025 Basophils/100 WBC (Bld) 1.0 % 0-1 [facility] CBC W/Diff, Automatedon Absolute Lymph 0.88 X10 3/uL Normal 0.83-4.51 [facility] Comment on above: Performed By: #### L 500.2500, L100.0100, L501.4021 ####[facility] [address] [place], [address] Absolute Neut 5.1 X10 3/uL Normal 2.0-7.7 [facility] Comment on above: Performed By: #### L 500.2500, L100.0100, L501.4021 ####[facility] [address] [place], [address] Basophils/100 WBC (Bld) 1.0 % Normal 0-1 [facility] Comment on above: Performed By: #### L 500.2500, L100.0100, L501.4021 ####[facility] [address] [place], [address] Eosinophils/100 WBC (Bld) 3.0 % Normal 0-5 [facility] Comment on above: Performed By: #### L 500.2500, L100.0100, L501.4021 ####[facility] [address] [place], [address] Erythrocyte distribution width (RBC) [Ratio] 12.4 % Normal 11.6-14.6 [facility] Comment on above: Performed By: #### L 500.2500, L100.0100, L501.4021 ####[facility] [address] [place], [address] Hematocrit (Bld) [Volume fraction] 41.2 % Normal 40-54 [facility] Comment on above: Performed By: #### L 500.2500, L100.0100, L501.4021 ####[facility] [address] [place], [address] Hemoglobin (Bld) [Mass/Vol] 14.0 g/dL Normal 13.0-16.5 [facility] Comment on above: Performed By: #### L 500.2500, L100.0100, L501.4021 ####[facility] [address] [place], [address] IG% 0.400 Normal 0.0-0.9 [facility] Comment on above: Result Comment: IG% - Immature Granulocytes (promyelocytes, myelocytes and metamyelocytes) > 1% indicates that a LEFT SHIFT is Present. Performed By: #### L 500.2500, L100.0100, L501.4021 ####[facility] [address] [place], [address] Lymphocytes/100 WBC (Bld) 12.6 % Low 19-41 [facility] Comment on above: Performed By: #### L 500.2500, L100.0100, L501.4021 ####[facility] [address] [place], [address] MCH (RBC) [Entitic mass] 30.2 pg Normal 27.0-32.0 [facility] Comment on above: Performed By: #### L 500.2500, L100.0100, L501.4021 ####[facility] [address] [place], [address] MCHC (RBC) [Mass/Vol] 34.0 g/dL Normal 32-36 [facility] Comment on above: Performed By: #### L 500.2500, L100.0100, L501.4021 ####[facility] [address] [place], [address] MCV (RBC) [Entitic vol] 89.0 fL Normal 80-94 [facility] Comment on above: Performed By: #### L 500.2500, L100.0100, L501.4021 ####[facility] [address] [place], [address] Monocytes/100 WBC (Bld) 10.1 % High 0-10 [facility] Comment on above: Performed By: #### L 500.2500, L100.0100, L501.4021 ####[facility] [address] [place], [address] Neutrophils/100 WBC (Bld) 72.9 % High 47-70 [facility] Comment on above: Performed By: #### L 500.2500, L100.0100, L501.4021 ####[facility] [address] [place], [address] Nucleated RBC (Bld) [#/Vol] 0 10*3/uL Normal 0-5 [facility] Comment on above: Performed By: #### L 500.2500, L100.0100, L501.4021 ####[facility] [address] [place], [address] Platelet mean volume (Bld) [Entitic vol] 10.8 fL Normal 6.2-12.0 [facility] Comment on above: Performed By: #### L 500.2500, L100.0100, L501.4021 ####[facility] [address] [place], [address] Platelets (Bld) [#/Vol] 188 10*3/uL Normal 150-450 [facility] Comment on above: Performed By: #### L 500.2500, L100.0100, L501.4021 ####[facility] [address] [place], [address] RBC (Bld) [#/Vol] 4.63 10*6/uL Normal 4.6-6.2 [facility] Comment on above: Performed By: #### L 500.2500, L100.0100, L501.4021 ####[facility] [address] [place], [address] RDW SD 40.4 fl Normal 35.1-43.9 [facility] Comment on above: Performed By: #### L 500.2500, L100.0100, L501.4021 ####[facility] [address] [place], [address] WBC (Bld) [#/Vol] 7.0 10*3/uL Normal 4.4-11.0 [facility] Comment on above: Performed By: #### L 500.2500, L100.0100, L501.4021 ####[facility] [address] [place], [address] Carbon dioxide, total [Moles /volume] in Central venous bloodOrdered By: Timur Cook on 02-16-2025 CO2 [Moles/Vol] 22.9 mmol/L 21.0-32.0 [facility] Chest 1 View (Portable)on Chest 1 View (Portable) [facility] Imaging Services [address] [place] [address] Chest 1 View (Portable) MR#: [id number] Acct: [id number] Name: GENET COSTA Rep #: [id number] : 1960 M 64 From: Renan Osman MD PCP: Dr. Harpreet Lee MD Status: [facility] ER Study: Chest 1 View (Portable) Date of Exam: 02/16/25 Exam# [id number] Ordering Dr: Timur Cook MD PROCEDURE: CHEST 1 VIEW (PORTABLE) N/A REASON FOR EXAM: CHEST PAIN TECHNIQUE: Frontal view of the chest. COMPARISON: May 13, 2024 FINDINGS: Heart size and mediastinal configuration are within normal limits. There is no focal infiltrate or consolidation. There is no pneumothorax or effusion. There is no acute bony abnormality. Aortic calcifications are visible. RAD/Chest 1 View (Portable) IMPRESSION: No acute process is identified in the chest. Reading Location: [facility] CC: Dr. Timur Cook MD; Dr. Harpreet Lee MD Public Address Technician: Signed Normal [facility] Chloride assayOrdered By: Demarcus Cook on 02-16-2025 Chloride [Moles/Vol] 105 mmol/L 98-108 [facility] Emergency Department Summary on 02-16-2025 Emergency Department Summary [facility] Medical Records Department [address] [place] [address] Emergency Department Summary 02/16/25 MR#: [id number] Acct: [id number] Name: GENET COSTA Rep #: [id number] : 1960 64 From: Timur Cook MD PCP: Dr. Harpreet Lee MD Status:REG ER Location: ED HPI History of Present Illness Chief Complaint: Chest Pain Informant: patient Onset/Context/Timing Onset: Today and Yesterday Activity at onset: gradual Timing: Continuous Quality: Positive for Aching Location: Substernal Current Severity: Mild Maximum Severity: Mild Worsened By: Nothing Relieved By: Nothing Associated Symptoms: Negative for Nausea, Vomiting, Diaphoresis, Dyspnea, Cough, Fever, Lightheadedness, Acid Reflux or Palpitations Narrative Narrative: 64-year-old male history of prior TIA stroke prior A-fib with cardiac ablation, ADD and currently on Eliquis. States yesterday today has had some mild chest pressure with tingling in his left arm. States this may be anxiety because he is just going through a nasty divorce which has been over the last year and a half. Prior Similar Symptoms: Yes Recent Illness/Hospitalization: No CVD Risk Factors: Negative for Hypertension or Diabetes PE Risk Factors: Negative for Recent Immobilization, Prior DVT or PE, Cancer or OCP + Smoking + >/=35 TAD Risk Factors: Negative for Marfan's Syndrome [facility] Medical History BiPAP (biphasic positive airway pressure) dependence ADD (attention deficit disorder) Shortness of breath on exertion Constipation Rheumatoid arthritis History of hiatal hernia History of diverticulitis Former smoker Cardiology follow-up encounter Right inguinal hernia Hypertension Wears glasses Anxiety Alcohol use Arthritis Pulmonary embolism Injury of head and neck History of IBS Gastric reflux History of echocardiogram History of stress test Normal stress echocardiogram History of atrial fibrillation Contact with and (suspected) exposure to other viral communicable diseases Asthma Obesity (BMI 30.0-34.9) Paroxysmal atrial fibrillation Home Medications ???Medication ???Instructions ???Recorded ???Last Taken ???Type albuterol sulfate 90 mcg/actuation 2 puff inhalation Q6H PRN Unknown Rx aerosol inhaler shortness of breath or wheezing #8.5 grams esomeprazole magnesium 40 mg 40 mg PO DAILY GERD 06/09/2111/06 History capsule,delayed release (Nexium) zolpidem 10 mg tablet 10 mg PO QHS PRN Sleep 09/01/21 History sildenafil 100 mg tablet 100 mg PO PRN PRN Erectile 3 Unknown History Dysfunction hydroxychloroquine 200 mg tablet 200 mg PO BID 06/25/24 11/06/24 Hi story fluticasone furoate 100 1 inh inhalation Q24H #30 ea 09/0811/06/24 Rx mcg/actuation blister powder for inhalation (Arnuity Ellipta) oral device #1 ea 09/08/24 Unknown Rx turmeric root extract 500 mg 500 mg PO QDAY 10/22/24 10/28/24 H istory capsule atomoxetine 40 mg capsule 40 mg PO DAILY 11/04/24 11/05/24 H istory lisinopril 10 mg tablet 10 mg PO DAILY 11/04/24 11/05/24 H istory potassium citrate 10 mEq (1,080 10 meq PO BID 11/04/24 11/05/24 Hi story mg) tablet,extended release triamcinolone acetonide 0.1 % 1 applic topical BID PRN DERMITIS 11/04/24 11/05/24 History topical cream apixaban 5 mg tablet (Eliquis) 5 mg PO BID #180 tabs 11/09/24 Unk nown Rx atorvastatin 20 mg tablet 20 mg PO QDAY #30 tabs 01/04/25 Un known Rx flecainide 100 mg tablet 100 mg PO BID #180 tabs 02/12/25 U nknown Rx Allergy/AdvReac Type Severity Reaction Status Date / Time azithromycin (From Zithromax AdvReac Unknown d/t hx of Verified 01/04/25 10:08 Z-Jerzy) a-fib Family History Mother Diabetes Hypertension High cholesterol Father Hypertension Prostate cancer Sister Throat cancer Other Heart disease Surgical History History of lumbar fusion S/P inguinal hernia repair History of cardiac catheterization Hx of repair of left rotator cuff Hx of surgical procedure History of laminectomy ( 03/2021) History of bilateral cataract extraction History of colonoscopy History of radiofrequency ablation procedure for cardiac arrhythmia (12/29/12) History of left heart catheterization (07/28/18) History of cholecystectomy History of esophagogastroduodenoscopy (EGD) Social History Smoking Status: Former smoker pack-years: 10 Tobacco: How many years used: 10 Electronic Cigarette Use: not used how long ago did patient quit smoking: stopped at age 25. second hand exposure: No alcohol intake: current alcohol intake f (more content not included)... Normal [facility] Eosinophil percentageOrdered By: Timur Cook on 02-16-2025 Eosinophils/100 WBC (Bld) 3.0 % 0-5 [facility] Erythrocyte distribution wid th ratioOrdered By: Timur Cook on 02-16-2025 Erythrocyte distribution width (RBC) [Ratio] 12.4 % 11.6-14.6 [facility] Erythrocyte distribution wid th standard deviationOrdered By: Timur Cook on 02-16-2025 Erythrocyte distribution width (RBC) [Ratio] 40.4 fl 35.1-43.9 [facility] Glomerular filtration rate ( GFR) estimation/1.73 sq m using serum, plasma, or whole bOrdered By: Timur Cook on 02-16-2025 GFR/1.73 sq M.predicted among non-blacks MDRD (S/P/Bld) [Vol rate/Area] 79 mL/min/{1.73_m2} >60 [facility] Comment on above: mL/min/1.73m2 CKD-EP I Creatinine Equation (2020) Hematocrit Auto (Bld) [Volum e fraction]Ordered By: Timur Cook on 02-16-2025 Hematocrit (Bld) [Volume fraction] 41.2 % 40-54 [facility] Hemoglobin measurementOrdere d By: Timur Cook on 02-16-2025 Hemoglobin (Bld) [Mass/Vol] 14.0 g/dL 13.0-16.5 [facility] Immature granulocytes/100 WB C Auto (Bld)Ordered By: Timur Cook on 02-16-2025 Immature granulocytes/100 WBC (Bld) 0.400 % 0.0-0.9 [facility] Comment on above: IG% - Immature Granu locytes (promyelocytes, myelocytes and metamyelocytes) > 1% indicates that a LEFT SHIFT is Present. L499.0042on 02-16-2025 Trop T High Sen 9 ng/L Normal <=22 [facility] Comment on above: Performed By: #### L 499.0042 #### [facility] Laboratory [address] [place], [address] L501.4021on 02-16-2025 Trop T High Sen 9 ng/L Normal <=22 [facility] Comment on above: Performed By: #### L 500.2500, L100.0100, L501.4021 ####[facility] [address] [place], [address] MCV (mean corpuscular volume ) determinationOrdered By: Timur Cook on 02-16-2025 MCV (RBC) [Entitic vol] 89.0 fL 80-94 [facility] Mean corpuscular hemoglobin (MCH) determinationOrdered By: Timur Cook on 02-16-2025 MCH (RBC) [Entitic mass] 30.2 pg 27.0-32.0 [facility] Mean corpuscular hemoglobin concentration (MCHC) determinationOrdered By: Timur Cook on 02-16-2025 MCHC (RBC) [Mass/Vol] 34.0 g/dL 32-36 [facility] Mean platelet volume determi nationOrdered By: Timur Cook on 02-16-2025 Platelet mean volume (Bld) [Entitic vol] 10.8 fL 6.2-12.0 [facility] Monocyte percentageOrdered B y: Timur Cook on 02-16-2025 Monocytes/100 WBC (Bld) 10.1 % High 0-10 [facility] Neutrophil percentageOrdered By: Timur Cook on 02-16-2025 Neutrophils/100 WBC (Bld) 72.9 % High 47-70 [facility] Nucleated red blood cell per centageOrdered By: Timur Cook on 02-16-2025 Nucleated RBC/100 WBC (Bld) [Ratio] 0 % 0-5 [facility] Platelet countOrdered By: Demarcus Cook on 02-16-2025 Platelets (Bld) [#/Vol] 188 10*3/uL 150-450 [facility] Potassium measurement (mass/ volume)Ordered By: Timur Cook on 02-16-2025 Potassium (Unsp spec) [Mass/Vol] 3.7 mmol/L 3.3-5.1 [facility] RBC Auto (Bld) [#/Vol]Ordere d By: Timur Cook on 02-16-2025 RBC (Bld) [#/Vol] 4.63 10*6/uL 4.6-6.2 [facility] Serum creatinine measurement (mass/volume)Ordered By: Timur Cook on 02-16-2025 Creatinine [Mass/Vol] 1.06 mg/dL 0.70-1.20 [facility] Serum glucose measurement (m ass/volume)Ordered By: Timur Cook on 02-16-2025 Glucose [Mass/Vol] 108 mg/dL High 70-99 [facility] Serum or plasma calcium [place] urement (mass/volume)Ordered By: Timur Cook on 02-16-2025 Calcium [Mass/Vol] 8.9 mg/dL 7.6-11.0 [facility] Serum or plasma urea nitroge n measurement (mass/volume)Ordered By: Timur Cook on 02-16-2025 Urea nitrogen [Mass/Vol] 17 mg/dL 4-19 [facility] Sodium levelOrdered By: Timur Cook on 02-16-2025 Sodium [Moles/Vol] 139 mmol/L 133-145 [facility] Troponin T.cardiac [Mass/vol ume] in Serum or Plasma by High sensitivity methodOrdered By: Timur Cook on 02-16-2025 Troponin T.cardiac High sensitivity method [Mass/Vol] 9 ng/L <22 [facility] Troponin T.cardiac High sensitivity method [Mass/Vol] 9 ng/L <22 [facility] White blood cell (WBC) count Ordered By: Timur Cook on 02-16-2025 WBC (Bld) [#/Vol] 7.0 10*3/uL 4.4-11.0 [facility] Anion gap in Serum or Plasma Ordered By: Ronnie Quinn on 01-14-2025 Anion gap [Moles/Vol] 10 mmol/L 5-15 [facility] BUN/creatinine ratioOrdered By: Ronnie Quinn on 01-14-2025 Urea nitrogen/Creatinine [Mass ratio] 17.5 mg/mg 10-20 [facility] Bilirubin directOrdered By: Ronnie Quinn on 01-14-2025 Bilirubin.direct [Mass/Vol] 0.26 mg/dL 0.00-0.30 [facility] Bilirubin, Directon 01-15-20 25 Bilirubin.direct [Mass/Vol] 0.26 mg/dL Normal 0.00-0.30 [facility] Comment on above: Order Comment: DR. Hector CRAIG GETS RESULTS FOR LIVER AND LIPID DR. GOMEZTS RESULTS FOR LIPID AND CMP Performed By: #### L 500.4100, L500.4050, L501.4700 ####[facility] [address] [facility] [facility] [address] [place] [address], [place], [id number] Bilirubin, totalOrdered By: Ronnie Quinn on 01-14-2025 Bilirubin [Mass/Vol] 0.53 mg/dL 0.00-1.30 [facility] Calculated very low density lipoprotein (VLDL) cholesterol measurementOrdered By: Ronnie Quinn on 01-14-2025 Calculated very low density lipoprotein (VLDL) cholesterol measurement 12 mg/dL 5-40 [facility] Carbon dioxide, total [Moles /volume] in Central venous bloodOrdered By: Ronnie Quinn on 01-14-2025 CO2 [Moles/Vol] 21.8 mmol/L 21.0-32.0 [facility] Chloride assayOrdered By: Ra paradise Quinn on 01-14-2025 Chloride [Moles/Vol] 105 mmol/L 98-108 [facility] Comprehensive Metabolic Prof ilon 01-14-2025 Albumin [Mass/Vol] 4.2 g/dL Normal 3.4-4.8 [facility] Comment on above: Order Comment: DR. Hector CRAIG GETS RESULTS FOR LIVER AND LIPID DR. RIBEIRO RESULTS FOR LIPID AND CMP Performed By: #### L 500.4100, L500.4050, L501.4700 ####[facility] [address] [place], [address] Albumin/Globulin [Mass ratio] 1.8 {ratio} Normal 0.9-2.4 [facility] Comment on above: Order Comment: DR. Hector CRAIG GETS RESULTS FOR LIVER AND LIPID DR. RIBEIRO RESULTS FOR LIPID AND CMP Performed By: #### L 500.4100, L500.4050, L501.4700 ####[facility] [address] [place], [address] ALK PHOS 75 U/L Normal 40-129 [facility] Comment on above: Order Comment: DR. Hector CRAIG GETS RESULTS FOR LIVER AND LIPID DR. RIBEIRO RESULTS FOR LIPID AND CMP Performed By: #### L 500.4100, L500.4050, L501.4700 ####[facility] [address] [place], [address] ALT [Catalytic activity/Vol] 40 U/L Normal <=46 [facility] Comment on above: Order Comment: DR. Hector CRAIG GETS RESULTS FOR LIVER AND LIPID DR. RIBEIRO RESULTS FOR LIPID AND CMP Performed By: #### L 500.4100, L500.4050, L501.4700 ####[facility] [address] [place], [address] AST [Catalytic activity/Vol] 28 U/L Normal <=37 [facility] Comment on above: Order Comment: DR. Hector CARIG GETS RESULTS FOR LIVER AND LIPID DR. RIBEIRO RESULTS FOR LIPID AND CMP Performed By: #### L 500.4100, L500.4050, L501.4700 ####[facility] [address] [place], [address] Bilirubin [Mass/Vol] 0.53 mg/dL Normal 0.00-1.30 [facility] Comment on above: Order Comment: DR. Hector CRAIG GETS RESULTS FOR LIVER AND LIPID DR. RIBEIRO RESULTS FOR LIPID AND CMP Performed By: #### L 500.4100, L500.4050, L501.4700 ####[facility] [address] [place], [address] BUN/CRE 17.5 RATIO Normal 10-20 [facility] Comment on above: Order Comment: DR. Hector CRAIG GETS RESULTS FOR LIVER AND LIPID DR. RIBEIRO RESULTS FOR LIPID AND CMP Performed By: #### L 500.4100, L500.4050, L501.4700 ####[facility] [address] [place], [address] Calcium [Mass/Vol] 9.2 mg/dL Normal 7.6-11.0 [facility] Comment on above: Order Comment: DR. Hector CRAIG GETS RESULTS FOR LIVER AND LIPID DR. RIBEIRO RESULTS FOR LIPID AND CMP Performed By: #### L 500.4100, L500.4050, L501.4700 ####[facility] [address] [place], [address] Chloride [Moles/Vol] 105 mmol/L Normal 98-108 [facility] Comment on above: Order Comment: DR. Hector CRAIG GETS RESULTS FOR LIVER AND LIPID DR. RIBEIRO RESULTS FOR LIPID AND CMP Performed By: #### L 500.4100, L500.4050, L501.4700 ####[facility] [address] [place], [address] CO2 [Moles/Vol] 21.8 mmol/L Normal 21.0-32.0 [facility] Comment on above: Order Comment: DR. Hector CRAIG GETS RESULTS FOR LIVER AND LIPID DR. RIBEIRO RESULTS FOR LIPID AND CMP Performed By: #### L 500.4100, L500.4050, L501.4700 ####[facility] [address] [place], [address] Creatinine [Mass/Vol] 1.10 mg/dL Normal 0.70-1.20 [facility] Comment on above: Order Comment: DR. Hector CRAIG GETS RESULTS FOR LIVER AND LIPID DR. RIBEIRO RESULTS FOR LIPID AND CMP Performed By: #### L 500.4100, L500.4050, L501.4700 ####[facility] [address] [place], [address] GAP 10 Normal 5-15 [facility] Comment on above: Order Comment: DR. Hector CRAIG GETS RESULTS FOR LIVER AND LIPID DR. RIBEIRO RESULTS FOR LIPID AND CMP Performed By: #### L 500.4100, L500.4050, L501.4700 ####[facility] [address] [place], [address] GFR/1.73 sq M.predicted among non-blacks MDRD (S/P/Bld) [Vol rate/Area] 76 mL/min/{1.73_m2} Normal >60 [facility] Comment on above: Order Comment: DR. Hector CRAIG GETS RESULTS FOR LIVER AND LIPID DR. RIBEIRO RESULTS FOR LIPID AND CMP Result Comment: mL/m in/1.73m2 CKD-EPI Creatinine Equation (2020) Performed By: #### L 500.4100, L500.4050, L501.4700 ####[facility] [address] [place], [address] Globulin (S) [Mass/Vol] 2.3 g/dL Normal 2.2-4.2 [facility] Comment on above: Order Comment: DR. Hector CRAIG GETS RESULTS FOR LIVER AND LIPID DR. RIBEIRO RESULTS FOR LIPID AND CMP Performed By: #### L 500.4100, L500.4050, L501.4700 ####[facility] [address] [place], [address] Glucose [Mass/Vol] 111 mg/dL High 70-99 [facility] Comment on above: Order Comment: DR. Hector CRAIG GETS RESULTS FOR LIVER AND LIPID DR. RIBEIRO RESULTS FOR LIPID AND CMP Performed By: #### L 500.4100, L500.4050, L501.4700 ####[facility] [address] [place], [address] Potassium [Moles/Vol] 4.0 mmol/L Normal 3.3-5.1 [facility] Comment on above: Order Comment: DR. Hector CRAIG GETS RESULTS FOR LIVER AND LIPID DR. RIBEIRO RESULTS FOR LIPID AND CMP Performed By: #### L 500.4100, L500.4050, L501.4700 ####[facility] [address] [place], [address] Sodium [Moles/Vol] 137 mmol/L Normal 133-145 [facility] Comment on above: Order Comment: DR. Hector CRAIG GETS RESULTS FOR LIVER AND LIPID DR. RIBEIRO RESULTS FOR LIPID AND CMP Performed By: #### L 500.4100, L500.4050, [id number] ####[facility] [address] [place], [address] T PROT 6.5 g/dL Normal 5.9-8.4 [facility] Comment on above: Order Comment: DR. Hector CRAIG GETS RESULTS FOR LIVER AND LIPID DR. RIBEIRO RESULTS FOR LIPID AND CMP Performed By: #### L 500.4100, L500.4050, L501.4700 ####[facility] [address] [place], [address] Urea nitrogen [Mass/Vol] 19 mg/dL Normal 4-19 [facility] Comment on above: Order Comment: DR. Hector CRAIG GETS RESULTS FOR LIVER AND LIPID DR. RIBEIRO RESULTS FOR LIPID AND CMP Performed By: #### L 500.4100, L500.4050, L501.4700 ####[facility] [address] [place], [address] Glomerular filtration rate ( GFR) estimation/1.73 sq m using serum, plasma, or whole bOrdered By: Ronnie Quinn on 01-14-2025 GFR/1.73 sq M.predicted among non-blacks MDRD (S/P/Bld) [Vol rate/Area] 76 mL/min/{1.73_m2} >60 [facility] Comment on above: mL/min/1.73m2 CKD-EP I Creatinine Equation (2020) LDL calc ser/plasOrdered By: Ronnie Quinn on 01-14-2025 Cholesterol in LDL [Mass/Vol] 72 mg/dL [facility] Comment on above: Dyigkoarff=169-457 m g/dL & Higher Alrr=184 mg/dL or greater Laboratory - Chemistry and C hemistry - challengeOrdered By: Ronnie Quinn on 01-14-2025 AST [Catalytic activity/Vol] 28 U/L <38 [facility] Lipid Profileon 01-14-2025 CHOL:HDL 2.74 Normal [facility] Comment on above: Order Comment: DR. Hector CRAIG GETS RESULTS FOR LIVER AND LIPID DR. RIBEIRO RESULTS FOR LIPID AND CMP Performed By: #### L 500.4100, L500.4050, L501.4700 ####[facility] [address] [place], [address] Cholesterol [Mass/Vol] 132 mg/dL Normal <=200 [facility] Comment on above: Order Comment: DR. Hector CRAIG GETS RESULTS FOR LIVER AND LIPID DR. RIBEIRO RESULTS FOR LIPID AND CMP Result Comment: Chol esterol level, Desirable <200 mg/dL Borderline high cholesterol 200-239 mg/dL High cholesterol >=240 mg/dL Recommendations of the NCEP Adult Treatment Panel for the following risk-cutoff thresholds for the [place] population. Performed By: #### L 500.4100, L500.4050, L501.4700 ####[facility] [address] [place], [address] Cholesterol in HDL [Mass/Vol] 48 mg/dL Normal [facility] Comment on above: Order Comment: DR. Hector CRAIG GETS RESULTS FOR LIVER AND LIPID DR. RIBEIRO RESULTS FOR LIPID AND CMP Result Comment: Hannah onal Cholesterol Education Program (NCEP) guidelines: <40 mg/dL: Low HDL-cholesterol (major risk factor for CHD) >= 60 mg/dL: High HDL-cholesterol (negative risk factor for CHD) HDL-cholesterol is affected by a number of factors, e.g. smoking, exercise, hormones, sex and age. Performed By: #### L 500.4100, L500.4050, L501.4700 ####[facility] [address] [place], [address] Cholesterol in LDL [Mass/Vol] 72 mg/dL Normal [facility] Comment on above: Order Comment: DR. Hector CRAIG GETS RESULTS FOR LIVER AND LIPID DR. RIBEIRO RESULTS FOR LIPID AND CMP Result Comment: Bord tcvfwd=057-197 mg/dL Higher Dnli=030 mg/dL or greater Performed By: #### L 500.4100, L500.4050, L501.4700 ####[facility] [address] [place], [address] Cholesterol in VLDL [Mass/Vol] 12 mg/dL Normal 5-40 [facility] Comment on above: Order Comment: DR. Hector CRAIG GETS RESULTS FOR LIVER AND LIPID DR. RIBEIRO RESULTS FOR LIPID AND CMP Performed By: #### L 500.4100, L500.4050, L501.4700 ####[facility] [address] [place] [address], [place], [address] Triglyceride [Mass/Vol] 61 mg/dL Normal [facility] Comment on above: Order Comment: DR. Hector CRAIG GETS RESULTS FOR LIVER AND LIPID DR. GOMEZTS RESULTS FOR LIPID AND CMP Result Comment: The drugs N-Acetylcysteine and Metamizole may falsely depress this assay. Normal range: <150 mg/dL Borderline High: 150-199 mg/dL High: 200-499 mg/dL Very High: >500 mg/dL Performed By: #### L 500.4100, L500.4050, L501.4700 ####[facility] [address] [place] [address], [place], [address] Potassium measurement (mass/ volume)Ordered By: Ronnie Quinn on 01-14-2025 Potassium (Unsp spec) [Mass/Vol] 4.0 mmol/L 3.3-5.1 [facility] Screening total cholesterol/ high density lipoprotein (HDL) cholesterol ratioOrdered By: Ronnie Quinn on 01-14-2025 Cholesterol.total/Cho lesterol in HDL [Mass ratio] 2.74 {ratio} [facility] Serum creatinine measurement (mass/volume)Ordered By: Ronnie Quinn on 01-14-2025 Creatinine [Mass/Vol] 1.10 mg/dL 0.70-1.20 [facility] Serum globulin measurementOr dered By: Ronnie Quinn on 01-14-2025 Globulin (S) [Mass/Vol] 2.3 g/dL 2.2-4.2 [facility] Serum glucose measurement (m ass/volume)Ordered By: Ronnie Quinn on 01-14-2025 Glucose [Mass/Vol] 111 mg/dL High 70-99 [facility] Serum or plasma alanine davis otransferase (ALT) measurementOrdered By: Ronnie Quinn on 01-14-2025 ALT [Catalytic activity/Vol] 40 U/L <47 [facility] Serum or plasma albumin [place] urement (mass/volume)Ordered By: Ronnie Quinn on 01-14-2025 Albumin [Mass/Vol] 4.2 g/dL 3.4-4.8 [facility] Serum or plasma albumin/glob ulin mass ratioOrdered By: Ronnie Quinn on 01-14-2025 Albumin/Globulin [Mass ratio] 1.8 {ratio} 0.9-2.4 [facility] Serum or plasma alkaline maisha sphatase measurementOrdered By: Ronnie Quinn on 01-14-2025 ALP [Catalytic activity/Vol] 75 U/L 40-129 [facility] Serum or plasma calcium [place] urement (mass/volume)Ordered By: Ronnie Quinn on 01-14-2025 Calcium [Mass/Vol] 9.2 mg/dL 7.6-11.0 [facility] Serum or plasma cholesterol in HDL measurement (mass/volume)Ordered By: Ronnie Quinn on 01-14-2025 Cholesterol in HDL [Mass/Vol] 48 mg/dL >40 [facility] Comment on above: National Cholesterol Education Program (NCEP) guidelines:<40 mg/dL: Low HDL-cholesterol (major risk factor for CHD)>= 60 mg/dL: High HDL-cholesterol (negative risk factor for CHD)HDL-cholesterol is affected by a number of factors, e.g. smoking, exercise, hormones, sex and age. Serum or plasma cholesterol measurement (mass/volume)Ordered By: Ronnie Quinn on 01-14-2025 Cholesterol [Mass/Vol] 132 mg/dL <201 [facility] Comment on above: Cholesterol level, D esirable <200 mg/dLBorderline high cholesterol 200-239 mg/dLHigh cholesterol >=240 mg/dLRecommendations of the NCEP Adult Treatment Panel for the following risk-cutoff thresholds for the [place] population. Serum or plasma urea nitroge n measurement (mass/volume)Ordered By: Ronnie Quinn on 01-14-2025 Urea nitrogen [Mass/Vol] 19 mg/dL 4-19 [facility] Sodium levelOrdered By: Radha Quinn on 01-14-2025 Sodium [Moles/Vol] 137 mmol/L 133-145 [facility] Total proteinOrdered By: Valentín Quinn on 01-14-2025 Protein [Mass/Vol] 6.5 g/dL 5.9-8.4 [facility] Triglycerides measurementOrd ered By: Ronnie Quinn on 01-14-2025 Triglyceride [Mass/Vol] 61 mg/dL <199 [facility] Comment on above: The drugs N-Acetylcy steine and Metamizole may falsely depress this assay. Normal range: <150 mg/dLBorderline High: 150-199 mg/dLHigh: 200-499 mg/dLVery High: >500 mg/dL Neurology Visit Reporton Neurology Visit Report [facility] [address], [address] [place] [address] OFFICE VISIT Date of Service: 01/04/25 MR#: [id number] Acct: [id number] Name: GENET COSTA Rep #: [id number] : 1960 Provider: Dr. Ronnie eagle MD Age/Sex: 64/M [place] [facility] [place]: Signed HPI HPI Chief Complaint: Est Care Details: Interim History: Genet returns for follow-up visit. He has a history of hypertension, atrial fibrillation status post cardiac ablation around 2013, pulmonary embolism in 2020 in association with a COVID-19 infection (he was treated with warfarin for 3 months). In June 2023, while driving, he experienced acute onset left-sided facial numbness, burning pain and tingling. The symptoms then also momentarily progressed to involve the left upper extremity. The episode resolved in about [address] himself to the emergency room and was hospitalized and during his hospitalization he had another similar episode of left-sided facial and left upper extremity numbness, burning pain and tingling that resolved within minutes. He also experienced left eye blurring of vision. He stated that he was diagnosed with TIAs and Eliquis was initiated. He had been on aspirin 81 mg daily when these episodes occurred and aspirin was discontinued following initiation of Eliquis. He did not have symptoms suggestive of cerebrovascular ischemia prior to June 2023 and has had no further episodes suggestive of cerebrovascular ischemia since June 2023. He is tolerating Eliquis well. He denied having weakness. He stated that in years past, he had experienced episodes of left-sided facial burning pain with episodes lasting about 30 minutes each. These episodes resolved around the beginning of 2022 and he did not have further facial sensory symptoms in the right ear until the episodes in June described above; since his last visit in April 2024 he has had 2 further episodes of left-sided facial/temporal burning pain each lasting about 30 minutes. He has had bilateral cataract surgery. He has had an L5-S1 lumbar fusion. He has had residual mild low back pain and occasionally has right lower extremity radicular pain extending to the foot. He denied having neck pain. He has obstructive sleep apnea. He did not tolerate CPAP or BiPAP. He is to obtain an oral device to adjust jaw position to assist with breathing. He stated that his atrial fibrillation nearly resolved completely following his cardiac ablation procedure around 2013; he was not prescribed an anticoagulant until his TIAs in June 2023. He takes flecainide. Atorvastatin was initiated in 2023. He is tolerating this well. A carotid ultrasound in July 2023 revealed less than 50% stenosis of the left internal carotid artery and no right internal carotid artery stenosis. He reports that he has had recent occasional positional lightheadedness. Physical Exam: Neuro: The patient is awake and alert and responds appropriately; speech is fluent Neck: No bruits Heart: Regular rhythm and rate Supplemental Info Head MRI (07/07/2023): Findings: There is no evidence of acute or subacute infarct, intracranial hemorrhage, extra-axial fluid collection, mass, or mass effect. The ventricles are normal in size. Major arterial flow voids are present. A few scattered punctate T2/FLAIR hyperintensities are noted primarily in the deep and subcortical white matter without restricted diffusion. Findings are nonspecific but likely represent chronic microvascular changes. The paranasal sinuses and right mastoid air cells are clear. Partial opacification of the left mastoid air cells. The orbital contents appear within normal limits. Impression: No evidence of significant intracranial abnormalities. Head and neck CTA (07/07/2023): Findings: Head CT: The ventricles are symmetric and normal in size. There is no evidence of acute hemorrhage, infarct, extra-axial fluid collection, or mass effect. No brain parenchymal lesions are identified. The paranasal sinuses, mastoid air cells, and middle ear's are clear. The orbital contents appear within normal limits. CTA head: The intracranial arteries are patent; there is no evidence of significant stenosis or occlusion. No aneurysms are evident. Major dural venous sinuses: Unremarkable CTA neck: Aortic arch: No significant atherosclerosis Innominate artery: No significant stenosis Right common carotid artery: No significant stenosis Right internal carotid artery: There is no significant stenosis by NASCET criteria. Left common carotid artery: No significant stenosis Left internal carotid artery: There is no significant stenosis by NASCET criteria. Right subclavian artery: No significant stenosis Right vertebral artery: No significant stenosis Left subclavian artery: No significant stenosis Left vertebral artery: No significa (more content not included)... Normal [facility] Shoulder min 2 Viewson 12-22 Shoulder min 2 Views [facility] Imaging [facility] [address] [place] [address] Shoulder min 2 Views MR#: [id number] Acct: [id number] Name: GENET COSTA Rep #: [id number] : 1960 M 64 From: Miller nguyen MD PCP: Dr. Harpreet Lee MD Status: REG CL Study: Shoulder min 2 Views Date of Exam: 12/22/24 Exam# [id number] Ordering Dr: Woodrow Kate PROCEDURE: SHOULDER MIN 2 VIEWS 12/22/2024 REASON FOR EXAM: R SHOUDLER. ? SUPRASPINATUS TEAR. TECHNIQUE: Three views of the right shoulder COMPARISON: None FINDINGS: No acute fracture or dislocation. Joint spaces are maintained. Sclerotic lesion humeral head, compatible with an enchondroma. Acromioclavicular joint is within normal limits. Imaged lung field is clear.. RAD/Shoulder min 2 Views IMPRESSION: No acute findings. Reading Location: [facility] CC: Dr. Woodrow Kate MD; Dr. Harpreet Lee MD Public Address Technician: Signed Normal [facility] Colonoscopy Reporton 025 Colonoscopy Report [facility] Medical Records Department [address] [place] [address] Colonoscopy Report MR#: [id number] Acct: [id number] Name: GENET COSTA Rep #: [id number] : 1960 63 From: Jamie Simon MD PCP: Dr. Harpreet Lee MD [place] [facility] [place] Name: Genet Costa Procedure Date: 11/06/2024 9:40 AM Date of : 1960 Age: 63 Procedure: Colonoscopy Indications: Screening for colorectal malignant neoplasm Providers: Jamie Simon MD Medicines: Propofol per Anesthesia Patient Profile: This is a 63 year old male. Refer to note in patient chart for documentation of history and physical. Last Colonoscopy: 10 years ago. Complications: No immediate complications. Procedure: Pre-Anesthesia Assessment: - Prior to the procedure, a History and Physical was performed, and patient medications and allergies were reviewed. The patient's tolerance of previous anesthesia was also reviewed. The risks and benefits of the procedure and the sedation options and risks were discussed with the patient. All questions were answered, and informed consent was obtained. Prior Anticoagulants: The patient has taken no anticoagulant or antiplatelet agents. After reviewing the risks and benefits, the patient was deemed in satisfactory condition to undergo the procedure. After I obtained informed consent, the scope was passed under direct vision. Throughout the procedure, the patient's blood pressure, pulse, and oxygen saturations were monitored continuously. The Colonoscope was introduced through the anus and advanced to the cecum, identified by appendiceal orifice and ileocecal valve. The colonoscopy was performed without difficulty. The patient tolerated the procedure well. The quality of the bowel preparation was good. The ileocecal valve, appendiceal orifice, and rectum were photographed. Scope In: 9:50:52 AM Scope Withdrawal Time 0 hours 5 minutes 2 seconds Scope Out: 10:01:09 AM Total Procedure Duration Time 0 hours 10 minutes 17 seconds Findings: The entire examined colon appeared normal on direct and retroflexion views. Impression: - The entire examined colon is normal on direct and retroflexion views. - No specimens collected. Recommendation: - Discharge patient to home. - Resume previous diet. - Continue present medications. - Repeat colonoscopy in 10 years for screening purposes. Procedure Code(s): --- Professional --- 48112, Colonoscopy, flexible; diagnostic, including collection of specimen(s) by brushing or washing, when performed (separate procedure) Diagnosis Code(s): --- Professional --- Z12.11, Encounter for screening for malignant neoplasm of colon CPT copyright 2021 [employer]. All rights reserved. The codes documented in this report are preliminary and upon eradicator review may be revised to meet current compliance requirements. Jamie Simon MD 11/06/2024 10:03:18 AM This report has been signed electronically. Number of Addenda: 0 Note Initiated On: 11/06/2024 9:40 AM 11/06/24 1003 Date Jamie Simon MD Cosigner Signature: Date (if indicated) CC: Dr. Jamie Simon MD; Dr. Harpreet eLe MD Date Dictated: 11/06/24939 Date Transcribed: Public Address Technician: FERNANDO Aguilar [facility] MR/POSTOP.[facility] 11-06-2024 MR/POSTOP.[facility] Medical Records Department [address] [place] [address] Anesthesia Postop Eval I 11/06/24 1006 MR#: [id number] Acct: [id number] Name: GENET COSTA Rep #: [id number] : 1960 63 From: Gaviota Adams CRNA PCP: Dr. Harpreet Lee MD [place] [facility] [place] Race[place] C Location: [place] [address] Anesthesia: Postop Eval I Current Vital Signs Temperature: 97.4 F Pulse Rate: 68 Blood Pressure: 98/66 Respiratory Rate: 16 Pulse Ox: 94 Oxygen Delivery Method: Room Air Assessment Airway patent: Yes Spontaneous unlabored respirations: Yes Mental status: Awake and Calm nausea: No Vomiting: No Anesthesia Complication: No Fluid Hydration Crystalloid volume administer (ml): 20 Total IV fluid infused: 20 Progress Note Anesthesia document: Postop Eval 1 completed: Yes 11/06/24 1007 Date Gaviota Angie CHOIR SINGER Cosigner Signature: Date CC: Signed Normal [facility] MR/[id number] 11-06-2024 MR/POSTOPAN2 [facility] Medical Records Department [address] [place] [address] Anesthesia Postop Eval II 11/06/24 1139 MR#: [id number] Acct: [id number] Name: GENET COSTA Rep #: [id number] : 1960 63 From: Suraj Mcknight MD PCP: Dr. Harpreet Lee MD Status:[facility] Y Race: C Location: [place] Anesthesia Postop Eval I Sum Postop Eval Completion status Anesthesia document: Postop Eval 1 completed: Yes Anesthesia Postop Eval I Summary Anesthesia Postop Eval I Summary: Anesthesia Postop Eval I: Assessment Summary Airway patent Yes 11/06/24 10:07 CHOIR SINGER.MARGARETH Spontaneous unlabored Yes 11/06/24 10:07 CHOIR SINGER.MARGARETH respirations Mental status Awake,Calm 11/06/24 10:07 CHOIR SINGER.MARGARETH nausea No 11/06/24 10:07 CHOIR SINGER.CARLENEOBKatherin Vomiting No 11/06/24 10:07 CHOIR SINGER.CARLENEOBKatherin Anesthesia Postop Eval I: Fluid Summary Crystalloid volume administer 20 11/06/24 10:07 GARETH.MARGARETH (ml) Colloids volume administered ( ml) Blood Product volume administered (ml) Total IV fluid infused 20 11/06/24 10:07 CHOIR SINGER.CARLENEOBKatherin Anesthesia Postop Eval I: Summary Notes Anesthesia Complication No 11/06/24 10:07 YOANA Anesthesia Complication Comment: Post-operative progress note Anesthesia: Postop Eval II Evaluation Mental status: Awake Pain Level: 0 nausea: No Vomiting: No Complications Anesthesia Complication: No 11/06/24 1139 Date Suraj Pettitigncande Signature: Date CC: Signed Normal [facility] MR/Lore 11-04-2024 MR/PAT.ANE [facility] Medical Records Department [address] [address] PAT - Anesthesia 11/04/24 1441 MR#: [id number] Acct: [id number] Name: GENET COSTA Rep #: [id number] : 1960 63 From: Israel Martin MD PCP: Dr. Harpreet Lee MD Status:PRE SDC Y Race: C Location: EN Pre-Assessment Diagnosis/Proposed Procedure Planned Operative Procedure(s): CSCOPE Anesthesia History Anesthesia History - mobility manager: Anesthesia History - mobility manager Hx Hospitalization No 11/04/24 10:37 Any Problems With Anesthesia Yes: SLOW TO AWAKEN 11/04/24 10:37 Cholinesterase deficiency No 11/04/24 10:37 You/Your Family Experience No 11/04/24 10:37 fever (hyperthermia) with Relationship Recent Exposure to Contagious No 07/02/24 12:01 Disease Does patient have nerve No 11/04/24 10:37 stimulator Patient instructed to have device shut off --Does patient have Pacemaker or ICD? When Was Last Pacemaker Check QUESTION #4 FULL TEXT: You/Your Family Experience fever (hyperthermia) with Anesthesia Last Oral Intake Last Oral intake: Last Oral Intake NPO since Meds taken in AM with sips of water? Meds patient instructed to take am of surgery PONV PONV - mobility manager: PONV - mobility manager Female No 11/04/24 10:37 HX of Motion Sickness Yes 11/04/24 10:37 HX of N/V After Surgery No 11/04/24 10:37 Non-Smoker Yes 11/04/24 10:37 Duration of Surgery greater No 11/04/24 10:37 than 60 minutes Number of Risk Factors 2 11/04/24 10:37 PONV Score Moderate Risk 11/04/24 10:37 Height Weight Height Weight: Anesthesia: Height Weight Height 5 ft 8 in 10/22/24 13:50 Respiratory Assessment Respiratory Assessment - mobility manager: Respiratory Tract Infection Hx - mobility manager Hx Respiratory Tract Infection No 11/04/24 10:37 STOP Sleep Apnea STOP Sleep Apnea - mobility manager: STOP Sleep Apnea - mobility manager Hx Hypertension Yes: CONTROLLED WITH MED 11/04/24 10:37 Hx Sleep Apnea Yes 11/04/24 10:37 CPAP No 11/04/24 10:37 BIPAP Yes: NOT COMPLIANT 11/04/24 10:37 Do you snore loudly (louder than talking or can be heard Do you often feel tired/ fatigued/ sleepy during daytime? Has anyone observed you stop breathing during sleep? STOP Results Positive 11/04/24 10:37 QUESTION #5 FULL TEXT : Do you snore loudly (louder than talking or can be heard through closed doors)? 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 Specify any problems Hx of Preganancy in last 3 N/A 11/04/24 10:37 Months Nurse Filling Out Transfusion DSCHRIBER 11/04/24 10:37 Questions: Date: 11/04/24 11/04/24 10:37 Time: 10:39 11/04/24 10:37 Patient unable to answer at this time (ie. confused, unrespo /Reproduction History /Reproductive History - mobility manager: /Reproductive Hx- mobility manager Hx Now Gestational Age (in weeks): EDC: Hx Hx Para Hx Section SAB No 11/04/24 10:37 [facility] Medical History (Updated 11/04/24 @ 10:49 by Gabby Stiles) BiPAP (biphasic positive airway pressure) dependence ADD (attention deficit disorder) Shortness of breath on exertion Constipation Rheumatoid arthritis History of hiatal hernia History of diverticulitis Former smoker Cardiology follow-up encounter Right inguinal hernia Hypertension Wears glasses Anxiety Alcohol use Arthritis Pulmonary embolism Injury of head and neck History of IBS Gastric reflux History of echocardiogram History of stress test Normal stress echocardiogram History of atrial fibrillation Contact with and (suspected) exposure to other viral communicable diseases Asthma Obesity (BMI 30.0-34.9) Paroxysmal atrial fibrillation Home Medications ???Medication ???Instructions ???Recorded ???Last Taken ???Type albuterol sulfate 90 mcg/actuation 2 (more content not included)... Normal [facility] Surgery Visit Reporton 10-22 Surgery Visit Report [facility] [address] [place] [address]. [address] [place] [address] OFFICE VISIT Date of Service: 10/22/24 MR#: [id number] Acct: [id number] Name: GENET COSTA Rep #: [id number] : 1960 Provider: Dr. Jamie campbell MD Age/Sex: 63/M Location: [facility] Status: Signed Intake Vital Signs 09/10/24 09:14 10/22/24 13:50 Height 5 ft 8 in 5 ft 8 in Weight: 191 lb 189 lb 9 oz BMI 29.0 28.8 BP 120/79 132/72 H Blood Pressure Location Lt brachial Rt brachial Position Sitting Sitting Respiration 16 18 Pulse 69 64 Pulse Source Monitor Monitor Temp 97.3 F L Temp Source Temporal Pulse Oximetry (%) 99 Oxygen Delivery Method room air Intake Visit Reasons: COLONOSCOPY Chief Complaint: colonoscopy Is patient in pain?: No Allergies azithromycin (From Zithromax Z-Jerzy) Adverse Reaction (Unknown, Verified 10/22/24 13:51) d/t hx of a-fib Medications ???Medication ???Instructions ???Recorded ???Confirmed ???Type albuterol sulfate 90 mcg/actuation 2 puff inhalation Q6H PRN 10/22/24 Rx aerosol inhaler shortness of breath or wheezing #8.5 grams esomeprazole magnesium 40 mg 40 mg PO DAILY GERD 06/09/2110/22 History capsule,delayed release (Nexium) zolpidem 10 mg tablet 10 mg PO QHS PRN Sleep 09/01/21 History sildenafil 100 mg tablet 100 mg PO PRN PRN Erectile 3 10/22/24 History Dysfunction clonazepam 0.5 mg tablet 0.5 mg PO DAILY 07/17/23 10/22/24 History atorvastatin 20 mg tablet 20 mg PO DAILY #30 tabs 05/18/24 0 10/22/24 Rx hydroxychloroquine 200 mg tablet 200 mg PO BID 06/25/24 10/22/24 Hi story apixaban 5 mg tablet (Eliquis) 5 mg PO BID #180 tabs 06/29/2402/10 Rx fluticasone furoate 100 1 inh inhalation Q24H #30 ea 09/0810/22/24 Rx mcg/actuation blister powder for inhalation (Arnuity Ellipta) oral device #1 ea 09/08/24 10/22/24 Rx turmeric root extract 500 mg 500 mg PO QDAY 10/22/24 10/22/24 H istory capsule PFSH Medical History (Updated 10/22/24 @ 13:50 by Joi Rivera LPN) Constipation Hx of renal calculi Rheumatoid arthritis Easy bruising History of hiatal hernia History of diverticulitis Heartburn CPAP (continuous positive airway pressure) dependence Former smoker Cardiology follow-up encounter Right inguinal hernia Hypertension Wears glasses Anxiety Alcohol use Arthritis Kidney stones Pulmonary embolism Injury of head and neck History of IBS Gastric reflux Sleep apnea On home oxygen therapy History of echocardiogram History of stress test Normal stress echocardiogram Cardiology follow-up encounter History of atrial fibrillation Contact with and (suspected) exposure to other viral communicable diseases Fatigue SOB (shortness of breath) Asthma Obesity (BMI 30.0-34.9) Obstructive sleep apnea Essential (primary) hypertension Paroxysmal atrial fibrillation Renal calculi Surgical History S/P inguinal hernia repair History of cardiac catheterization Hx of repair of left rotator cuff Hx of surgical procedure History of laminectomy ( 03/2021) History of bilateral cataract extraction History of colonoscopy History of radiofrequency ablation procedure for cardiac arrhythmia (12/29/12) History of left heart catheterization (07/28/18) History of cholecystectomy History of esophagogastroduodenoscopy (EGD) Family History Mother Diabetes Hypertension High cholesterol Father Hypertension Prostate cancer Sister Throat cancer Other Heart disease Social History Smoking Status: Former smoker pack-years: 10 Tobacco: How many years used: 10 Electronic Cigarette Use: not used how long ago did patient quit smoking: stopped at age 25. second hand exposure: No alcohol intake: current alcohol intake frequency: a few times a week Alcohol type: hard liquor substance use type: does not use caffeine: Yes (very little) what type of physical activity do you participate in: weight training frequency: 3-4 times per week HPI HPI HPI: Patient is a 63-year-old male here for colonoscopy. His last colonoscopy was over 10 years ago. He denies abdominal pain or blood in the stool. ROS General General: Yes weight change and fatigue; No appetite, colon cancer, breast cancer or weakness HEENT HEENT: Yes eye injury and eye surgery; No difficulty swallowing, swollen glands or hoarseness Endo Endocrine: No thyroid disease, diabetes mellitus, thyroid cancer, Hair loss, heat intolerance or cold intolerance Skin Skin: Yes rash; No changing moles Musc Muscu (more content not included)... Normal [facility] PSA,Total - Annual Screenon 10-15-2024 PSA,TOT SCREEN 0.64 ng/mL Normal 0.02-4.00 [facility] Comment on above: Result Comment: This test was performed using the [employer] tPSA method. Measured values of a patient??sample can vary depending on the testing procedure used. PSA values determined on patient samples by different testing procedures cannot be used interchangeably. If there is a change in PSA assays while monitoring therapy, sequential testing should be performed to confirm baseline values. Performed By: #### L 501.9910 #### [facility] Laboratory [address] [place], [address] Prostate specific antigen (P SA) screening testOrdered By: Harpreet Lee on 10-15-2024 Prostate Specific Antigen Screen 0.64 ng/mL 0.02-4.00 [facility] Comment on above: This test was perfor med using the [employer] tPSA method. Measured values of a patient sample can vary depending on the testing procedure used. PSA values determined on patient samples by different testing procedures cannot be used interchangeably. If there is a change in PSA assays while monitoring therapy, sequential testing should be performed to confirm baseline values. Absolute lymphocyte countOrd ered By: Selene Mason on 10-01-2024 Lymphocytes Auto (Unsp spec) [#/Vol] 0.92 10*3/uL 0.83-4.51 [facility] Absolute neutrophil countOrd ered By: Selene Mason on 10-01-2024 Neutrophils (Bld) [#/Vol] 6.5 10*3/uL 2.0-7.7 [facility] Albumin to globulin ratioOrd ered By: [facility] Marlon on 10-01-2024 Albumin/Globulin [Mass ratio] 1.2 {ratio} 0.9-2.4 [facility] Automated lymphocyte count a s percentage of total leukocytesOrdered By: Selene Mason on 10-01-2024 Lymphocytes/100 WBC Auto (Unsp spec) 10.9 % Low 19-41 [facility] Basophil percentageOrdered B y: Selene Mason on 10-01-2024 Basophils/100 WBC (Bld) 1.2 % High 0-1 [facility] Bilirubin, totalOrdered By: Selenelondon Mason on 10-01-2024 Bilirubin [Mass/Vol] 0.70 mg/dL 0.20-1.00 [facility] Comment on above: For patients on eltr ombopag therapy, use of Dimension [place] TBIL is not recommended. Blood urea nitrogen (BUN)/cr eatinine ratioOrdered By: Selene Mason on 10-01-2024 Urea nitrogen/Creatinine [Mass ratio] 18.5 mg/mg 10-20 [facility] CBC W/Diff, Automatedon 09-19 Absolute Lymph 0.92 X10 3/uL Normal 0.83-4.51 [facility] Comment on above: Performed By: #### L 100.0100, L500.4050 ####[facility] [address] [place], [address] Absolute Neut 6.5 X10 3/uL Normal 2.0-7.7 [facility] Comment on above: Performed By: #### L 100.0100, L500.4050 ####[facility] [id number] [place], [address] Basophils/100 WBC (Bld) 1.2 % High 0-1 [facility] Comment on above: Performed By: #### L 100.0100, L500.4050 ####[facility] [id number] [place], [address] Eosinophils/100 WBC (Bld) 2.1 % Normal 0-5 [facility] Comment on above: Performed By: #### L 100.0100, L500.4050 ####[facility] [address] [place], [address] Erythrocyte distribution width (RBC) [Ratio] 12.4 % Normal 11.6-14.6 [facility] Comment on above: Performed By: #### L 100.0100, L500.4050 ####[facility] [address] [place], [address] Hematocrit (Bld) [Volume fraction] 45.5 % Normal 40-54 [facility] Comment on above: Performed By: #### L 100.0100, L500.4050 ####[facility] [address] [place], [address] Hemoglobin (Bld) [Mass/Vol] 14.9 g/dL Normal 13.0-16.5 [facility] Comment on above: Performed By: #### L 100.0100, L500.4050 ####[facility] [address] [place], [address] IG% 0.400 Normal 0.0-0.9 [facility] Comment on above: Result Comment: IG% - Immature Granulocytes (promyelocytes, myelocytes and metamyelocytes) > 1% indicates that a LEFT SHIFT is Present. Performed By: #### L 100.0100, L500.4050 ####[facility] [address] [place], [address] Lymphocytes/100 WBC (Bld) 10.9 % Low 19-41 [facility] Comment on above: Performed By: #### L 100.0100, L500.4050 ####[facility] [address] [place], [address] MCH (RBC) [Entitic mass] 29.3 pg Normal 27.0-32.0 [facility] Comment on above: Performed By: #### L 100.0100, L500.4050 ####[facility] [address] [place], [address] MCHC (RBC) [Mass/Vol] 32.7 g/dL Normal 32-36 [facility] Comment on above: Performed By: #### L 100.0100, L500.4050 ####[facility] [address] [place], [address] MCV (RBC) [Entitic vol] 89.4 fL Normal 80-94 [facility] Comment on above: Performed By: #### L 100.0100, L500.4050 ####[facility] [address] [place], [address] Monocytes/100 WBC (Bld) 8.8 % Normal 0-10 [facility] Comment on above: Performed By: #### L 100.0100, L500.4050 ####[facility] [address] [place], [address] Neutrophils/100 WBC (Bld) 76.6 % High 47-70 [facility] Comment on above: Performed By: #### L 100.0100, L500.4050 ####[facility] [address] [place], [address] Nucleated RBC (Bld) [#/Vol] 0 10*3/uL Normal 0-5 [facility] Comment on above: Performed By: #### L 100.0100, L500.4050 ####[facility] [address] [place], [address] Platelet mean volume (Bld) [Entitic vol] 11.0 fL Normal 6.2-12.0 [facility] Comment on above: Performed By: #### L 100.0100, L500.4050 ####[facility] [address] [place], [address] Platelets (Bld) [#/Vol] 191 10*3/uL Normal 150-450 [facility] Comment on above: Performed By: #### L 100.0100, L500.4050 ####[facility] [address] [place], [address] RBC (Bld) [#/Vol] 5.09 10*6/uL Normal 4.6-6.2 [facility] Comment on above: Performed By: #### L 100.0100, L500.4050 ####[facility] [address] [place], [address] RDW SD 41.0 fl Normal 35.1-43.9 [facility] Comment on above: Performed By: #### L 100.0100, L500.4050 ####[facility] [address] [place], [address] WBC (Bld) [#/Vol] 8.4 10*3/uL Normal 4.4-11.0 [facility] Comment on above: Performed By: #### L 100.0100, L500.4050 ####[facility] [address] [place], [address] Carbon dioxide measurementOr dered By: Selene Mason on 10-01-2024 CO2 [Moles/Vol] 23.0 mmol/L 21.0-32.0 [facility] Chloride measurementOrdered By: Selene Mason on 10-01-2024 Chloride [Moles/Vol] 108 mmol/L High 98-107 [facility] Comprehensive Metabolic Prof ilon 10-01-2024 Albumin [Mass/Vol] 3.8 g/dL Normal 3.2-5.0 [facility] Comment on above: Performed By: #### L 100.0100, L500.4050 ####[facility] [address] [place], [address] Albumin/Globulin [Mass ratio] 1.2 {ratio} Normal 0.9-2.4 [facility] Comment on above: Performed By: #### L 100.0100, L500.4050 ####[facility] [address] [place], [address] ALK P 78 U/L Normal 45-117 [facility] Comment on above: Performed By: #### L 100.0100, L500.4050 ####[facility] [address] [place], [address] ALT [Catalytic activity/Vol] 44 U/L Normal 16-61 [facility] Comment on above: Performed By: #### L 100.0100, L500.4050 ####[facility] [address] [place], [address] AST [Catalytic activity/Vol] 26 U/L Normal 15-37 [facility] Comment on above: Performed By: #### L 100.0100, L500.4050 ####[facility] [address] [place], [address] Bilirubin [Mass/Vol] 0.70 mg/dL Normal 0.20-1.00 [facility] Comment on above: Result Comment: For patients on eltrombopag therapy, use of Dimension [place] TBIL is not recommended. Performed By: #### L 100.0100, L500.4050 ####[facility] [address] [place], [address] BUN/CRE 18.5 RATIO Normal 10-20 [facility] Comment on above: Performed By: #### L 100.0100, L500.4050 ####[facility] [address] [place], [address] CA,Total 9.8 mg/dL Normal 8.5-10.1 [facility] Comment on above: Performed By: #### L 100.0100, L500.4050 ####[facility] [address] [place], [address] Chloride [Moles/Vol] 108 mmol/L High 98-107 [facility] Comment on above: Performed By: #### L 100.0100, L500.4050 ####[facility] [address] [place], [address] CO2 [Moles/Vol] 23.0 mmol/L Normal 21.0-32.0 [facility] Comment on above: Performed By: #### L 100.0100, L500.4050 ####[facility] [address] [place], [address] Creatinine [Mass/Vol] 1.19 mg/dL Normal 0.70-1.30 [facility] Comment on above: Result Comment: The validity of the calculated GFR GFRAA in patients over 70 years has not been determined. Clinical correlation is essential. Performed By: #### L 100.0100, L500.4050 ####[facility] [address] [place], [address] EST GFR - AA 80 mL/min Normal >60 [facility] Comment on above: Result Comment: Afri can [place] GFR Calc Performed By: #### L 100.0100, L500.4050 ####[facility] [address] [place], [address] GAP 7 Normal 5-15 [facility] Comment on above: Performed By: #### L 100.0100, L500.4050 ####[facility] [address] [place], [address] GFR/1.73 sq M.predicted among non-blacks MDRD (S/P/Bld) [Vol rate/Area] 66 mL/min/{1.73_m2} Normal >60 [facility] Comment on above: Result Comment: Non- GFR Calc Performed By: #### L 100.0100, L500.4050 ####[facility] [address] [place], [address] Globulin (S) [Mass/Vol] 3.3 g/dL Normal 2.2-4.2 [facility] Comment on above: Performed By: #### L 100.0100, L500.4050 ####[facility] [address] [place], [address] Glucose [Mass/Vol] 98 mg/dL Normal 74-106 [facility] Comment on above: Performed By: #### L 100.0100, L500.4050 ####[facility] [address] [place], [address] Potassium [Moles/Vol] 3.9 mmol/L Normal 3.5-5.1 [facility] Comment on above: Performed By: #### L 100.0100, L500.4050 ####[facility] [address] [place], [address] Sodium [Moles/Vol] 139 mmol/L Normal 136-145 [facility] Comment on above: Performed By: #### L 100.0100, L500.4050 ####[facility] [address] [place], [address] T PROT 7.1 g/dL Normal 6.4-8.2 [facility] Comment on above: Performed By: #### L 100.0100, L500.4050 ####[facility] [address] [place], [address] Urea nitrogen [Mass/Vol] 22 mg/dL High 7-18 [facility] Comment on above: Performed By: #### L 100.0100, L500.4050 ####[facility] [address] [place], [address] Eosinophil percentageOrdered By: Selene Mason on 10-01-2024 Eosinophils/100 WBC (Bld) 2.1 % 0-5 [facility] Erythrocyte distribution wid th ratioOrdered By: Selene Mason on 10-01-2024 Erythrocyte distribution width (RBC) [Ratio] 12.4 % 11.6-14.6 [facility] Erythrocyte distribution wid th standard deviationOrdered By: Selene Mason on 10-01-2024 Erythrocyte distribution width (RBC) [Entitic vol] 41.0 fL 35.1-43.9 [facility] Erythrocyte distribution width (RBC) [Ratio] 41.0 fl 35.1-43.9 [facility] Estimated glomerular filtrat ion rate (GFR) AmericanOrdered By: Selene Mason on 10-01-2024 Estimated GFR (MDRD) Amer 80 mL/min >60 [facility] Comment on above: GFR Calc Glomerular filtration rate ( GFR) estimationOrdered By: Selene Mason on 10-01-2024 Estimated GFR (MDRD) Non-Af Amer 66 mL/min >60 [facility] Comment on above: Non- GFR Calc GFR/1.73 sq M.predicted among non-blacks MDRD (S/P/Bld) [Vol rate/Area] 66 mL/min/{1.73_m2} >60 [facility] Comment on above: Non- GFR Calc Glucose measurementOrdered B y: Sleene Mason on 10-01-2024 Glucose [Mass/Vol] 98 mg/dL 74-106 [facility] Hematocrit Auto (Bld) [Volum e fraction]Ordered By: Selene Mason on 10-01-2024 Hematocrit (Bld) [Volume fraction] 45.5 % 40-54 [facility] Hemoglobin measurementOrdere d By: Selene Mason on 10-01-2024 Hemoglobin (Bld) [Mass/Vol] 14.9 g/dL 13.0-16.5 [facility] Immature granulocytes/100 WB C Auto (Bld)Ordered By: Selene Mason on 10-01-2024 Immature granulocytes/100 WBC (Bld) 0.400 % 0.0-0.9 [facility] Comment on above: IG% - Immature Granu locytes (promyelocytes, myelocytes and metamyelocytes) > 1% indicates that a LEFT SHIFT is Present. Laboratory - Chemistry and C hemistry - challengeOrdered By: Selene Mason on 10-01-2024 AST [Catalytic activity/Vol] 26 U/L 15-37 [facility] Lymphocytes Auto (Unsp spec) [#/Vol]Ordered By: Selene Mason on 10-01-2024 Lymphocytes (Bld) [#/Vol] 0.92 10*3/uL 0.83-4.51 [facility] Lymphocytes/100 WBC Auto (Un sp spec)Ordered By: Selene Mason on 10-01-2024 Lymphocytes/100 WBC (Bld) 10.9 % Low 19-41 [facility] MCV (mean corpuscular volume ) determinationOrdered By: Selene Mason on 10-01-2024 MCV (RBC) [Entitic vol] 89.4 fL 80-94 [facility] Mean corpuscular hemoglobin (MCH) determinationOrdered By: Selene Mason on 10-01-2024 MCH (RBC) [Entitic mass] 29.3 pg 27.0-32.0 [facility] Mean corpuscular hemoglobin concentration (MCHC) determinationOrdered By: Selene Mason on 10-01-2024 MCHC (RBC) [Mass/Vol] 32.7 g/dL 32-36 [facility] Mean platelet volume determi nationOrdered By: Selene Mason on 10-01-2024 Platelet mean volume (Bld) [Entitic vol] 11.0 fL 6.2-12.0 [facility] Monocyte percentageOrdered B y: Selene Mason on 10-01-2024 Monocytes/100 WBC (Bld) 8.8 % 0-10 [facility] Neutrophil percentageOrdered By: Selene Mason on 10-01-2024 Neutrophils/100 WBC (Bld) 76.6 % High 47-70 [facility] Nucleated red blood cell per centageOrdered By: Selene Mason on 10-01-2024 Nucleated RBC/100 WBC (Bld) [Ratio] 0 % 0-5 [facility] Platelet countOrdered By: Young Mason on 10-01-2024 Platelets (Bld) [#/Vol] 191 10*3/uL 150-450 [facility] Potassium measurementOrdered By: Selene Mason on 10-01-2024 Potassium [Moles/Vol] 3.9 mmol/L 3.5-5.1 [facility] RBC Auto (Bld) [#/Vol]Ordere d By: Selene Maosn on 10-01-2024 RBC (Bld) [#/Vol] 5.09 10*6/uL 4.6-6.2 [facility] Serum anion gap measurementO rdered By: Selene Mason on 10-01-2024 Anion gap [Moles/Vol] 7 mmol/L 5-15 [facility] Serum globulin measurementOr dered By: Selene Mason on 10-01-2024 Globulin (S) [Mass/Vol] 3.3 g/dL 2.2-4.2 [facility] Serum or plasma alanine davis otransferase (ALT) measurementOrdered By: Selene Mason on 10-01-2024 ALT [Catalytic activity/Vol] 44 U/L 16-61 [facility] Serum or plasma albumin [place] urement (mass/volume)Ordered By: Selene Mason on 10-01-2024 Albumin [Mass/Vol] 3.8 g/dL 3.2-5.0 [facility] Serum or plasma alkaline maisha sphatase measurementOrdered By: Selene Mason on 10-01-2024 ALP [Catalytic activity/Vol] 78 U/L 45-117 [facility] Serum or plasma calcium [place] urement (mass/volume)Ordered By: Selene Mason on 10-01-2024 Calcium [Mass/Vol] 9.8 mg/dL 8.5-10.1 [facility] Serum or plasma creatinine m easurement (mass/volume)Ordered By: Selene Mason on 10-01-2024 Creatinine [Mass/Vol] 1.19 mg/dL 0.70-1.30 [facility] Comment on above: The validity of the calculated GFR & GFRAA in patients over 70 years has not been determined. Clinical correlation is essential. Serum or plasma urea nitroge n measurement (mass/volume)Ordered By: Selene Mason on 10-01-2024 Urea nitrogen [Mass/Vol] 22 mg/dL High 7-18 [facility] Sodium levelOrdered By: Trevor Mason on 10-01-2024 Sodium [Moles/Vol] 139 mmol/L 136-145 [facility] Total proteinOrdered By: Timoteo Mason on 10-01-2024 Protein [Mass/Vol] 7.1 g/dL 6.4-8.2 [facility] White blood cell (WBC) count Ordered By: Selene Mason on 10-01-2024 WBC (Bld) [#/Vol] 8.4 10*3/uL 4.4-11.0 [facility] Cardiology Visit Reporton Cardiology Visit Report [facility] [place] [facility] [address] [place] [address] OFFICE VISIT Date of Service: 09/10/24 MR#: [id number] Acct: [id number] Name: GENET COSTA Rep #: [id number] : 1960 Provider: Dr. Ricki Smith MD Age/Sex: 63/M [place] [facility] [place] Status: Signed HPI HPI History of Present Illness Details: GENET COSTA, is a 63 M who presents to the office today for a follow-up visit. He is a gentleman with a history of paroxysmal atrial fibrillation, who also underwent coronary artery evaluation in July 2018 with no obstructive coronary disease noted. He underwent radiofrequency ablation in December 2012. He was evaluated at OSH in [place], [place] for TIA. He underwent an echocardiogram that showed negative bubble study and started on Eliquis. He denies chest, arm, jaw, or neck discomfort. He denies palpitations. He denies bilateral lower extremity edema. He denies claudication. He denies shortness of breath with activity, shortness of breath at rest, orthopnea, or PND. He denies chronic cough. He denies significant, sudden weight gain. He denies lightheadedness, dizziness, near-syncope, or syncope. He denies blood in urine, blood in stool, or epistaxis. He denies fever with chills. He denies myalgia. He denies fatigue. His exercise level has remained stable. He has expressed concerns over lisinopril about whether to stop it. He has actually lost a significant amount of weight on his own. 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: No Accompanied by: Self Is patient in pain?: No Allergies azithromycin (From Zithromax Z-Jerzy) Adverse Reaction (Unknown, Verified 09/10/24 09:17) d/t hx of a-fib Medications ???Medication ???Instructions ???Recorded ???Confirmed ???Type albuterol sulfate 90 mcg/actuation 2 puff inhalation Q6H PRN 05/31/21 09/10/24 Rx aerosol inhaler shortness of breath or wheezing #8.5 grams esomeprazole magnesium 40 mg 40 mg PO DAILY GERD 06/09/21 09/10/24 History capsule,delayed release (Nexium) lisinopril 10 mg tablet 10 mg PO DAILY SUPPLEMENT 06/09/21 09/10/24 History zolpidem 10 mg tablet 10 mg PO QHS PRN Sleep 09/01/21 09/10/24 History sildenafil 100 mg tablet 100 mg PO PRN PRN Erectile 10/15/22 09/10/24 History Dysfunction clonazepam 0.5 mg tablet 0.5 mg PO DAILY 07/17/23 09/10/24 History atorvastatin 20 mg tablet 20 mg PO DAILY #30 tabs 05/18/24 09/10/24 Rx flecainide 100 mg tablet 100 mg PO Q12H HEART #180 tabs 06/11/24 09/10/24 Rx hydroxychloroquine 200 mg tablet 200 mg PO BID 06/25/24 09/10/24 History apixaban 5 mg tablet (Eliquis) 5 mg PO BID #180 tabs 06/29/24 09/10/24 Rx fluticasone furoate 100 1 inh inhalation Q24H #30 ea 09/08/24 09/10/24 Rx mcg/actuation blister powder for inhalation (Arnuity Ellipta) oral device #1 ea 09/08/24 09/08/24 Rx Have you fallen in the past year?: No PFSH Medical History Hx of renal calculi Rheumatoid arthritis Easy bruising History of hiatal hernia History of diverticulitis Heartburn CPAP (continuous positive airway pressure) dependence Former smoker Cardiology follow-up encounter Right inguinal hernia Hypertension Wears glasses Anxiety Alcohol use Arthritis Kidney stones Pulmonary embolism Injury of head and neck History of IBS Gastric reflux Sleep apnea On home oxygen therapy History of echocardiogram History of stress test Normal stress echocardiogram Cardiology follow-up encounter History of atrial fibrillation Contact with and (suspected) exposure to other viral communicable diseases Fatigue SOB (shortness of breath) Asthma Obesity (BMI 30.0-34.9) Obstructive sleep apnea Essential (primary) hypertension Paroxysmal atrial fibrillation Renal calculi Surgical History S/P inguinal hernia repair History of cardiac catheterization Hx of repair of left rotator cuff Hx of surgical procedure History of laminectomy ( 03/2021) History of bilateral cataract extraction History of colonoscopy History of radiofrequency ablation procedure for cardiac arrhythmia (12/29/12) History of left heart catheterization (07/28/18) History of cholecystectomy History of esophagogastroduodenoscopy (EGD) Family History Mother Diabetes Hypertension High cholesterol Father Hypertension Prostate cancer Sister Throat cancer Other Heart (more content not included)... Normal [facility] Pulmonary Visit Reporton Pulmonary Visit Report [facility] [place] [address] [place] [address] OFFICE VISIT Date of Service: 09/08/24 MR#: [id number] Acct: [id number] Name: GENET COSTA Rep #: [id number] : 1960 Provider: Tihs Newton NP Age/Sex: 63/M [place] [facility] [place] Status: Signed Assessment and Plan Assessment and Plan (1) Obstructive sleep apnea: Status: Chronic Plan: Moderate obstructive sleep apnea is identified on PSG. The importance of treating this disease process was reviewed with patient today. The patient is agreeable to proceeding with a mandibular advancement device through Dr. Koo. In the past he has failed PAP therapy, both CPAP and BiPAP. (2) Sleep concern: Plan: I believe that he is experiencing multiple awakenings due to apnea events. Stimulus control techniques are warranted. Reassess on follow-up after he has obtained mandibular advancement device. (3) Cough: Status: Chronic Qualifiers: Cough type: unspecified Qualified Code(s): R05.9 - Cough, unspecified Plan: Due to patient's current symptoms I have recommended a trial of an ICS inhaler. The use of Arnuity and potential side effects were reviewed with patient today. He was instructed on how to use the Ellipta device. He is asked to perform oral hygiene after using ICS. Continue to use albuterol on an as-needed basis. I have recommended a PFT and he has declined at this time due to other healthcare expenses. If there is response to this inhaler then it will further point towards asthma. I have recommended that he follow-up with cardiology as planned. I have also asked him to follow-up with neurology for his facial symptom. He reports pain from inguinal hernia repair and he is asked to address this with the surgeon. Medications: New fluticasone furoate 100 mcg/actuation (Arnuity Ellipta) 1 inh inhalation Q24H 30 ea 5RF [oral device] As directed 1 ea 0RF G47.33 - Obstructive sleep apnea (adult) (pediatric) Plan Details Follow Up: 10 Weeks (LMR) HPI HPI Comments Details: This patient is a 63-year-old male who presents today to review recent testing. He has a history of obstructive sleep apnea. He is ambulatory and on room air. If you recall, he did have initial sleep testing from 2011 when his BMI was 34 which showed a mild obstructive sleep apnea. The patient did trial CPAP and BiPAP with various styles of masks. He was unable to tolerate any device. The patient reports that he experiences claustrophobia. With recent surgery he was encouraged to repeat sleep testing. Unattended sleep study showed AHI 3.6. The patient reports that he had difficulty with supine sleep at night. He has struggled with feeling unrefreshed during the day for many years. He has difficulty with sleep onset latency and s leep maintenance. He reports that he awakens at 1 AM, 3 AM, 5 AM. In the past he had been on Ambien for many years . He has since discontinued its use. In the past he has tried melatonin without effect and more recently has used sleepy time tea with some benefit. He reports that sleep onset latency can be up to 1 hour. He does have a history of A-fib for which she had an ablation and continues on pharmacological therapy. He has a history of TIA x 2 in the last year, manifested by left facial pain. His BMI is now 29. With weight loss he has had less snoring but does report that he sleeps alone now. He reports that he does not wake himself up snoring anymore. ESS is 6. He continues to have occasional wheezing. He reports cough which is now more dry. He denies fever, chills, body aches. He reports some chest tightness for a couple of months now. Albuterol helps with the chest tightness. He is without chest pain and palpitations. He reports that the vein on the left side of his face is burning. He reports that this had not occurred for a few months then it occurred on Saturday. He reports that it improved by the next day. Shortness of breath will occur on occasion with exertion. He believes that this is related to A-fib. He does have an appointment with Dr. Smith on . He does have a history of pneumonia. Patient is not reporting any significant lower extremity edema, cyanosis or syncope. Patient denies any sick contacts. He does not feel particularly sick today. Complete PFT (09/08/2021): Grossly normal pulmonary function testing (FVC 95%, FEV1 104%, TLC 101%, DLCO 95%) Walking oximetry (09/05/2021): Ambulated 1357 feet over the course of 6 minutes with no significant desaturation and a peak heart rate of 117 bpm Documentation reviewed with patient today includes: PSG which shows AHI 17.2. Intake Vital Signs 08/04/24 08:15 09/08/24 07:47 Height 5 ft 8 in 5 ft 8 in Weight: 190 lb BMI 28.8 BP 124/76 H Blood Pressure Location Lt brachial Position Sitting (more content not included)... Normal [facility] Pulmonary Visit Reporton Pulmonary Visit Report [facility] [address] [place] [address]. [address] [place] [address] OFFICE VISIT Date of Service: 08/04/24 MR#: [id number] Acct: [id number] Name: GENET COSTA Rep #: [id number] : 1960 Provider: Tish Newton NP Age/Sex: 63/M Location[place] [facility] Status: Signed Assessment and Plan Assessment and Plan (1) Hypersomnia: Status: Chronic Plan: The patient has failed PAP therapy both CPAP and BiPAP for KARYN. Since then he has had significant weight loss and the last sleep study does not show evidence of obstructive sleep apnea. However, I am still concerned that sleep apnea is present, my clinical suspicion is high. I believe that the sleep study may not have detected apnea because the patient was not in supine positioning where likely the majority of his events will occur. I have recommended that a PSG be obtained so that I can determine whether he does have sleep apnea and then for him to be referred to dentistry for a mandibular advancement device. The inspire device was discussed briefly with patient today but I do not believe that he will be a candidate for this placement. The patient would not prefer to proceed in this direction. I have recommended Ambien 5 mg if the patient is unable to fall asleep for the study. A mini neuro evaluation should be performed prior to releasing patient in the morning. This was discussed with the patient today and he is in agreement to this plan. (2) Sleep concern: Plan: I believe that he is experiencing multiple awakenings due to apnea events. I have also discussed stimulus control techniques for him to implement. I have asked for him to have a consistent bedtime routine. I have asked for him to avoid exposure to bluelight within an hour prior to bedtime. I have discussed the importance of getting out of bed if he is unable to fall asleep within 30 minutes. He is to go to a quiet location to perform an activity that engages his mind so that his mind is not active during that time. Once he becomes tired he is to return back to the bed. Plan to reassess this technique on follow-up. No pharmacological therapy is warranted at this time. (3) Cough: Status: Chronic Qualifiers: Cough type: unspecified Qualified Code(s): R05.9 - Cough, unspecified Plan: Due to patient's complaints and examination which shows diminished breath sounds and prolonged I:E ratio, I am concerned that patient is experiencing bronchospasm from possibly asthma. I will plan to treat with a burst of prednisone and have asked for him to utilize his albuterol HFA inhaler. Obtain a sputum smear and culture now. If there is positive growth and I will proceed with antibiotic therapy at that time. On follow-up I will consider a PFT at that time. Orders: Orders Culture, Sputum 08/04/24 R05.9 - Cough, unspecified Polysomnography 08/04/24 G47.10 - Hypersomnia, unspecified Medications: New prednisone Take 2 tablets daily for 4 days then 1 tablet daily for 2 days. 20 mg PO QDAY 10 tabs 0RF J44.9 - Chronic obstructive pulmonary disease, unspecified Plan Details Follow Up: 4 Weeks (LMR) HPI HPI Comments Details: Patient is a 61-year-old male who presents for evaluation secondary to recent test results and to discuss daytime hypersomnia. He is ambulatory and on room air. He did have initial sleep testing from 2011 when his BMI was 34 which showed a mild obstructive sleep apnea. The patient did trial CPAP and BiPAP with various styles of masks. He was unable to tolerate any device. The patient reports that he experiences claustrophobia. With recent surgery he was encouraged to repeat sleep testing. Unattended sleep study showed AHI 3.6. The patient reports that he had difficulty with supine sleep at night. He has struggled with feeling unrefreshed during the day for many years. He has difficulty with sleep onset latency and sleep maintenance. He reports that he awakens at 1 AM, 3 AM, 5 AM. In the past he had been on Ambien for many years . He has since discontinued its use. In the past he has tried melatonin without effect and more recently has used sleepy time tea with some benefit. He reports that sleep onset latency can be up to 1 hour. He does have a history of A-fib for which she had an ablation and continues on pharmacological therapy. He has a history of TIA x 2. His BMI is now 29. With weight loss he has had less snoring but does report that he sleeps alone now. He reports that he does not wake himself up snoring anymore. ESS is 6. He reports that for the last month he has had occasional wheezing. He reports that he also has had an increase in shortness of breath with cough which produces yellow sputum. He denies fever, chills, body aches. He does have occasional chest tightness but is without chest pain and palpitations. He does have a (more content not included)... Normal [facility] Surgery Visit Reporton 07-14 Surgery Visit Report [facility] [address] [facility]. [address] [place] [address] OFFICE VISIT Date of Service: 07/14/24 MR#: [id number] Acct: [id number] Name: GENET COSTA Rep #: [id number] : 1960 Provider: Dr. Jamie campbell MD Age/Sex: 63/M Location: [facility] Status: Signed Intake Vital Signs 07/02/24 12:01 Height 5 ft 8 in Intake Visit Reasons: HERNIA 07-02 Chief Complaint: right inguinal hernia 07/02 Is patient in pain?: No Allergies azithromycin (From Zithromax Z-Jerzy) Adverse Reaction (Unknown, Verified 07/14/24 13:58) d/t hx of a-fib Medications ???Medication ???Instructions ???Recorded ???Confirmed ???Type albuterol sulfate 90 mcg/actuation 2 puff inhalation Q6H PRN 05/31/21 07/14/24 Rx aerosol inhaler shortness of breath or wheezing #8.5 grams esomeprazole magnesium 40 mg 40 mg PO DAILY GERD 06/09/21 07/14/24 History capsule,delayed release (Nexium) lisinopril 10 mg tablet 10 mg PO DAILY SUPPLEMENT 06/09/21 07/14/24 History zolpidem 10 mg tablet 10 mg PO QHS PRN Sleep 09/01/21 07/14/24 History sildenafil 100 mg tablet 100 mg PO PRN PRN Erectile 10/15/22 07/14/24 History Dysfunction clonazepam 0.5 mg tablet 0.5 mg PO DAILY 07/17/23 07/14/24 History atorvastatin 20 mg tablet 20 mg PO DAILY #30 tabs 05/18/24 07/14/24 Rx flecainide 100 mg tablet 100 mg PO Q12H HEART #180 tabs 06/11/24 07/14/24 Rx hydroxychloroquine 200 mg tablet 200 mg PO BID 06/25/24 07/14/24 History phenazopyridine 100 mg tablet 100 mg PO TID 06/25/24 07/14/24 History apixaban 5 mg tablet (Eliquis) 5 mg PO BID #180 tabs 06/29/24 07/14/24 Rx Subjective Details: Patient is doing well without any complaints Objective Details: Incisions are healing well. No bulging the groins. Coding Level of Care Code Global Post Op Diagnoses S/P inguinal hernia repair Z98.890; Z87.19 [facility] Medical History Rheumatoid arthritis Easy bruising History of hiatal hernia History of diverticulitis Heartburn CPAP (continuous positive airway pressure) dependence Former smoker Cardiology follow-up encounter Right inguinal hernia Hypertension Wears glasses Anxiety Alcohol use Arthritis Kidney stones Pulmonary embolism Injury of head and neck History of IBS Gastric reflux Sleep apnea On home oxygen therapy History of echocardiogram History of stress test Normal stress echocardiogram Cardiology follow-up encounter History of atrial fibrillation Contact with and (suspected) exposure to other viral communicable diseases Fatigue SOB (shortness of breath) Asthma Obesity (BMI 30.0-34.9) Obstructive sleep apnea Essential (primary) hypertension Paroxysmal atrial fibrillation Renal calculi Surgical History (Updated 07/14/24 @ 13:59 by Lesley Sauer) S/P inguinal hernia repair History of cardiac catheterization Hx of repair of left rotator cuff Hx of surgical procedure History of laminectomy ( 03/2021) History of bilateral cataract extraction History of colonoscopy History of radiofrequency ablation procedure for cardiac arrhythmia (12/29/12) History of left heart catheterization (07/28/18) History of cholecystectomy History of esophagogastroduodenoscopy (EGD) Family History Mother Diabetes Hypertension High cholesterol Father Hypertension Other Heart disease Social History Smoking Status: Former smoker pack-years: 10 Tobacco: How many years used: 10 Electronic Cigarette Use: not used second hand exposure: No alcohol intake: current alcohol intake frequency: a few times a week Alcohol type: hard liquor substance use type: does not use caffeine: Yes (very little) what type of physical activity do you participate in: weight training frequency: 3-4 times per week Assessment and Plan (No Qualifiers) Assessment and Plan (1) S/P inguinal hernia repair: Status: Acute Plan: Patient is doing well after bilateral inguinal hernia repair. He can return to normal activity 4 weeks postsurgery. Follow-up as needed. Jamie Simon MD Pager: [facility] [address] [place] [address], [address] [address] Office: 07/14/24 [facility]6 Date Jamie Simon MD [facility] Signature: Date (if applicable) CC: Normal [facility] Discharge Instructionon 06-19 Discharge Instruction [facility] Medical Records Department [address] [place] [id number] Instructions for Home/Discharge Instructions 07/02/24 1415 MR#: [id number] Acct: [id number] Name: GENET COSTA Rep #: [id number] : 1960 63 From: aJmie Simon MD PCP: Dr. Harpreet Lee MD [place] [facility] [place] Instructions Diet Discharge Diet: Light diet - advance as tolerated Activity Discharge Activity: May Not Drive (for 2-3 days or while taking narcotic pain meds.) and May Shower (with the bandage in place 1-2 days after surgery.) Lifting Restrictions: 20 pounds for 4 weeks Additional Activity Instructions:: Climbing stairs is fine, walking is encouraged. Sitting in bed may be uncomfortable. Sitting up using your lateral muscles (sitting up sideways) is usually more comfortable. Do not drive, work heavy equipment or sign legal documents for 24 hours. If your hernia repair was an inguinal repair, you may have scrotal swelling, an ice pack and/or athletic support can provide more comfort. Pain medications may cause nausea, you should typically eat light foods as you take your pain medications. Pain medications may also cause constipation. If you have difficulty with this, discuss with your doctor. Alternate ibuprofen and Tylenol for pain control, oxycodone for breakthrough pain Resume Eliquis Saturday Dressing / Incision Call your doctor if your incision/area has: Continuous Slow Oozing, Sudden Increased Bleeding, Increased Pain/ Swelling, Increased Redness and Foul Smelling Discharge Call your doctor if you observe: Fever of 101 or Higher Suture Line Care: Avoid Pulling/Pushing and Avoid Pinching/Bending Remove Dressing in: 2 days (Remove clear bandages in 2 days, remove Steri-Strips in 7 to 10 days.) Cleanse incision/area with: Soap Water Follow Up Care Please Follow Up With: Jamie Simon MD When: Please call to schedule 2 week follow up appointment. [phone] Test Results: Test results from this visit will be discussed in further detail at your follow-up appointment, if applicable. Discharge Plan Admission Attending Provider: Jamie Simon Primary Care Provider: Harpreet Lee Instructions Print Language: Vincentian Discharge Orders/Prescriptions Prescriptions: New oxycodone 5 mg Tablet 5 - 10 mg PO Q4H PRN PRN (Reason: Pain Score 4-10) 5 Days Qty: 10 0RF No Action albuterol sulfate 90 mcg/actuation HFA aerosol inhaler 2 puff inhalation Q6H PRN (Reason: shortness of breath or wheezing) Qty: 8.5 0RF zolpidem 10 mg tablet 10 mg PO QHS PRN (Reason: Sleep) Patient Comments: TAKE 1 TABLET BY MOUTH AT BEDTIME FOR 30 DAYS clonazepam 0.5 mg tablet 0.5 mg PO DAILY atorvastatin 20 mg tablet 20 mg PO DAILY Qty: 30 9RF esomeprazole magnesium [Nexium] 40 mg Capsule,Delayed Release(Dr/Ec) 40 mg PO DAILY lisinopril 10 mg tablet 10 mg PO DAILY Patient Comments: TAKE 1 TABLET BY MOUTH DAILY sildenafil 100 mg tablet 100 mg PO PRN PRN (Reason: Erectile Dysfunction) Patient Comments: TAKE 1 TABLET BY MOUTH ONCE DAILY NEEDED phenazopyridine 100 mg tablet 100 mg PO TID hydroxychloroquine 200 mg tablet 200 mg PO BID flecainide 100 mg tablet 100 mg PO Q12H Qty: 180 3RF Eliquis 5 mg tablet 5 mg PO BID Qty: 180 0RF Other Ambulatory Orders: 12 Lead EKG (Routine) Timeframe: [id number] Location: None Selected Ordered By: Dr. Fortunato Epperson Referrals / Follow Up: Harpreet Lee MD [Primary Care Provider] - Disposition Disposition (needs filled in before D/C Order can be placed): Home, Self Care 07/02/24 1417 Jamie Simon MD CC: Dr. Harpreet Lee MD Signed [facility] MR/POSTOP.[facility] 07-02-2024 MR/POSTOP.[facility] Medical Records Department [address] [place] [address] Anesthesia Postop Eval I 07/02/24 1436 MR#: [id number] Acct: [id number] Name: GENET COSTA Rep #: [id number] : 1960 63 From: Corie Spence PCP: Dr. Harpreet Lee MD Status:REG [facility] Y Race: C Location: [place] [address] Anesthesia: Postop Eval I Current Vital Signs Temperature: 97.4 F Pulse Rate: 64 Blood Pressure: 131/96 Respiratory Rate: 18 Pulse Ox: 100 Assessment Airway patent: Yes Spontaneous unlabored respirations: Yes nausea: No Vomiting: No Anesthesia Complication: No Fluid Hydration Crystalloid volume administer (ml): 1,000 Total IV fluid infused: 1,000 Progress Note Anesthesia document: Postop Eval 1 completed: Yes 07/02/24 1437 Date Corie Concepcion Signature: Date CC: Signed Normal [facility] MR/[id number] 07-02-2024 MR/POSTOPAN2 [facility] Medical Records Department [address] [place] [address] Anesthesia Postop Eval II 07/02/24 1652 MR#: [id number] Acct: [id number] Name: GENET COSTA Rep #: [id number] : 1960 63 From: Fortunato Epperson MD PCP: Dr. Harpreet Lee MD Status:[facility] Y Race: C [place] [facility] [place]esthesia Postop Eval I Sum Postop Eval Completion status Anesthesia document: Postop Eval 1 completed: Yes Anesthesia Postop Eval I Summary Anesthesia Postop Eval I Summary: Anesthesia Postop Eval I: Assessment Summary Airway patent Yes 07/02/24 14:36 CHOIR [email or web address] Spontaneous unlabored Yes 07/02/24 14:36 CHOIR [email or web address].CSIR respirations Mental status nausea No 07/02/24 14:36 CHOIR SINGER.CSIR Vomiting No 07/02/24 14:36 CHOIR SINGER.CSIR Anesthesia Postop Eval I: Fluid Summary Crystalloid volume administer 1,000 07/02/24 14:36 CHOIR SINGER.CSIR (ml) Colloids volume administered ( ml) Blood Product volume administered (ml) Total IV fluid infused 1,000 07/02/24 14:36 CHOIR SINGER.CSIR Anesthesia Postop Eval I: Summary Notes Anesthesia Complication No 07/02/24 14:36 CHOIR [email or web address].CSIR Anesthesia Complication Comment: Post-operative progress note Anesthesia: Postop Eval II Evaluation Mental status: Awake Pain Level: 0 nausea: No Vomiting: No 07/02/24 1652 Date Fortunato Concepcion Signature: Date CC: Signed Normal [facility] Operative Reporton 4 Operative Report [facility] Medical Records Department [address] [place] [address] Operative Report 07/02/24 1417 MR#: [id number] Acct: [id number] Name: GENET COSTA Rep #: [id number] : 1960 63 From: Jamie Simon MD PCP: Dr. Harpreet Lee MD Status:[facility] Location: [place] [address] Operative Report (Standard) Operative Information Surgery/Procedure Performed: Robotic assisted laparoscopic bilateral inguinal hernia repair with mesh Surgeon: Jamie Simon Date of Procedure: 07/02/24 Procedure Start Time: 13:27 Procedure Stop Time: 14:25 Pre-Operative Diagnosis: Right inguinal hernia Post-Operative Diagnosis: Bilateral inguinal hernias with recurrence on the left Select all DRAINS/GRAFTS/IMPLANTS that apply: Implanted device Implanted device details: ProGrip mesh bilaterally Type of Anesthesia: General/Regional Estimated Blood Loss: 5 Specimen collected: No Description of surgery: Patient was brought back to the operating room and general anesthesia was induced. Straight catheterization was performed as the patient did not go to the bathroom before surgery. Next the abdomen was prepped and draped in usual sterile fashion. A midline incision was made superior to his old incision and the fascia was grasped and elevated and a Veress needle was placed into the abdomen and a drop test was performed. The abdomen was next insufflated to 15 mmHg. The Veress needle was removed and a port was placed into the abdomen. It was inspected and there were no injuries from entry. The pelvis was inspected after the patient was placed in steep Trendelenburg position. The patient had a large indirect right inguinal hernia and he also had a small indirect recurrence of the left side. Next under direct visualization an 8 mm port was placed laterally on the left and right side and then the robot was docked. Using electrocautery scissors the right inguinal region was dissected down to the hernia sac and the hernia sac was reduced. Once the hernia sac was reduced a ProGrip mesh was placed over the hernia defect and unfolded. It covered both hernia spaces with good overlap. Next the peritoneum was reapproximated using a running 3 OV lock suture completely covering the mesh. Next attention was paid to the left side. In the same fashion an incision was made in the peritoneum and then dissection was carried inferiorly until the hernia sac was reduced. After the hernia sac was reduced a ProGrip mesh was placed over the left groin and unfolded. Next the peritoneum was reapproximated using a running 3 OV lock suture completely covering the mesh with peritoneum. Both sides were completely covered with peritoneum at the end of the case. The robot was undocked and the ports were removed and the abdomen was allowed to desufflate. The incisions were injected with local anesthetic and closed with interrupted 4-0 Monocryl sutures. Steri-Strips and bandages were applied. The scrotum was checked at the end of the case and contained both testicles. Patient was awoken and taken to PACU in stable condition and tolerated the procedure well. Surgical Findings: Recurrent left inguinal hernia, indirect right inguinal hernia Decorating [employer] Supervisor passenger service agent: Yes Microbiology Analyst: Timur Looney Tasks completed by assistant federal public defender: Opening and Closing Complications Complications: No Admit VTE Documentation VTE Mechan Device Prophylaxis: SCD's 07/02/24 1421 Cosigner Signature (if applicable): CC: Dr. Jamie Simon MD; Dr. Harpreet Lee MD Signed Normal [facility] 12 Lead EKGon 06-30-2024 12 Lead EKG [facility] [address] [place] [address] 12 Lead EKG 06/30/24 0834 MR#: [id number] Acct: [id number] Name: GENET COSTA Rep #: [id number] : 1960 63 From: Ricki Smith MD Attending Dr: Dr. Jamie Simon MD [place] [facility] [place] Order[place] Dr: Fortunato Epperson MD Date: 06/30/24 [place] [facility] [place] Sex: M C Admitted: Test Reason : /REOP Blood Pressure : */* mmHG Vent. Rate : 71 BPM Atrial Rate : 71 BPM P-R Int : 182 ms QRS Dur : 92 ms QT Int : 402 ms P-R-T Axes : 78 72 66 degrees QTcB Int : 436 ms Normal sinus rhythm Normal ECG Confirmed by RICKI SMITH MD ([id number]), greeting card editor CLARITA FRANCO ([id number]) on 07/01/2024 8:47:11 AM Referred By: Jamie Simon Confirmed By: RICKI SMITH MD 07/01/24 0847 Date Ricki Smith MD CC: Dr. Jamie Simon MD; Dr. Fortunato Epperson MD; Dr. Harpreet Lee MD Signed Normal [facility] Surgery Visit Reporton 06-19 Surgery Visit Report [facility] [address] [place] [address]. [address] [place] [address] OFFICE VISIT Date of Service: 06/19/24 MR#: [id number] Acct: [id number] Name: GENET COSTA Rep #: [id number] : 1960 Provider: Dr. Jamie campbell MD Age/Sex: 63/M Location: [facility] Status: Signed Intake Vital Signs 05/18/24 09:53 06/19/24 12:52 Height 5 ft 8 in 5 ft 8 in Weight: 191 lb 192 lb 8 oz BMI 29.0 29.2 BP 98/64 124/83 H Blood Pressure Location Lt brachial Rt brachial Position Sitting Sitting Respiration 15 18 Pulse 74 78 Pulse Source Monitor Monitor Temp 98.4 F 97.3 F L Temp Source Temporal Temporal Pulse Oximetry (%) 99 97 Oxygen Delivery Method room air room air Intake Visit Reasons: INGUINAL HERNIA Chief Complaint: right inguinal hernia Is patient in pain?: Yes Allergies azithromycin (From Aura XM-Jerzy) Adverse Reaction (Unknown, Verified 06/19/24 12:53) d/t hx of a-fib Medications ???Medication ???Instructions ???Recorded ???Confirmed ???Type albuterol sulfate 90 mcg/actuation 2 puff inhalation Q6H PRN 05/31/21 06/19/24 Rx aerosol inhaler shortness of breath or wheezing #8.5 grams esomeprazole magnesium 40 mg 40 mg PO DAILY GERD 06/09/21 06/19/24 History capsule,delayed release (Nexium) lisinopril 10 mg tablet 10 mg PO DAILY SUPPLEMENT 06/09/21 06/19/24 History zolpidem 10 mg tablet 10 mg PO QHS PRN Sleep 09/01/21 06/19/24 History cyanocobalamin (vitamin B-12) 1,000 mcg PO DAILY SUPPLEMENT 10/15/22 06/19/24 History 1,000 mcg tablet,extended release (Vitamin B-12 ER) magnesium 200 mg tablet 400 mg PO DAILY SUPPLEMENT 10/15/22 06/19/24 History omega-3 fatty acids 1,000 mg PO DAILY SUPPLEMENT 10/15/22 06/19/24 History sildenafil 100 mg tablet 100 mg PO PRN PRN Erectile 10/15/22 06/19/24 History Dysfunction clonazepam 0.5 mg tablet 0.5 mg PO BID 07/17/23 06/19/24 History apixaban 5 mg tablet (Eliquis) 5 mg PO BID #180 tabs 07/29/23 06/19/24 Rx baclofen 10 mg tablet 10 mg PO DAILY 08/14/23 06/19/24 History ondansetron 4 mg disintegrating 4 mg PO Q6H PRN nausea and 08/14/23 06/19/24 Rx tablet vomiting 3 days #12 tabs oxycodone-acetaminophen 5 mg-325 1 tab PO Q6H PRN pain 3 days #12 08/14/23 06/19/24 Rx mg tablet (Percocet) tabs tamsulosin 0.4 mg capsule 0.4 mg PO Q24H 08/14/23 06/19/24 History atorvastatin 20 mg tablet 20 mg PO DAILY #30 tabs 05/18/24 06/19/24 Rx flecainide 100 mg tablet 100 mg PO Q12H HEART #180 tabs 06/11/24 06/19/24 Rx PFSH Medical History (Updated 06/19/24 @ 12:52 by Joi Rivera LPN) Right inguinal hernia Hypertension Wears glasses Anxiety Alcohol use Arthritis Kidney stones Pulmonary embolism Injury of head and neck History of IBS Gastric reflux Sleep apnea On home oxygen therapy History of echocardiogram History of stress test Normal stress echocardiogram Cardiology follow-up encounter History of atrial fibrillation Contact with and (suspected) exposure to other viral communicable diseases Fatigue SOB (shortness of breath) Asthma Obesity (BMI 30.0-34.9) Obstructive sleep apnea Essential (primary) hypertension Paroxysmal atrial fibrillation Renal calculi Surgical History History of cardiac catheterization Hx of repair of left rotator cuff Hx of surgical procedure History of laminectomy ( 03/2021) History of bilateral cataract extraction History of colonoscopy History of radiofrequency ablation procedure for cardiac arrhythmia (12/29/12) History of left heart catheterization (07/28/18) History of cholecystectomy History of esophagogastroduodenoscopy (EGD) Family History Mother Diabetes Hypertension High cholesterol Father Hypertension Other Heart disease Social History Smoking Status: Former smoker pack-years: 10 Tobacco: How many years used: 10 Electronic Cigarette Use: not used second hand exposure: No alcohol intake: current alcohol intake frequency: a few times a week Alcohol type: hard liquor substance use type: does not use caffeine: Yes (very little) what type of physical activity do you participate in: weight training frequency: 3-4 times per week HPI HPI HPI: Patient is a 63-year-old male who comes in with right inguinal pain after pickleball game. He says this has been going on for 3 weeks. He has had a left inguinal hernia repaired in the past. He says the pain is on the right side and it is incredibly uncomfortable to sneeze or cough. He says it has been getting worse. He did try ibuprofen. ROS General General: Yes weight change (42lb intentional weight los (more content not included)... Normal [facility] Lipid Profileon 10-01-2024 Cholesterol [Mass/Vol] 114 mg/dL Normal 200 [facility] Comment on above: Result Comment: <200 mg/dL Desirable 200-240 mg/dL Borderline >240 mg/dL High Risk Performed By: #### L 500.4100, L500.3400 #### [facility] [address] [place], [address] Cholesterol in HDL [Mass/Vol] 50 mg/dL Normal [facility] Comment on above: Result Comment: The drugs N-Acetylcysteine and Metamizole may falsely depress this assay. Reference Range HDL <40 mg/dL Low HDL Cholesterol HDL >or= 60 mg/dL High HDL Cholesterol Performed By: #### L 500.4100, L500.3400 #### [facility] [address] [place], [address] Cholesterol in LDL [Mass/Vol] 50 mg/dL Normal 0-130 [facility] Comment on above: Performed By: #### L 500.4100, L500.3400 #### [facility] [address] [place], [address] Cholesterol in VLDL [Mass/Vol] 14 mg/dL Normal 5-40 [facility] Comment on above: Performed By: #### L 500.4100, L500.3400 #### [facility] [address] [place], [address] Triglyceride [Mass/Vol] 70 mg/dL Normal [facility] Comment on above: Result Comment: The drugs N-Acetylcysteine and Metamizole may falsely depress this assay. Serum Triglycerides Reference Interval Normal <150 mg/dL Borderline high 150 - 199 mg/dL High 200 - 499 mg/dL Very High > or = 500 mg/dL Performed By: #### L 500.4100, L500.3400 #### [facility] [address] [place], [address] Liver Profileon 05-19-2024 Albumin [Mass/Vol] 3.6 g/dL Normal 3.2-5.0 [facility] Comment on above: Performed By: #### L 500.4100, L500.3400 #### [facility] [address] [place], [address] ALK P 86 U/L Normal 45-117 [facility] Comment on above: Performed By: #### L 500.4100, L500.3400 #### [facility] [address] [place], [address] ALT [Catalytic activity/Vol] 39 U/L Normal 16-61 [facility] Comment on above: Performed By: #### L 500.4100, L500.3400 #### [facility] [address] [place], [address] AST [Catalytic activity/Vol] 21 U/L Normal 15-37 [facility] Comment on above: Performed By: #### L 500.4100, L500.3400 #### [facility] [address] [place], [address] Bilirubin [Mass/Vol] 0.40 mg/dL Normal 0.20-1.00 [facility] Comment on above: Result Comment: For patients on eltrombopag therapy, use of Dimension [place] TBIL is not recommended. Performed By: #### L 500.4100, L500.3400 #### [facility] [address] [place], [address] Bilirubin.direct [Mass/Vol] 0.09 mg/dL Normal 0.00-0.30 [facility] Comment on above: Performed By: #### L 500.4100, L500.3400 #### [facility] [address] [place], [address] Globulin (S) [Mass/Vol] 3.0 g/dL Normal 2.2-4.2 [facility] Comment on above: Performed By: #### L 500.4100, L500.3400 #### [facility] [address] [place] [address], [place], [address] T PROT 6.6 g/dL Normal 6.4-8.2 [facility] Comment on above: Performed By: #### L 500.4100, L500.3400 #### [facility] [address] [place] [address], [place], [address] Neurology Visit Reporton Neurology Visit Report [facility] [address], [address] [place] [address], [place] [address] OFFICE VISIT Date of Service: 05/18/24 MR#: [id number] Acct: [id number] Name: GENET COSTA Rep #: [id number] : 1960 Provider: Dr. Ronnie eagle MD Age/Sex: 63/M [place] [facility] [place]: Signed HPI HPI Chief Complaint: Est Care Details: Interim History: Genet returns for follow-up visit. He has a history of hypertension, atrial fibrillation status post cardiac ablation around 2013, pulmonary embolism in 2020 in association with a COVID-19 infection (he was treated with warfarin for 3 months). In June 2023, while driving, he experienced acute onset left-sided facial numbness, burning pain and tingling. The symptoms then also momentarily progressed to involve the left upper extremity. The episode resolved in about [address] himself to the emergency room and was hospitalized and during his hospitalization he had another similar episode of left-sided facial and left upper extremity numbness, burning pain and tingling that resolved within minutes. He also experienced left eye blurring of vision. He stated that he was diagnosed with TIAs and Eliquis was initiated. He had been on aspirin 81 mg daily when these episodes occurred and aspirin was discontinued following initiation of Eliquis. He did not have symptoms suggestive of cerebrovascular ischemia prior to June 2023 and has had no further episodes suggestive of cerebrovascular ischemia since June 2023. He is tolerating Eliquis well. He denied having weakness. He stated that in years past, he had experienced episodes of left-sided facial burning pain with episodes lasting about 30 minutes each. These episodes resolved around the beginning of 2022 and he did not have further facial sensory symptoms until the episodes in June described above. He has had bilateral cataract surgery. He has had an L5-S1 lumbar fusion. He has had residual mild low back pain and occasionally has right lower extremity radicular pain extending to the foot. He denied having neck pain. He has a history of obstructive sleep apnea. He did not tolerate CPAP or BiPAP. He experiences some insomnia. He, at times, experiences hypersomnia during the day. He stated that his atrial fibrillation nearly resolved completely following his cardiac ablation procedure around 2013; he was not prescribed an anticoagulant until his TIAs in June 2023. He takes flecainide. Atorvastatin was initiated earlier in 2023. He is tolerating this well. A carotid ultrasound in July 2023 revealed l less than 50% stenosis of the left internal carotid artery and no right internal carotid artery stenosis. Physical Exam: Neuro: The patient is awake and alert and responds appropriately; speech is fluent Lungs: Clear to auscultation Neck: No bruits Heart: Regular rhythm and rate Supplemental Info Head MRI (07/07/2023): Findings: There is no evidence of acute or subacute infarct, intracranial hemorrhage, extra-axial fluid collection, mass, or mass effect. The ventricles are normal in size. Major arterial flow voids are present. A few scattered punctate T2/FLAIR hyperintensities are noted primarily in the deep and subcortical white matter without restricted diffusion. Findings are nonspecific but likely represent chronic microvascular changes. The paranasal sinuses and right mastoid air cells are clear. Partial opacification of the left mastoid air cells. The orbital contents appear within normal limits. Impression: No evidence of significant intracranial abnormalities. Head and neck CTA (07/07/2023): Findings: Head CT: The ventricles are symmetric and normal in size. There is no evidence of acute hemorrhage, infarct, extra-axial fluid collection, or mass effect. No brain parenchymal lesions are identified. The paranasal sinuses, mastoid air cells, and middle ear's are clear. The orbital contents appear within normal limits. CTA head: The intracranial arteries are patent; there is no evidence of significant stenosis or occlusion. No aneurysms are evident. Major dural venous sinuses: Unremarkable CTA neck: Aortic arch: No significant atherosclerosis Innominate artery: No significant stenosis Right common carotid artery: No significant stenosis Right internal carotid artery: There is no significant stenosis by NASCET criteria. Left common carotid artery: No significant stenosis Left internal carotid artery: There is no significant stenosis by NASCET criteria. Right subclavian artery: No significant stenosis Right vertebral artery: No significant stenosis Left subclavian artery: No significant stenosis Left vertebral artery: No significant stenosis Soft tissues of the neck: There is no evidence of a soft tissue mass, lymphadenopathy, or fluid collection. The thyroid gland appears normal. Salivary glands are wit (more content not included)... Normal [facility] CBC W/Diff, Automatedon 09-2 5-2023 Absolute Lymph 0.86 X10 3/uL Normal 0.83-4.51 [facility] Comment on above: Performed By: #### L 100.0100 ####[facility] [address] [place], [address] Absolute Neut 6.5 X10 3/uL Normal 2.0-7.7 [facility] Comment on above: Performed By: #### L 100.0100 ####[facility] [address] [place], [address] Basophils/100 WBC (Bld) 1.1 % High 0-1 [facility] Comment on above: Performed By: #### L 100.0100 ####[facility] [address] [place], [address] Eosinophils/100 WBC (Bld) 1.7 % Normal 0-5 [facility] Comment on above: Performed By: #### L 100.0100 ####[facility] [address] [place], [address] Erythrocyte distribution width (RBC) [Ratio] 12.4 % Normal 11.6-14.6 [facility] Comment on above: Performed By: #### L 100.0100 ####[facility] [address] [place], [address] Hematocrit (Bld) [Volume fraction] 41.6 % Normal 40-54 [facility] Comment on above: Performed By: #### L 100.0100 ####[facility] [address] [place], [address] Hemoglobin (Bld) [Mass/Vol] 13.8 g/dL Normal 13.0-16.5 [facility] Comment on above: Performed By: #### L 100.0100 ####[facility] [address] [place], [address] IG% 0.500 Normal 0.0-0.9 [facility] Comment on above: Result Comment: IG% - Immature Granulocytes (promyelocytes, myelocytes and metamyelocytes) > 1% indicates that a LEFT SHIFT is Present. Performed By: #### L 100.0100 ####[facility] [address] [place], [address] Lymphocytes/100 WBC (Bld) 10.5 % Low 19-41 [facility] Comment on above: Performed By: #### L 100.0100 ####[facility] [address] [place], [address] MCH (RBC) [Entitic mass] 29.9 pg Normal 27.0-32.0 [facility] Comment on above: Performed By: #### L 100.0100 ####[facility] [address] [place], [address] MCHC (RBC) [Mass/Vol] 33.2 g/dL Normal 32-36 [facility] Comment on above: Performed By: #### L 100.0100 ####[facility] [address] [place], [address] MCV (RBC) [Entitic vol] 90.0 fL Normal 80-94 [facility] Comment on above: Performed By: #### L 100.0100 ####[facility] [address] [place], [address] Monocytes/100 WBC (Bld) 7.3 % Normal 0-10 [facility] Comment on above: Performed By: #### L 100.0100 ####[facility] [address] [place], [address] Neutrophils/100 WBC (Bld) 78.9 % High 47-70 [facility] Comment on above: Performed By: #### L 100.0100 ####[facility] [address] [place], [address] Nucleated RBC (Bld) [#/Vol] 0 10*3/uL Normal 0-5 [facility] Comment on above: Performed By: #### L 100.0100 ####[facility] [address] [place], [address] Platelet mean volume (Bld) [Entitic vol] 11.2 fL Normal 6.2-12.0 [facility] Comment on above: Performed By: #### L 100.0100 ####[facility] [address] [place], [address] Platelets (Bld) [#/Vol] 190 10*3/uL Normal 150-450 [facility] Comment on above: Performed By: #### L 100.0100 ####[facility] [address] [place], [address] RBC (Bld) [#/Vol] 4.62 10*6/uL Normal 4.6-6.2 [facility] Comment on above: Performed By: #### L 100.0100 ####[facility] [address] [place], [address] RDW SD 41.1 fl Normal 35.1-43.9 [facility] Comment on above: Performed By: #### L 100.0100 ####[facility] [address] [place], [address] WBC (Bld) [#/Vol] 8.2 10*3/uL Normal 4.4-11.0 [facility] Comment on above: Performed By: #### L 100.0100 ####[facility] [address] [place], [address] Chest PA and Lateralon 05-13 Chest PA and Lateral [facility] [address] [place] [address] Chest PA and Lateral MR#: [id number] Acct: [id number] Name: GENET COSTA Rep #: [id number] : 1960 M 63 From: Virgilio tidwell DO PCP: Dr. Harpreet Lee MD Status: REG CLI Study: Chest PA and Lateral Date of Exam: 05/13/24 Exam# [id number] Ordering Dr: Harpreet Lee MD [id number] EXAM: XR CHEST, 2 VIEWS CLINICAL INDICATION: PNEUMONIA TECHNIQUE: Frontal and lateral views of the chest. COMPARISON: 10/15/2022. FINDINGS: LUNGS AND PLEURAL SPACES: No significant abnormality. No consolidation or edema. No pneumothorax. No effusion. HEART: No significant abnormality. Cardiac silhouette not enlarged. MEDIASTINUM: Central airways and mediastinal contour are unremarkable. BONES/JOINTS: Degenerative changes in the spine. No acute fracture. SOFT TISSUES: No significant abnormality. RAD/Chest PA and Lateral IMPRESSION: No acute findings in the chest. Electronically Signed: Virgilio Ochoa DO at 21:18 EDT , CC: Dr. Harpreet Lee MD Public Address Technician: Signed Normal [facility] CBC W/Diff, Automatedon 04-19 Absolute Lymph 0.93 X10 3/uL Normal 0.83-4.51 [facility] Comment on above: Performed By: #### L 100.0100, L500.4050 #### [facility] Laboratory [address] [place], [address] Absolute Neut 5.5 X10 3/uL Normal 2.0-7.7 [facility] Comment on above: Performed By: #### L 100.0100, L500.4050 #### [facility] [address] [place], [address] Basophils/100 WBC (Bld) 1.5 % High 0-1 [facility] Comment on above: Performed By: #### L 100.0100, L500.4050 #### [facility] [address] [place], [address] Eosinophils/100 WBC (Bld) 3.8 % Normal 0-5 [facility] Comment on above: Performed By: #### L 100.0100, L500.4050 #### [facility] [address] [place], [address] Erythrocyte distribution width (RBC) [Ratio] 12.0 % Normal 11.6-14.6 [facility] Comment on above: Performed By: #### L 100.0100, L500.4050 #### [facility] [address] [place], [address] Hematocrit (Bld) [Volume fraction] 42.4 % Normal 40-54 [facility] Comment on above: Performed By: #### L 100.0100, L500.4050 #### [facility] [address] [place], [address] Hemoglobin (Bld) [Mass/Vol] 14.1 g/dL Normal 13.0-16.5 [facility] Comment on above: Performed By: #### L 100.0100, L500.4050 #### [facility] [address] [place], [address] IG% 0.300 Normal 0.0-0.9 [facility] Comment on above: Result Comment: IG% - Immature Granulocytes (promyelocytes, myelocytes and metamyelocytes) > 1% indicates that a LEFT SHIFT is Present. Performed By: #### L 100.0100, L500.4050 #### [facility] [address] [place], [address] Lymphocytes/100 WBC (Bld) 12.5 % Low 19-41 [facility] Comment on above: Performed By: #### L 100.0100, L500.4050 #### [facility] [address] [place], [address] MCH (RBC) [Entitic mass] 29.8 pg Normal 27.0-32.0 [facility] Comment on above: Performed By: #### L 100.0100, L500.4050 #### [facility] [address] [place], [address] MCHC (RBC) [Mass/Vol] 33.3 g/dL Normal 32-36 [facility] Comment on above: Performed By: #### L 100.0100, L500.4050 #### [facility] [address] [place], [address] MCV (RBC) [Entitic vol] 89.6 fL Normal 80-94 [facility] Comment on above: Performed By: #### L 100.0100, L500.4050 #### [facility] [address] [place], [address] Monocytes/100 WBC (Bld) 7.7 % Normal 0-10 [facility] Comment on above: Performed By: #### L 100.0100, L500.4050 #### [facility] [address] [place], [address] Neutrophils/100 WBC (Bld) 74.2 % High 47-70 [facility] Comment on above: Performed By: #### L 100.0100, L500.4050 #### [facility] [address] [place], [address] Nucleated RBC (Bld) [#/Vol] 0 10*3/uL Normal 0-5 [facility] Comment on above: Performed By: #### L 100.0100, L500.4050 #### [facility] [address] [place], [address] Platelet mean volume (Bld) [Entitic vol] 11.5 fL Normal 6.2-12.0 [facility] Comment on above: Performed By: #### L 100.0100, L500.4050 #### [facility] [address] [place], [address] Platelets (Bld) [#/Vol] 194 10*3/uL Normal 150-450 [facility] Comment on above: Performed By: #### L 100.0100, L500.4050 #### [facility] [address] [place], [address] RBC (Bld) [#/Vol] 4.73 10*6/uL Normal 4.6-6.2 [facility] Comment on above: Performed By: #### L 100.0100, L500.4050 #### [facility] [address] [place], [address] RDW SD 39.4 fl Normal 35.1-43.9 [facility] Comment on above: Performed By: #### L 100.0100, L500.4050 #### [facility] [address] [place], [address] WBC (Bld) [#/Vol] 7.4 10*3/uL Normal 4.4-11.0 [facility] Comment on above: Performed By: #### L 100.0100, L500.4050 #### [facility] [address] [place], [address] Comprehensive Metabolic Prof eliot 05-01-2024 Albumin [Mass/Vol] 3.4 g/dL Normal 3.2-5.0 [facility] Comment on above: Performed By: #### L 100.0100, L500.4050 #### [facility] [address] [place], [address] Albumin/Globulin [Mass ratio] 1.1 {ratio} Normal 0.9-2.4 [facility] Comment on above: Performed By: #### L 100.0100, L500.4050 #### [facility] [address] [place], [address] ALK P 87 U/L Normal 45-117 [facility] Comment on above: Performed By: #### L 100.0100, L500.4050 #### [facility] [address] [place], [address] ALT [Catalytic activity/Vol] 36 U/L Normal 16-61 [facility] Comment on above: Performed By: #### L 100.0100, L500.4050 #### [facility] [address] [place], [address] AST [Catalytic activity/Vol] 22 U/L Normal 15-37 [facility] Comment on above: Performed By: #### L 100.0100, L500.4050 #### [facility] [address] [place], [address] Bilirubin [Mass/Vol] 0.30 mg/dL Normal 0.20-1.00 [facility] Comment on above: Result Comment: For patients on eltrombopag therapy, use of Dimension [place] TBIL is not recommended. Performed By: #### L 100.0100, L500.4050 #### [facility] [address] [place], [address] BUN/CRE 18.1 RATIO Normal 10-20 [facility] Comment on above: Performed By: #### L 100.0100, L500.4050 #### [facility] [address] [place], [address] CA,Total 9.3 mg/dL Normal 8.5-10.1 [facility] Comment on above: Performed By: #### L 100.0100, L500.4050 #### [facility] [address] [place], [address] Chloride [Moles/Vol] 107 mmol/L Normal 98-107 [facility] Comment on above: Performed By: #### L 100.0100, L500.4050 #### [facility] [address] [place], [address] CO2 [Moles/Vol] 23.0 mmol/L Normal 21.0-32.0 [facility] [place] Comment on above: Performed By: #### L 100.0100, L500.4050 #### [facility] [place] [facility] [address] [place], [address] Creatinine [Mass/Vol] 1.16 mg/dL Normal 0.70-1.30 [facility] Comment on above: Result Comment: The validity of the calculated GFR GFRAA in patients over 70 years has not been determined. Clinical correlation is essential. Performed By: #### L 100.0100, L500.4050 #### [facility] [place] [facility] [address] [place], [address] EST GFR - AA 82 mL/min Normal >60 [facility] [place] Comment on above: Result Comment: Afri can [place] GFR Calc Performed By: #### L 100.0100, L500.4050 #### [facility] [place] [facility] [address] [place], [address] GAP 8 Normal 5-15 [facility] [place] Comment on above: Performed By: #### L 100.0100, L500.4050 #### [facility] [place] [facility] [address] [place], [address] GFR/1.73 sq M.predicted among non-blacks MDRD (S/P/Bld) [Vol rate/Area] 68 mL/min/{1.73_m2} Normal >60 [facility] [place] Comment on above: Result Comment: Non- GFR Calc Performed By: #### L 100.0100, L500.4050 #### [facility] [place] [facility] [address] [place], [address] Globulin (S) [Mass/Vol] 3.2 g/dL Normal 2.2-4.2 [facility] [place] Comment on above: Performed By: #### L 100.0100, L500.4050 #### [facility] [place] [facility] [address] [place], [address] Glucose [Mass/Vol] 105 mg/dL Normal 74-106 [facility] Comment on above: Result Comment: Fast ing Glucose result from 100 to 125 mg/dL suggests IMPAIRED HOMEOSTASIS per A.D.A. criteria. Performed By: #### L 100.0100, L500.4050 #### [facility] [place] [facility] [address] [place], [address] Potassium [Moles/Vol] 4.1 mmol/L Normal 3.5-5.1 [facility] Comment on above: Performed By: #### L 100.0100, L500.4050 #### [facility] [place] [facility] [address] [place], [address] Sodium [Moles/Vol] 138 mmol/L Normal 136-145 [facility] Comment on above: Performed By: #### L 100.0100, L500.4050 #### [facility] [place] [facility] [address] [place], [address] T PROT 6.6 g/dL Normal 6.4-8.2 [facility] [place] Comment on above: Performed By: #### L 100.0100, L500.4050 #### [facility] [place] [facility] [address] [place], [address] Urea nitrogen [Mass/Vol] 21 mg/dL High 7-18 [facility] [place] Comment on above: Performed By: #### L 100.0100, L500.4050 #### [facility] [place] [facility] [address] [place], [place], [id number] Absolute lymphocyte countOrd ered By: Selene Mason on 11-19-2023 Lymphocytes Auto (Unsp spec) [#/Vol] 0.90 10*3/uL 0.83-4.51 [facility] [place] Automated lymphocyte count a s percentage of total leukocytesOrdered By: Selene Mason on 11-19-2023 Lymphocytes/100 WBC Auto (Unsp spec) 12.4 % 19-41 [facility] [place] Basophil percentageOrdered B y: Selene Mason on 11-19-2023 Basophils/100 WBC (Bld) 1.0 % 0-1 [facility] [place] Bilirubin [Mass/Vol] 1.30 mg/dL 0.20-1.00 [facility] Comment on above: For patients on eltr ombopag therapy, use of Dimension [place] TBIL is not recommended. Chloride [Moles/Vol] 107 mmol/L 98-107 [facility] Eosinophils/100 WBC (Bld) 2.6 % 0-5 [facility] [place] Glucose [Mass/Vol] 99 mg/dL 74-106 [facility] Hemoglobin (Bld) [Mass/Vol] 14.4 g/dL 13.0-16.5 [facility] [place] Monocytes/100 WBC (Bld) 6.9 % 0-10 [facility] [place] Neutrophils (Bld) [#/Vol] 5.6 10*3/uL 2.0-7.7 [facility] [place] Neutrophils/100 WBC (Bld) 76.7 % 47-70 [facility] [place] Potassium [Moles/Vol] 4.5 mmol/L 3.5-5.1 [facility] Protein [Mass/Vol] 6.9 g/dL 6.4-8.2 [facility] Sodium [Moles/Vol] 138 mmol/L 136-145 [facility] WBC (Bld) [#/Vol] 7.3 10*3/uL 4.4-11.0 [facility] Determination of erythrocyte mean corpuscular volume (MCV)Ordered By: Selene Mason on 11-19-2023 MCV (RBC) [Entitic vol] 89.2 fL 80-94 [facility] [place] Erythrocyte distribution wid th ratioOrdered By: Selene Mason on 11-19-2023 Erythrocyte distribution width (RBC) [Ratio] 12.1 % 11.6-14.6 [facility] [place] Erythrocyte distribution wid th standard deviationOrdered By: Selene Mason on 11-19-2023 Erythrocyte distribution width (RBC) [Entitic vol] 39.4 fL 35.1-43.9 [facility] [place] Hematocrit Auto (Bld) [Volum e fraction]Ordered By: Selene Mason on 11-19-2023 Hematocrit (Bld) [Volume fraction] 43.1 % 40-54 [facility] [place] Immature granulocytes/100 WB C Auto (Bld)Ordered By: Selene Mason on 11-19-2023 Immature granulocytes/100 WBC (Bld) 0.400 % 0.0-0.9 [facility] [place] Comment on above: IG% - Immature Granu locytes (promyelocytes, myelocytes and metamyelocytes) > 1% indicates that a LEFT SHIFT is Present. Laboratory - Chemistry and C hemistry - challengeOrdered By: Selene Mason on 11-19-2023 Albumin/Globulin [Mass ratio] 1.1 {ratio} 0.9-2.4 [facility] [place] ALP [Catalytic activity/Vol] 89 U/L 45-117 [facility] [place] ALT [Catalytic activity/Vol] 38 U/L 16-61 [facility] [place] CO2 [Moles/Vol] 26.0 mmol/L 21.0-32.0 [facility] [place] Globulin (S) [Mass/Vol] 3.3 g/dL 2.2-4.2 [facility] [place] Urea nitrogen/Creatinine [Mass ratio] 21.4 mg/mg 10-20 [facility] [place] [facility] - Hematology and Cell countsOrdered By: Selene Mason on 11-19-2023 MCH (RBC) [Entitic mass] 29.8 pg 27.0-32.0 [facility] [place] MCHC (RBC) [Mass/Vol] 33.4 g/dL 32-36 [facility] Nucleated RBC/100 WBC (Bld) [Ratio] 0 % 0-5 [facility] [place] Platelet mean volume (Bld) [Entitic vol] 11.0 fL 6.2-12.0 [facility] [place] Platelets (Bld) [#/Vol] 207 10*3/uL 150-450 [facility] [place] No Panel InformationOrdered By: Selene Mason on 11-19-2023 Estimated GFR (MDRD) Amer 75 mL/min >60 [facility] [place] Comment on above: GFR Calc Estimated GFR (MDRD) Non-Af Amer 62 mL/min >60 [facility] [place] Comment on above: Non- GFR Calc RBC Auto (Bld) [#/Vol]Ordere d By: Selene Mason on 11-19-2023 RBC (Bld) [#/Vol] 4.83 10*6/uL 4.6-6.2 [facility] Serum or plasma calcium [place] urement (mass/volume)Ordered By: Selene Mason on 11-19-2023 Calcium [Mass/Vol] 9.4 mg/dL 8.5-10.1 [facility] Serum or plasma creatinine m easurement (mass/volume)Ordered By: Selene Mason on 11-19-2023 Creatinine [Mass/Vol] 1.26 mg/dL 0.70-1.30 [facility] Comment on above: The validity of the calculated GFR & GFRAA in patients over 70 years has not been determined. Clinical correlation is essential. Serum or plasma urea nitroge n measurement (mass/volume)Ordered By: Selene Mason on 11-19-2023 Urea nitrogen [Mass/Vol] 27 mg/dL 7-18 [facility] [place] Thin prep Papanicolaou smear with manual screeningOrdered By: Selene Mason on 11-19-2023 Thin prep Papanicolaou smear with manual screening 3.6 g/dL 3.2-5.0 [facility] [place] Thin prep Papanicolaou smear with manual screening 23 U/L 15-37 [facility] [place] Thin prep Papanicolaou smear with manual screening 5 5-15 [facility] [place] Basophil percentageOrdered B y: Harpreet Lee on 11-08-2023 Chloride [Moles/Vol] 107 mmol/L 98-107 [facility] Cholesterol [Mass/Vol] 172 mg/dL <200 [facility] [place] Comment on above: <200 mg/dL Desirable 200-240 mg/dL Borderline >240 mg/dL High Risk Glucose [Mass/Vol] 104 mg/dL 74-106 [facility] Comment on above: Fasting Glucose resu lt from 100 to 125 mg/dL suggests IMPAIRED HOMEOSTASIS per A.D.A. criteria. Potassium [Moles/Vol] 4.3 mmol/L 3.5-5.1 [facility] Sodium [Moles/Vol] 138 mmol/L 136-145 [facility] Triglyceride [Mass/Vol] 65 mg/dL <199 [facility] [place] Comment on above: The drugs N-Acetylcy steine and Metamizole may falsely depress this assay.Serum Triglycerides Reference Interval Normal <150 mg/dL Borderline high 150 - 199 mg/dL High 200 - 499 mg/dL Very High > or = 500 mg/dL Laboratory - Chemistry and C hemistry - challengeOrdered By: Harpreet Lee on 11-08-2023 Cholesterol in HDL [Mass/Vol] 51 mg/dL >40 [facility] [place] Comment on above: The drugs N-Acetylcy steine and Metamizole may falsely depress this assay. Reference Range HDL <40 mg/dL Low HDL Cholesterol HDL >or= 60 mg/dL High HDL Cholesterol Cholesterol in LDL [Mass/Vol] 108 mg/dL 0-130 [facility] [place] CO2 [Moles/Vol] 24.0 mmol/L 21.0-32.0 [facility] [place] Urea nitrogen/Creatinine [Mass ratio] 19.2 mg/mg 10-20 [facility] [place] No Panel InformationOrdered By: Harpreet Lee on 11-08-2023 Estimated GFR (MDRD) Amer 79 mL/min >60 [facility] [place] Comment on above: GFR Calc Estimated GFR (MDRD) Non-Af Amer 65 mL/min >60 [facility] [place] Comment on above: Non- GFR Calc VLDL Cholesterol 13 mg/dL 5-40 [facility] [place] Serum or plasma calcium [place] urement (mass/volume)Ordered By: Harpreet Lee on 11-08-2023 Calcium [Mass/Vol] 9.2 mg/dL 8.5-10.1 [facility] Serum or plasma creatinine m easurement (mass/volume)Ordered By: Harpreet eLe on 11-08-2023 Creatinine [Mass/Vol] 1.20 mg/dL 0.70-1.30 [facility] Comment on above: The validity of the calculated GFR & GFRAA in patients over 70 years has not been determined. Clinical correlation is essential. Serum or plasma urea nitroge n measurement (mass/volume)Ordered By: Harpreet Lee on 11-08-2023 Urea nitrogen [Mass/Vol] 23 mg/dL 7-18 [facility] [place] Thin prep Papanicolaou smear with manual screeningOrdered By: Harpreet Lee on 11-08-2023 Thin prep Papanicolaou smear with manual screening 7 5-15 [facility] [place] Basophil percentageOrdered B y: Harpreet Lee on 10-28-2023 Basophil percentage 0 SEEN /hpf 0-5 [facility] Bilirubin Test strip Ql (U)O rdered By: Harpreet Lee on 10-28-2023 Bilirubin Ql (U) Negative Negative [facility] Ketones Test strip Ql (U)Ord ered By: Harpreet Lee on 10-28-2023 Ketones Ql (U) Negative Negative [facility] [place] Mucus LM Ql (Urine sed)Order ed By: Harpreet Lee on 10-28-2023 Mucus Ql (Urine sed) 0 SEEN /hpf [facility] Neisseria gonorrhoeae genita l PCROrdered By: Harpreet Lee on 10-28-2023 N. gonorrhoeae DNA ABBE+probe Ql (Genital specimen) [facility] [place] Nitrite Test strip Ql (U)Ord ered By: Harpreet Lee on 10-28-2023 Nitrite Ql (U) Negative Negative [facility] [place] No Panel InformationOrdered By: Harpreet Lee on 10-28-2023 Chlamydia trachomatis (PCR) [facility] [place] Herpes Simplex Virus I IgG Antibody 20.30 index 0.00-0.90 [facility] [place] Comment on above: Negative <0.91 Equiv ocal 0.91 - 1.09 Positive >1.09 Note: Negative indicates no antibodies detected to HSV-1. Equivocal may suggest early infection. If clinically appropriate, retest at later date. Positive indicates antibodies detected to HSV-1. HIV-1 RNA Ultraquantitative (PCR) < 20 copies/mL . [facility] [place] Comment on above: HIV-1 RNA not detect edThe reportable range for this assay is 20 to 10,000,000copies HIV-1 RNA/mL. Urine RBC 0 SEEN /hpf 0-5 [facility] [place] Plasma HIV 1 RNA viral load by probe and target amplification method (log number/voluOrdered By: Harpreet Lee on 10-28-2023 HIV 1 RNA ABBE+probe [Log #/Vol] TNP [facility] [place] Comment on above: Test not performedRe sult Units: [id number] to calculate result since non-numeric resultobtained for component test.Performed at: [employer] [id number] Director: Dedra Sher MD, Phone: [phone] Protein Test strip Ql (U)Ord ered By: Harpreet Lee on 10-28-2023 Protein Ql (U) Negative Negative [facility] Serum Treponema species anti body detectionOrdered By: Harpreet Lee on 10-28-2023 Treponema sp Ab Ql (S) Non-Reactive [facility] [place] Serum herpes simplex virus 2 antibody assay by immunoassay (units/volume)Ordered By: Harpreet Lee on 10-28-2023 HSV 2 Ab IA Qn (S) < 0.91 index 0.00-0.90 [facility] Comment on above: Negative <0.91 Equiv ocal 0.91 - 1.09 Positive >1.09 HSV-2 Antibody Interpretation: Current guidelines and recommendations do not recommend routine screening for HSV-2 in asymptomatic individuals, including those that are . A negative antibody result indicates no detectable antibodies to HSV-2 were found. If recent exposure is suspected, retest in 4 to 6 weeks. Equivocal samples should be retested in 4 to 6 weeks. A positive result indicates the presence of detectable IgG antibody to HSV-2. FALSE POSITIVE RESULTS MAY OCCUR. Repeat testing, or testing by a different method, may be indicated in some settings (e.g. patients with low likelihood of HSV infection). If clinically appropriate, retest 4 to 6 weeks later. HSV-2 IgG antibody testing results should be clinically correlated.Performed at: [employer] [id number] [place], [place] [id number] Director: Blayne Wilkes PhD, Phone: [phone] Squamous epithelial cells de tection in urine sediment by light microscopyOrdered By: Harpreet Lee on 10-28-2023 Epithelial cells.squamous LM Ql (Urine sed) 0 SEEN /hpf 0-5 [facility] [place] Urine blood detectionOrdered By: Harpreet Lee on 10-28-2023 RBC Ql (U) 10 /ul Negative [facility] [place] Urine clarityOrdered By: Lisa Lee on 10-28-2023 Clarity (U) Clear Clear [facility] [place] Urine color determinationOrd ered By: Harpreet Lee on 10-28-2023 Color (U) Yellow Yellow [facility] [place] Urine glucose detectionOrder ed By: Harpreet Lee on 10-28-2023 Glucose Ql (U) Normal mg/dl Normal [facility] [place] Urine leukocyte esterase det ection by dipstickOrdered By: Harpreet Lee on 10-28-2023 Leukocyte esterase Test strip Ql (U) Negative Negative [facility] [place] Urine pHOrdered By: Harpreet callahan on 10-28-2023 pH (U) 6.0 [pH] 5.0 - 8.0 [facility] [place] Urine sediment bacteria coun t by microscopy (number/high power field)Ordered By: Harpreet Lee on 10-28-2023 Bacteria LM.HPF (Urine sed) [#/Area] 0 /[HPF] None Seen [facility] [place] Urine specific gravity measu rementOrdered By: Harpreet Lee on 10-28-2023 Specific gravity (U) [Rel density] 1.015 1.002-1.030 [facility] [place] Urine urobilinogen measureme ntOrdered By: Harpreet Lee on 10-28-2023 Urobilinogen Ql (U) Normal mg/dl Normal [facility] Absolute lymphocyte countOrd ered By: Luba Campbell on 08-14-2023 Lymphocytes Auto (Unsp spec) [#/Vol] 1.10 10*3/uL 0.83-4.51 [facility] Basophil percentageOrdered B y: Luba Campbell on 08-14-2023 Basophil percentage 0 SEEN /hpf 0-5 [facility] Basophils/100 WBC (Bld) 1.2 % 0-1 [facility] [place] Chloride [Moles/Vol] 110 mmol/L 98-107 [facility] Eosinophils/100 WBC (Bld) 3.7 % 0-5 [facility] Glucose [Mass/Vol] 99 mg/dL 74-106 [facility] Neutrophils (Bld) [#/Vol] 4.7 10*3/uL 2.0-7.7 [facility] [place] Neutrophils/100 WBC (Bld) 69.2 % 47-70 [facility] [place] Potassium [Moles/Vol] 3.9 mmol/L 3.5-5.1 [facility] Sodium [Moles/Vol] 140 mmol/L 136-145 [facility] WBC (Bld) [#/Vol] 6.8 10*3/uL 4.4-11.0 [facility] Bilirubin Test strip Ql (U)O rdered By: Luba Campbell on 08-14-2023 Bilirubin Ql (U) Negative Negative [facility] [place] Blood erythrocytes count (nu mber/volume)Ordered By: Luba Campbell on 08-14-2023 RBC (Bld) [#/Vol] 4.36 10*6/uL 4.6-6.2 [facility] Blood hemoglobin measurement (mass/volume)Ordered By: Luba Campbell on 08-14-2023 Hemoglobin (Bld) [Mass/Vol] 13.5 g/dL 13.0-16.5 [facility] Blood lymphocytes/100 leukoc ytesOrdered By: Luba Campbell on 08-14-2023 Lymphocytes/100 WBC (Bld) 16.1 % 19-41 [facility] [place] Blood monocytes/100 leukocyt esOrdered By: Luba Campbell on 08-14-2023 Monocytes/100 WBC (Bld) 9.5 % 0-10 [facility] [place] Blood platelet mean volumeOr dered By: Luba Campbell on 08-14-2023 Platelet mean volume (Bld) [Entitic vol] 10.7 fL 6.2-12.0 [facility] [place] Determination of erythrocyte mean corpuscular volume (MCV)Ordered By: Luba Campbell on 08-14-2023 MCV (RBC) [Entitic vol] 92.2 fL 80-94 [facility] [place] Hematocrit Auto (Bld) [Volum e fraction]Ordered By: Luba Campbell on 08-14-2023 Hematocrit (Bld) [Volume fraction] 40.2 % 40-54 [facility] Ketones Test strip Ql (U)Ord ered By: Luba Campbell on 08-14-2023 Ketones Ql (U) Negative Negative [facility] [place] Laboratory - Chemistry and C hemistry - challengeOrdered By: Luba Campbell on 08-14-2023 CO2 [Moles/Vol] 27.0 mmol/L 21.0-32.0 [facility] Urea nitrogen/Creatinine [Mass ratio] 17.4 mg/mg 10-20 [facility] [place] Laboratory - Hematology and Cell countsOrdered By: Luba Campbell on 08-14-2023 Erythrocyte distribution width (RBC) [Entitic vol] 40.5 fL 35.1-43.9 [facility] [place] Erythrocyte distribution width (RBC) [Ratio] 11.9 % 11.6-14.6 [facility] [place] Immature granulocytes/100 WBC (Bld) 0.300 % 0.0-0.9 [facility] [place] Comment on above: IG% - Immature Granu locytes (promyelocytes, myelocytes and metamyelocytes) > 1% indicates that a LEFT SHIFT is Present. MCH (RBC) [Entitic mass] 31.0 pg 27.0-32.0 [facility] Nucleated RBC/100 WBC (Bld) [Ratio] 0 % 0-5 [facility] MCHC Auto (RBC) [Mass/Vol]Or dered By: Luba Campbell on 08-14-2023 MCHC (RBC) [Mass/Vol] 33.6 g/dL 32-36 [facility] Mucus LM Ql (Urine sed)Order ed By: Luba Campbell on 08-14-2023 Mucus Ql (Urine sed) 0 SEEN /hpf [facility] Nitrite Test strip Ql (U)Ord ered By: Luba Campbell on 08-14-2023 Nitrite Ql (U) Negative Negative [facility] No Panel InformationOrdered By: Luba Campbell on 08-14-2023 Estimated Creatinine Clearance Calc 52.78 ml/min [facility] Estimated GFR (MDRD) Amer 64 mL/min >60 [facility] [place] Comment on above: GFR Calc Estimated GFR (MDRD) Non-Af Amer 53 mL/min >60 [facility] Comment on above: Non- GFR Calc Platelets bldOrdered By: Shirley Campbell on 08-14-2023 Platelets (Bld) [#/Vol] 156 10*3/uL 150-450 [facility] Protein Test strip Ql (U)Ord ered By: Luba Campbell on 08-14-2023 Protein Ql (U) Negative Negative [facility] Serum or plasma calcium [place] urement (mass/volume)Ordered By: Luba Campbell on 08-14-2023 Calcium [Mass/Vol] 9.0 mg/dL 8.5-10.1 [facility] Serum or plasma creatinine m easurement (mass/volume)Ordered By: Luba Campbell on 08-14-2023 Creatinine [Mass/Vol] 1.44 mg/dL 0.70-1.30 [facility] Comment on above: The validity of the calculated GFR & GFRAA in patients over 70 years has not been determined. Clinical correlation is essential. Serum or plasma urea nitroge n measurement (mass/volume)Ordered By: Luba Campbell on 08-14-2023 Urea nitrogen [Mass/Vol] 25 mg/dL 7-18 [facility] Squamous epithelial cells de tection in urine sediment by light microscopyOrdered By: Luba Campbell on 08-14-2023 Epithelial cells.squamous LM Ql (Urine sed) 0 SEEN /hpf 0-5 [facility] Thin prep Papanicolaou smear with manual screeningOrdered By: Luba Campbell on 08-14-2023 Thin prep Papanicolaou smear with manual screening 3 5-15 [facility] Urine blood detectionOrdered By: Luba Campbell on 08-14-2023 RBC Ql (U) 250 /ul Negative [facility] RBC Ql (U) 10-25 SEEN /hpf 0-5 [facility] Urine clarityOrdered By: Shirley Campbell on 08-14-2023 Clarity (U) Sl. Cloudy Clear [facility] Urine color determinationOrd ered By: Luba Campbell on 08-14-2023 Color (U) Yellow Yellow [facility] Urine glucose detectionOrder ed By: Lubamisa Campbell on 08-14-2023 Glucose Ql (U) Normal mg/dl Normal [facility] Urine leukocyte esterase det ection by dipstickOrdered By: Lubamisa Campbell on 08-14-2023 Leukocyte esterase Test strip Ql (U) Negative Negative [facility] Urine pHOrdered By: Luba serrano on 08-14-2023 pH (U) 7.0 [pH] 5.0 - 8.0 [facility] Urine sediment bacteria coun t by microscopy (number/high power field)Ordered By: Luba Campbell on 08-14-2023 Bacteria LM.HPF (Urine sed) [#/Area] 0 /[HPF] None Seen [facility] Urine specific gravity measu rementOrdered By: Luba Campbell on 08-14-2023 Specific gravity (U) [Rel density] 1.010 1.002-1.030 [facility] [place] Urobilinogen Auto test strip Ql (U)Ordered By: Luba Campbell on 08-14-2023 Urobilinogen Ql (U) Normal mg/dl Normal [facility] No Panel InformationOrdered By: Dipak Chavez on 08-09-2023 Prostate Specific Antigen Screen 0.54 ng/mL 0.00-4.00 [facility] Comment on above: This test was perfor med using the TPSA assay method for theDimedstar national rehabilitation hospitalsion chemistry system. Values obtained with differentassay methods cannot be used interchangably.When changing PSA assays in the course of monitoring apatient, additional sequential testing should be carriedout to confirm baseline values. Absolute lymphocyte countOrd ered By: Selene Mason on 08-08-2023 Lymphocytes Auto (Unsp spec) [#/Vol] 1.16 10*3/uL 0.83-4.51 [facility] Basophil percentageOrdered B y: Selene Mason on 08-08-2023 Basophils/100 WBC (Bld) 1.4 % 0-1 [facility] Bilirubin [Mass/Vol] 0.30 mg/dL 0.20-1.00 [facility] Comment on above: For patients on eltr ombopag therapy, use of Dimension [place] TBIL is not recommended. Chloride [Moles/Vol] 109 mmol/L 98-107 [facility] Eosinophils/100 WBC (Bld) 4.5 % 0-5 [facility] Glucose [Mass/Vol] 109 mg/dL 74-106 [facility] Comment on above: Fasting Glucose resu lt from 100 to 125 mg/dL suggests IMPAIRED HOMEOSTASIS per A.D.A. criteria. Neutrophils (Bld) [#/Vol] 5.0 10*3/uL 2.0-7.7 [facility] Neutrophils/100 WBC (Bld) 69.3 % 47-70 [facility] Potassium [Moles/Vol] 4.0 mmol/L 3.5-5.1 [facility] Protein [Mass/Vol] 7.0 g/dL 6.4-8.2 [facility] Sodium [Moles/Vol] 139 mmol/L 136-145 [facility] WBC (Bld) [#/Vol] 7.3 10*3/uL 4.4-11.0 [facility] Blood erythrocytes count (nu mber/volume)Ordered By: Selene Mason on 08-08-2023 RBC (Bld) [#/Vol] 4.89 10*6/uL 4.6-6.2 [facility] Blood hemoglobin measurement (mass/volume)Ordered By: Selene Mason on 08-08-2023 Hemoglobin (Bld) [Mass/Vol] 14.9 g/dL 13.0-16.5 [facility] Blood lymphocytes/100 leukoc ytesOrdered By: Selene Mason on 08-08-2023 Lymphocytes/100 WBC (Bld) 16.0 % 19-41 [facility] Blood monocytes/100 leukocyt esOrdered By: Selene Mason on 08-08-2023 Monocytes/100 WBC (Bld) 8.5 % 0-10 [facility] Blood platelet mean volumeOr dered By: Selene Mason on 08-08-2023 Platelet mean volume (Bld) [Entitic vol] 11.8 fL 6.2-12.0 [facility] Determination of erythrocyte mean corpuscular volume (MCV)Ordered By: Selene Mason on 08-08-2023 MCV (RBC) [Entitic vol] 91.6 fL 80-94 [facility] Erythrocyte sedimentation ra teOrdered By: Selene Mason on 08-08-2023 ESR (Bld) [Velocity] 8 mm/h 0-20 [facility] Hematocrit Auto (Bld) [Volum e fraction]Ordered By: Selenelondon Mason on 08-08-2023 Hematocrit (Bld) [Volume fraction] 44.8 % 40-54 [facility] Laboratory - Chemistry and C hemistry - challengeOrdered By: Selenelondon Mason on 08-08-2023 ALP [Catalytic activity/Vol] 102 U/L 45-117 [facility] ALT [Catalytic activity/Vol] 50 U/L 16-61 [facility] CO2 [Moles/Vol] 24.0 mmol/L 21.0-32.0 [facility] Globulin (S) [Mass/Vol] 3.4 g/dL 2.2-4.2 [facility] Urea nitrogen/Creatinine [Mass ratio] 25.9 mg/mg 10-20 [facility] Laboratory - Hematology and Cell countsOrdered By: [facility] Marlon on 08-08-2023 Erythrocyte distribution width (RBC) [Entitic vol] 40.3 fL 35.1-43.9 [facility] Erythrocyte distribution width (RBC) [Ratio] 12.0 % 11.6-14.6 [facility] Immature granulocytes/100 WBC (Bld) 0.300 % 0.0-0.9 [facility] Comment on above: IG% - Immature Granu locytes (promyelocytes, myelocytes and metamyelocytes) > 1% indicates that a LEFT SHIFT is Present. MCH (RBC) [Entitic mass] 30.5 pg 27.0-32.0 [facility] Nucleated RBC/100 WBC (Bld) [Ratio] 0 % 0-5 [facility] MCHC Auto (RBC) [Mass/Vol]Or dered By: Selene Mason on 08-08-2023 MCHC (RBC) [Mass/Vol] 33.3 g/dL 32-36 [facility] No Panel InformationOrdered By: Selene Mason on 08-08-2023 Estimated GFR (MDRD) Amer 86 mL/min >60 [facility] Comment on above: GFR Calc Estimated GFR (MDRD) Non-Af Amer 71 mL/min >60 [facility] Comment on above: Non- GFR Calc Hepatitis B Surface Antigen Non-Reactive Nonreactive [facility] Hepatitis C Antibody Non-Reactive Nonreactive [facility] Comment on above: Non Reactive: < 0.8 Equivocal: >/= 0.8 to < 1.0 Reactive: >/= 1.0The CDC recommends that a reactive/equivocal HCV antibody result be followed up by the HCV Nucleic Acid Amplificationtest (251254) Platelets bldOrdered By: Timoteo Mason on 08-08-2023 Platelets (Bld) [#/Vol] 179 10*3/uL 150-450 [facility] Serum cyclic citrullinated p eptide IgG antibody assay (units/volume)Ordered By: Selene Mason on 08-08-2023 Cyclic citrullinated peptide IgG Qn 1 units 0-19 [facility] Comment on above: Negative <20 Weak po sitive 20 - 39 Moderate positive 40 - 59 Strong positive >59Performed at: [facility] [place] [id number] Director: Blayne Wilkes PhD, Phone: [phone] Serum hepatitis B virus surf cinthya antibody IgG detectionOrdered By: Selene Mason on 08-08-2023 HBV surface IgG Ql (S) Non-Reactive [facility] Comment on above: Non Reactive: Incons istent with immunity less than <10 mIU/mL Reactive: Consistent with immunity greater than or equal to 10 mIU/mL Serum or plasma C reactive p rotein measurement (mass/volume)Ordered By: Selene Mason on 08-08-2023 CRP [Mass/Vol] mg/L 0.0-3.0 [facility] Comment on above: C-Reactive Protein ( CRP) provides useful information for thediagnosis, therapy and monitoring of inflammatory processesand associated diseases. For the evaluation of Relative Riskfor Cardiovascular Disease, a High Sensitivity CRP (HSCRP)should be ordered. Serum or plasma albumin [place] urement (mass/volume)Ordered By: Selene Mason on 08-08-2023 Albumin [Mass/Vol] 3.6 g/dL 3.2-5.0 [facility] Serum or plasma albumin/glob ulin mass ratioOrdered By: Selene Mason on 08-08-2023 Albumin/Globulin [Mass ratio] 1.1 {ratio} 0.9-2.4 [facility] Serum or plasma calcium [place] urement (mass/volume)Ordered By: Selene Mason on 08-08-2023 Calcium [Mass/Vol] 8.3 mg/dL 8.5-10.1 [facility] Serum or plasma creatinine m easurement (mass/volume)Ordered By: Selene Mason on 08-08-2023 Creatinine [Mass/Vol] 1.12 mg/dL 0.70-1.30 [facility] Comment on above: The validity of the calculated GFR & GFRAA in patients over 70 years has not been determined. Clinical correlation is essential. Serum or plasma urea nitroge n measurement (mass/volume)Ordered By: Selene Mason on 08-08-2023 Urea nitrogen [Mass/Vol] 29 mg/dL 7-18 [facility] Serum rheumatoid factor dete ctionOrdered By: Selene Mason on 08-08-2023 Rheumatoid factor Ql (S) < 10.0 IU/mL <15 [facility] Thin prep Papanicolaou smear with manual screeningOrdered By: Selene Mason on 08-08-2023 Thin prep Papanicolaou smear with manual screening 23 U/L 15-37 [facility] Thin prep Papanicolaou smear with manual screening 6 5-15 [facility] ED Provider Noteson 12-21-19 ED Provider Notes Encounter Department : [facility] ED Provider Notes by Addison Mcgraw DO at 12/20/2022 3:54 PM Author: Sujatha Wellerrvice: Emergency MedicineAuthor Type: ED Physician Filed: 12/20/2022 6:01 PMDate of Service: 12/20/2022 3:54 PMStatus: Signed Sueding Machine Tender: Addison Mcgraw DO (ED Physician) I saw and evaluated the patient and have provided the substantive portion of the assessment, direction of care and disposition. I have discussed with the [employer] and agree with the findings and plan. FINAL IMPRESSION(S) ICD-10-CM 1.Right leg pain M79.604 DISPOSITION PLAN -Home with follow-up instructions DISCHARGE MEDICATION(S) / CHANGES TO HOME MEDICATIONS New Prescriptions METHOCARBAMOL (ROBAXIN) 500 MG TABLET Take 1 tablet (500 mg total) by mouth in the morning and 1 tablet (500 mg total) at noon and 1 tablet (500 mg total) in the evening. Do all this for 4 days. CHIEF COMPLAINT Chief Complaint Patient presents with -Leg Pain TRIAGE NOTE: Susie Sales RN 12/20/2022 3:27 PM Signed Right leg pain for 3 weeks. Concerned for DVT. Recent back surgery. HPI Patient presented with right-sided lower leg pain. Patient had a lumbar 5 through sacral 1 fusion about 3 weeks or so ago. Patient states that he did have some pretty significant right lower leg pain during and right after the surgical visit however states it has been improving today seems to be getting worse. Patient sent in by regular physician for potential DVT. Patient has been using compression stockings. Denies any specific blood thinners. [facility]ZARRO PORTIONS OF PHYSICAL EXAM ED Triage Vitals [12/20/22 1529] BP(!) 135/91 Temp98.3 ?F (36.8 ?C) Pulse86 Resp16 PnC719 % Jydteb001 lb (90.3 kg) [place] Coma Scale Score BMI (Calculated)30.3 Extremity: Patient with some mild anterior and posterior calf pain of the right lower extremity good DP and PT pulses no overlying redness warmth erythema of the skin no signs of cellulitis RADIOLOGY The radiologist interpretation: Results for orders placed or performed during the hospital encounter of 12/20/22 [place] [id number] Narrative EXAMINATION: [place] [id number] DATE OF EXAM: 12/20/2022 5:53 PM DEMOGRAPHICS: 62 years old Male INDICATION: right lower leg pain Reason for Exam: right lower leg pain. COMPARISON: No existing relevant imaging study corresponding to the same anatomical region is available. TECHNIQUE: Grayscale, color Doppler, and spectral Doppler sonographic evaluation of the right lower extremity venous vasculature was performed. FINDINGS: COMMON FEMORAL VEIN: Patent with normal flow and compression FEMORAL VEIN: Patent with normal flow and compression POPLITEAL VEIN: Patent with normal flow and compression POSTERIOR TIBIAL VEIN: Patent with normal flow and compression PERONEAL VEIN: Patent with normal flow and compression Normal augmentation where possible. Impression 1. Negative for deep vein thrombosis in the right lower extremity. This dictation was created with voice recognition software. While attempts have been made to review the dictation as it is transcribed, on occasion the spoken word can be misinterpreted by the technology leading to omissions or inappropriate words, phrases or sentences. Electronically Signed by: Juan Pablo Walker MD, 12/20/2022 5:55 PM DIFFERENTIAL DIAGNOSIS / MEDICAL DECISION MAKING No evidence of acute DVT discussed continue symptomatic management follow-up instructions return precautions given. Patient does understand and agree with the plan. Discussed symptomatic treatment including side effects medication. Discussed occult DVT and need for reevaluation if no improvement over the next week. ED COURSE Repeat Vitals: BP: 135/91 (12/20 1529) Temp: 98.3 ?F (36.8 ?C) (12/20 1529) Pulse: 86 (12/20 1529) Resp: 16 (12/20 1529) SpO2: 95 % (12/20 1529) FiO2 (%): -- O2 Flow Rate (L/min): -- Cardiac (WDL): Within Defined Limits (12/20 1759) Cardiac Rhythm: -- Medications - No data to display Electronically signed by: Addison Mcgraw DO, 12/20/2022 Addison Mcgraw DO 12/20/22 1801 Normal [facility] ED Provider Notes Encounter Department : [facility] ED Provider Notes by KAL Chery at 12/20/2022 3:33 PM Author: KAL CheryService: Emergency MedicineAuthor Type: Nurse Practitioner Filed: 12/20/2022 10:39 PMDate of Service: 12/20/2022 3:33 PMStatus: Signed Sueding Machine Tender: KAL Chery (Nurse Practitioner)Cosigner: Addison Mcgraw DO at 12/21/2022 6:20 AM FINAL IMPRESSION(S) ICD-10-CM 1.Right leg pain M79.604 DISPOSITION PLAN Discharge home DISCHARGE MEDICATION(S) / CHANGES TO HOME MEDICATIONS Discharge Medication List as of 12/20/2022 6:03 PM START taking these medications Details methocarbamoL (ROBAXIN) 500 mg tabletTake 1 tablet (500 mg total) by mouth in the morning and 1 tablet (500 mg total) at noon and 1 tablet (500 mg total) in the evening. Do all this for 4 days.Disp-12 tablet, R-0, Normal CHIEF COMPLAINT Chief Complaint Patient presents with -Leg Pain TRIAGE NOTE: Susie Sales RN 12/20/2022 3:27 PM Signed Right leg pain for 3 weeks. Concerned for DVT. Recent back surgery. HPI Genet Costa is a 62 y.o. male in bed ED who presents to the ED with complaints of right lower leg pain. Patient states approximately 3 weeks ago he had an L5 and S1 fusion done in [facility]. Patient states that his 2 night stay turned into a 4 night stay as he was having a lot of pain and numbness down his right leg. Patient states approximately 2 days ago he started having a burning sensation behind his right knee. Patient rates his pain a 2/10 and constant. Patient describes the pain as a twisting sensation patient has taken his prescribed pain medication and use compression stockings with minimal relief. Patient states he did call the nurse line and was told to come to the emergency department for a DVT rule out. There is no obvious deformity or open wounds. Patient states he does have history of A-fib which he had a ablation for. Patient states he used to take blood thinners but does not take them any longer. Patient denies any recent injury. Patient denies any chest pain or shortness of breath. Patient denies any abdominal pain or urinary complaints. Patient denies any nausea, vomiting or diarrhea. Patient denies any fever or chills. Patient is alert and oriented x3 Additional history and source includes self PERTINENT REVIEW OF SYSTEMS Review of Systems Constitutional: Negative for chills, fatigue and fever. HENT: Negative for congestion, ear pain, sinus pain and sore throat. Respiratory: Negative for cough, chest tightness and shortness of breath. Cardiovascular: Negative for chest pain, palpitations and leg swelling. Gastrointestinal: Negative for abdominal pain, constipation, diarrhea, nausea and vomiting. Genitourinary: Negative for dysuria, flank pain, frequency and hematuria. Musculoskeletal: Positive for arthralgias (Right lower leg pain). Negative for back pain, myalgias and neck pain. Skin: Negative. Neurological: Negative for dizziness, seizures, syncope, weakness, light-headedness, numbness and headaches. Hematological: Negative. Psychiatric/Behavioral: Negative. PAST MEDICAL HISTORY / FAMILY HISTORY No past medical history on file. No family history on file. Above past medical conditions reviewed and verified by me. SOCIAL HISTORY Social History Socioeconomic History -Marital status: Above social elements reviewed and verified by me. SURGICAL HISTORY No past surgical history on file. CURRENT MEDICATIONS Outpatient Medications Marked as Taking for the 12/20/22 encounter (Hospital Encounter) MedicationSigDispenseRefill -methocarbamoL (ROBAXIN) 500 mg tabletTake 1 tablet (500 mg total) by mouth in the morning and 1 tablet (500 mg total) at noon and 1 tablet (500 mg total) in the evening. Do all this for 4 days.12 tablet0 ALLERGIES No Known Allergies PERTINENT PHYSICAL EXAM VITAL SIGNS: ED Triage Vitals [12/20/22 1529] BP(Abnormal) 135/91 Temp98.3 ?F (36.8 ?C) Pulse86 Resp16 TsR182 % Eqqsmp750 lb (90.3 kg) [place] Coma Scale Score BMI (Calculated)30.3 Physical Exam Vitals reviewed. HENT: Head: Normocephalic. Nose: Nose normal. Mouth/Throat: Mouth: Mucous membranes are moist. Pharynx: Oropharynx is clear. Eyes: Extraocular Movements: Extraocular movements intact. Conjunctiva/sclera: Conjunctivae normal. Pupils: Pupils are equal, round, and reactive to light. Cardiovascular: Rate and Rhythm: Normal rate. Pulses: Normal pulses. Heart sounds: Normal heart sounds. Pulmonary: Effort: Pulmonary effort is normal. Breath sounds: Normal breath sounds. Abdominal: General: Bowel sounds are normal. Palpations: Abdomen is soft. Musculoskeletal: Cervical back: Normal range of motion. Right lower leg: Tenderness present. 1+ Edema present. Left lower leg: Edema prese (more content not included)... Normal [facility] VAS-DUP VEIN LOWER DVT RT [id number] [id number] 12-20-2022 [place] [id number] A result will not be generated for this exam. EXAMINATION: [place] [id number] DATE OF EXAM: 12/20/2022 5:53 PM DEMOGRAPHICS: 62 years old Male INDICATION: right lower leg pain Reason for Exam: right lower leg pain. COMPARISON: No existing relevant imaging study corresponding to the same anatomical region is available. TECHNIQUE: Grayscale, color Doppler, and spectral Doppler sonographic evaluation of the right lower extremity venous vasculature was performed. FINDINGS: COMMON FEMORAL VEIN: Patent with normal flow and compression FEMORAL VEIN: Patent with normal flow and compression POPLITEAL VEIN: Patent with normal flow and compression POSTERIOR TIBIAL VEIN: Patent with normal flow and compression PERONEAL VEIN: Patent with normal flow and compression Normal augmentation where possible. IMPRESSION: IMPRESSION: 1. Negative for deep vein thrombosis in the right lower extremity. This dictation was created with voice recognition software. While attempts have been made to review the dictation as it is transcribed, on occasion the spoken word can be misinterpreted by the technology leading to omissions or inappropriate words, phrases or sentences. Electronically Signed by: Juan Pablo Walker MD, 12/20/2022 5:55 PM Normal [facility] Absolute lymphocyte countOrd ered By: Dr. Lee on 08-29-2022 Lymphocytes Auto (Unsp spec) [#/Vol] 1.21 10*3/uL 0.83-4.51 [facility] Basophil percentageOrdered B y: Dr. Lee on 08-29-2022 Basophils/100 WBC (Bld) 0.9 % 0-1 [facility] Chloride [Moles/Vol] 106 mmol/L 98-107 [facility] Eosinophils/100 WBC (Bld) 2.1 % 0-5 [facility] Glucose [Mass/Vol] 95 mg/dL 74-106 [facility] Neutrophils (Bld) [#/Vol] 5.3 10*3/uL 2.0-7.7 [facility] Neutrophils/100 WBC (Bld) 71.4 % 47-70 [facility] Potassium [Moles/Vol] 4.2 mmol/L 3.5-5.1 [facility] Sodium [Moles/Vol] 142 mmol/L 136-145 [facility] WBC (Bld) [#/Vol] 7.5 10*3/uL 4.4-11.0 [facility] Blood erythrocytes count (nu mber/volume)Ordered By: Dr. Lee on 08-29-2022 RBC (Bld) [#/Vol] 4.75 10*6/uL 4.6-6.2 [facility] Blood hemoglobin measurement (mass/volume)Ordered By: Dr. Lee on 08-29-2022 Hemoglobin (Bld) [Mass/Vol] 14.4 g/dL 13.0-16.5 [facility] Blood lymphocytes/100 leukoc ytesOrdered By: Dr. Lee on 08-29-2022 Lymphocytes/100 WBC (Bld) 16.2 % 19-41 [facility] Blood monocytes/100 leukocyt esOrdered By: Dr. Lee on 08-29-2022 Monocytes/100 WBC (Bld) 9.0 % 0-10 [facility] Blood platelet mean volumeOr dered By: Dr. Lee on 08-29-2022 Platelet mean volume (Bld) [Entitic vol] 10.6 fL 6.2-12.0 [facility] Determination of erythrocyte mean corpuscular volume (MCV)Ordered By: Dr. Lee on 08-29-2022 MCV (RBC) [Entitic vol] 92.4 fL 80-94 [facility] Hematocrit Auto (Bld) [Volum e fraction]Ordered By: Dr. Lee on 08-29-2022 Hematocrit (Bld) [Volume fraction] 43.9 % 40-54 [facility] Laboratory - Chemistry and C hemistry - challengeOrdered By: Dr. Lee on 08-29-2022 CO2 [Moles/Vol] 28.0 mmol/L 21.0-32.0 [facility] Urea nitrogen/Creatinine [Mass ratio] 24.3 mg/mg 10-20 [facility] Laboratory - Hematology and Cell countsOrdered By: Dr. Lee on 08-29-2022 Erythrocyte distribution width (RBC) [Entitic vol] 42.6 fL 35.1-43.9 [facility] Erythrocyte distribution width (RBC) [Ratio] 12.4 % 11.6-14.6 [facility] Immature granulocytes/100 WBC (Bld) 0.400 % 0.0-0.9 [facility] Comment on above: IG% - Immature Granu locytes (promyelocytes, myelocytes and metamyelocytes) > 1% indicates that a LEFT SHIFT is Present. MCH (RBC) [Entitic mass] 30.3 pg 27.0-32.0 [facility] Nucleated RBC/100 WBC (Bld) [Ratio] 0 % 0-5 [facility] MCHC Auto (RBC) [Mass/Vol]Or dered By: Dr. Lee on 08-29-2022 MCHC (RBC) [Mass/Vol] 32.8 g/dL 32-36 [facility] No Panel InformationOrdered By: Dr. Lee on 08-29-2022 Estimated GFR (MDRD) Amer 84 mL/min >60 [facility] Comment on above: GFR Calc Estimated GFR (MDRD) Non-Af Amer 69 mL/min >60 [facility] Comment on above: Non- GFR Calc Platelets bldOrdered By: Dr. Lee on 08-29-2022 Platelets (Bld) [#/Vol] 197 10*3/uL 150-450 [facility] Serum or plasma calcium [place] urement (mass/volume)Ordered By: Dr. Lee on 08-29-2022 Calcium [Mass/Vol] 8.7 mg/dL 8.5-10.1 [facility] Serum or plasma creatinine m easurement (mass/volume)Ordered By: Dr. Lee on 08-29-2022 Creatinine [Mass/Vol] 1.15 mg/dL 0.70-1.30 [facility] Comment on above: The validity of the calculated GFR & GFRAA in patients over 70 years has not been determined. Clinical correlation is essential. Serum or plasma urea nitroge n measurement (mass/volume)Ordered By: Dr. Lee on 08-29-2022 Urea nitrogen [Mass/Vol] 28 mg/dL 7-18 [facility] Thin prep Papanicolaou smear with manual screeningOrdered By: Dr. Lee on 08-29-2022 Thin prep Papanicolaou smear with manual screening 8 5-15 [facility] Laboratory - Microbiology an d Antimicrobial susceptibilityon 08-23-2022 SARS-CoV-2 (COVID-19) RNA ABBE+probe Ql (Unsp spec) Not detected [facility] No Panel Informationon 08-23 POC Nasal Swab Influenza A,B Not detected [facility] POC Nasal Swab RSV Not detected [facility] No Panel Informationon 11-22 Prostate Specific Antigen Screen 0.38 ng/mL 0.00-4.00 [facility] Work Phone: Comment on above: This test was perfor med using the TPSA assay method for [employer] chemistry system. Values obtained with differentassay methods cannot be used interchangably.When changing PSA assays in the course of monitoring apatient, additional sequential testing should be carriedout to confirm baseline values. Basophil percentageon 2020 Chloride [Moles/Vol] 108 mmol/L 98-107 [facility] Work Phone: Glucose [Mass/Vol] 89 mg/dL 74-106 [facility] Work Phone: Comment on above: Please note revised GLUCOSE reference range effective 2017. Potassium [Moles/Vol] 3.8 mmol/L 3.5-5.1 [facility] Work Phone: Sodium [Moles/Vol] 140 mmol/L 136-145 [facility] Work Phone: WBC (Bld) [#/Vol] 7.5 10*3/uL 4.4-11.0 [facility] Work Phone: Blood erythrocytes count (nu mber/volume)on 08-14-2021 RBC (Bld) [#/Vol] 4.96 10*6/uL 4.6-6.2 [facility] Work Phone: Blood hemoglobin measurement (mass/volume)on 08-14-2021 Hemoglobin (Bld) [Mass/Vol] 14.8 g/dL 13.0-16.5 [facility] Work Phone: Blood platelet mean volumeon 08-14-2021 Platelet mean volume (Bld) [Entitic vol] 10.4 fL 6.2-12.0 [facility] Work Phone: Determination of erythrocyte mean corpuscular volume (MCV)on 08-14-2021 MCV (RBC) [Entitic vol] 88.3 fL 80-94 [facility] Work Phone: Hematocrit Auto (Bld) [Volum e fraction]on 08-14-2021 Hematocrit (Bld) [Volume fraction] 43.8 % 40-54 [facility] Work Phone: Laboratory - Chemistry and C hemistry - challengeon 08-14-2021 CO2 [Moles/Vol] 27.0 mmol/L 21.0-32.0 [facility] Work Phone: Urea nitrogen/Creatinine [Mass ratio] 19.3 mg/mg 10-20 [facility] Work Phone: Laboratory - Hematology and Cell countson 08-14-2021 Erythrocyte distribution width (RBC) [Entitic vol] 40.0 fL 35.1-43.9 [facility] Work Phone: Erythrocyte distribution width (RBC) [Ratio] 12.4 % 11.6-14.6 [facility] Work Phone: MCH (RBC) [Entitic mass] 29.8 pg 27.0-32.0 [facility] Work Phone: MCHC Auto (RBC) [Mass/Vol]on 08-14-2021 MCHC (RBC) [Mass/Vol] 33.8 g/dL 32-36 [facility]: No Panel Informationon 08-14 Estimated GFR (MDRD) Amer 85 mL/min >60 [facility] Work Phone: Comment on above: GFR Calc Estimated GFR (MDRD) Non-Af Amer 70 mL/min >60 [facility] Work Phone: Comment on above: Non- GFR Calc Thyroid Stimulating Hormone (TSH) 1.86 uIU/mL 0.358-3.74 [facility] Work Phone: Platelets bldon 08-14-2021 Platelets (Bld) [#/Vol] 220 10*3/uL 150-450 [facility] Work Phone: Serum or plasma calcium slainas urement (mass/volume)on 08-14-2021 Calcium [Mass/Vol] 9.3 mg/dL 8.5-10.1 [facility] Work Phone: Serum or plasma creatinine m easurement (mass/volume)on 08-14-2021 Creatinine [Mass/Vol] 1.14 mg/dL 0.70-1.30 [facility] Work Phone: Comment on above: The validity of the calculated GFR & GFRAA in patients over 70 years has not been determined. Clinical correlation is essential. Serum or plasma urea nitroge n measurement (mass/volume)on 08-14-2021 Urea nitrogen [Mass/Vol] 22 mg/dL 7-18 [facility] Work Phone: Thin prep Papanicolaou smear with manual screeningon 08-14-2021 Thin prep Papanicolaou smear with manual screening 5 5-15 [facility] Work Phone: Vital Signs Date Time Vital Sign Value Performing Clinician Faci lity 03-15-2025 10:30-0400 Body height 172.[address] Woodrow Kate MD Work Phone: [facility] 03-15-2025 10:30-0400 Body mass index (BMI) [Ratio] 29.2 kg/m2 Dr. Woodrow Kate MD Work Phone: [facility] 03-15-2025 10:30-0400 Body weight 87.[address] Woodrow Kate MD Work Phone: [facility] 03-15-2025 10:30-0400 Diastolic blood pressure 78 mm[Hg] Dr. Woodrow Kate MD Work Phone: [facility] 03-15-2025 10:30-0400 Heart rate 69 /min Dr. Woodrow Kate MD Work Phone: 5(669)395-834637 [place] [address] 03-15-2025 10:30-0400 Respiratory rate 16 /min Dr. Woodrow Kate MD Work Phone: 0(546)149-207789 [place] [address] 03-15-2025 10:30-0400 SaO2% (BldA) [Mass fraction] 97 % Dr. Woodrow Kate MD Work Phone: 3(061)226-932189 [place] [address] 03-15-2025 10:30-0400 Systolic blood pressure 122 mm[Hg] Dr. Woodrow Kate MD Work Phone: 0(584)998-524889 [place] [address] 02-16-2025 11:00-0400 Body temperature 98 [degF] Dr. Harpreet Lee MD Work Phone: 4(813)846-153889 [place] [address] 02-16-2025 11:00-0400 Diastolic blood pressure 87 mm[Hg] Dr. Harpreet Lee MD Work Phone: 1(577)603-738989 [place] [address] 02-16-2025 11:00-0400 Heart rate 72 /min Dr. Harpreet Lee MD Work Phone: 6(032)971-839389 [place] [address] 02-16-2025 11:00-0400 Respiratory rate 18 /min Dr. Harpreet Lee MD Work Phone: 1(796)061-430889 [place] [address] 02-16-2025 11:00-0400 SaO2% (BldA) [Mass fraction] 97 % Dr. Harpreet Lee MD Work Phone: 9(496)503-767989 [place] [address] 02-16-2025 11:00-0400 Systolic blood pressure 122 mm[Hg] Dr. Harpreet Lee MD Work Phone: 6(685)914-602389 [place] [address] 02-16-2025 07:17-0400 Body height 172.[address] Harpreet Lee MD Work Phone: 9(884)909-102689 [place] [address] 02-16-2025 07:17-0400 Body mass index (BMI) [Ratio] 29.9 kg/m2 Dr. Harpreet Lee MD Work Phone: [facility] 02-16-2025 07:17-0400 Body weight 89.[address] Harpreet Lee MD Work Phone: [facility] 01-04-2025 13:08-0400 Diastolic blood pressure 76 mm[Hg] Dr. Harpreet Lee MD Work Phone: [facility] 01-04-2025 13:08-0400 Systolic blood pressure 112 mm[Hg] Dr. Harpreet Lee MD Work Phone: [facility] 01-04-2025 10:01-0400 Body height 172.[address] Harpreet Lee MD Work Phone: 6(833)623-790848 [address] 01-04-2025 10:01-0400 Body mass index (BMI) [Ratio] 29.3 kg/m2 Dr. Harpreet Lee MD Work Phone: 7(935)826-045837 [place] [address] 01-04-2025 10:01-0400 Body temperature 99.3 [degF] Dr. Harpreet Lee MD Work Phone: 5(582)802-551937 [place] [address] 01-04-2025 10:01-0400 Body weight 87.[address] Harpreet Lee MD Work Phone: [facility] 01-04-2025 10:01-0400 Diastolic blood pressure 75 mm[Hg] Dr. Harpreet Lee MD Work Phone: [facility] 01-04-2025 10:01-0400 Heart rate 77 /min Dr. Harpreet Lee MD Work Phone: [facility] 01-04-2025 10:01-0400 Respiratory rate 16 /min Dr. Harpreet Lee MD Work Phone: [facility] 01-04-2025 10:01-0400 SaO2% (BldA) [Mass fraction] 97 % Dr. Harpreet Lee MD Work Phone: [facility] 01-04-2025 10:01-0400 Systolic blood pressure 121 mm[Hg] Dr. Harpreet Lee MD Work Phone: [facility] 11-06-2024 10:49-0400 Body temperature 97.5 [degF] Dr. Harpreet Lee MD Work Phone: [facility] 11-06-2024 10:49-0400 Diastolic blood pressure 82 mm[Hg] Dr. Harpreet Lee MD Work Phone: [facility] 11-06-2024 10:49-0400 Heart rate 71 /min Dr. Harpreet Lee MD Work Phone: [facility] 11-06-2024 10:49-0400 Respiratory rate 16 /min Dr. Harpreet Lee MD Work Phone: [facility] 11-06-2024 10:49-0400 SaO2% (BldA) [Mass fraction] 97 % Dr. Harpreet Lee MD Work Phone: [facility] 11-06-2024 10:49-0400 Systolic blood pressure 120 mm[Hg] Dr. Harpreet Lee MD Work Phone: [facility] 11-06-2024 08:47-0400 Body height 172.[address] Harpreet Lee MD Work Phone: [facility] 11-06-2024 08:47-0400 Body mass index (BMI) [Ratio] 27.8 kg/m2 Dr. Harpreet Lee MD Work Phone: [facility] 11-06-2024 08:47-0400 Body weight [address] Harpreet Lee MD Work Phone: [facility] 10-22-2024 13:50-0500 Body height 172.[address] Harpreet Lee MD Work Phone: [facility] 10-22-2024 13:50-0500 Body mass index (BMI) [Ratio] 28.8 kg/m2 Dr. Harpreet Lee MD Work Phone: [facility] 10-22-2024 13:50-0500 Body temperature 97.3 [degF] Dr. Harpreet Lee MD Work Phone: [facility] 10-22-2024 13:50-0500 Body weight 85.[address] Harpreet Lee MD Work Phone: 8(479)569-278737 [place] [address] 10-22-2024 13:50-0500 Diastolic blood pressure 72 mm[Hg] Dr. Harpreet Lee MD Work Phone: 3(378)736-533689 [place] [address] 10-22-2024 13:50-0500 Heart rate 64 /min Dr. Harpreet Lee MD Work Phone: 6(283)609-151389 [place] [address] 10-22-2024 13:50-0500 Respiratory rate 18 /min Dr. Harpreet Lee MD Work Phone: 5(801)382-224289 [place] [address] 10-22-2024 13:50-0500 SaO2% (BldA) [Mass fraction] 99 % Dr. Harpreet Lee MD Work Phone: 0(251)941-057989 [place] [address] 10-22-2024 13:50-0500 Systolic blood pressure 132 mm[Hg] Dr. Harpreet Lee MD Work Phone: 1(022)658-340848 [address] 09-10-2024 09:14-0500 Body mass index (BMI) [Ratio] 29 kg/m2 Dr. Harpreet Lee MD Work Phone: 7(763)100-324089 [place] [address] 09-10-2024 09:14-0500 Body weight 86.[address] Harpreet Lee MD Work Phone: 9(131)410-851089 [place] [address] 09-10-2024 09:14-0500 Diastolic blood pressure 79 mm[Hg] Dr. Harpreet Lee MD Work Phone: 5(518)901-956748 [address] 09-10-2024 09:14-0500 Heart rate 69 /min Dr. Harpreet Lee MD Work Phone: 3(848)368-172289 [place] [address] 09-10-2024 09:14-0500 Respiratory rate 16 /min Dr. Harpreet Lee MD Work Phone: 5(733)660-331748 [address] 09-10-2024 09:14-0500 Systolic blood pressure 120 mm[Hg] Dr. Harpreet Lee MD Work Phone: 0(662)630-424989 [place] [address] 09-08-2024 07:47-0500 Body mass index (BMI) [Ratio] 28.8 kg/m2 Dr. Harpreet Lee MD Work Phone: 1(776)729-199789 [place] [address] 09-08-2024 07:47-0500 Body temperature 97.5 [degF] Dr. Harpreet Lee MD Work Phone: 5(731)392-070989 [place] [address] 09-08-2024 07:47-0500 Body weight 86.[address] Harpreet Lee MD Work Phone: 6(444)540-573589 [place] [address] 09-08-2024 07:47-0500 Diastolic blood pressure 76 mm[Hg] Dr. Harpreet Lee MD Work Phone: 6(332)537-857789 [place] [address] 09-08-2024 07:47-0500 Heart rate 75 /min Dr. Harpreet Lee MD Work Phone: 0(065)538-110289 [place] [address] 09-08-2024 07:47-0500 Respiratory rate 18 /min Dr. Harpreet Lee MD Work Phone: 9(644)201-672989 [place] [address] 09-08-2024 07:47-0500 SaO2% (BldA) [Mass fraction] 95 % Dr. Harpreet Lee MD Work Phone: 0(690)220-056889 [place] [address] 09-08-2024 07:47-0500 Systolic blood pressure 124 mm[Hg] Dr. Harpreet Lee MD Work Phone: 0(198)097-466589 [place] [address] 08-04-2024 08:15-0500 Body mass index (BMI) [Ratio] 29.3 kg/m2 Dr. Harpreet Lee MD Work Phone: 8(891)770-526537 [place] [address] 08-04-2024 08:15-0500 Body temperature 97.4 [degF] Dr. Harpreet Lee MD Work Phone: 5(256)983-974989 [place] [address] 08-04-2024 08:15-0500 Body weight 87.[address] Harpreet Lee MD Work Phone: 9(204)109-350189 [place] [address] 08-04-2024 08:15-0500 Diastolic blood pressure 71 mm[Hg] Dr. Harpreet Lee MD Work Phone: 1(106)925-331589 [place] [address] 08-04-2024 08:15-0500 Heart rate 69 /min Dr. Harpreet Lee MD Work Phone: [facility] 08-04-2024 08:15-0500 Respiratory rate 18 /min Dr. Harpreet Lee MD Work Phone: [facility] 08-04-2024 08:15-0500 SaO2% (BldA) [Mass fraction] 97 % Dr. Harpreet Lee MD Work Phone: [facility] 08-04-2024 08:15-0500 Systolic blood pressure 115 mm[Hg] Dr. Harpreet Lee MD Work Phone: [facility] 07-02-2024 16:15-0500 Body temperature 98 [degF] Dr. Harpreet Lee MD Work Phone: [facility] 07-02-2024 16:15-0500 Diastolic blood pressure 81 mm[Hg] Dr. Harpreet Lee MD Work Phone: [facility] 07-02-2024 16:15-0500 Heart rate 72 /min Dr. Harpreet Lee MD Work Phone: [facility] 07-02-2024 16:15-0500 Respiratory rate 16 /min Dr. Harpreet Lee MD Work Phone: [facility] 07-02-2024 16:15-0500 SaO2% (BldA) [Mass fraction] 100 % Dr. Harpreet Lee MD Work Phone: [facility] 07-02-2024 16:15-0500 Systolic blood pressure 121 mm[Hg] Dr. Harpreet Lee MD Work Phone: [facility] 07-02-2024 15:15-0500 Inhaled oxygen flow rate 2 L/min Dr. Harpreet Lee MD Work Phone: [facility] 07-02-2024 12:01-0500 Body mass index (BMI) [Ratio] 28.5 kg/m2 Dr. Harpreet Lee MD Work Phone: [facility] 07-02-2024 12:01-0500 Body weight [address] Harpreet Lee MD Work Phone: [facility] 08-14-2023 20:00-0500 Diastolic blood pressure 90 mm[Hg] Dr. Harpreet Lee Work Phone: [facility] 08-14-2023 20:00-0500 Heart rate 82 /min Dr. Harpreet Lee Work Phone: [facility] 08-14-2023 20:00-0500 Respiratory rate 12 /min Dr. Harpreet Lee Work Phone: [facility] 08-14-2023 20:00-0500 SaO2% (BldA) [Mass fraction] 99 % Dr. Harpreet Lee Work Phone: [facility] 08-14-2023 20:00-0500 Systolic blood pressure 156 mm[Hg] Dr. Harpreet Lee Work Phone: [facility] 08-14-2023 17:51-0500 Body height 172.[address] Harpreet Lee Work Phone: 2(513)346-441837 [place] [address] 08-14-2023 17:51-0500 Body mass index (BMI) [Ratio] 31.3 kg/m2 Dr. Harpreet Lee Work Phone: [facility] 08-14-2023 17:51-0500 Body temperature 98.3 [degF] Dr. Harpreet Lee Work Phone: [facility] 08-14-2023 17:51-0500 Body weight 93.[address] Harpreet Lee Work Phone: [facility] 07-17-2023 13:37-0500 Body height 172.[address] Harpreet Lee Work Phone: 7(410)629-566537 [place] [address] 07-17-2023 13:34-0500 Body mass index (BMI) [Ratio] 30.5 kg/m2 Dr. Harpreet Lee Work Phone: 5(577)817-474437 [place] [address] 07-17-2023 13:34-0500 Body weight 91.[address] Harpreet Lee Work Phone: [facility] 07-17-2023 13:34-0500 Diastolic blood pressure 75 mm[Hg] Dr. Harpreet Lee Work Phone: [facility] 07-17-2023 13:34-0500 Heart rate 95 /min Dr. Harpreet Lee Work Phone: [facility] 07-17-2023 13:34-0500 Respiratory rate 18 /min Dr. Harpreet Lee Work Phone: [facility] 07-17-2023 13:34-0500 SaO2% (BldA) [Mass fraction] 97 % Dr. Harpreet Lee Work Phone: [facility] 07-17-2023 13:34-0500 Systolic blood pressure 131 mm[Hg] Dr. Harpreet Lee Work Phone: [facility] 08-23-2022 17:11-0500 Body temperature 98.7 [degF] Dr. Harpreet Lee Work Phone: [facility] 08-23-2022 17:11-0500 Diastolic blood pressure 86 mm[Hg] Dr. Harpreet Lee Work Phone: [facility] 08-23-2022 17:11-0500 Heart rate 85 /min Dr. Harpreet Lee Work Phone: [facility] 08-23-2022 17:11-0500 Respiratory rate 14 /min Dr. Harpreet Lee Work Phone: [facility] 08-23-2022 17:11-0500 SaO2% (BldA) [Mass fraction] 96 % Dr. Harpreet Lee Work Phone: [facility] 08-23-2022 17:11-0500 Systolic blood pressure 142 mm[Hg] Dr. Harpreet Lee Work Phone: [facility] 07-27-2022 15:27-0500 Body height 172.[address] Harpreet Lee Work Phone: 0(828)041-817237 [place] [address] 07-27-2022 15:27-0500 Body temperature 98.2 [degF] Dr. Harpreet Lee Work Phone: [facility] 07-27-2022 15:27-0500 Diastolic blood pressure 86 mm[Hg] Dr. Harpreet Lee Work Phone: [facility] 07-27-2022 15:27-0500 Heart rate 74 /min Dr. Harpreet Lee Work Phone: [facility] 07-27-2022 15:27-0500 Respiratory rate 16 /min Dr. Harpreet Lee Work Phone: [facility] 07-27-2022 15:27-0500 Systolic blood pressure 128 mm[Hg] Dr. Harpreet Lee Work Phone: [facility] 07-14-2022 12:51-0500 Body temperature 100.2 [degF] Dr. Harpreet Lee Work Phone: [facility] 07-14-2022 12:51-0500 Diastolic blood pressure 72 mm[Hg] Dr. Harpreet Lee Work Phone: [facility] 07-14-2022 12:51-0500 Heart rate 89 /min Dr. Harpreet Lee Work Phone: [facility] 07-14-2022 12:51-0500 Respiratory rate 14 /min Dr. Harpreet Lee Work Phone: [facility] 07-14-2022 12:51-0500 SaO2% (BldA) [Mass fraction] 96 % Dr. Harpreet Lee Work Phone: [facility] 07-14-2022 12:51-0500 Systolic blood pressure 142 mm[Hg] Dr. Harpreet Lee Work Phone: [facility] 11-09-2021 08:30-0400 Body height 172.[address] Harpreet Lee Work Phone: [facility] Work Phone: 11-09-2021 08:30-0400 Body mass index (BMI) [Ratio] 33.4 kg/m2 Dr. Harpreet Lee Work Phone: [facility] Work Phone: 11-09-2021 08:30-0400 Body weight 99.[address] Harpreet Lee Work Phone: [facility] Work Phone: 11-09-2021 08:30-0400 Diastolic blood pressure 79 mm[Hg] Dr. Harpreet Lee Work Phone: [facility] Work Phone: 11-09-2021 08:30-0400 Heart rate 81 /min Dr. Harpreet Lee Work Phone: [facility] Work Phone: 11-09-2021 08:30-0400 Respiratory rate 16 /min Dr. Harpreet Lee Work Phone: [facility] Work Phone: 11-09-2021 08:30-0400 Systolic blood pressure 128 mm[Hg] Dr. Harpreet Lee Work Phone: [facility] Work Phone: 09-05-2021 12:30-0500 Body weight 101.[address] Harpreet Lee Work Phone: [facility] Work Phone: 09-05-2021 12:30-0500 Heart rate 109 /min Dr. Harpreet Lee Work Phone: [facility] Work Phone: 09-05-2021 12:30-0500 SaO2% (BldA) [Mass fraction] 98 % Dr. Harpreet Lee Work Phone: [facility] Work Phone: 09-01-2021 10:06-0500 Body mass index (BMI) [Ratio] 34.4 kg/m2 Dr. Harpreet Lee Work Phone: [facility] Work Phone: 09-01-2021 10:06-0500 Body temperature 97.7 [degF] Dr. Harpreet Lee Work Phone: [facility] Work Phone: 09-01-2021 10:06-0500 Body weight 102.[address] Harpreet Lee Work Phone: [facility] Work Phone: 09-01-2021 10:06-0500 Diastolic blood pressure 95 mm[Hg] Dr. Harpreet Lee Work Phone: [facility] Work Phone: 09-01-2021 10:06-0500 Heart rate 99 /min Dr. Harpreet Lee Work Phone: [facility] Work Phone: 09-01-2021 10:06-0500 Respiratory rate 17 /min Dr. Harpreet Lee Work Phone: [facility] Work Phone: 09-01-2021 10:06-0500 SaO2% (BldA) [Mass fraction] 98 % Dr. Harpreet Lee Work Phone: [facility] Work Phone: 09-01-2021 10:06-0500 Systolic blood pressure 149 mm[Hg] Dr. Harpreet Lee Work Phone: [facility] Work Phone: Encounters Encounter Date Encounter Type Care Provider Facility Start: 03-15-2025 End: 03-15-2025 Patient encounter procedure Barry KHAN -[facility] Work Phone: Start: 03-15-2025 End: 03-15-[address] Woodrow Kate MD Work Phone: -[facility] Start: 02-16-2025 End: 02-16-2025 Emergency department patient visit Dr. Harpreet Lee MD Work Phone: -Emergency Department Work Phone: Start: 01-14-2025 End: 01-14-[address] Harpreet Lee MD Work Phone: [facility] Work Phone: Start: 01-14-2025 End: 01-14-[address] Harpreet Lee MD -[facility] [place] Work Phone: Start: 01-14-2025 End: 01-14-2025 ambulatory Harpreet Lee Facility:[facility] Start: 01-04-2025 End: 01-04-[address] Ronnie Quinn MD -[facility] Work Phone: Start: 01-04-2025 End: 01-04-[address] Harpreet Lee MD Work Phone: [facility] Work Phone: Start: 12-22-2024 End: 12-22-[address] Harpreet Lee MD Work Phone: [facility] Work Phone: Start: 12-22-2024 End: 12-22-[address] Woodrow Kate MD -Radiology, [place] Work Phone: Start: 12-22-2024 End: 12-22-2024 ambulatory Harpreet Lee Facility:[facility] Start: 11-06-2024 ambulatory Jamie Albright lity:[facility] Start: 11-06-2024 Non-patient / Non-visit Dr. Jamie Simon MD -[facility] Start: 11-06-2024 End: 11-06-2024 Admission to same day surgery center Dr. Jamie Simon MD -Endoscopy Work Phone: Start: 11-06-2024 End: 11-06-[address] Harpreet Lee MD Work Phone: [facility] Work Phone: Start: 10-22-2024 End: 10-22-[address] Jamie Simon MD -[facility] Work Phone: Start: 10-22-2024 End: 10-22-2024 ambulatory Harpreet Lee Facility:[facility] Start: 10-15-2024 End: 10-15-[address] Harpreet Lee MD Work Phone: [facility] Work Phone: Start: 10-15-2024 End: 10-15-[address] [facility] Start: 10-15-2024 End: 10-15-2024 ambulatory Harpreet Lee Facility:[facility] Start: 10-01-2024 End: 10-01-[address] Selene Mason MD -[facility] Work Phone: Start: 10-01-2024 End: 10-01-2024 ambulatory Harpreet Lee Facility:[facility] Start: 09-10-2024 End: 09-10-[address] Ricki Smith MD -[facility] Work Phone: Start: 09-10-2024 End: 09-10-2024 ambulatory Harpreet Lee Facility:[facility] Start: 09-08-2024 End: 09-08-2024 Patient encounter procedure TEREZA Newton -[facility] Work Phone: Start: 09-08-2024 End: 09-08-2024 ambulatory Harpreet Lee Facility:[facility] Start: 08-24-2024 End: 08-24-2024 Patient encounter procedure TEREZA Newton -[facility] Work Phone: Start: 08-24-2024 End: 08-24-2024 ambulatory Harpreet Lee Facility:[facility] Start: 08-04-2024 End: 08-04-2024 Patient encounter procedure TEREZA Newton -[facility] Work Phone: Start: 08-04-2024 End: 08-04-2024 ambulatory Harpreet Lee Facility:[facility] Start: 07-21-2024 End: 07-21-[address] Ronnie Quinn MD -[facility] Work Phone: Start: 07-21-2024 End: 07-21-2024 ambulatory Harpreet Lee Facility:[facility] Start: 07-14-2024 End: 07-14-[address] Jamie Simon MD -[facility] Work Phone: Start: 07-14-2024 End: 07-14-2024 ambulatory Harpreet Lee Facility:[facility] Start: 07-02-2024 ambulatory Jamie Simon Faci lity:[facility] Start: 07-02-2024 Non-patient / Non-visit Dr. Jamie Simon MD -[facility] Start: 07-02-2024 End: 07-02-2024 Admission to same day surgery center Dr. Jamie Simon MD -[facility] Start: 07-02-2024 End: 07-02-2024 ambulatory Jamie Simon Facility:[facility] Start: 06-30-2024 End: 06-30-2024 ambulatory Harpreet Lee Facility:[facility] Start: 06-30-2024 End: 06-30-2024 Non-patient / Non-visit Dr. Ricki Smith MD -[facility] Work Phone: Start: 06-19-2024 End: 06-19-2024 ambulatory Harpreet Lee Facility:[facility] Start: 05-18-2024 End: 05-19-2024 ambulatory Harpreet Lee Facility:[facility] Start: 05-13-2024 End: 05-13-2024 ambulatory Harpreet Lee Facility:[facility] Start: 05-01-2024 End: 05-01-2024 ambulatory Harpreet Lee Facility:[facility] Start: 11-19-2023 End: 11-19-[address] Harpreet Lee Work Phone: [facility] Work Phone: Start: 11-19-2023 End: 11-19-[address] Harpreet Lee Work Phone: [facility]-Laboratory, [place] Work Phone: Start: 11-08-2023 End: 11-08-[address] Harpreet Lee Work Phone: [facility] Work Phone: Start: 11-08-2023 End: 11-08-[address] Harpreet Lee Work Phone: [facility] Work Phone: Start: 10-28-2023 End: 10-28-[address] Harpreet Lee Work Phone: [facility] Work Phone: Start: 10-28-2023 End: 10-28-[address] Harpreet Lee Work Phone: [facility] Start: 08-14-2023 End: 08-14-2023 Emergency department patient visit Dr. Harpreet Lee Work Phone: [facility]-Emergency Department Work Phone: Start: 08-13-2023 End: 08-13-[address] Harpreet Lee Work Phone: [facility] Work Phone: Start: 08-13-2023 End: 08-13-[address] Harpreet Lee Work Phone: [facility] Work Phone: Start: 08-13-2023 End: 08-13-[address] Harpreet Lee Work Phone: [facility] Work Phone: Start: 08-09-2023 End: 08-09-[address] Harpreet Lee Work Phone: [facility] Work Phone: Start: 08-09-2023 End: 08-09-[address] Harpreet Lee Work Phone: [facility] Start: 08-08-2023 End: 08-08-[address] Harpreet Lee Work Phone: [facility] Work Phone: Start: 08-08-2023 End: 08-08-[address] Harpreet Lee Work Phone: [facility] Work Phone: Start: 07-30-2023 Non-patient / Non-visit Dr. Harpreet Lee Work Phone: [facility] Work Phone: Start: 07-25-2023 Non-patient / Non-visit Dr. Harpreet Lee Work Phone: [facility] Work Phone: Start: 07-25-2023 Non-patient / Non-visit Dr. Harpreet Lee Work Phone: [facility] Start: 07-25-2023 End: 07-25-[address] Harpreet Lee Work Phone: [facility] Work Phone: Start: 07-25-2023 End: 07-25-[address] Harpreet Lee Work Phone: [facility]Cardiov[facility]cul[facility] Services Work Phone: Start: 07-17-2023 End: 07-17-[address] Harpreet Lee Work Phone: [facility] Work Phone: Start: 12-20-2022 End: 12-20-2022 Emergency department patient visit NOT IN [facility] Start: 08-29-2022 End: 08-29-[address] Harpreet Lee Work Phone: [facility] Work Phone: Start: 08-29-2022 End: 08-29-[address] Harpreet Lee Work Phone: [facility] Start: 08-23-2022 End: 08-23-[address] Harpreet Lee Work Phone: [facility] Start: 07-27-2022 End: 07-27-[address] Harpreet Lee Work Phone: [facility] Start: 07-14-2022 End: 07-14-[address] Harpreet Lee Work Phone: [facility] Start: 11-22-2021 End: 11-22-[address] Harpreet Lee Work Phone: [facility] Start: 11-09-[address] Harpreet Lee Work Phone: [facility] Start: 11-09-2021 End: 11-09-2021 Admission to same day surgery center Dr. Harpreet Lee Work Phone: [facility] Start: 11-09-2021 End: 11-09-[address] Harpreet Lee Work Phone: [facility] Start: 09-11-2021 End: 09-11-[address] Harpreet Lee Work Phone: [facility] Start: 09-08-2021 Non-patient / Non-visit Dr. Harpreet Lee Work Phone: [facility] Start: 09-08-2021 End: 09-08-[address] Harpreet Lee Work Phone: [facility]-Pulmonary Services/Neurology Start: 09-05-2021 Non-patient / Non-visit Dr. Harpreet Lee Work Phone: [facility] Start: 09-05-2021 End: 09-05-[address] Harpreet Lee Work Phone: [facility]-Pulmonary Services/Neurology Start: 09-01-2021 End: 09-01-[address] Harpreet Lee Work Phone: [facility]-Pulmonary Medicine [facility] Start: 08-14-[address] Harpreet Lee Work Phone: [facility], [place] Procedures Date Procedure Procedure Detail Performing Clinician Start: 02-16-2025 Plain chest X-ray Dr. Earnest Lee MD Work Phone: Start: 02-16-[address] Harpreet Lee MD Work Phone: Start: 12-22-2024 Plain X-ray of shoulder Dr. Harpreet Lee MD Work Phone: Start: 11-06-[address] Harpreet piña MD Work Phone: Start: 10-15-2024 Prostate specific antigen measurement Dr. Harpreet Lee MD Work Phone: Comment on above: This test was perfor med using the [employer] tPSA method. Measured values of a patient sample can vary depending on the testing procedure used. PSA values determined on patient samples by different testing procedures cannot be used interchangeably. If there is a change in PSA assays while monitoring therapy, sequential testing should be performed to confirm baseline values. Start: 10-01-2024 Measurement of renal function Dr. Harpreet Lee MD Work Phone: Comment on above: GFR Calc Start: 10-28-2023 Bacterial nucleic ac id assay Dr. Harpreet Lee Work Phone: Start: 10-28-2023 Chlamydia trachomati s (PCR) Dr. Harpreet Lee Work Phone: Start: 08-13-2023 CT of abdomen withou t contrast Dr. Harpreet Lee Work Phone: Start: 08-13-2023 Diagnostic radiograp hy of abdomen Dr. Harpreet Lee Work Phone: Start: 08-08-2023 Pelvis X-ray Dr. Harpreet piña Work Phone: Start: 09-11-2021 CT of chest without contrast Dr. Harpreet Lee Work Phone: History of repair of inguinal hernia S/P inguinal hernia repair Dr. Jamie Simon MD Plan of Treatment Date Care Activity Detail Author Start: 03-15-2025 Evaluation of diagnostic study results [facility] Start: 02-16-2025 [facility] Start: 11-06-2024 Colonoscopy flx dx w/collj spec when pfrmd DIAGNOSTIC COLONOSCOPY [facility] Start: 11-06-2024 Patient discharge [facility] Start: 07-02-2024 Patient discharge [facility] Start: 07-02-2024 Anesthesia intraperitoneal lower abd w/laps nos ANESTH SURG LOWER ABDOMEN [facility] Start: 07-02-2024 Laps surg rpr recurrent inguinal hernia LAP ING HERNIA REPAIR RECUR [facility] Start: 08-14-2023 [facility] Start: 07-17-2023 Patient referral [facility] Work Phone: Bacteria identified in Sputum by Culture [facility] Colonoscopy [facility] Electrocardiographic procedure [facility] Lipid 1996 panel - S nikko or Plasma [facility] Patient Education [facility] Work Phone: Patient referral [facility] Work Phone: [place] Carotid arteries [facility] Immunizations Immunization Date Immunization Notes Care Provider Fa cili 05-19-[address] Harpreet Lee Work Phone: [facility] Payers Date Payer Category Payer Unknown [id number] 2024 Self-pay [id number] 2023 Private Health Insurance [id number] 2014 Unknown [id number] 1960 Unknown [id number] [id number] 1960 Unknown [id number] [id number]1 Unknown [id number] Unknown [id number] Unknown [facility] PACKAGE PLAN [id number] Unknown [id number] [id number] Unknown [id number] 2.16840.1.811512.3.579.2.462 Unknown [id number] 2.16.840.1.031872.3.579.2.462 Unknown [id number] 2.16.840.1.111967.3.579.2.462 Unknown [id number] 2.16.840.1.069163.3.579.2.462 Unknown [id number] 2.16.840.1.209740.3.579.2.462 Unknown [id number] 2.16.840.1.257241.3.579.2.462 Unknown [id number] 2.16.840.1.785260.3.579.2.462 Unknown [id number] 2.16.840.1.134951.3.579.2.462 Unknown [id number] 2.16.840.1.230177.3.579.2.462 Unknown [id number] 2.16.840.1.785930.3.579.2.462 Unknown [id number] 2.16.840.1.168117.3.579.2.462 Unknown [id number] 2.16.840.1.043249.3.579.2.462 Unknown [id number] 2.16.840.1.148951.3.579.2.462 Unknown [id number] 2.16.840.1.982577.3.579.2.462 Unknown [id number] 2.16.840.1.591544.3.579.2.462 Unknown [id number] 2.16.840.1.200958.3.579.2.462 Unknown [id number] 2.16.840.1.418741.3.579.2.462 Unknown [id number] 2.16.840.1.181942.3.579.2.462 Unknown [id number] 2.16.840.1.768792.3.579.2.462 Unknown [id number] 2.16840.1.088629.3.579.2.462 Unknown [id number] 2.16840.1.968403.3.579.2.462 Unknown [id number] 2.16840.1.253702.3.579.2.462 Unknown [id number] 2.16840.1.871280.3.579.2.462 Social History Date Type Detail Facility Start: 11-09-2021 End: 08-14-2023 Tobacco smoking status MIIS Unknown if ever smoked [facility] Start: 10-24-2020 Occasional [facility] Start: 10-24-2020 None [facility] Start: 10-24-2020 Spouse/ Signif icant Other [facility] Start: 12-17-2013 Non-smoker [facility] Start: 1960 Sex Assigned At Male [facility] Start: 09-08-2024 End: 02-16-2025 Tobacco smoking status NHIS Ex-smoker (finding) [facility] Start: 10-27-2024 End: 11-06-2024 Sex Male (finding) [facility] Medical Equipment Procedure Code Equipment Code Equipment Original Text Equipment Identifier Dates SANYA HUSSEIN FDA St art: 11-20-[address] art: 11-20-[address] art: 11-20-2017 JOVITA,SANYA CARDOSO FDA St art: 11-20-2017 JOVITA,SANYA CARDOSO FDA St art: 11-20-[address] art: 11-20-2017 [id number] FDA Start: 11-29-2022 SET SCREWS FDA Start: 11-29-2022 SET SCREWS FDA Start: 11-29-2022 SET SCREWS FDA Start: 11-29-2022 SET SCREWS FDA Start: 11-29-2022 SPINAL RODS 35MM FDA Start: 11-29-2022 SPINAL RODS 35MM FDA Start: 11-29-2022 TALOS PEEK IMPLANT FDA Start: 11-29-2022 VITAE OS 1CC FDA Start: 11-29-2022 VITAE OS 1CC FDA Start: 11-29-2022 6.5 X 45 SPINE SCREW FDA Star t: 11-29-2022 6.5 X 45 SPINE SCREW FDA Star t: 11-29-2022 6.5 X 55 SPINE SCREW FDA Star t: 11-29-2022 6.5 X 55 SPINE SCREW FDA Star t: 11-29-2022 6.5 X 55 SPINE SCREW FDA Star t: 11-29-2022 OBS DBM 5CC FDA Start: 11-29-2022 SEALANT,FLOSEAL HEMOSTATIC 5ML FDA Start: 11-29-2022 SEALANT,FLOSEAL HEMOSTATIC 5ML FDA Start: 11-29-[address] art: 11-20-[address] art: 11-20-2017 [id number] FDA Start: 11-29-2022 SET SCREWS FDA Start: 11-29-2022 SET SCREWS FDA Start: 11-29-2022 SET SCREWS FDA Start: 11-29-2022 SET SCREWS FDA Start: 11-29-2022 SPINAL RODS 35MM FDA Start: 04-13-2023 SPINAL RODS 35MM FDA Start: 11-29-2022 TALOS PEEK IMPLANT FDA Start: 11-29-2022 VITAE OS 1CC FDA Start: 11-29-2022 VITAE OS 1CC FDA Start: 11-29-2022 6.5 X 45 SPINE SCREW FDA Star t: 11-29-2022 6.5 X 45 SPINE SCREW FDA Star t: 11-29-2022 6.5 X 55 SPINE SCREW FDA Star t: 11-29-2022 6.5 X 55 SPINE SCREW FDA Star t: 11-29-2022 6.5 X 55 SPINE SCREW FDA Star t: 11-29-2022 OBS DBM 5CC FDA Start: 11-29-2022 SEALANT,FLOSEAL HEMOSTATIC 5ML FDA Start: 11-29-2022 SEALANT,FLOSEAL HEMOSTATIC 5ML FDA Start: 11-29-2022 CLIP,HEMOLOCK OMG FDA St art: 11-20-2017 CLIP,HEMOLOCK MED WECK FDA St art: 11-20-2017 [id number] FDA Start: 11-29-2022 SET SCREWS FDA Start: 11-29-2022 SET SCREWS FDA Start: 11-29-2022 SET SCREWS FDA Start: 11-29-2022 SET SCREWS FDA Start: 11-29-2022 SPINAL RODS 35MM FDA Start: 11-29-2022 SPINAL RODS 35MM FDA Start: 11-29-2022 TALOS PEEK IMPLANT FDA Start: 11-29-2022 VITAE OS 1CC FDA Start: 11-29-2022 VITAE OS 1CC FDA Start: 11-29-2022 6.5 X 45 SPINE SCREW FDA Star t: 11-29-2022 6.5 X 45 SPINE SCREW FDA Star t: 11-29-2022 6.5 X 55 SPINE SCREW FDA Star t: 11-29-2022 6.5 X 55 SPINE SCREW FDA Star t: 11-29-2022 6.5 X 55 SPINE SCREW FDA Star t: 11-29-2022 OBS DBM 5CC FDA Start: 11-29-2022 SEALANT,FLOSEAL HEMOSTATIC 5ML FDA Start: 11-29-2022 SEALANT,FLOSEAL HEMOSTATIC 5ML FDA Start: 11-29-2022 CLIP,HEMOLOCK MED WECK FDA St art: 11-20-2017 CLIP,HEMOLOCK MED WECK FDA St art: 11-20-2017 [id number] FDA Start: 11-29-2022 SET SCREWS FDA Start: 11-29-2022 SET SCREWS FDA Start: 11-29-2022 SET SCREWS FDA Start: 11-29-2022 SET SCREWS FDA Start: 11-29-2022 SPINAL RODS 35MM FDA Start: 11-29-2022 SPINAL RODS 35MM FDA Start: 11-29-2022 TALOS PEEK IMPLANT FDA Start: 11-29-2022 VITAE OS 1CC FDA Start: 11-29-2022 VITAE OS 1CC FDA Start: 11-29-2022 6.5 X 45 SPINE SCREW FDA Star t: 11-29-2022 6.5 X 45 SPINE SCREW FDA Star t: 11-29-2022 6.5 X 55 SPINE SCREW FDA Star t: 11-29-2022 6.5 X 55 SPINE SCREW FDA Star t: 11-29-2022 6.5 X 55 SPINE SCREW FDA Star t: 11-29-2022 OBS DBM 5CC FDA Start: 11-29-2022 SEALANT,FLOSEAL HEMOSTATIC 5ML FDA Start: 11-29-2022 SEALANT,FLOSEAL HEMOSTATIC 5ML FDA Start: 11-29-2022 SANYA HUSSEIN [facility] FDA St art: 11-20-2017 S[facility]A [facility]USSEIN [facility] FDA St art: 11-20-2017 [id number] FDA Start: 11-29-2022 SET SCREWS FDA Start: 11-29-2022 SET SCREWS FDA Start: 11-29-2022 SET SCREWS FDA Start: 11-29-2022 SET SCREWS FDA Start: 11-29-2022 SPINAL RODS 35MM FDA Start: 11-29-2022 SPINAL RODS 35MM FDA Start: 11-29-2022 TALOS PEEK IMPLANT FDA Start: 11-29-2022 VITAE OS 1CC FDA Start: 11-29-2022 VITAE OS 1CC FDA Start: 11-29-2022 6.5 X 45 SPINE SCREW FDA Star t: 11-29-2022 6.5 X 45 SPINE SCREW FDA Star t: 11-29-2022 6.5 X 55 SPINE SCREW FDA Star t: 11-29-2022 6.5 X 55 SPINE SCREW FDA Star t: 11-29-2022 6.5 X 55 SPINE SCREW FDA Star t: 11-29-2022 OBS DBM 5CC FDA Start: 11-29-2022 SEALANT,FLOSEAL HEMOSTATIC 5ML FDA Start: 11-29-2022 SEALANT,FLOSEAL HEMOSTATIC 5ML FDA Start: 11-29-2022 [facility] [employer] FDA St art: 11-20-[address] art: 11-20-2017 [id number] FDA Start: 11-29-2022 SET SCREWS FDA Start: 11-29-2022 SET SCREWS FDA Start: 11-29-2022 SET SCREWS FDA Start: 11-29-2022 SET SCREWS FDA Start: 11-29-2022 SPINAL RODS 35MM FDA Start: 11-29-2022 SPINAL RODS 35MM FDA Start: 11-29-2022 TALOS PEEK IMPLANT FDA Start: 11-29-2022 VITAE OS 1CC FDA Start: 11-29-2022 VITAE OS 1CC FDA Start: 11-29-2022 6.5 X 45 SPINE SCREW FDA Star t: 11-29-2022 6.5 X 45 SPINE SCREW FDA Star t: 11-29-2022 6.5 X 55 SPINE SCREW FDA Star t: 11-29-2022 6.5 X 55 SPINE SCREW FDA Star t: 11-29-2022 6.5 X 55 SPINE SCREW FDA Star t: 11-29-2022 OBS DBM 5CC FDA Start: 11-29-2022 SEALANT,FLOSEAL HEMOSTATIC 5ML FDA Start: 11-29-2022 SEALANT,FLOSEAL HEMOSTATIC 5ML FDA Start: 11-29-2022 JOVITAHEMOLOCK [employer] FDA St art: 11-20-[address] art: 11-20-2017 [id number] FDA Start: 11-29-2022 SET SCREWS FDA Start: 11-29-2022 SET SCREWS FDA Start: 11-29-2022 SET SCREWS FDA Start: 11-29-2022 SET SCREWS FDA Start: 11-29-2022 SPINAL RODS 35MM FDA Start: 11-29-2022 SPINAL RODS 35MM FDA Start: 11-29-2022 TALOS PEEK IMPLANT FDA Start: 11-29-2022 VITAE OS 1CC FDA Start: 11-29-2022 VITAE OS 1CC FDA Start: 11-29-2022 6.5 X 45 SPINE SCREW FDA Star t: 11-29-2022 6.5 X 45 SPINE SCREW FDA Star t: 11-29-2022 6.5 X 55 SPINE SCREW FDA Star t: 11-29-2022 6.5 X 55 SPINE SCREW FDA Star t: 11-29-2022 6.5 X 55 SPINE SCREW FDA Star t: 11-29-2022 OBS DBM 5CC FDA Start: 11-29-2022 SEALANT,FLOSEAL HEMOSTATIC 5ML FDA Start: 11-29-2022 SEALANT,FLOSEAL HEMOSTATIC 5ML FDA Start: 11-29-2022 JOVITAHEMOLOCK I & Combine WECK FDA St art: 11-20-2017 CLIPHEMOLOCK MED WECK FDA St art: 11-20-2017 [id number] FDA Start: 11-29-2022 SET SCREWS FDA Start: 11-29-2022 SET SCREWS FDA Start: 11-29-2022 SET SCREWS FDA Start: 11-29-2022 SET SCREWS FDA Start: 11-29-2022 SPINAL RODS 35MM FDA Start: 11-29-2022 SPINAL RODS 35MM FDA Start: 11-29-2022 TALOS PEEK IMPLANT FDA Start: 11-29-2022 VITAE OS 1CC FDA Start: 11-29-2022 VITAE OS 1CC FDA Start: 11-29-2022 6.5 X 45 SPINE SCREW FDA Star t: 11-29-2022 6.5 X 45 SPINE SCREW FDA Star t: 11-29-2022 6.5 X 55 SPINE SCREW FDA Star t: 11-29-2022 6.5 X 55 SPINE SCREW FDA Star t: 11-29-2022 6.5 X 55 SPINE SCREW FDA Star t: 11-29-2022 OBS DBM 5CC FDA Start: 11-29-2022 SEALANT,FLOSEAL HEMOSTATIC 5ML FDA Start: 11-29-2022 SEALANT,FLOSEAL HEMOSTATIC 5ML FDA Start: 11-29-2022 JOVITAHEMOLOCK MED WECK FDA St art: 11-20-2017 CLIPHEMOLOCK MED [employer] FDA St art: 11-20-2017 [id number] FDA Start: 11-29-2022 SET SCREWS FDA Start: 11-29-2022 SET SCREWS FDA Start: 11-29-2022 SET SCREWS FDA Start: 11-29-2022 SET SCREWS FDA Start: 11-29-2022 SPINAL RODS 35MM FDA Start: 11-29-2022 SPINAL RODS 35MM FDA Start: 11-29-2022 TALOS PEEK IMPLANT FDA Start: 11-29-2022 VITAE OS 1CC FDA Start: 11-29-2022 VITAE OS 1CC FDA Start: 11-29-2022 6.5 X 45 SPINE SCREW FDA Star t: 11-29-2022 6.5 X 45 SPINE SCREW FDA Star t: 11-29-2022 6.5 X 55 SPINE SCREW FDA Star t: 11-29-2022 6.5 X 55 SPINE SCREW FDA Star t: 11-29-2022 6.5 X 55 SPINE SCREW FDA Star t: 11-29-2022 OBS DBM 5CC FDA Start: 11-29-2022 SEALANT,FLOSEAL HEMOSTATIC 5ML FDA Start: 11-29-2022 SEALANT,FLOSEAL HEMOSTATIC 5ML FDA Start: 11-29-2022 Extra-gynaecolog ical surgical mesh, composite-polymer [id number] FDA Start: 07-02-2024 Extra-gynaecolog ical surgical mesh, composite-polymer [id number] FDA Start: 07-02-2024 JOVITAHEMOLORICARDA [facility] FDA St art: 11-20-2017 JOVITA,HEMOLOCK MED WE FDA St art: 11-20-2017 [id number] FDA Start: 11-29-2022 SET SCREWS FDA Start: 11-29-2022 SET SCREWS FDA Start: 11-29-2022 SET SCREWS FDA Start: 11-29-2022 SET SCREWS FDA Start: 11-29-2022 SPINAL RODS 35MM FDA Start: 11-29-2022 SPINAL RODS 35MM FDA Start: 11-29-2022 TALOS PEEK IMPLANT FDA Start: 11-29-2022 VITAE OS 1CC FDA Start: 11-29-2022 VITAE OS 1CC FDA Start: 11-29-2022 6.5 X 45 SPINE SCREW FDA Star t: 11-29-2022 6.5 X 45 SPINE SCREW FDA Star t: 11-29-2022 6.5 X 55 SPINE SCREW FDA Star t: 11-29-2022 6.5 X 55 SPINE SCREW FDA Star t: 11-29-2022 6.5 X 55 SPINE SCREW FDA Star t: 11-29-2022 OBS DBM 5CC FDA Start: 11-29-2022 SEALANT,FLOSEAL HEMOSTATIC 5ML FDA Start: 11-29-2022 SEALANT,FLOSEAL HEMOSTATIC 5ML FDA Start: 11-29-2022 CLIP,HEMOLOCK I & Combine WECK FDA St art: 11-20-2017 CLIP,HEMOLOCK MED WECK FDA St art: 11-20-2017 [id number] FDA Start: 11-29-2022 SET SCREWS FDA Start: 11-29-2022 SET SCREWS FDA Start: 11-29-2022 SET SCREWS FDA Start: 11-29-2022 SET SCREWS FDA Start: 11-29-2022 SPINAL RODS 35MM FDA Start: 11-29-2022 SPINAL RODS 35MM FDA Start: 11-29-2022 TALOS PEEK IMPLANT FDA Start: 11-29-2022 VITAE OS 1CC FDA Start: 11-29-2022 VITAE OS 1CC FDA Start: 11-29-2022 6.5 X 45 SPINE SCREW FDA Star t: 11-29-2022 6.5 X 45 SPINE SCREW FDA Star t: 11-29-2022 6.5 X 55 SPINE SCREW FDA Star t: 11-29-2022 6.5 X 55 SPINE SCREW FDA Star t: 11-29-2022 6.5 X 55 SPINE SCREW FDA Star t: 11-29-2022 OBS DBM 5CC FDA Start: 11-29-2022 SEALANT,FLOSEAL HEMOSTATIC 5ML FDA Start: 11-29-2022 SEALANT,FLOSEAL HEMOSTATIC 5ML FDA Start: 11-29-2022 CLIP,HEMOLOCK MED WECK FDA St art: 11-20-2017 CLIP,HEMOLOCK MED WECK FDA St art: 11-20-2017 [id number] FDA Start: 11-29-2022 SET SCREWS FDA Start: 11-29-2022 SET SCREWS FDA Start: 11-29-2022 SET SCREWS FDA Start: 11-29-2022 SET SCREWS FDA Start: 11-29-2022 SPINAL RODS 35MM FDA Start: 11-29-2022 SPINAL RODS 35MM FDA Start: 11-29-2022 TALOS PEEK IMPLANT FDA Start: 11-29-2022 VITAE OS 1CC FDA Start: 11-29-2022 VITAE OS 1CC FDA Start: 11-29-2022 6.5 X 45 SPINE SCREW FDA Star t: 11-29-2022 6.5 X 45 SPINE SCREW FDA Star t: 11-29-2022 6.5 X 55 SPINE SCREW FDA Star t: 11-29-2022 6.5 X 55 SPINE SCREW FDA Star t: 11-29-2022 6.5 X 55 SPINE SCREW FDA Star t: 11-29-2022 OBS DBM 5CC FDA Start: 11-29-2022 SEALANT,FLOSEAL HEMOSTATIC 5ML FDA Start: 11-29-2022 SEALANT,FLOSEAL HEMOSTATIC 5ML FDA Start: 11-29-2022 CLIP,HEMOLOCK MED WECK FDA St art: 11-20-2017 CLIP,HEMOLOCK MED WECK FDA St art: 11-20-2017 [id number] FDA Start: 11-29-2022 SET SCREWS FDA Start: 11-29-2022 SET SCREWS FDA Start: 11-29-2022 SET SCREWS FDA Start: 11-29-2022 SET SCREWS FDA Start: 11-29-2022 SPINAL RODS 35MM FDA Start: 11-29-2022 SPINAL RODS 35MM FDA Start: 11-29-2022 TALOS PEEK IMPLANT FDA Start: 11-29-2022 VITAE OS 1CC FDA Start: 11-29-2022 VITAE OS 1CC FDA Start: 11-29-2022 6.5 X 45 SPINE SCREW FDA Star t: 11-29-2022 6.5 X 45 SPINE SCREW FDA Star t: 11-29-2022 6.5 X 55 SPINE SCREW FDA Star t: 11-29-2022 6.5 X 55 SPINE SCREW FDA Star t: 11-29-2022 6.5 X 55 SPINE SCREW FDA Star t: 11-29-2022 OBS DBM 5CC FDA Start: 11-29-2022 SEALANT,FLOSEAL HEMOSTATIC 5ML FDA Start: 11-29-2022 SEALANT,FLOSEAL HEMOSTATIC 5ML FDA Start: 11-29-2022 JOVITAROSANGELAJAMMIE CARDOSO FDA St art: 11-20-2017 JOVITAROSANGELAJAMMIE KURTIS JANAE FDA St art: 11-20-2017 [id number] FDA Start: 11-29-2022 SET SCREWS FDA Start: 11-29-2022 SET SCREWS FDA Start: 11-29-2022 SET SCREWS FDA Start: 11-29-2022 SET SCREWS FDA Start: 11-29-2022 SPINAL RODS 35MM FDA Start: 11-29-2022 SPINAL RODS 35MM FDA Start: 11-29-2022 TALOS PEEK IMPLANT FDA Start: 11-29-2022 VITAE OS 1CC FDA Start: 11-29-2022 VITAE OS 1CC FDA Start: 11-29-2022 6.5 X 45 SPINE SCREW FDA Star t: 11-29-2022 6.5 X 45 SPINE SCREW FDA Star t: 11-29-2022 6.5 X 55 SPINE SCREW FDA Star t: 11-29-2022 6.5 X 55 SPINE SCREW FDA Star t: 11-29-2022 6.5 X 55 SPINE SCREW FDA Star t: 11-29-2022 OBS DBM 5CC FDA Start: 11-29-2022 SEALANT,FLOSEAL HEMOSTATIC 5ML FDA Start: 11-29-2022 SEALANT,FLOSEAL HEMOSTATIC 5ML FDA Start: 11-29-2022 JOVITAROSANGELAJAMMIE CARDOSO FDA St art: 11-20-2017 JOVITAROSANGELAJAMMIE KURTIS ZAKIA FDA St art: 11-20-2017 [id number] FDA Start: 11-29-2022 SET SCREWS FDA Start: 11-29-2022 SET SCREWS FDA Start: 11-29-2022 SET SCREWS FDA Start: 11-29-2022 SET SCREWS FDA Start: 11-29-2022 SPINAL RODS 35MM FDA Start: 11-29-2022 SPINAL RODS 35MM FDA Start: 11-29-2022 TALOS PEEK IMPLANT FDA Start: 11-29-2022 VITAE OS 1CC FDA Start: 11-29-2022 VITAE OS 1CC FDA Start: 11-29-2022 6.5 X 45 SPINE SCREW FDA Star t: 11-29-2022 6.5 X 45 SPINE SCREW FDA Star t: 11-29-2022 6.5 X 55 SPINE SCREW FDA Star t: 11-29-2022 6.5 X 55 SPINE SCREW FDA Star t: 11-29-2022 6.5 X 55 SPINE SCREW FDA Star t: 11-29-2022 OBS DBM 5CC FDA Start: 11-29-2022 SEALANT,FLOSEAL HEMOSTATIC 5ML FDA Start: 11-29-2022 SEALANT,FLOSEAL HEMOSTATIC 5ML FDA Start: 11-29-2022 Goals Date Patient Goal Desired Activity /State Mental Status Date Assessment Result Facility 02-16-2025 Cognitive function Voice/Name [facility] [place] Work Phone: 11-06-2024 Cognitive function Light Pain [facility] [place] Work Phone: 11-06-2024 Cognitive function Patient Orien tation Person;Place;Time [facility] Work Phone: 07-02-2024 Cognitive function Voice/Name [facility] [place] Work Phone: Clinical Notes 05-31-2021 to 02-16-2025 Note Date & Type Note Facility 02-16-2025 Discharge summary [facility] 02-16-2025 Radiology Diagnostic study note [facility] Imaging Services [address] [place] [address] Chest 1 View (Portable) MR#: [id number] Acct: [id number] Name: GENET COSTA Rep #: [id number] : 1960 M 64 From: Jatinder Osman MD PCP: Dr. Harpreet Lee MD Status: REG E R Study:Chest 1 View (Portable) Date of Exam: 02/16/25 Exam# [id number] Ordering Dr: Janeth Cook MD PROCEDURE: CHEST 1 VIEW (PORTABLE) N/A REASON FOR EXAM: CHEST PAIN TECHNIQUE: Frontal view of the chest. COMPARISON: May 13, 2024 FINDINGS: Heart size and mediastinal configuration are within normal limits. There is no focal infiltrate or consolidation. There is no pneumothorax or effusion. There is no acute bony abnormality. Aortic calcifications are visible. RAD/Chest 1 View (Portable) IMPRESSION: No acute process is identified in the chest. Reading Location: [facility] CC: Dr. Timur Cook MD; Dr. Harpreet Lee MD ~ Public Address Technician: Signed [facility] 01-04-2025 Evaluation note Diagnosis Onset Date Resolution Left carotid stenosis acute January 04, 2025 9:57am TIA (transient ischemic attack) resolved January 04, 2025 9 :57am Essential (primary) hypertension chronic March 15, 2025 10:27am Paroxysmal atrial fibrillation chronic March 15, 2025 10:27am TIA (transient ischemic attack) resolved March 15, 2025 10:27am [facility] Work Phone: [phone]) 854-316405-06-2025 Radiology Diagnostic study note [facility] Imaging Services [address], [place] [id number] Shoulder min 2 Views MR#: [id number] Acct: [id number] Name: GENET COSTA Rep #: [id number] : 1960 M 64 From: Yanci Boland MD PCP: Dr. Harpreet Lee MD Status: REG C JOSETTE Study:Shoulder min 2 Views Date of Exam: 12/22/24 Exam# [id number] Ordering Dr: Pantera Kate MD PROCEDURE: SHOULDER MIN 2 VIEWS 12/22/2024 REASON FOR EXAM: R SHOUDLER. ? SUPRASPINATUS TEAR. TECHNIQUE: Three views of the right shoulder COMPARISON: None FINDINGS: No acute fracture or dislocation. Joint spaces are maintained. Sclerotic lesion humeral head, compatible with an enchondroma. Acromioclavicular joint is within normal limits. Imaged lung field is clear.. RAD/Shoulder min 2 Views IMPRESSION: No acute findings. Reading Location: [facility] CC: Dr. Woodrow Kate MD; Dr. Harpreet Lee MD ~ Public Address Technician: Signed [facility]03-21-2025 Consult note [facility] Medical Records Department [address] [place] [address] Pre-Anesthesia Evaluation 11/06/24 1048 MR#: [id number] Acct: [id number] Name: GENET COSTA Rep #:[id number] : 1960 63 From: Suraj ortiz MD PCP: Dr. Harpreet Lee MD Status:REG S DC Y Race: C Location: [place] [address] ASA Classification* ASA Classification ASA Classification: 2 Assessment & Plan Anesthesia* Anesthesia Assessment Anesthesia Assessment: Discussed sedation and/or anesthesia options, risks, benefits, and alternatives with patient/parents/legal guardian/POA. Questions invited. The patient/parents/legal guardian/POA seems to understand and agrees to proceedwith anesthesia plan. Reviewed the physical assessment, medical history, allergy history and patient home medications list prior to surgery/procedure/anesthetic and documented any changes. Performed airway and anesthesia risk assessments. Anesthesia Type Anesthesia Type: MAC History Source History Obtained from:: Patient and Chart Anesthesia Focused Assessment* Temperature: 97.5 F Pulse Rate: 71 Blood Pressure: 120/82 Respiratory Rate: 16 Pulse Ox: 97 Oxygen Delivery Method: Room Air Airway Assessment Mouth opens: >3 cm Mallampati Score: II Teeth Condition: Intact Neck Range of motion (ROM): Full ROM Focused Labs Anesthesia Preop lab: CBC WBC 8.4 K/mm3 (4.4-11.0) 10/01/24 07:10/01/24 RBC 5.09 M/mm3 (4.6-6.2) 10/01/24 07:31 10/01/24 Hgb 14.9 g/dL (13.0-16.5) 10/01/24 07:10/01/24 Hct 45.5 % (40-54) 10/01/24 07:31 10/01/24 Plt Count 191 K/mm3 (150-450) 10/01/24 07:31 10/01/24 CHEMISTRY Potassium 3.9 mmol/L (3.5-5.1) 10/01/24 07:31 10/01/24 Sodium 139 mmol/L (136-145) 10/01/24 07:31 10/01/24 Magnesium 2.1 mg/dL (1.6-2.6) 10/15/22 12:14 10/15/22 BUN 22 mg/dL (7-18) H 10/01/24 07:31 10/01/24 Creatinine 1.19 mg/dL (0.70-1.30) 10/01/24 07:31 10/01/24 Glucose 98 mg/dL (74-106) 10/01/24 07:31 10/01/24 TSH 1.86 uIU/mL (0.358-3.74) 08/14/21 17:02 COAG PT 13.5 SECONDS (11.7-14.9) 11/21/22 11:03 Pre-Assessment Diagnosis/Proposed Procedure Planned Operative Procedure(s): CSCOPE Anesthesia History Anesthesia History - mobility manager: Anesthesia History - mobility manager Hx Hospitalization No 11/04/24 10:37 Any Problems With Anesthesia Yes: SLOW TO AWAKEN 11/04/24 10:37 Cholinesterase deficiency No 11/04/24 10:37 You/Your Family Experience No 11/04/24 10:37 fever (hyperthermia) with Relationship Recent Exposure to Contagious No 07/02/24 12:01 Disease Does patient have nerve No 11/04/24 10:37 stimulator Patient instructed to have device shut off --Does patient have Pacemaker No 11/06/24 08:47 or ICD? When Was Last Pacemaker Check QUESTION #4 FULL TEXT: You/Your Family Experience fever (hyperthermia) with Anesthesia Last Oral Intake Last Oral intake: Last Oral Intake NPO since 07:05 11/06/24 08:47 Meds taken in AM with sips of Yes 11/06/24 08:47 water? Meds patient instructed to take am of surgery PONV PONV - mobility manager: PONV - mobility manager Female No 11/04/24 10:37 HX of Motion Sickness Yes 11/04/24 10:37 HX of N/V After Surgery No 11/04/24 10:37 Non-Smoker Yes 11/04/24 10:37 Duration of Surgery greater No 11/04/24 10:37 than 60 minutes Number of Risk Factors 2 11/04/24 10:37 PONV Score Moderate Risk 11/04/24 10:37 Height & Weight Height & Weight: Anesthesia: Height & Weight Height 5 ft 8 in 11/06/24 08:47 Weight: 83 kg 11/06/24 08:47 Body Mass Index (BMI) 27.8 11/06/24 08:47 Respiratory Assessment Respiratory Assessment - mobility manager: Respiratory Tract Infection Hx - mobility manager Hx Respiratory Tract Infection No 11/04/24 10:37 STOP Sleep Apnea STOP Sleep Apnea - mobility manager: STOP Sleep Apnea - mobility manager Hx Hypertension Yes: CONTROLLED WITH MED 11/04/24 10:37 Hx Sleep Apnea Yes 11/04/24 10:37 CPAP No 11/06/24 10:05 BIPAP Yes: NOT COMPLIANT 11/04/24 10:37 Do you snore loudly (louder than talking or can be heard Do you often feel tired/ fatigued/ sleepy during daytime? Has anyone observed you stop breathing during sleep? STOP Results Positive 11/06/24 10:05 QUESTION #5 FULL TEXT : Do you snore loudly (louder than talking or can be heard through closeddoors)? 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 Specify any problems Hx of Preganancy in last 3 N/A 11/04/24 10:37 Months Nurse Filling Out Transfusion DSCHRIBER 11/04/24 10:37 & Questions: Date: 11/04/24 11/04/24 10:37 Time: 10:39 11/04/24 10:37 Patient unable to answer at this time (ie. confused, unrespo /Reproduction History /Reproductive History - mobility manager: /Reproductive Hx- mobility manager Hx Now Gestational Age (in weeks): EDC: Hx Hx Para Hx Section SAB No 11/04/24 10:37 [facility] Medical History BiPAP (biphasic positive airway pressure) dependence ADD (attention deficit disorder) Shortness of breath on exertion Constipation Rheumatoid arthritis History of hiatal hernia History of diverticulitis Former smoker Cardiology follow-up encounter Right inguinal hernia Hypertension Wears glasses Anxiety Alcohol use Arthritis Pulmonary embolism Injury of head and neck History of IBS Gastric reflux History of echocardiogram History of stress test Normal stress echocardiogram History of atrial fibrillation Contact with and (suspected) exposure to other viral communicable diseases Asthma Obesity (BMI 30.0-34.9) Paroxysmal atrial fibrillation Home Medications ?Medication ?Instructions ?Recorded ?Last Taken ?Type albuterol sulfate 90 mcg/actuation 2 puff inhalation Q 6H PRN 05/31/21 Unknown Rx aerosol inhaler shortness of breath or wheez ing #8.5 grams esomeprazole magnesium 40 mg 40 mg PO DAILY GERD 06/0911/06/24 History capsule,delayed release (Nexium) zolpidem 10 mg tablet 10 mg PO QHS PRN Sleep 09/0111/05/24 History sildenafil 100 mg tablet 100 mg PO PRN PRN Erectile 0 10/15/22 Unknown History Dysfunction hydroxychloroquine 200 mg tablet 200 mg PO BID 4 11/06/24 History apixaban 5 mg tablet (Eliquis) 5 mg PO BID #180 tabs 1 08/29/23 11/03/24 Rx fluticasone furoate 100 1 inh inhalation Q24H #30 ea 09/08/24 11/06/24 Rx mcg/actuation blister powder for inhalation (Arnuity Ellipta) oral device #1 ea 09/08/24 Unknown Rx turmeric root extract 500 mg 500 mg PO QDAY 10/22/24 0 10/28/24 History capsule atomoxetine 40 mg capsule 40 mg PO DAILY 11/04/2410/18 History atorvastatin 20 mg tablet 20 mg PO QHS 11/04/24 History flecainide 100 mg tablet 100 mg PO BID 11/04/2411/06 History lisinopril 10 mg tablet 10 mg PO DAILY 11/04/24 03/2 0 History potassium citrate 10 mEq (1,080 10 meq PO BID 11/04/24 11/05/24 History mg) tablet,extended release triamcinolone acetonide 0.1 % 1 applic topical BID PRN DERMITIS 11/04/24 11/05/24 History topical cream Allergy/AdvReac Type Severity Reaction Status Date / Time azithromycin (From Zithromax AdvReac Unknown d/t hx of Verified 11/06/24 08:46 Z-Jerzy) a-fib Family History Mother Diabetes Hypertension High cholesterol Father Hypertension Prostate cancer Sister Throat cancer Other Heart disease Surgical History History of lumbar fusion S/P inguinal hernia repair History of cardiac catheterization Hx of repair of left rotator cuff Hx of surgical procedure History of laminectomy (~03/2021) History of bilateral cataract extraction History of colonoscopy History of radiofrequency ablation procedure for cardiac arrhythmia (12/29/12) History of left heart catheterization (07/28/18) History of cholecystectomy History of esophagogastroduodenoscopy (EGD) Social History Smoking Status: Former smoker pack-years: 10 Tobacco: How many years used: 10 Electronic Cigarette Use: not used how long ago did patient quit smoking: stopped at age 25. second hand exposure: No alcohol intake: current alcohol intake frequency: a few times a week Alcohol type: hard liquor substance use type: does not use caffeine: Yes (very little) what type of physical activity do you participate in: weight training frequency: 3-4 times per week Review of Systems (Anesthesia) ROS Narrative System reviewed and no additional complaints, except as documented. 11/06/24 1049 andreia CHANDLER> Date _ Suraj Mcknight MD Cosigner Signature: Date CC: ~ Signed [facility]03-21-2025 Consult note [facility] Medical Records Department [address] [place] [address] Anesthesia Postop Eval I 11/06/24 1006 MR#: [id number] Acct: [id number] Name: GENET COSTA Rep #:[id number] : 1960 63 From: Gaviota cruz CHOIR SINGER PCP: Dr. Harpreet Lee MD Status:REG S DC Y Race: C Location: [place] [address] Anesthesia: Postop Eval I Current Vital Signs Temperature: 97.4 F Pulse Rate: 68 Blood Pressure: 98/66 Respiratory Rate: 16 Pulse Ox: 94 Oxygen Delivery Method: Room Air Assessment Airway patent: Yes Spontaneous unlabored respirations: Yes Mental status: Awake and Calm nausea: No Vomiting: No Anesthesia Complication: No Fluid Hydration Crystalloid volume administer (ml): 20 Total IV fluid infused: 20 Progress Note Anesthesia document: Postop Eval 1 completed: Yes 11/06/24 Ester joanna CHOIR SINGER> Date _ Gaviota Adams CHOIR SINGER Cosigner Signature: Date CC: ~ Signed [facility]03-21-2025 Consult note [facility] Medical Records Department [address] [facility] [place] [address] Pre-Anesthesia Evaluation 11/06/24 1003 MR#: [id number] Acct: [id number] Name: GENET COSTA Rep #:[id number] : 1960 63 From: Dandre STOCK PCP: Dr. Harpreet Lee MD Status:REG S DC Y Race: C Location: [place] [address] ASA Classification* ASA Classification ASA Classification: 2 Assessment & Plan Anesthesia* Anesthesia Assessment Anesthesia Assessment: Discussed sedation and/or anesthesia options, risks, benefits, and alternatives with patient/parents/legal guardian/POA. Questions invited. The patient/parents/legal guardian/POA seems to understand and agrees to proceedwith anesthesia plan. Reviewed the physical assessment, medical history, allergy history and patient home medications list prior to surgery/procedure/anesthetic and documented any changes. Performed airway and anesthesia risk assessments. Anesthesia Type Anesthesia Type: MAC History Source History Obtained from:: Patient and Chart Anesthesia Focused Assessment* Temperature: 98.6 F Pulse Rate: 76 Blood Pressure: 124/85 Respiratory Rate: 17 Pulse Ox: 98 Oxygen Delivery Method: Room Air Airway Assessment Mouth opens: >3 cm Mallampati Score: II Teeth Condition: Intact Neck Range of motion (ROM): Full ROM Focused Labs Anesthesia Preop lab: CBC WBC 8.4 K/mm3 (4.4-11.0) 10/01/24 07:10/01/24 RBC 5.09 M/mm3 (4.6-6.2) 10/01/24 07:10/01/24 Hgb 14.9 g/dL (13.0-16.5) 10/01/24 07:31 10/01/24 Hct 45.5 % (40-54) 10/01/24 07:31 10/01/24 Plt Count 191 K/mm3 (150-450) 10/01/24 07:31 10/01/24 CHEMISTRY Potassium 3.9 mmol/L (3.5-5.1) 10/01/24 07:10/01/24 Sodium 139 mmol/L (136-145) 10/01/24 07:31 10/01/24 Magnesium 2.1 mg/dL (1.6-2.6) 10/15/22 12:14 10/15/22 BUN 22 mg/dL (7-18) H 10/01/24 07:31 10/01/24 Creatinine 1.19 mg/dL (0.70-1.30) 10/01/24 07:31 10/01/24 Glucose 98 mg/dL (74-106) 10/01/24 07:31 10/01/24 TSH 1.86 uIU/mL (0.358-3.74) 08/14/21 17:02 COAG PT 13.5 SECONDS (11.7-14.9) 11/21/22 11:03 Pre-Assessment Diagnosis/Proposed Procedure Planned Operative Procedure(s): CSCOPE Anesthesia History Anesthesia History - mobility manager: Anesthesia History - mobility manager Hx Hospitalization No 11/04/24 10:37 Any Problems With Anesthesia Yes: SLOW TO AWAKEN 11/04/24 10:37 Cholinesterase deficiency No 11/04/24 10:37 You/Your Family Experience No 11/04/24 10:37 fever (hyperthermia) with Relationship Recent Exposure to Contagious No 07/02/24 12:01 Disease Does patient have nerve No 11/04/24 10:37 stimulator Patient instructed to have device shut off --Does patient have Pacemaker No 11/06/24 08:47 or ICD? When Was Last Pacemaker Check QUESTION #4 FULL TEXT: You/Your Family Experience fever (hyperthermia) with Anesthesia Any additional information?: No Last Oral Intake Last Oral intake: Last Oral Intake NPO since 07:05 11/06/24 08:47 Meds taken in AM with sips of Yes 11/06/24 08:47 water? Meds patient instructed to take am of surgery Any additional information?: No PONV PONV - mobility manager: PONV - mobility manager Female No 11/04/24 10:37 HX of Motion Sickness Yes 11/04/24 10:37 HX of N/V After Surgery No 11/04/24 10:37 Non-Smoker Yes 11/04/24 10:37 Duration of Surgery greater No 11/04/24 10:37 than 60 minutes Number of Risk Factors 2 11/04/24 10:37 PONV Score Moderate Risk 11/04/24 10:37 Any additional information?: No Height & Weight Height & Weight: Anesthesia: Height & Weight Height 5 ft 8 in 11/06/24 08:47 Weight: 83 kg 11/06/24 08:47 Body Mass Index (BMI) 27.8 11/06/24 08:47 Respiratory Assessment Respiratory Assessment - mobility manager: Respiratory Tract Infection Hx - mobility manager Hx Respiratory Tract Infection No 11/04/24 10:37 Any additional information?: No STOP Sleep Apnea STOP Sleep Apnea - mobility manager: STOP Sleep Apnea - mobility manager Hx Hypertension Yes: CONTROLLED WITH MED 11/04/24 10:37 Hx Sleep Apnea Yes 11/04/24 10:37 CPAP No 11/04/24 10:37 BIPAP Yes: NOT COMPLIANT 11/04/24 10:37 Do you snore loudly (louder than talking or can be heard Do you often feel tired/ fatigued/ sleepy during daytime? Has anyone observed you stop breathing during sleep? STOP Results Positive 11/04/24 10:37 QUESTION #5 FULL TEXT : Do you snore loudly (louder than talking or can be heard through closeddoors)? 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 Specify any problems Hx of Preganancy in last 3 N/A 11/04/24 10:37 Months Nurse Filling Out Transfusion DSCHRIBER 11/04/24 10:37 & Questions: Date: 11/04/24 11/04/24 10:37 Time: 10:39 11/04/24 10:37 Patient unable to answer at this time (ie. confused, unrespo Any additional information?: No /Reproduction History /Reproductive History - mobility manager: /Reproductive Hx- mobility manager Hx Now Gestational Age (in weeks): EDC: Hx Hx Para Hx Section SAB No 11/04/24 10:37 Any additional information?: No PFSH Medical History BiPAP (biphasic positive airway pressure) dependence ADD (attention deficit disorder) Shortness of breath on exertion Constipation Rheumatoid arthritis History of hiatal hernia History of diverticulitis Former smoker Cardiology follow-up encounter Right inguinal hernia Hypertension Wears glasses Anxiety Alcohol use Arthritis Pulmonary embolism Injury of head and neck History of IBS Gastric reflux History of echocardiogram History of stress test Normal stress echocardiogram History of atrial fibrillation Contact with and (suspected) exposure to other viral communicable diseases Asthma Obesity (BMI 30.0-34.9) Paroxysmal atrial fibrillation Home Medications ?Medication ?Instructions ?Recorded ?Last Taken ?Type albuterol sulfate 90 mcg/actuation 2 puff inhalation Q 6H PRN 05/31/21 Unknown Rx aerosol inhaler shortness of breath or wheez ing #8.5 grams esomeprazole magnesium 40 mg 40 mg PO DAILY GERD 06/0911/06/24 History capsule,delayed release (Nexium) zolpidem 10 mg tablet 10 mg PO QHS PRN Sleep 09/0111/05/24 History sildenafil 100 mg tablet 100 mg PO PRN PRN Erectile 0 10/15/22 Unknown History Dysfunction hydroxychloroquine 200 mg tablet 200 mg PO BID 4 11/06/24 History apixaban 5 mg tablet (Eliquis) 5 mg PO BID #180 tabs 1 08/29/23 11/03/24 Rx fluticasone furoate 100 1 inh inhalation Q24H #30 ea 09/08/24 11/06/24 Rx mcg/actuation blister powder for inhalation (Arnuity Ellipta) oral device #1 ea 09/08/24 Unknown Rx turmeric root extract 500 mg 500 mg PO QDAY 10/22/24 0 10/28/24 History capsule atomoxetine 40 mg capsule 40 mg PO DAILY 11/04/2410/18 History atorvastatin 20 mg tablet 20 mg PO QHS 11/04/24 History flecainide 100 mg tablet 100 mg PO BID 11/04/2411/06 History lisinopril 10 mg tablet 10 mg PO DAILY 11/04/2410/18 History potassium citrate 10 mEq (1,080 10 meq PO BID 11/04/24 11/05/24 History mg) tablet,extended release triamcinolone acetonide 0.1 % 1 applic topical BID PRN DERMITIS 11/04/24 11/05/24 History topical cream Allergy/AdvReac Type Severity Reaction Status Date / Time azithromycin (From Zithromax AdvReac Unknown d/t hx of Verified 11/06/24 08:46 Z-Jerzy) a-fib Family History Mother Diabetes Hypertension High cholesterol Father Hypertension Prostate cancer Sister Throat cancer Other Heart disease Surgical History History of lumbar fusion S/P inguinal hernia repair History of cardiac catheterization Hx of repair of left rotator cuff Hx of surgical procedure History of laminectomy (~03/2021) History of bilateral cataract extraction History of colonoscopy History of radiofrequency ablation procedure for cardiac arrhythmia (12/29/12) History of left heart catheterization (07/28/18) History of cholecystectomy History of esophagogastroduodenoscopy (EGD) Social History Smoking Status: Former smoker pack-years: 10 Tobacco: How many years used: 10 Electronic Cigarette Use: not used how long ago did patient quit smoking: stopped at age 25. second hand exposure: No alcohol intake: current alcohol intake frequency: a few times a week Alcohol type: hard liquor substance use type: does not use caffeine: Yes (very little) what type of physical activity do you participate in: weight training frequency: 3-4 times per week Review of Systems (Anesthesia) ROS Narrative System reviewed and no additional complaints, except as documented. Physical Exam Const alert and oriented x3 Orientation / Consciousness: awake HEENT dentition normal Cardio regular rate, regular rhythm, no murmurs and diaphoretic Back/Spine normal ROM and thoraco-lumbar ROM normal Extremity full ROM Neuro oriented x3 and moves all extremities 11/06/24 1005 CHOIR SINGER> Date _ Dandre Colby CRNA Cosigner Signature: Date CC: ~ Signed [facility] [id number] Procedure note [facility] Medical Records Department [address] [place] [address] Colonoscopy Report MR#: [id number] Acct: [id number] Name: GENET COSTA Rep #:[id number] : 1960 63 From: Jamie ware MD PCP: Dr. Harpreet Lee MD Status:REG S DC Patient Name: Genet Costa Procedure Date: 11/06/2024 9:40 AM Date of : 1960 Age: 63 Procedure: Colonoscopy Indications: Screening for colorectal malignant neoplasm Providers: Jamie Simon MD Medicines: Propofol per Anesthesia Patient Profile: This is a 63 year old male. Refer to note in patient chart for documentation of history and physical. Last Colonoscopy: 10 years ago. Complications: No immediate complications. Procedure: Pre-Anesthesia Assessment: - Prior to the procedure, a History and Physical was performed, and patient medications and allergies were reviewed. The patient's tolerance of previous anesthesia was also reviewed. The risks and benefits of the procedure and the sedation options and risks were discussed with the patient. All questions were answered, and informed consent was obtained. Prior Anticoagulants: The patient has taken no anticoagulant or antiplatelet agents. After reviewing the risks and benefits, the patient was deemed in satisfactory condition to undergo the procedure. After I obtained informed consent, the scope was passed under direct vision. Throughout the procedure, the patient's blood pressure, pulse, and oxygen saturations were monitored continuously. The Colonoscope was introduced through the anus and advanced to the cecum, identified by appendiceal orifice and ileocecal valve. The colonoscopy was performed without difficulty. The patient tolerated the procedure well. The quality of the bowel preparation was good. The ileocecal valve, appendiceal orifice, and rectum were photographed. Scope In: 9:50:52 AM Scope Withdrawal Time 0 hours 5 minutes 2 seconds Scope Out: 10:01:09 AM Total Procedure Duration Time 0 hours 10 minutes 17 seconds Findings: The entire examined colon appeared normal on direct and retroflexion views. Impression: - The entire examined colon is normal on direct and retroflexion views. - No specimens collected. Recommendation: - Discharge patient to home. - Resume previous diet. - Continue present medications. - Repeat colonoscopy in 10 years for screening purposes. Procedure Code(s): --- Professional --- 82006, Colonoscopy, flexible; diagnostic, including collection of specimen(s) by brushing or washing, when performed (separate procedure) Diagnosis Code(s): --- Professional --- Z12.11, Encounter for screening for malignant neoplasm of colon CPT copyright 2021 [employer]. All rights reserved. The codes documented in this report are preliminary and upon eradicator review may be revised to meet current compliance requirements. Jamie Simon MD 11/06/2024 10:03:18 AM This report has been signed electronically. Number of Addenda: 0 Note Initiated On: 11/06/2024 9:40 AM 11/06/24 1003 Date _ Jamie Simon MD Cosigner Signature: Date (if indicated) CC: Dr. Jamie Simon MD; Dr. Harpreet Lee MD ~ Date Dictated: 11/06/24 0940 Date Transcribed: Public Address Technician: AC Signed [facility]03-21-2025 Procedure note [facility] Medical Records Department [address] [place] [address] Operative Report - CC Letter MR#: [id number] Acct: [id number] Name: GENET COSTA Rep #:[id number] : 1960 63 From: Jamie ware MD PCP: Dr. Harpreet Lee MD Status:REG S DC 11/06/2024 Harpreet Lee MD [address] [id number] Re : Colonoscopy procedure for Genet Costa Dear Dr. Lee This procedure was performed on Wednesday, November 06, 2024. My impressions and recommendations are as follows: Impressions : - The entire examined colon is normal on direct and retroflexion views. - No specimens collected. Recommendations : - Discharge patient to home. - Resume previous diet. - Continue present medications. - Repeat colonoscopy in 10 years for screening purposes. My findings are described in the full procedure note, which is enclosed. If I can be of further assistance, please feel free to contact me at Doctor phone number(s): , Work: . Sincerely, Jamie Simon MD 11/06/2024 10:03:18 AM This report has been signed electronically. 11/06/24 1003 Date _ Jamie Simon MD Cosigner Signature: Date (if indicated) CC: Dr. Jamie Simon MD; Dr. Harpreet Lee MD ~ Date Dictated: 11/06/24 0940 Date Transcribed: Public Address Technician: FERNANDO Signed [facility]03-21-2025 History and physical note [facility] Medical Records Department [address] [place] [address] History & Physical Exam 11/06/24 0934 MR#: [id number] Acct: [id number] Name: GENET COSTA Rep #:[id number] : 1960 63 From: Jamie ware MD PCP: Dr. Harpreet Lee MD Status:REG S DC Location: [facility]19-1 History and Physical Date of Admission: 11/06/24 Intake Vital Signs 09/10/2508:14 10/22/2512:50 Height 5 ft 8 in 5 ft 8 in Weight: 191 lb 189 lb 9 oz BMI 29.0 28.8 BP 120/79 132/72 H Blood Pressure Location Lt brachial Rt brachial Position Sitting Sitting Respiration 16 18 Pulse 69 64 Pulse Source Monitor Monitor Temp 97.3 F L Temp Source Temporal Pulse Oximetry (%) 99 Oxygen Delivery Method room air Intake Visit Reasons: COLONOSCOPY Chief Complaint: colonoscopy Is patient in pain?: No Allergies azithromycin (From Frengo Z-Jerzy) Adverse Reaction (Unknown, Verified 10/22/24 13:51) d/t hx of a-fib Medications ?Medication ?Instructions ?Recorded ?Confirmed ?Type albuterol sulfate 90 mcg/actuation 2 puff inhalation Q6H PRN 05/31/2110/22 Rx aerosol inhaler shortness of breath or wheezing #8.5 grams esomeprazole magnesium 40 mg 40 mg PO DAILY GERD 06/09/21 10/22/24 Hi story capsule,delayed release (Nexium) zolpidem 10 mg tablet 10 mg PO QHS PRN Sleep 09/01/21 10/22/24 History sildenafil 100 mg tablet 100 mg PO PRN PRN Erectile 10/15/2202/10 History Dysfunction clonazepam 0.5 mg tablet 0.5 mg PO DAILY 07/17/23 10/22/24 Histor y atorvastatin 20 mg tablet 20 mg PO DAILY #30 tabs 05/18/24 5 Rx hydroxychloroquine 200 mg tablet 200 mg PO BID 06/25/24 10/22/24 History apixaban 5 mg tablet (Eliquis) 5 mg PO BID #180 tabs 06/29/24 10/22/24 Rx fluticasone furoate 100 1 inh inhalation Q24H #30 ea 09/08/24 Rx mcg/actuation blister powder for inhalation (Arnuity Ellipta) oral device #1 ea 09/08/24 10/22/24 Rx turmeric root extract 500 mg 500 mg PO QDAY 10/22/24 10/22/24 History capsule PFSH Medical History (Updated 10/22/24 @ 13:50 by Joi Rivera LPN) Constipation Hx of renal calculi Rheumatoid arthritis Easy bruising History of hiatal hernia History of diverticulitis Heartburn CPAP (continuous positive airway pressure) dependence Former smoker Cardiology follow-up encounter Right inguinal hernia Hypertension Wears glasses Anxiety Alcohol use Arthritis Kidney stones Pulmonary embolism Injury of head and neck History of IBS Gastric reflux Sleep apnea On home oxygen therapy History of echocardiogram History of stress test Normal stress echocardiogram Cardiology follow-up encounter History of atrial fibrillation Contact with and (suspected) exposure to other viral communicable diseases Fatigue SOB (shortness of breath) Asthma Obesity (BMI 30.0-34.9) Obstructive sleep apnea Essential (primary) hypertension Paroxysmal atrial fibrillation Renal calculi Surgical History S/P inguinal hernia repair History of cardiac catheterization Hx of repair of left rotator cuff Hx of surgical procedure History of laminectomy (~03/2021) History of bilateral cataract extraction History of colonoscopy History of radiofrequency ablation procedure for cardiac arrhythmia (12/29/12) History of left heart catheterization (07/28/18) History of cholecystectomy History of esophagogastroduodenoscopy (EGD) Family History Mother Diabetes Hypertension High cholesterolFather Hypertension Prostate cancerSister Throat cancerOther Heart disease Social History Smoking Status: Former smoker pack-years: 10 Tobacco: How many years used: 10 Electronic Cigarette Use: not used how long ago did patient quit smoking: stopped at age 25. second hand exposure: No alcohol intake: current alcohol intake frequency: a few times a week Alcohol type: hard liquor substance use type: does not use caffeine: Yes (very little) what type of physical activity do you participate in: weight training frequency: 3-4 times per week HPI HPI HPI: Patient is a 63-year-old male here for colonoscopy. His last colonoscopy was over 10 years ago. He denies abdominal pain or blood in the stool. ROS General General: Yes weight change and fatigue; No appetite, colon cancer, breast cancer or weakness HEENT HEENT: Yes eye injury and eye surgery; No difficulty swallowing, swollen glands or hoarseness Endo Endocrine: No thyroid disease, diabetes mellitus, thyroid cancer, Hair loss, heat intolerance or cold intolerance Skin Skin: Yes rash; No changing moles Musc Musculoskeletal: Yes back problems and rheumatoid arthritis; No arthritis, gout or joint pain Cardio Cardiovascular: Yes atrial fibrillation and high blood pressure; No murmur, pacemaker, heart disease, heart attack, heart stent, palpitations, shortness of breat with exertion or chest pain Psych Psychiatric: Yes anxiety; No depression or hearing voices Resp Respiratory: Yes shortness of breath, Yes sleep apnea, No cough, No COPD, No asthma, No emphysema and No wheezing Gastro Gastrointestinal: Yes abdominal pain, Yes nausea or vomiting, No diarrhea, Yes constipation, No blood in stool, Yes acid reflux, No hemorrhoids, No ulcers, No gallbladder problem and No black,tarry stools [place]oto Hematologic: Yes blood thinners, No blood disorders, No bleeding, No anemia and Yes blood clots Neuro Neurologic: No numbness, No tingling and No weakness Exam Const General: cooperative Orientation: alert and oriented x3 HENMT Head: normal to inspection Neck Neck: normal visual inspection and full ROM Chest Chest palpation & inspection: normal inspection of the chest Resp Effort & Inspection: normal respiratory effort Auscultation: clear to auscultation bilaterally Cardio Rate: regular rate Rhythm: regular rhythm GI Inspection: non-distended Palpation: soft and nontender Skin General: no rashes or lesions noted Neuro General: patient alert and patient oriented x3 Extrem General: full ROM Psych Appearance: grossly normal Mental Status: mental status grossly normal Assessment and Plan Assessment and Plan (1) Constipation: Status: Acute Plan: Patient has constipation and IBS. He requires for screening colonoscopy. His last colonoscopy was over 10 years ago I explained endoscopy in detail to the patient. I explained the risks includingbut not limited to stroke or heart attack with anesthesia, perforation of the GItract, bleeding, infection. I explained that any of these could necessitate further emergency surgery. The patient understands and all questions were answered sufficiently. The patient wishes to proceed with procedure. Jamie Simon MD Pager: [facility] [address] [place] [address], [address] [place] [address] Office: I have examined the patient and the H&P has been reviewed. There are no clinicalchanges since date of exam. 11/06/24 0935 Cosigner Signature (if applicable): CC: Dr. Jamie Simon MD; Dr. Harpreet Lee MD~ Signed [facility]03-21-2025 [facility] Medical Records Department [address] [place] [address] History Physical Exam 11/06/24 0934 MR#: [id number] Acct: [id number] Name: GENET COSTA Rep #: [id number] : 1960 63 From: Jamie Simon MD PCP: Dr. Harpreet Lee MD Status:[facility] Location: [place] [address] History and Physical Date of Admission: 11/06/24 Intake Vital Signs 09/10/2508:14 10/22/2512:50 Height 5 ft 8 in 5 ft 8 in Weight: 191 lb 189 lb 9 oz BMI 29.0 28.8 BP 120/79 132/72 H Blood Pressure Location Lt brachial Rt brachial Position Sitting Sitting Respiration 16 18 Pulse 69 64 Pulse Source Monitor Monitor Temp 97.3 F L Temp Source Temporal Pulse Oximetry (%) 99 Oxygen Delivery Method room air Intake Visit Reasons: COLONOSCOPY Chief Complaint: colonoscopy Is patient in pain?: No Allergies azithromycin (From Frengo Z-Jerzy) Adverse Reaction (Unknown, Verified 10/22/24 13:51) d/t hx of a-fib Medications ???Medication ???Instructions ???Recorded ???Confirmed ???Type albuterol sulfate 90 mcg/actuation 2 puff inhalation Q6H PRN 05/31/21 10/22/24 Rx aerosol inhaler shortness of breath or wheezing #8.5 grams esomeprazole magnesium 40 mg 40 mg PO DAILY GERD 06/09/21 10/22/24 History capsule,delayed release (Nexium) zolpidem 10 mg tablet 10 mg PO QHS PRN Sleep 09/01/21 10/22/24 History sildenafil 100 mg tablet 100 mg PO PRN PRN Erectile 10/15/22 10/22/24 Histo ry Dysfunction clonazepam 0.5 mg tablet 0.5 mg PO DAILY 07/17/23 10/22/24 History atorvastatin 20 mg tablet 20 mg PO DAILY #30 tabs 05/18/24 10/22/24 Rx hydroxychloroquine 200 mg tablet 200 mg PO BID 06/25/24 10/22/24 History apixaban 5 mg tablet (Eliquis) 5 mg PO BID #180 tabs 06/29/24 10/22/24 Rx fluticasone furoate 100 1 inh inhalation Q24H #30 ea 09/08/24 10/22/24 Rx mcg/actuation blister powder for inhalation (Arnuity Ellipta) oral device #1 ea 09/08/24 10/22/24 Rx turmeric root extract 500 mg 500 mg PO QDAY 10/22/24 10/22/24 History capsule PFSH Medical History (Updated 10/22/24 @ 13:50 by Joi Rivera LPN) Constipation Hx of renal calculi Rheumatoid arthritis Easy bruising History of hiatal hernia History of diverticulitis Heartburn CPAP (continuous positive airway pressure) dependence Former smoker Cardiology follow-up encounter Right inguinal hernia Hypertension Wears glasses Anxiety Alcohol use Arthritis Kidney stones Pulmonary embolism Injury of head and neck History of IBS Gastric reflux Sleep apnea On home oxygen therapy History of echocardiogram History of stress test Normal stress echocardiogram Cardiology follow-up encounter History of atrial fibrillation Contact with and (suspected) exposure to other viral communicable diseases Fatigue SOB (shortness of breath) Asthma Obesity (BMI 30.0-34.9) Obstructive sleep apnea Essential (primary) hypertension Paroxysmal atrial fibrillation Renal calculi Surgical History S/P inguinal hernia repair History of cardiac catheterization Hx of repair of left rotator cuff Hx of surgical procedure History of laminectomy ( 03/2021) History of bilateral cataract extraction History of colonoscopy History of radiofrequency ablation procedure for cardiac arrhythmia (12/29/12) History of left heart catheterization (07/28/18) History of cholecystectomy History of esophagogastroduodenoscopy (EGD) Family History Mother Diabetes Hypertension High cholesterolFather Hypertension Prostate cancerSister Throat cancerOther Heart disease Social History Smoking Status: Former smoker pack-years: 10 Tobacco: How many years used: 10 Electronic Cigarette Use: not used how long ago did patient quit smoking: stopped at age 25. second hand exposure: No alcohol intake: current alcohol intake frequency: a few times a week Alcohol type: hard liquor substance use type: does not use caffeine: Yes (very little) what type of physical activity do you participate in: weight training frequency: 3-4 times per week HPI HPI HPI: Patient is a 63-year-old male here for colonoscopy. His last colonoscopy was over 10 years ago. He denies abdominal pain or blood in the stool. ROS General General: Yes weight change and fatigue; No appetite, colon cancer, breast cancer or weakness HEENT HEENT: Yes eye injury and eye surgery; No difficulty swallowing, swollen glands or hoarseness Endo Endocrine: No thyroid disease, diabetes mellitus, thyroid cancer, Hair loss, heat intolerance or cold intolerance Skin Skin: Yes rash; No changing moles Musc Musculoskeletal: Ye (more content not included)...[facility] 10-22-2024 Evaluation note* Diagnosis Onset Date Resolution Status Admit Date Constipation acute October 22 1:36pm Left carotid stenosis acute January 04, 2025 9:57am TIA (transient ischemic attack) reso lved January 04, 2025 9:57am [facility] Work Phone: 1(947) 726-473701-21-2025 Evaluation note* Diagnosis Onset Date Resolution Status Admit Date Cough chronic September 08, 2024 9:05am Obstructive sleep apnea chronic an2024 9:05am Sleep concern noneactive August 9:05am Essential (primary) hypertension chronic September 10 8:43am Paroxysmal atrial fibrillation chronic September 10 8:43am TIA (transient ischemic attack) resolved September 10 8:43am Constipation acute October 22 1:36pm [facility] Work Phone: 1(731) 181-254501-21-2025 Evaluation note* Diagnosis Onset Date Resolution Status Admit Date Cough chronic September 08, 2024 9:05am Obstructive sleep apnea chronic 2024 9:05am Sleep concern noneactive August 9:05am Essential (primary) hypertension chronic September 10 8:43am Paroxysmal atrial fibrillation chronic September 10 8:43am TIA (transient ischemic attack) resolved September 10 8:43am Constipation acute October 22 1:36pm Left carotid stenosis acute January 04, 2025 9:[address] [facility] Work Phone: 1(114) 881-255011-26-2024 Evaluation note* Diagnosis Onset Date Resolution Status Admit Date S/P inguinal hernia repair acute July 14, 2024 1:51pm Cough chronic August 04, 2024 9:14am Hypersomnia chronic July 9:14am Sleep concern noneactive August 042023 9:14am Cough chronic September 08, 2024 9:05am Obstructive sleep apnea chronic J anuary 2024 9:05am Sleep concern noneactive August 9:05am Essential (primary) hypertension chronic September 10 8:43am Paroxysmal atrial fibrillation chronic September 10 8:43am TIA (transient ischemic attack) resolved September 10 8:43am Constipation acute October 22, 2 025 1:36pm [facility] Work Phone: 1(496) 190-234611-14-2024 [facility] Medical Records Department [address] [place] [address] History Physical Exam 07/02/24 1236 MR#: [id number] Acct: [id number] Name: GENET COSTA Rep #: [id number] : 1960 63 From: Jamie Simon MD PCP: Dr. Harpreet Lee MD Status:[facility] Location: [place] [address] History and Physical Date of Admission: 07/02/24 Intake Vital Signs 05/18/2409:53 06/19/2412:52 Height 5 ft 8 in 5 ft 8 in Weight: 191 lb 192 lb 8 oz BMI 29.0 29.2 BP 98/64 124/83 H Blood Pressure Location Lt brachial Rt brachial Position Sitting Sitting Respiration 15 18 Pulse 74 78 Pulse Source Monitor Monitor Temp 98.4 F 97.3 F L Temp Source Temporal Temporal Pulse Oximetry (%) 99 97 Oxygen Delivery Method room air room air Intake Visit Reasons: INGUINAL HERNIA Chief Complaint: right inguinal hernia Is patient in pain?: Yes Allergies azithromycin (From Frengo Z-Jerzy) Adverse Reaction (Unknown, Verified 06/19/24 12:53) d/t hx of a-fib Medications ???Medication ???Instructions ???Recorded ???Confirmed ???Type albuterol sulfate 90 mcg/actuation 2 puff inhalation Q6H PRN 05/31/21 06/19/24 Rx aerosol inhaler shortness of breath or wheezing #8.5 grams esomeprazole magnesium 40 mg 40 mg PO DAILY GERD 06/09/21 06/19/24 History capsule,delayed release (Nexium) lisinopril 10 mg tablet 10 mg PO DAILY SUPPLEMENT 06/09/21 06/19/24 History zolpidem 10 mg tablet 10 mg PO QHS PRN Sleep 09/01/21 06/19/24 History cyanocobalamin (vitamin B-12) 1,000 mcg PO DAILY SUPPLEMENT 10/15/22 06/19/24 History 1,000 mcg tablet,extended release (Vitamin B-12 ER) magnesium 200 mg tablet 400 mg PO DAILY SUPPLEMENT 10/15/22 06/19/24 History omega-3 fatty acids 1,000 mg PO DAILY SUPPLEMENT 10/15/22 06/19/24 History sildenafil 100 mg tablet 100 mg PO PRN PRN Erectile 10/15/22 06/19/24 History Dysfunction clonazepam 0.5 mg tablet 0.5 mg PO BID 07/17/23 06/19/24 History apixaban 5 mg tablet (Eliquis) 5 mg PO BID #180 tabs 07/29/23 06/19/24 Rx baclofen 10 mg tablet 10 mg PO DAILY 08/14/23 06/19/24 History ondansetron 4 mg disintegrating 4 mg PO Q6H PRN nausea and 08/14/23 06/19/24 Rx tablet vomiting 3 days #12 tabs oxycodone-acetaminophen 5 mg-325 1 tab PO Q6H PRN pain 3 days #12 08/14/23 06/19/24 Rx mg tablet (Percocet) tabs tamsulosin 0.4 mg capsule 0.4 mg PO Q24H 08/14/23 06/19/24 History atorvastatin 20 mg tablet 20 mg PO DAILY #30 tabs 05/18/24 06/19/24 Rx flecainide 100 mg tablet 100 mg PO Q12H HEART #180 tabs 06/11/24 06/19/24 Rx PFSH Medical History (Updated 06/19/24 @ 12:52 by Joi Rivera LPN) Right inguinal hernia Hypertension Wears glasses Anxiety Alcohol use Arthritis Kidney stones Pulmonary embolism Injury of head and neck History of IBS Gastric reflux Sleep apnea On home oxygen therapy History of echocardiogram History of stress test Normal stress echocardiogram Cardiology follow-up encounter History of atrial fibrillation Contact with and (suspected) exposure to other viral communicable diseases Fatigue SOB (shortness of breath) Asthma Obesity (BMI 30.0-34.9) Obstructive sleep apnea Essential (primary) hypertension Paroxysmal atrial fibrillation Renal calculi Surgical History History of cardiac catheterization Hx of repair of left rotator cuff Hx of surgical procedure History of laminectomy ( 03/2021) History of bilateral cataract extraction History of colonoscopy History of radiofrequency ablation procedure for cardiac arrhythmia (12/29/12) History of left heart catheterization (07/28/18) History of cholecystectomy History of esophagogastroduodenoscopy (EGD) Family History Mother Diabetes Hypertension High cholesterolFather HypertensionOther Heart disease Social History Smoking Status: Former smoker pack-years: 10 Tobacco: How many years used: 10 Electronic Cigarette Use: not used second hand exposure: No alcohol intake: current alcohol intake frequency: a few times a week Alcohol type: hard liquor substance use type: does not use caffeine: Yes (very little) what type of physical activity do you participate in: weight training frequency: 3-4 times per week HPI HPI HPI: Patient is a 63-year-old male who comes in with right inguinal pain after pickleball game. He says this has been going on for 3 weeks. He has had a left inguinal hernia repaired in the past. He says the pain is on the right side and it is incredibly uncomfortable to sneeze or cough. He says it has been getting worse. He did try ibuprofen. 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 Harpreet Lee MD Status:REG S DC Y Race: C Location: [place] [address] ASA Classification* ASA Classification ASA Classification: 2 Assessment & Plan Anesthesia* Anesthesia Assessment Anesthesia Assessment: Discussed sedation and/or anesthesia options, risks, benefits, and alternatives with patient/parents/legal guardian/POA. Questions invited. The patient/parents/legal guardian/POA seems to understand and agrees to proceedwith anesthesia plan. Reviewed the physical assessment, medical history, allergy history and patient home medications list prior to surgery/procedure/anesthetic and documented any changes. Performed airway and anesthesia risk assessments. Anesthesia Type Anesthesia Type: MAC History Source History Obtained from:: Patient and Chart Anesthesia Focused Assessment* Temperature: 98.6 F Pulse Rate: 76 Blood Pressure: 124/85 Respiratory Rate: 17 Pulse Ox: 98 Oxygen Delivery Method: Room Air Airway Assessment Mouth opens: >3 cm Mallampati Score: II Teeth Condition: Intact Neck Range of motion (ROM): Full ROM Focused Labs Anesthesia Preop lab: CBC WBC 8.4 K/mm3 (4.4-11.0) 10/01/24 07:31 10/01/24 RBC 5.09 M/mm3 (4.6-6.2) 10/01/24 07:31 10/01/24 Hgb 14.9 g/dL (13.0-16.5) 10/01/24 07:31 10/01/24 Hct 45.5 % (40-54) 10/01/24 07:31 10/01/24 Plt Count 191 K/mm3 (150-450) 10/01/24 07:31 10/01/24 CHEMISTRY Potassium 3.9 mmol/L (3.5-5.1) 10/01/24 07:31 10/01/24 Sodium 139 mmol/L (136-145) 10/01/24 07:31 10/01/24 Magnesium 2.1 mg/dL (1.6-2.6) 10/15/22 12:14 10/15/22 BUN 22 mg/dL (7-18) H 10/01/24 07:31 10/01/24 Creatinine 1.19 mg/dL (0.70-1.30) 10/01/24 07:31 10/01/24 Glucose 98 mg/dL (74-106) 10/01/24 07:31 10/01/24 TSH 1.86 uIU/mL (0.358-3.74) 08/14/21 17:02 COAG PT 13.5 SECONDS (11.7-14.9) 11/21/22 11:03 Pre-Assessment Diagnosis/Proposed Procedure Planned Operative Procedure(s): CSCOPE Anesthesia History Anesthesia History - mobility manager: Anesthesia History - mobility manager Hx Hospitalization No 11/04/24 10:37 Any Problems With Anesthesia Yes: SLOW TO AWAKEN 11/04/24 10:37 Cholinesterase deficiency No 11/04/24 10:37 You/Your Family Experience No 11/04/24 10:37 fever (hyperthermia) with Relationship Recent Exposure to Contagious No 07/02/24 12:01 Disease Does patient have nerve No 11/04/24 10:37 stimulator Patient instructed to have device shut off --Does patient have Pacemaker No 11/06/24 08:47 or ICD? When Was Last Pacemaker Check QUESTION #4 FULL TEXT: You/Your Family Experience fever (hyperthermia) with Anesthesia Any additional information?: No Last Oral Intake Last Oral intake: Last Oral Intake NPO since 07:05 11/06/24 08:47 Meds taken in AM with sips of Yes 11/06/24 08:47 water? Meds patient instructed to take am of surgery Any additional information?: No PONV PONV - mobility manager: PONV - mobility manager Female No 11/04/24 10:37 HX of Motion Sickness Yes 11/04/24 10:37 HX of N/V After Surgery No 11/04/24 10:37 Non-Smoker Yes 11/04/24 10:37 Duration of Surgery greater No 11/04/24 10:37 than 60 minutes Number of Risk Factors 2 11/04/24 10:37 PONV Score Moderate Risk 11/04/24 10:37 Any additional information?: No Height & Weight Height & Weight: Anesthesia: Height & Weight Height 5 ft 8 in 11/06/24 08:47 Weight: 83 kg 11/06/24 08:47 Body Mass Index (BMI) 27.8 11/06/24 08:47 Respiratory Assessment Respiratory Assessment - mobility manager: Respiratory Tract Infection Hx - mobility manager Hx Respiratory Tract Infection No 11/04/24 10:37 Any additional information?: No STOP Sleep Apnea STOP Sleep Apnea - mobility manager: STOP Sleep Apnea - mobility manager Hx Hypertension Yes: CONTROLLED WITH MED 11/04/24 10:37 Hx Sleep Apnea Yes 11/04/24 10:37 CPAP No 11/04/24 10:37 BIPAP Yes: NOT COMPLIANT 11/04/24 10:37 Do you snore loudly (louder than talking or can be heard Do you often feel tired/ fatigued/ sleepy during daytime? Has anyone observed you stop breathing during sleep? STOP Results Positive 11/04/24 10:37 QUESTION #5 FULL TEXT : Do you snore loudly (louder than talking or can be heard through closed doors)? 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 Specify any problems Hx of Preganancy in last 3 N/A 11/04/24 10:37 Months Nurse Filling Out Transfusion DSCHRIBER 11/04/24 10:37 & Questions: Date: 11/04/24 11/04/24 10:37 Time: 10:39 11/04/24 10:37 Patient unable to answer at this time (ie. confused, unrespo Any additional information?: No /Reproduction History /Reproductive History - mobility manager: /Reproductive Hx- mobility manager Hx Now Gestational Age (in weeks): EDC: Hx Hx Para Hx Section SAB No 11/04/24 10:37 Any additional information?: No PFSH Medical History BiPAP (biphasic positive airway pressure) dependence ADD (attention deficit disorder) Shortness of breath on exertion Constipation Rheumatoid arthritis History of hiatal hernia History of diverticulitis Former smoker Cardiology follow-up encounter Right inguinal hernia Hypertension Wears glasses Anxiety Alcohol use Arthritis Pulmonary embolism Injury of head and neck History of IBS Gastric reflux History of echocardiogram History of stress test Normal stress echocardiogram History of atrial fibrillation Contact with and (suspected) exposure to other viral communicable diseases Asthma Obesity (BMI 30.0-34.9) Paroxysmal atrial fibrillation Home Medications ?Medication ?Instructions ?Recorded ?Last Taken ?Type albuterol sulfate 90 mcg/actuation 2 puff inhalation Q 6H PRN 05/31/21 Unknown Rx aerosol inhaler shortness of breath or wheez ing #8.5 grams esomeprazole magnesium 40 mg 40 mg PO DAILY GERD 06/0911/06/24 History capsule,delayed release (Nexium) zolpidem 10 mg tablet 10 mg PO QHS PRN Sleep 09/0111/05/24 History sildenafil 100 mg tablet 100 mg PO PRN PRN Erectile 0 10/15/22 Unknown History Dysfunction hydroxychloroquine 200 mg tablet 200 mg PO BID 4 11/06/24 History apixaban 5 mg tablet (Eliquis) 5 mg PO BID #180 tabs 1 08/29/23 11/03/24 Rx fluticasone furoate 100 1 inh inhalation Q24H #30 ea 09/08/24 11/06/24 Rx mcg/actuation blister powder for inhalation (Arnuity Ellipta) oral device #1 ea 09/08/24 Unknown Rx turmeric root extract 500 mg 500 mg PO QDAY 10/22/24 0 10/28/24 History capsule atomoxetine 40 mg capsule 40 mg PO DAILY 11/04/24/ History atorvastatin 20 mg tablet 20 mg PO QHS 11/04/24 History flecainide 100 mg tablet 100 mg PO BID 11/04/2411/06 History lisinopril 10 mg tablet 10 mg PO DAILY 11/04/24 03/2 0 History potassium citrate 10 mEq (1,080 10 meq PO BID 11/04/24 11/05/24 History mg) tablet,extended release triamcinolone acetonide 0.1 % 1 applic topical BID PRN DERMITIS 11/04/24 11/05/24 History topical cream Allergy/AdvReac Type Severity Reaction Status Date / Time azithromycin (From Zithromax AdvReac Unknown d/t hx of Verified 11/06/24 08:46 Z-Jerzy) a-fib Family History Mother Diabetes Hypertension High cholesterol Father Hypertension Prostate cancer Sister Throat cancer Other Heart disease Surgical History History of lumbar fusion S/P inguinal hernia repair History of cardiac catheterization Hx of repair of left rotator cuff Hx of surgical procedure History of laminectomy (~03/2021) History of bilateral cataract extraction History of colonoscopy History of radiofrequency ablation procedure for cardiac arrhythmia (12/29/12) History of left heart catheterization (07/28/18) History of cholecystectomy History of esophagogastroduodenoscopy (EGD) Social History Smoking Status: Former smoker pack-years: 10 Tobacco: How many years used: 10 Electronic Cigarette Use: not used how long ago did patient quit smoking: stopped at age 25. second hand exposure: No alcohol intake: current alcohol intake frequency: a few times a week Alcohol type: hard liquor substance use type: does not use caffeine: Yes (very little) what type of physical activity do you participate in: weight training frequency: 3-4 times per week Review of Systems (Anesthesia) ROS Narrative System reviewed and no additional complaints, except as documented. Physical Exam Const alert and oriented x3 Orientation / Consciousness: awake HEENT dentition normal Cardio regular rate, regular rhythm, no murmurs and diaphoretic Back/Spine normal ROM and thoraco-lumbar ROM normal Extremity full ROM Neuro oriented x3 and moves all extremities 11/06/24 1005 <Electronically signed by Dandre Colby CRNA> Date _ Dandre Colby CHOIR SINGER Cosigner Signature: Date CC: ~ Signed [facility] Work Phone: Consult note Author Gaviota Adams [facility] Note Date/Time November 06, 2024 10: 07am [facility] Medical Records Department [address] [place] [id number] Anesthesia Postop Eval I 11/06/24 1006 MR#: [id number] Acct: [id number] Name: GENET COSTA Rep #:[id number] : 1960 63 From: Gaviota cruz CRNA PCP: Dr. Harpreet Lee MD Status:REG S DC Y Race: C Location: [place] [address] Anesthesia: Postop Eval I Current Vital Signs Temperature: 97.4 F Pulse Rate: 68 Blood Pressure: 98/66 Respiratory Rate: 16 Pulse Ox: 94 Oxygen Delivery Method: Room Air Assessment Airway patent: Yes Spontaneous unlabored respirations: Yes Mental status: Awake and Calm nausea: No Vomiting: No Anesthesia Complication: No Fluid Hydration Crystalloid volume administer (ml): 20 Total IV fluid infused: 20 Progress Note Anesthesia document: Postop Eval 1 completed: Yes 11/06/24 1007 <Electronically signed by Gaviota marshall CHOIR SINGER> Date _ Gaviota Adams CHOIR SINGER Cosigner Signature: Date CC: ~ Signed [facility] Work Phone: Consult note Author Suraj Mcknight [facility] Note Date/Time November 06, 2024 10: 49am [facility] Medical Records Department [address] [place] [address] Pre-Anesthesia Evaluation 11/06/24 1048 MR#: [id number] Acct: [id number] Name: GENET COSTA Rep #:[id number] : 1960 63 From: Suraj ortiz MD PCP: Dr. Harpreet Lee MD Status:REG S DC Y Race: C Location: [place] [address] ASA Classification* ASA Classification ASA Classification: 2 Assessment & Plan Anesthesia* Anesthesia Assessment Anesthesia Assessment: Discussed sedation and/or anesthesia options, risks, benefits, and alternatives with patient/parents/legal guardian/POA. Questions invited. The patient/parents/legal guardian/POA seems to understand and agrees to proceedwith anesthesia plan. Reviewed the physical assessment, medical history, allergy history and patient home medications list prior to surgery/procedure/anesthetic and documented any changes. Performed airway and anesthesia risk assessments. Anesthesia Type Anesthesia Type: MAC History Source History Obtained from:: Patient and Chart Anesthesia Focused Assessment* Temperature: 97.5 F Pulse Rate: 71 Blood Pressure: 120/82 Respiratory Rate: 16 Pulse Ox: 97 Oxygen Delivery Method: Room Air Airway Assessment Mouth opens: >3 cm Mallampati Score: II Teeth Condition: Intact Neck Range of motion (ROM): Full ROM Focused Labs Anesthesia Preop lab: CBC WBC 8.4 K/mm3 (4.4-11.0) 10/01/24 07:31 10/01/24 RBC 5.09 M/mm3 (4.6-6.2) 10/01/24 07:31 10/01/24 Hgb 14.9 g/dL (13.0-16.5) 10/01/24 07:31 10/01/24 Hct 45.5 % (40-54) 10/01/24 07:31 10/01/24 Plt Count 191 K/mm3 (150-450) 10/01/24 07:31 10/01/24 CHEMISTRY Potassium 3.9 mmol/L (3.5-5.1) 10/01/24 07:31 10/01/24 Sodium 139 mmol/L (136-145) 10/01/24 07:31 10/01/24 Magnesium 2.1 mg/dL (1.6-2.6) 10/15/22 12:14 10/15/22 BUN 22 mg/dL (7-18) H 10/01/24 07:31 10/01/24 Creatinine 1.19 mg/dL (0.70-1.30) 10/01/24 07:31 10/01/24 Glucose 98 mg/dL (74-106) 10/01/24 07:31 10/01/24 TSH 1.86 uIU/mL (0.358-3.74) 08/14/21 17:02 COAG PT 13.5 SECONDS (11.7-14.9) 11/21/22 11:03 Pre-Assessment Diagnosis/Proposed Procedure Planned Operative Procedure(s): CSCOPE Anesthesia History Anesthesia History - mobility manager: Anesthesia History - mobility manager Hx Hospitalization No 11/04/24 10:37 Any Problems With Anesthesia Yes: SLOW TO AWAKEN 11/04/24 10:37 Cholinesterase deficiency No 11/04/24 10:37 You/Your Family Experience No 11/04/24 10:37 fever (hyperthermia) with Relationship Recent Exposure to Contagious No 07/02/24 12:01 Disease Does patient have nerve No 11/04/24 10:37 stimulator Patient instructed to have device shut off --Does patient have Pacemaker No 11/06/24 08:47 or ICD? When Was Last Pacemaker Check QUESTION #4 FULL TEXT: You/Your Family Experience fever (hyperthermia) with Anesthesia Last Oral Intake Last Oral intake: Last Oral Intake NPO since 07:05 11/06/24 08:47 Meds taken in AM with sips of Yes 11/06/24 08:47 water? Meds patient instructed to take am of surgery PONV PONV - mobility manager: PONV - mobility manager Female No 11/04/24 10:37 HX of Motion Sickness Yes 11/04/24 10:37 HX of N/V After Surgery No 11/04/24 10:37 Non-Smoker Yes 11/04/24 10:37 Duration of Surgery greater No 11/04/24 10:37 than 60 minutes Number of Risk Factors 2 11/04/24 10:37 PONV Score Moderate Risk 11/04/24 10:37 Height & Weight Height & Weight: Anesthesia: Height & Weight Height 5 ft 8 in 11/06/24 08:47 Weight: 83 kg 11/06/24 08:47 Body Mass Index (BMI) 27.8 11/06/24 08:47 Respiratory Assessment Respiratory Assessment - mobility manager: Respiratory Tract Infection Hx - mobility manager Hx Respiratory Tract Infection No 11/04/24 10:37 STOP Sleep Apnea STOP Sleep Apnea - mobility manager: STOP Sleep Apnea - mobility manager Hx Hypertension Yes: CONTROLLED WITH MED 11/04/24 10:37 Hx Sleep Apnea Yes 11/04/24 10:37 CPAP No 11/06/24 10:05 BIPAP Yes: NOT COMPLIANT 11/04/24 10:37 Do you snore loudly (louder than talking or can be heard Do you often feel tired/ fatigued/ sleepy during daytime? Has anyone observed you stop breathing during sleep? STOP Results Positive 11/06/24 10:05 QUESTION #5 FULL TEXT : Do you snore loudly (louder than talking or can be heard through closed doors)? 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 Specify any problems Hx of Preganancy in last 3 N/A 11/04/24 10:37 Months Nurse Filling Out Transfusion DSCHRIBER 11/04/24 10:37 & Questions: Date: 11/04/24 11/04/24 10:37 Time: 10:39 11/04/24 10:37 Patient unable to answer at this time (ie. confused, unrespo /Reproduction History /Reproductive History - mobility manager: /Reproductive Hx- mobility manager Hx Now Gestational Age (in weeks): EDC: Hx Hx Para Hx Section SAB No 11/04/24 10:37 [facility] Medical History BiPAP (biphasic positive airway pressure) dependence ADD (attention deficit disorder) Shortness of breath on exertion Constipation Rheumatoid arthritis History of hiatal hernia History of diverticulitis Former smoker Cardiology follow-up encounter Right inguinal hernia Hypertension Wears glasses Anxiety Alcohol use Arthritis Pulmonary embolism Injury of head and neck History of IBS Gastric reflux History of echocardiogram History of stress test Normal stress echocardiogram History of atrial fibrillation Contact with and (suspected) exposure to other viral communicable diseases Asthma Obesity (BMI 30.0-34.9) Paroxysmal atrial fibrillation Home Medications ?Medication ?Instructions ?Recorded ?Last Taken ?Type albuterol sulfate 90 mcg/actuation 2 puff inhalation Q 6H PRN 05/31/21 Unknown Rx aerosol inhaler shortness of breath or wheez ing #8.5 grams esomeprazole magnesium 40 mg 40 mg PO DAILY GERD 06/0911/06/24 History capsule,delayed release (Nexium) zolpidem 10 mg tablet 10 mg PO QHS PRN Sleep 09/0111/05/24 History sildenafil 100 mg tablet 100 mg PO PRN PRN Erectile 0 10/15/22 Unknown History Dysfunction hydroxychloroquine 200 mg tablet 200 mg PO BID 4 11/06/24 History apixaban 5 mg tablet (Eliquis) 5 mg PO BID #180 tabs 1 08/29/23 11/03/24 Rx fluticasone furoate 100 1 inh inhalation Q24H #30 ea 09/08/24 11/06/24 Rx mcg/actuation blister powder for inhalation (Arnuity Ellipta) oral device #1 ea 09/08/24 Unknown Rx turmeric root extract 500 mg 500 mg PO QDAY 10/22/24 0 10/28/24 History capsule atomoxetine 40 mg capsule 40 mg PO DAILY 11/04/2410/18 History atorvastatin 20 mg tablet 20 mg PO QHS 11/04/24 History flecainide 100 mg tablet 100 mg PO BID 11/04/2411/06 History lisinopril 10 mg tablet 10 mg PO DAILY 11/04/24 03/2 0 History potassium citrate 10 mEq (1,080 10 meq PO BID 11/04/24 11/05/24 History mg) tablet,extended release triamcinolone acetonide 0.1 % 1 applic topical BID PRN DERMITIS 11/04/24 11/05/24 History topical cream Allergy/AdvReac Type Severity Reaction Status Date / Time azithromycin (From Zithromax AdvReac Unknown d/t hx of Verified 11/06/24 08:46 Z-Jerzy) a-fib Family History Mother Diabetes Hypertension High cholesterol Father Hypertension Prostate cancer Sister Throat cancer Other Heart disease Surgical History History of lumbar fusion S/P inguinal hernia repair History of cardiac catheterization Hx of repair of left rotator cuff Hx of surgical procedure History of laminectomy (~03/2021) History of bilateral cataract extraction History of colonoscopy History of radiofrequency ablation procedure for cardiac arrhythmia (12/29/12) History of left heart catheterization (07/28/18) History of cholecystectomy History of esophagogastroduodenoscopy (EGD) Social History Smoking Status: Former smoker pack-years: 10 Tobacco: How many years used: 10 Electronic Cigarette Use: not used how long ago did patient quit smoking: stopped at age 25. second hand exposure: No alcohol intake: current alcohol intake frequency: a few times a week Alcohol type: hard liquor substance use type: does not use caffeine: Yes (very little) what type of physical activity do you participate in: weight training frequency: 3-4 times per week Review of Systems (Anesthesia) ROS Narrative System reviewed and no additional complaints, except as documented. 11/06/24 1049 <Electronically signed by Suraj boswell MD> Date _ Suraj Mcknight MD Cosigner Signature: Date CC: ~ Signed [facility] Work Phone: Discharge summary Author Timur Cook [facility] Note Date/Time February 16, 2025 11:12 am [facility] Medical Records Department [address] [place] [address] Emergency Department Summary 02/16/25 MR#: [id number] Acct: [id number] Name: GENET COSTA Rep #:[id number] : 1960 64 From: Timur Cook MD PCP: Dr. Harpreet Lee MD Status:REG E R Location: ED HPI History of Present Illness Chief Complaint: Chest Pain Informant: patient Onset/Context/Timing Onset: Today and Yesterday Activity at onset: gradual Timing: Continuous Quality: Positive for Aching Location: Substernal Current Severity: Mild Maximum Severity: Mild Worsened By: Nothing Relieved By: Nothing Associated Symptoms: Negative for Nausea, Vomiting, Diaphoresis, Dyspnea, Cough,Fever, Lightheadedness, Acid Reflux or Palpitations Narrative Narrative: 64-year-old male history of prior TIA stroke prior A-fib with cardiac ablation, ADD and currently on Eliquis. States yesterday today has had some mild chest pressure with tingling in his left arm. States this may be anxiety because he is just going through a nasty divorce which has been over the last year and a half. Prior Similar Symptoms: Yes Recent Illness/Hospitalization: No CVD Risk Factors: Negative for Hypertension or Diabetes PE Risk Factors: Negative for Recent Immobilization, Prior DVT or PE, Cancer or OCP + Smoking + >/=35 TAD Risk Factors: Negative for Marfan's Syndrome [facility] Medical History BiPAP (biphasic positive airway pressure) dependence ADD (attention deficit disorder) Shortness of breath on exertion Constipation Rheumatoid arthritis History of hiatal hernia History of diverticulitis Former smoker Cardiology follow-up encounter Right inguinal hernia Hypertension Wears glasses Anxiety Alcohol use Arthritis Pulmonary embolism Injury of head and neck History of IBS Gastric reflux History of echocardiogram History of stress test Normal stress echocardiogram History of atrial fibrillation Contact with and (suspected) exposure to other viral communicable diseases Asthma Obesity (BMI 30.0-34.9) Paroxysmal atrial fibrillation Home Medications ?Medication ?Instructions ?Recorded ?Last Taken ?Type albuterol sulfate 90 mcg/actuation 2 puff inhalation Q 6H PRN 05/31/21 Unknown Rx aerosol inhaler shortness of breath or wheez ing #8.5 grams esomeprazole magnesium 40 mg 40 mg PO DAILY GERD 06/0911/06/24 History capsule,delayed release (Nexium) zolpidem 10 mg tablet 10 mg PO QHS PRN Sleep 09/0111/05/24 History sildenafil 100 mg tablet 100 mg PO PRN PRN Erectile 0 10/15/22 Unknown History Dysfunction hydroxychloroquine 200 mg tablet 200 mg PO BID 4 11/06/24 History fluticasone furoate 100 1 inh inhalation Q24H #30 ea 09/08/24 11/06/24 Rx mcg/actuation blister powder for inhalation (Arnuity Ellipta) oral device #1 ea 09/08/24 Unknown Rx turmeric root extract 500 mg 500 mg PO QDAY 10/22/24 0 10/28/24 History capsule atomoxetine 40 mg capsule 40 mg PO DAILY 11/04/2410/18 History lisinopril 10 mg tablet 10 mg PO DAILY 11/04/2410/18 History potassium citrate 10 mEq (1,080 10 meq PO BID 11/04/24 11/05/24 History mg) tablet,extended release triamcinolone acetonide 0.1 % 1 applic topical BID PRN DERMITIS 11/04/24 11/05/24 History topical cream apixaban 5 mg tablet (Eliquis) 5 mg PO BID #180 tabs 0 11/09/24 Unknown Rx atorvastatin 20 mg tablet 20 mg PO QDAY #30 tabs 01/04 Unknown Rx flecainide 100 mg tablet 100 mg PO BID #180 tabs 01/18 03/12 Unknown Rx Allergy/AdvReac Type Severity Reaction Status Date / Time azithromycin (From Zithromax AdvReac Unknown d/t hx of Verified 01/04/25 10:08 Z-Jerzy) a-fib Family History Mother Diabetes Hypertension High cholesterol Father Hypertension Prostate cancer Sister Throat cancer Other Heart disease Surgical History History of lumbar fusion S/P inguinal hernia repair History of cardiac catheterization Hx of repair of left rotator cuff Hx of surgical procedure History of laminectomy (~03/2021) History of bilateral cataract extraction History of colonoscopy History of radiofrequency ablation procedure for cardiac arrhythmia (12/29/12) History of left heart catheterization (07/28/18) History of cholecystectomy History of esophagogastroduodenoscopy (EGD) Social History Smoking Status: Former smoker pack-years: 10 Tobacco: How many years used: 10 Electronic Cigarette Use: not used how long ago did patient quit smoking: stopped at age 25. second hand exposure: No alcohol intake: current alcohol intake frequency: a few times a week Alcohol type: hard liquor substance use type: does not use caffeine: Yes (very little) what type of physical activity do you participate in: weight training frequency: 3-4 times per week ROS ROS ED ROS Narrative Atypical nonexertional chest pain. No shortness of breath. No diaphoresis. Nonausea. Constitutional Constitutional ED: Denies chills or fever(s) Eyes Eyes: Reports none; Denies blurry vision, change in vision or diplopia ENT ENT ED: Denies ear pain Cardiovascular Cardiovascular: Reports as per HPI and chest pain; Denies palpitations or racingheartbeat Respiratory/Chest Respiratory/Chest: Denies cough, dyspnea or dyspnea on exertion Gastrointestinal Gastrointestinal: Denies abdominal pain Genitourinary Genitourinary ED: Denies dysuria or hematuria Musculoskeletal Musculoskeletal: Denies arthralgias or back pain Integumentary Denies abscess or Abrasions Neurologic Neurologic: Denies headache(s) Psychiatric Psychiatric: Reports anxiety Endocrine Endocrinology: Denies cold intolerance Hematologic/Lymphatic Hematologic/Lymphatic: Denies easy bleeding Allergic/Immunologic Allergic/Immunologic ED: Denies mouth swelling EXAM Physical Exam Narrative Exam Narrative: Well-appearing 64-year-old male sitting upright in bed. Vital signs stable afebrile. He does not look septic toxic no distress. Pulse ox 5% on room air no hypoxia. H EENT exam pupils round react to light. Mytrex members. No facial droop. Normal speech. No trauma. Neck nontender. No JVD. Lungs clearto auscultation bilaterally. Heart regular rhythm no murmur. Chest wall ribs nontender. Abdomen soft nontender. Moving all 4 extremities. Calves are nontender without edema or cords. 5 out of 5 ui developer designer strength. Dorsi plantarflexion intact. No drift. Equal symmetrical radial pulses. Back nontender. Neurologic exam is awake and alert. He is answering questions and following commands. His NIH score is 0. Const Vital Signs: 02/16/25 07:14 02/16/25 07:17 02/16/25 07:19 Temperature 98.7 F Temperature Source Oral Pulse Rate 76 Respiratory Rate 20 H Respiratory Effort Normal Non-Labored Blood Pressure 139/80 H Blood Pressure Mean 99 Pulse Ox 100 Oxygen Delivery Method Room Air Room Air 02/16/25 09:13 Temperature Temperature Source Pulse Rate 73 Respiratory Rate 16 Respiratory Effort Blood Pressure 118/76 Blood Pressure Mean 90 Pulse Ox 96 Oxygen Delivery Method Room Air Positive well nourished and well developed; Negative for obese, cachectic, contractures or unkempt General Appearance ED: well developed and NAD; Negative for unkempt, cachectic, contractures or pallor Nutritional Appearance: Negative for cachectic or obese HEENT Reports moist mucous membranes normocephalic and atraumatic Eyes PERRL and EOMs intact bilaterally Neck no lymphadenopathy, supple and no JVD Chest Wall inspection of chest normal and palpation of chest normal Resp normal respiratory effort and clear to auscultation bilaterally Cardio regular rate, regular rhythm, S1 normal heart sound, S2 normal heart sound and no murmurs GI normal to inspection, nondistended, normoactive bowel sounds, soft to palpation,non-tender and non-distended Back/Spine no CVA tenderness and no thoracic nor lumbar tenderness Extremity normal to inspection General Extremety ED: Negative for edema or pulses abnormal General Extremity: Negative for edema or pulses abnormal Neuro oriented x3, CN's II-XII intact bilaterally and no sensory deficits noted Sensorium / Orientation: awake, alert, oriented to person, oriented to place andoriented to time; Negative for confused or lethargic Motor Exam: strength 5/5 throughout Psych mental status grossly normal Appearance: Negative for unkempt Attitude: No agitated Mood & Affect: Negative for depressed or tearful Skin no rashes or lesions noted and no wounds General Skin Exam: Negative for jaundice or pallor Rashes: No rashes noted Trauma: Negative for abrasion MDM MDM MDM Narrative Medical decision making narrative: 64-year-old male with atypical nonexertional chest pain and left arm tingling. Benign normal exam. At this time may be related to anxiety he is currently going through a lengthy divorce. Rule out cardiac etiology. Currently there isno signs of TIA or stroke. I do not think he needs CT imaging. He will undergoa cardiac workup. Repeat exam at 11:09 AM patient doing well. Symptom-free. Resting comfortably on the bed. Repeat exam unchanged. We discussed his test results including the2 troponins EKG and chest x-ray. He is comfortable being discharged home with outpatient follow-up. History & Record Review Discussion w/independent historian: Patient Additional record(s) reviewed:: Prior inpatient record, Prior outpatient record,Prior ED visit, Prior labs and No prior records Lab Data Attestation: I reviewed the patient's lab results. Lab results narrative: CBC normal. White count of 7. H&H 14 and 41. Platelets 188. Sodium 139. Gap 11. BUN and creatinine of 17 and 1. Glucose 108. Initial troponin 9. 2-hour troponin 9. Labs: Laboratory Results - last 24 hr 02/16/25 02/16/25 07:19 09:20 WBC 7.0 RBC 4.63 Hgb 14.0 Hct 41.2 MCV 89.0 MCH 30.2 MCHC 34.0 RDW Std Deviation 40.4 RDW Coeff of Gene 12.4 Plt Count 188 MPV 10.8 Immature Gran % (Auto) 0.400 Neut % (Auto) 72.9 H Lymph % (Auto) 12.6 L [place] % (Auto) 10.1 H Eos % (Auto) 3.0 Baso % (Auto) 1.0 Absolute Neuts (auto) 5.1 Absolute Lymphs (auto) 0.88 Nucleated RBC % 0 Sodium 139 Potassium 3.7 Chloride 105 Carbon Dioxide 22.9 Anion Gap 11 BUN 17 Creatinine 1.06 Estim Creat Clear Calc 78.53 Est GFR (MDRD) Non-Af 79 BUN/Creatinine Ratio 15.9 Glucose 108 H Calcium 8.9 Troponin T High Sens 9 Troponin T Hi Sens 2 Hr 9 Radiography Chest X-Ray - ED: Read by ED Physician, Read by Radiologist, Normal, Heart, Lungs, Mediastinum, Bony Structures, No Acute Disease and Chronic Changes Diagnostic Testing: Clinical Impression(s) from Imaging Studies Chest X-Ray 02/16/25 08:30 IMPRESSION: No acute process is identified in the chest. Reading Location: [facility] Chest x-ray, portable, single view, interpreted both by myself and radiologist shows no acute abnormality. Chronic changes. Rhythm Strip Rhythm Strip: Sinus Rhythm Rate: 84 Ectopy: None EKG Initial EKG: Attestation: I personally reviewed and interpreted this EKG as follows: Interpretation: Sinus Rhythm and No Acute Injury Pattern Comments: Normal sinus rhythm rate 84 no acute signs of MA or ischemia. Discharge Plan Triage Chief Complaint: Chest Pain ED Provider: Timur Cook Dx/Rx/DC Orders Clinical Impression: Chest pain, History of atrial fibrillation, Chronic anticoagulation, History ofembolic stroke Instructions: ED Chest Pain, Uncertain Cause Prescriptions: No Action albuterol sulfate 90 mcg/actuation HFA aerosol inhaler 2 puff inhalation Q6H PRN (Reason: shortness of breath or wheezing) Qty: 8.5 0RF zolpidem 10 mg tablet 10 mg PO QHS PRN (Reason: Sleep) Patient Comments: TAKE 1 TABLET BY MOUTH AT BEDTIME FOR 30 DAYS atorvastatin 20 mg tablet 20 mg PO QDAY Qty: 30 9RF Arnuity Ellipta 100 mcg/actuation blister with device 1 inh inhalation Q24H Qty: 30 5RF (DME) oral device See Rx Instructions .Route .MEDSUPPLY Qty: 1 0RF Rx Instructions: As directed turmeric root extract 500 mg capsule 500 mg PO QDAY esomeprazole magnesium [Nexium] 40 mg Capsule,Delayed Release(Dr/Ec) 40 mg PO DAILY sildenafil 100 mg tablet 100 mg PO PRN PRN (Reason: Erectile Dysfunction) Patient Comments: TAKE 1 TABLET BY MOUTH ONCE DAILY NEEDED atomoxetine 40 mg capsule 40 mg PO DAILY potassium citrate 10 mEq (1,080 mg) tablet extended release 10 meq PO BID lisinopril 10 mg tablet 10 mg PO DAILY triamcinolone acetonide 0.1 % cream 1 applic topical BID PRN (Reason: DERMITIS) hydroxychloroquine 200 mg tablet 200 mg PO BID Eliquis 5 mg tablet 5 mg PO BID Qty: 180 3RF flecainide 100 mg tablet 100 mg PO BID Qty: 180 3RF Primary Care Provider: Harpreet Lee Referrals: Harpreet Lee MD [Primary Care Provider] - As Needed Activity Restrictions/Additional Instructions: Your exam and tests all look good. No signs of a heart attack. No signs of a stroke. Follow-up with your primary care physician as needed. Return if you are feelingworse. Print Language: Vincentian Disposition Disposition: Home, Self Care What to do if you have Problems For any increased pain, shortness of breath, bleeding, nausea or vomiting, chestpain, or any unexpected problems, contact your Primary Care Provider. Call [facility] ([phone]) or report to the closest Emergency Room. Call 911 if necessary. 02/16/25 1112 <Electronically signed by Timur Cook MD> Cosigner Signature (if applicable): CC: Dr. Harpreet Lee MD ~ Signed [facility] Work Phone: Evaluation note* Diagnosis Onset Date Resolution Status URI (upper respiratory infection) acute Exposure to the flu acute Contact with and (suspected) exposure to other viral communicable diseases acute [facility] Work Phone: Evaluation note* Diagnosis Onset Date Resolution Status Biceps tendon rupture acute TIA (transient ischemic attack) acute Essential (primary) hypertension chronic Paroxysmal atrial fibrillation chronic [facility] Work Phone: Evaluation noteNo assessment information available [facility] Work Phone: History and physical note Author Jamie Simon [facility] Note Date/Time November 06, 2024 9:3 5am [facility] Medical Records Department [address] [place] [address] History & Physical Exam 11/06/24 0934 MR#: [id number] Acct: [id number] Name: GENET COSTA Rep #:[id number] : 1960 63 From: Jamie ware MD PCP: Dr. Harpreet Lee MD Status:REG S DE Location: [place] [address] History and Physical Date of Admission: 11/06/24 Intake Vital Signs 09/10/2508:14 10/22/2512:50 Height 5 ft 8 in 5 ft 8 in Weight: 191 lb 189 lb 9 oz BMI 29.0 28.8 BP 120/79 132/72 H Blood Pressure Location Lt brachial Rt brachial Position Sitting Sitting Respiration 16 18 Pulse 69 64 Pulse Source Monitor Monitor Temp 97.3 F L Temp Source Temporal Pulse Oximetry (%) 99 Oxygen Delivery Method room air Intake Visit Reasons: COLONOSCOPY Chief Complaint: colonoscopy Is patient in pain?: No Allergies azithromycin (From [facility]go Z-Jerzy) Adverse Reaction (Unknown, Verified 10/22/24 13:51) d/t hx of a-fib Medications ?Medication ?Instructions ?Recorded ?Confirmed ?Type albuterol sulfate 90 mcg/actuation 2 puff inhalation Q6H PRN 05/31/2110/22 Rx aerosol inhaler shortness of breath or wheezing #8.5 grams esomeprazole magnesium 40 mg 40 mg PO DAILY GERD 06/09/21 10/22/24 Hi story capsule,delayed release (Nexium) zolpidem 10 mg tablet 10 mg PO QHS PRN Sleep 09/01/21 10/22/24 History sildenafil 100 mg tablet 100 mg PO PRN PRN Erectile 10/15/22 0302/10 History Dysfunction clonazepam 0.5 mg tablet 0.5 mg PO DAILY 07/17/23 10/22/24 Histor y atorvastatin 20 mg tablet 20 mg PO DAILY #30 tabs 05/18/24 5 Rx hydroxychloroquine 200 mg tablet 200 mg PO BID 06/25/24 10/22/24 History apixaban 5 mg tablet (Eliquis) 5 mg PO BID #180 tabs 06/29/24 10/22/24 Rx fluticasone furoate 100 1 inh inhalation Q24H #30 ea 09/08/24 Rx mcg/actuation blister powder for inhalation (Arnuity Ellipta) oral device #1 ea 09/08/24 10/22/24 Rx turmeric root extract 500 mg 500 mg PO QDAY 10/22/24 10/22/24 History capsule PFSH Medical History (Updated 10/22/24 @ 13:50 by Joi Rivera LPN) Constipation Hx of renal calculi Rheumatoid arthritis Easy bruising History of hiatal hernia History of diverticulitis Heartburn CPAP (continuous positive airway pressure) dependence Former smoker Cardiology follow-up encounter Right inguinal hernia Hypertension Wears glasses Anxiety Alcohol use Arthritis Kidney stones Pulmonary embolism Injury of head and neck History of IBS Gastric reflux Sleep apnea On home oxygen therapy History of echocardiogram History of stress test Normal stress echocardiogram Cardiology follow-up encounter History of atrial fibrillation Contact with and (suspected) exposure to other viral communicable diseases Fatigue SOB (shortness of breath) Asthma Obesity (BMI 30.0-34.9) Obstructive sleep apnea Essential (primary) hypertension Paroxysmal atrial fibrillation Renal calculi Surgical History S/P inguinal hernia repair History of cardiac catheterization Hx of repair of left rotator cuff Hx of surgical procedure History of laminectomy (~03/2021) History of bilateral cataract extraction History of colonoscopy History of radiofrequency ablation procedure for cardiac arrhythmia (12/29/12) History of left heart catheterization (07/28/18) History of cholecystectomy History of esophagogastroduodenoscopy (EGD) Family History Mother Diabetes Hypertension High cholesterolFather Hypertension Prostate cancerSister Throat cancerOther Heart disease Social History Smoking Status: Former smoker pack-years: 10 Tobacco: How many years used: 10 Electronic Cigarette Use: not used how long ago did patient quit smoking: stopped at age 25. second hand exposure: No alcohol intake: current alcohol intake frequency: a few times a week Alcohol type: hard liquor substance use type: does not use caffeine: Yes (very little) what type of physical activity do you participate in: weight training frequency: 3-4 times per week HPI HPI HPI: Patient is a 63-year-old male here for colonoscopy. His last colonoscopy was over 10 years ago. He denies abdominal pain or blood in the stool. ROS General General: Yes weight change and fatigue; No appetite, colon cancer, breast cancer or weakness HEENT HEENT: Yes eye injury and eye surgery; No difficulty swallowing, swollen glands or hoarseness Endo Endocrine: No thyroid disease, diabetes mellitus, thyroid cancer, Hair loss, heat intolerance or cold intolerance Skin Skin: Yes rash; No changing moles Musc Musculoskeletal: Yes back problems and rheumatoid arthritis; No arthritis, gout or joint pain Cardio Cardiovascular: Yes atrial fibrillation and high blood pressure; No murmur, pacemaker, heart disease, heart attack, heart stent, palpitations, shortness of breat with exertion or chest pain Psych Psychiatric: Yes anxiety; No depression or hearing voices Resp Respiratory: Yes shortness of breath, Yes sleep apnea, No cough, No COPD, No asthma, No emphysema and No wheezing Gastro Gastrointestinal: Yes abdominal pain, Yes nausea or vomiting, No diarrhea, Yes constipation, No blood in stool, Yes acid reflux, No hemorrhoids, No ulcers, No gallbladder problem and No black,tarry stools [place] Hematologic: Yes blood thinners, No blood disorders, No bleeding, No anemia and Yes blood clots Neuro Neurologic: No numbness, No tingling and No weakness Exam Const General: cooperative Orientation: alert and oriented x3 HENMT Head: normal to inspection Neck Neck: normal visual inspection and full ROM Chest Chest palpation & inspection: normal inspection of the chest Resp Effort & Inspection: normal respiratory effort Auscultation: clear to auscultation bilaterally Cardio Rate: regular rate Rhythm: regular rhythm GI Inspection: non-distended Palpation: soft and nontender Skin General: no rashes or lesions noted Neuro General: patient alert and patient oriented x3 Extrem General: full ROM Psych Appearance: grossly normal Mental Status: mental status grossly normal Assessment and Plan Assessment and Plan (1) Constipation: Status: Acute Plan: Patient has constipation and IBS. He requires for screening colonoscopy. His last colonoscopy was over 10 years ago I explained endoscopy in detail to the patient. I explained the risks includingbut not limited to stroke or heart attack with anesthesia, perforation of the GItract, bleeding, infection. I explained that any of these could necessitate further emergency surgery. The patient understands and all questions were answered sufficiently. The patient wishes to proceed with procedure. Jamie Simon MD Pager: [facility] [address] [place] [address], [address] [place] [address] Office: I have examined the patient and the H&P has been reviewed. There are no clinicalchanges since date of exam. 11/06/24 7916 <Electronically signed by Jamie Simon MD> Cosigner Signature (if applicable): CC: Dr. Jamie Simon MD; Dr. Harpreet Lee MD~ Signed [facility] Work Phone: Hospital Discharge instructions Additional Instructions [facility] Work Phone: Hospital Discharge instructionsAdditional Instructions Your exam and tests all look good. No signs of a heart attack. No signs of a stroke. Follow-up with your primary care physician as needed. Return if you are feeling worse.[facility] Work Phone: Reason for referral (narrative)No reason for referral information availableWDayton [facility] Work Phone: Chief Complaint and Reason for Visit Chief Complaint EORDER lung scaring COVID COVID U07.1 OVERDUE FOR FU/ SX CLEARANCE Reason for Visit COVID-19 Dyspnea on minimal exertion Obstructive sleep apnea Preoperative cardiovascular examination Essential (primary) hypertension Paroxysmal atrial fibrillation Chief Complaint POSSIBLE SINUS INFEC TION PER DANY FLU/COVID TEST Reason for Visit URI (upper respirato ry infection) Exposure to the flu Contact with and (suspected) exposure to other viral communicable diseases Chief Complaint TIA in [facility] records see note L.L. RECENT TIA Amb Documentation Reason for Visit Biceps tendon ruptur e TIA (transient ischemic attack) Essential (primary) hypertension Paroxysmal atrial fibrillation Chief Complaint TIA in [facility] records see note L.L. RECENT TIA Amb Documentation Amb Documentation LABS AND XRAY-PAIN- COPY PCP Right flank pain ABD PAIN RIGHT KIDNEY PAIN KIDNEY STONES Reason for Visit Biceps tendon ruptur e TIA (transient ischemic attack) Essential (primary) hypertension Paroxysmal atrial fibrillation Chief Complaint Amb Documentation LABS AND XRAY-PAIN- COPY PCP Right flank pain ABD PAIN RIGHT KIDNEY PAIN KIDNEY STONES Chief Complaint Admit Date PREOP June 30, 2024 8:34am Lap Robotic Inguinal Hernia w/mesh Novem 2023 11:25am Lap Robotic Inguinal Hernia w/mesh Novem 2023 12:36pm HERNIA 07-02July 14, 2024 1:51pm KARYN July 21, 2024 1 0:15am Sleep problems August 04, 2024 9:14am Hypersomnia, unspecified August 24 7:31pm 4 wk fu September 08, 2024 9 :05am 1 Y FU September 10, 2024 8 :43am COLONOSCOPY October 22, 2024 1:36 pm Reason for Visit Admit Date S/P inguinal hernia repair June 1:51pm Cough August 04, 2024 9:14am Hypersomnia August 04, 2024 9:14am Sleep concern August 04, 2024 9:14am Cough September 08, 2024 9 :05am Obstructive sleep apnea September 08 9:05am Sleep concern September 08, 2024 9 :05am Essential (primary) hypertension September 10, 2024 8:43am Paroxysmal atrial fibrillation August 202024 8:43am TIA (transient ischemic attack) September 10, 2024 8:43am Constipation October 22, 2024 1:36 pm Chief Complaint Admit Date HERNIA 11-14 July 14, 2024 1:51pm KARYN July 21, 2024 1 0:15am Sleep problems August 04, 2024 9:14am Hypersomnia, unspecified August 24 7:31pm 4 wk fu September 08, 2024 9 :05am 1 Y FU September 10, 2024 8 :43am COLONOSCOPY October 22, 2024 1:36 pm Chief Complaint Admit Date 4 wk September 08, 2024 9 :05am 1 Y FU September 10, 2024 8 :43am COLONOSCOPY October 22, 2024 1:36 pm R shoudler. ? supraspinatus tear. December 2:12pm Reason for Visit Admit Date Cough September 08, 2024 9 :05am Obstructive sleep apnea September 08 9:05am Sleep concern September 08, 2024 9 :05am Essential (primary) hypertension September 10, 2024 8:43am Paroxysmal atrial fibrillation August 202024 8:43am TIA (transient ischemic attack) September 10, 2024 8:43am Constipation October 22, 2024 1:36 pm Chief Complaint Admit Date 4 wk fu September 08, 2024 9 :05am 1 Y FU September 10, 2024 8 :43am COLONOSCOPY October 22, 2024 1:36 pm R shoudler. ? supraspinatus tear. December 2:12pm 8 MO FU January 04, 2025 9:57a m Reason for Visit Admit Date Cough September 08, 2024 9 :05am Obstructive sleep apnea September 08 9:05am Sleep concern September 08, 2024 9 :05am Essential (primary) hypertension September 10, 2024 8:43am Paroxysmal atrial fibrillation August 202024 8:43am TIA (transient ischemic attack) September 10, 2024 8:43am Constipation October 22, 2024 1:36 pm Left carotid stenosis January 04, 2025 9:5 7am Chief Complaint Admit Date COLONOSCOPY October 22, 2024 1:36 pm R shoudler. ? supraspinatus tear. December 2:12pm 8 MO FU January 04, 2025 9:57a m Reason for Visit Admit Date Constipation October 22, 2024 1:36 pm Left carotid stenosis January 04, 2025 9:5 7am TIA (transient ischemic attack) December 9:57am Chief Complaint Admit Date COLONOSCOPY October 22, 2024 1:36 pm R shoudler. ? supraspinatus tear. December 2:12pm 8 MO FU January 04, 2025 9:57a m cp with numbness and tingling lt arm Feb 7:12am Chief Complaint Admit Date R shoudler. ? supraspinatus tear. December 2:12pm 8 MO FU January 04, 2025 9:57a m cp with numbness and tingling lt arm Feb 7:12am 6 M FU March 15, 2025 10:2 7am Reason for Visit Admit Date Left carotid stenosis January 04, 2025 9:5 7am TIA (transient ischemic attack) December 9:57am Essential (primary) hypertension March 152024 10:27am Paroxysmal atrial fibrillation February 10:27am TIA (transient ischemic attack) February 10:27am Family History No Family History Records Found Relationship Condition Age at Onset Recorded Date/T lizeth Not Specified Cardiac disease Unknown mother Diabetes mellitus Unknown Hypertension Unknown High blood cholesterol Unknown father Hypertension Unknown Relationship Condition Age at Onset Recorded Date/T lizeth Not Specified Cardiac disease Unknown mother Diabetes mellitus Unknown Hypertension Unknown High blood cholesterol Unknown father Hypertension Unknown Malignant neoplasm of prostate Unknown sister Malignant neoplasm of throat Unknown Advance Directives No Advanced Directives Records Found Advance Directive Response Recorded Date/ Time Advance Directives No July 10:18am Living Will No July 13, 021 7:36pm Power of Side Show Entertainer No July 13, 2021 7:36pm Advance Directive Response Recorded Date/ Time Advance Directives No July 9:18am Living Will No July 13, 021 6:36pm Power of Side Show Entertainer No July 13, 2021 6:36pm Advance Directive Response Recorded Date/ Time Advance Directives No July 9:18am Living Will No November 29, 2022 2:58pm Power of Side Show Entertainer No November 29 2:58pm Advance Directive Response Recorded Date/ Time Advance Directives No July 9:18am Living Will No August 14, 2 023 6:43pm Power of Side Show Entertainer No August 14, 2023 6:43pm Advance Directive Response Recorded Date/ Time Advance Directives No July 10:18am Living Will No August 14, 2 023 7:43pm Power of Side Show Entertainer No August 14, 2023 7:43pm Advance Directive Response Recorded Date/ Time Living Will No November 29, 2022 3:58pm Power of Side Show Entertainer No November 29 3:58pm Living Will No August 14, 2 023 7:43pm Power of Side Show Entertainer No August 14, 2023 7:43pm Living Will No June 25 3:05pm Power of Side Show Entertainer No June 25, 2024 3:05pm Advance Directives No July 10:18am Advance Directive Response Recorded Date/ Time Living Will No November 29, 2022 3:58pm Do you have a Healthcare Power of Side Show Entertainer? No November 29, 2022 3:58pm Living Will No August 14, 2 023 7:43pm Do you have a Healthcare Power of Side Show Entertainer? No August 14, 2023 7:43pm Living Will No November 04, 2024 10:37am Do you have a Healthcare Power of Side Show Entertainer? No November 04, 2024 10:37am Advance Directives No July 10:18am Advance Directive Response Recorded Date/ Time Living Will No November 29, 2022 3:58pm Do you have a Healthcare Power of Side Show Entertainer? No November 29, 2022 3:58pm Living Will No November 04, 2024 10:37am Do you have a Healthcare Power of Side Show Entertainer? No November 04, 2024 10:37am Advance Directives No July 10:18am Advance Directive Response Recorded Date/ Time Living Will No August 14, 023 7:43pm Do you have a Healthcare Power of Side Show Entertainer? No August 14, 2023 7:43pm Living Will No November 04, 2024 10:37am Do you have a Healthcare Power of Side Show Entertainer? No November 04, 2024 10:37am Advance Directives No July 10:18am Advance Directive Response Recorded Date/ Time Living Will No August 14, 023 7:43pm Do you have a Healthcare Power of Side Show Entertainer? No August 14, 2023 7:43pm Living Will No November 04, 2024 10:37am Do you have a Healthcare Power of Side Show Entertainer? No November 04, 2024 10:37am Do you have a Healthcare Power of Side Show Entertainer? No February 16, 2025 7:16am Advance Directives No July 10:18am Advance Directive Response Recorded Date/ Time Living Will No August 14, 023 7:43pm Do you have a Healthcare Power of Side Show Entertainer? No August 14, 2023 7:43pm Do you have a Healthcare Power of Side Show Entertainer? No February 16, 2025 7:16am Advance Directives No July 10:18am Summary Purpose Additional Source Comments Goals (unrecognized section and content) Goals may be documented in a n alternate sectionGoals may be documented in an alternate sectionGoals may be documented in an alternate sectionGoals may be documented in an alternate sectionGoals may be documented in an alternate sectionGoals may be documented in an alternate sectionGoals may be documented in an alternate sectionGoals may be documented in an alternate sectionGoals may be documented in an alternate sectionGoals may be documented in an alternate sectionGoals may be documented in an alternate section Care Teams (unrecognized sec tion and content) Team Status: Active Member Role Status Dates Dr. Harpreet Lee MD Primary Care Provider Active Team Status: Inactive Member Role Status Dates Dr. Harpreet Lee MD Primary Care Provider Active Start: July 14, 2024 End: July 14, 2024 Dr. Harpreet Lee MD Referring Provider Active Start: July 14, 2024 End: July 14, 2024 Dr. Jamie Simon MD Attending Provider Active Start: July 14, 2024 End: July 14, 2024 Team Status: Inactive Member Role Status Dates Dr. Harpreet Lee MD Primary Care Provider Active Start: July 21, 2024 End: July 21, 2024 Dr. Ronnie Quinn MD Attending Provider Active Start: July 21, 2024 End: July 21, 2024 Dr. Ronnie Quinn MD Referring Provider Active Start: July 21, 2024 End: July 21, 2024 Team Status: Inactive Member Role Status Dates Dr. Harpreet Lee MD Primary Care Provider Active Start: August 04, 2024 End: August 04, 2024 Dr. Harpreet Lee MD Referring Provider Active Start: August 04, 2024 End: August 04, 2024 FAIZA BirminghamC Attending Provider Active Start: August 04, 2024 End: August 04, 2024 Team Status: Inactive Member Role Status Dates Dr. Harpreet Lee MD Primary Care Provider Active Start: August 24, 2024 End: August 24, 2024 BILL [place] Attending Provider Active Start: August 24, 2024 End: August 24, 2024 BILL [place] Referring Provider Active Start: August 24, 2024 End: August 24, 2024 Team Status: Inactive Member Role Status Dates Dr. Harpreet Lee MD Primary Care Provider Active Start: September 08, 2024 End: September 08, 2024 Dr. Harpreet Lee MD Referring Provider Active Start: September 08, 2024 End: September 08, 2024 BILL [place] Attending Provider Active Start: September 08, 2024 End: September 08, 2024 Team Status: Inactive Member Role Status Dates Dr. Harpreet Lee MD Primary Care Provider Active Start: September 10, 2024 End: September 10, 2024 Dr. Harpreet Lee MD Referring Provider Active Start: September 10, 2024 End: September 10, 2024 Dr. Ricki Smith MD Attending Provider Active S tart: September 10, 2024 End: September 10, 2024 Team Status: Inactive Member Role Status Dates Dr. Harpreet Lee MD Primary Care Provider Active Start: October 01, 2024 End: October 01, 2024 Dr. Selene Mason MD Attending Provider Active Start: October 01, 2024 End: October 01, 2024 Dr. Selene Mason MD Referring Provider Active Start: October 01, 2024 End: October 01, 2024 Team Status: Inactive Member Role Status Dates Dr. Harpreet Lee MD Primary Care Provider Active Start: October 15, 2024 End: October 15, 2024 Dr. Harpreet Lee MD Attending Provider Active Start: October 15, 2024 End: October 15, 2024 Dr. Harpreet Lee MD Referring Provider Active Start: October 15, 2024 End: October 15, 2024 Team Status: Inactive Member Role Status Dates Dr. Harpreet Lee MD Primary Care Provider Active Start: October 22, 2024 End: October 22, 2024 Dr. Harpreet Lee MD Referring Provider Active Start: October 22, 2024 End: October 22, 2024 Dr. Jamie Simon MD Attending Provider Active Start: October 22, 2024 End: October 22, 2024 Team Status: Inactive Member Role Status Dates Dr. Harpreet Lee MD Primary Care Provider Active Start: November 06, 2024 End: November 06, 2024 Dr. Harpreet Lee MD Referring Provider Active Start: November 06, 2024 End: November 06, 2024 Dr. Jamie Simon MD Attending Provider Active Start: November 06, 2024 End: November 06, 2024 Team Status: Active Member Role Status Dates Dr. Harpreet Lee MD Primary Care Provider Active Start: November 06, 2024 Dr. Harpreet Lee MD Referring Provider Active Start: November 06, 2024 Dr. Jamie Simon MD Attending Provider Active Start: November 06, 2024 Dr. Jamie Simon MD Other Provider Active Start: November 06, 2024 Team Status: Active Member Role Status Dates Dr. Harpreet Lee MD Family Provider Active Dr. Harpreet Lee MD Primary Care Provider Active Team Status: Inactive Member Role Status Dates Dr. Harpreet Lee MD Primary Care Provider, Referring Provider Active Barry H Roof OBSERVER HELPER, OBSERVER HELPER-C Attending Provider Active Team Status: Inactive Member Role Status Dates Dr. Harpreet Lee MD Primary Care Provider, Referring Provider Active Dany Mahajan PA, PA Attending Provider Active Team Status: Inactive Member Role Status Dates Dr. Harpreet Lee MD Primary Care Provider, Referring Provider Active Julian Barakat PA, PA Attending Provider Active Team Status: Inactive Member Role Status Dates Dr. Harpreet Lee MD Primary Care Provider, Attending Provider Active Team Status: Active Member Role Status Dates Dr. Harpreet Lee MD Primary Care Provider Active Dr. Boni Ontiveros MD Attending Provider Active Team Status: Active Member Role Status Dates Dr. Harpreet Lee MD Primary Care Provider Active Barry H Alma Delia OBSERVER HELPER, OBSERVER HELPER-C Attending Provider Active Team Status: Inactive Member Role Status Dates Dr. Harpreet Lee MD Primary Care Provider Active Barry Flannery OBSERVER HELPER, OBSERVER HELPER-C Attending Provider, Referring Pro vider Active Team Status: Active Member Role Status Dates Dr. Harpreet Lee MD Primary Care Provider Active Dr. Boni Ontiveros MD Attending Provider Active Barry Flannery OBSERVER HELPER, OBSERVER HELPER-C Referring Provider Active Team Status: Active Member Role Status Dates Dr. Harpreet Lee MD Primary Care Provider Active Dr. Selene Mason MD Attending Provider, Referring Provider Active Team Status: Active Member Role Status Dates Dipak Chavez MD Attending Provider, Referring Provide r Active Dr. Harpreet Lee MD Primary Care Provider Active Team Status: Active Member Role Status Dates Dr. Harpreet Lee MD Primary Care Provider Active Dipak Chavez MD Attending Provider Active Team Status: Active Member Role Status Dates Dr. Harpreet Lee MD Primary Care Provider Active Dipak Chavez MD Attending Provider, Referring Provide r Active Team Status: Inactive Member Role Status Dates Dr. Harpreet Lee MD Primary Care Provider Active Dr. Wei Rm MD Emergency Provider Active Team Status: Inactive Member Role Status Dates Dr. Harpreet Lee MD Primary Care Provider Active Dipak Chavez MD Attending Provider Active Team Status: Inactive Member Role Status Dates Dr. Harpreet Lee MD Primary Care Provider Active Dr. Selene Mason MD Attending Provider, Referring Provider Active Team Status: Inactive Member Role Status Dates Dipak Chavez MD Attending Provider, Referring Provide r Active Dr. Harpreet Lee MD Primary Care Provider Active Team Status: Inactive Member Role Status Dates Dr. Harpreet Lee MD Primary Care Provider Active Dipak Chavez MD Attending Provider, Referring Provide r Active Team Status: Inactive Member Role Status Dates Dr. Harpreet Lee MD Primary Care Provider Active Dr. Wei Rm MD Attending Provider, Emergency Provi delia Active Team Status: Inactive Member Role Status Dates Dr. Harpreet Lee MD Primary Care Provi delia, Attending Provider, Referring Provider Active Team Status: Active Member Role Status Dates Dr. Harpreet Lee MD Primary Care Provider Active Start: June 30, 2024 End: June 30, 2024 Dr. Ricki Smith MD Attending Provider Active S tart: June 30, 2024 End: June 30, 2024 Dr. Jamie Simon MD Referring Provider Active Start: June 30, 2024 End: June 30, 2024 Team Status: Inactive Member Role Status Dates Dr. Harpreet Lee MD Primary Care Provider Active Start: July 02, 2024 End: July 02, 2024 Dr. Jamie Simon MD Attending Provider Active Start: July 02, 2024 End: July 02, 2024 Dr. Jamie Simon MD Referring Provider Active Start: July 02, 2024 End: July 02, 2024 Team Status: Active Member Role Status Dates Dr. Harpreet Lee MD Primary Care Provider Active Start: July 02, 2024 Dr. Jamie Simon MD Attending Provider Active Start: July 02, 2024 Dr. Jamie Simon MD Referring Provider Active Start: July 02, 2024 Dr. Jamie Simon MD Other Provider Active Start: July 02, 2024 Team Status: Inactive Member Role Status Dates Dr. Woodrow Kate MD Attending Provider Active Start: December 22, 2024 End: December 22, 2024 Dr. Woodrow Kate MD Referring Provider Active Start: December 22, 2024 End: December 22, 2024 Dr. Harpreet Lee MD Primary Care Provider Active Start: December 22, 2024 End: December 22, 2024 Team Status: Inactive Member Role Status Dates Dr. Harpreet Lee MD Primary Care Provider Active Start: January 04, 2025 End: January 04, 2025 Dr. Harpreet Lee MD Referring Provider Active Start: January 04, 2025 End: January 04, 2025 Dr. Ronnie Quinn MD Attending Provider Active Start: January 04, 2025 End: January 04, 2025 Team Status: Inactive Member Role Status Dates Dr. Harpreet Lee MD Primary Care Provider Active Start: January 14, 2025 End: January 14, 2025 Dr. Harpreet Lee MD Attending Provider Active Start: January 14, 2025 End: January 14, 2025 Dr. Harpreet Lee MD Referring Provider Active Start: January 14, 2025 End: January 14, 2025 Team Status: Active Member Role/Relationship Status Dates Dr. Harpreet Lee MD Primary Care Provider Active Team Status: Inactive Member Role/Relationship Status Dates Dr. Harpreet Lee MD Primary Care Provider Active Start: October 22, 2024 End: October 22, 2024 Dr. Harpreet Lee MD Referring Provider Active Start: October 22, 2024 End: October 22, 2024 Dr. Jamie Simon MD Attending Provider Active Start: October 22, 2024 End: October 22, 2024 Team Status: Inactive Member Role/Relationship Status Dates Dr. Harpreet Lee MD Primary Care Provider Active Start: November 06, 2024 End: November 06, 2024 Dr. Harpreet Lee MD Referring Provider Active Start: November 06, 2024 End: November 06, 2024 Dr. Jamie Simon MD Attending Provider Active Start: November 06, 2024 End: November 06, 2024 Team Status: Active Member Role/Relationship Status Dates Dr. Harpreet Lee MD Primary Care Provider Active Start: November 06, 2024 Dr. Harpreet Lee MD Referring Provider Active Start: November 06, 2024 Dr. Jamie Simon MD Attending Provider Active Start: November 06, 2024 Dr. Jamie Simon MD Other Provider Active Start: November 06, 2024 Team Status: Inactive Member Role/Relationship Status Dates Dr. Woodrow Kate MD Attending Provider Active Start: December 22, 2024 End: December 22, 2024 Dr. Woodrow Kate MD Referring Provider Active Start: December 22, 2024 End: December 22, 2024 Dr. Harpreet Lee MD Primary Care Provider Active Start: December 22, 2024 End: December 22, 2024 Team Status: Inactive Member Role/Relationship Status Dates Dr. Harpreet Lee MD Primary Care Provider Active Start: January 04, 2025 End: January 04, 2025 Dr. Harpreet Lee MD Referring Provider Active Start: January 04, 2025 End: January 04, 2025 Dr. Ronnie Quinn MD Attending Provider Active Start: January 04, 2025 End: January 04, 2025 Team Status: Inactive Member Role/Relationship Status Dates Dr. Harpreet Lee MD Primary Care Provider Active Start: January 14, 2025 End: January 14, 2025 Dr. Harpreet Lee MD Attending Provider Active Start: January 14, 2025 End: January 14, 2025 Dr. Harpreet Lee MD Referring Provider Active Start: January 14, 2025 End: January 14, 2025 Team Status: Inactive Member Role/Relationship Status Dates Dr. Harpreet Lee MD Primary Care Provider Active Start: February 16, 2025 End: February 16, 2025 Dr. Timur Cook MD Emergency Provider Active S tart: February 16, 2025 End: February 16, 2025 Team Status: Inactive Member Role/Relationship Status Dates Dr. Woodrow Kate MD Attending Provider Active Start: December 22, 2024 End: December 22, 2024 Dr. Woodrow Kate MD Referring Provider Active Start: December 22, 2024 End: December 22, 2024 Dr. Harpreet Lee MD Primary Care Provider Active Start: December 22, 2024 End: December 22, 2024 Team Status: Inactive Member Role/Relationship Status Dates Dr. Harpreet Lee MD Primary Care Provider Active Start: January 04, 2025 End: January 04, 2025 Dr. Harpreet Lee MD Referring Provider Active Start: January 04, 2025 End: January 04, 2025 Dr. Ronnie Quinn MD Attending Provider Active Start: January 04, 2025 End: January 04, 2025 Team Status: Inactive Member Role/Relationship Status Dates Dr. Harpreet Lee MD Primary Care Provider Active Start: January 14, 2025 End: January 14, 2025 Dr. Harpreet Lee MD Attending Provider Active Start: January 14, 2025 End: January 14, 2025 Dr. Harpreet Lee MD Referring Provider Active Start: January 14, 2025 End: January 14, 2025 Team Status: Inactive Member Role/Relationship Status Dates Dr. Harpreet Lee MD Primary Care Provider Active Start: February 16, 2025 End: February 16, 2025 Dr. Timur Cook MD Attending Provider Active S tart: February 16, 2025 End: February 16, 2025 Dr. Timur Cook MD Emergency Provider Active S tart: February 16, 2025 End: February 16, 2025 Team Status: Inactive Member Role/Relationship Status Dates Dr. Harpreet Lee MD Primary Care Provider Active Start: March 15, 2025 End: March 15, 2025 Dr. Harpreet Lee MD Referring Provider Active Start: March 15, 2025 End: March 15, 2025 Barry Flannery OBSERVER HELPER, OBSERVER HELPER-C Attending Provider Active S tart: March 15, 2025 End: March 15, 2025 (unrecognized sect ion and content) No Status Records FoundNo Status Records Found INFORMATION SOURCE (unrecogn ized section and content) DATE CREATED AUTHOR 12/28/2022 [facility] DATE CREATED AUTHOR AUTHOR'S SHUIZ ATION 03/15/2025 [facility] FOR RECORDS PERTAINING TO PATIENTS WHO ARE [...] BE BASED ON THE PRIMARY CLINICAL RECORDS. [facility] [employer] [facility]. provides no warranty or guarantee of the accuracy or completeness of information in this document.
[2025-04-01 10:24] LABS: Hematocrit 43.2 % (40-54); Hemoglobin 14.5 g/dL (13.0-16.5); Immature Granulocytes Count 0.020 X10^3/uL (0.0-0.0); Mean Corp Hgb Conc 33.6 g/dL (32-36); Mean Corpuscular Volume 90.0 fL (80-94); Mean Platelet Vol. 10.6 fl (6.2-12.0); NRBC Flagged by Analyzer 0 % (0-5); Platelet Count 195 K/mm3 (150-450); RBC Distribution Width CV 12.1 % (11.6-14.6); RBC Distribution Width SD 39.8 fl (35.1-43.9); Red Blood Count 4.80 M/mm3 (4.6-6.2); White Blood Count 7.1 K/mm3 (4.4-11.0)
[2025-04-01 10:38] LABS: Anion Gap 12 (5-15); BUN 24 mg/dL (4-19); BUN/Creat Ratio 20.8 RATIO (10-20); Calcium,Total 9.4 mg/dL (7.6-11.0); Carbon Dioxide 21.5 mmol/L (21.0-32.0); Chloride 105 mmol/L (98-108); Cholesterol 167 mg/dL (<=200); Glucose 103 mg/dL (70-99); Low Density Lipoprotein Calc. 99 mg/dL; Potassium 4.0 mmol/L (3.3-5.1); Triglycerides 83 mg/dL; Very Low Density Lipoprotein 17 mg/dL (5-40); cholesterol:hdl ratio screen 3.27
== END | disposition home or self-care (01) ==
LOC: MTLAB 07:18
PROVIDERS: Psychiatry & Neurology Neurology; PCP Family Medicine; Referring Provider Student in an Organized Health Care Education/Training Program; Visit Provider Student in an Organized Health Care Education/Training Program
DX: Z08 Encounter for follow-up examination after completed treatment for malignant neoplasm (principal); I65.22 Occlusion and stenosis of left carotid artery
CPT/HCPCS: 36415; 80048; 80061; 85025

== ENCOUNTER → 2025-08-04 | Outpatient (CLI) | payer OTHER, SELFPAY ==
[2025-08-04 17:34] LABS: D-Dimer Quantitative (DVT/PE) 0.29 FEU/ug/m (0.27-0.49)
== END | disposition home or self-care (01) ==
LOC: MTLAB 15:41
PROVIDERS: PCP Family Medicine; Referring Provider Family Medicine; Visit Provider Family Medicine
DX: R07.9 Chest pain, unspecified (principal)
CPT/HCPCS: 36415; 85379